=== PATIENT | male | born 1980 | race African-American/Black ===

== ENCOUNTER 2023-04-15 11:36 | Outpatient (AMB) | payer OTHER, SELFPAY ==
--- NOTE | 2023-04-15 11:38 | AM.OFFWIN_ITS ---
Intake Vital Signs 04/15/23 11:48 Height 5 ft 11 in Weight 206 lb BMI 28.7 BP 160/80 H Blood Pressure Location Lt brachial Position Sitting Pulse 89 Pulse Source Pulse Oximeter Temp 97.3 F Temp Source Temporal Artery Scan Pulse Oximetry (%) 98 Oxygen Delivery Method Room Air Intake Visit Reasons: EST/chest pain/coughing up blood(lobby masked) Intake Note: pt is here today chest pain coughing up blood started 3 weeks ago Patient Tobacco Use Status: Never used Tobacco Allergies No Known Allergies Allergy (Verified 04/15/23 11:39) Do you need a note to return to daycare/school/sports/work: No HPI HPI Comments History of Present Illness Details 42 y/o male ptient who presents to walk in clinic with c/o cough and coughing up blood x 3 weeks now. Prior h/o TB infection 2014, was treated and completed Tx for 3 months. Denies fevers, chills, nausea or vomiting. No recent contacts. 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 H/o Nasal bleeds as a child. PFSH Social History Patient Tobacco Use Status: Never used Tobacco Review of Systems Const All systems reviewed & are unremarkable except as noted in HPI and below Physical Exam Vital Signs: Last Vital Signs Temp 97.3 F 04/15/23 11:48 Pulse 89 04/15/23 11:48 BP 160/80 H 04/15/23 11:48 Pulse Ox 98 04/15/23 11:48 Oxygen Delivery Method Room Air 04/15/23 11:48 BMI result Body Mass Index 28.7 Const General: comfortable and no acute distress Nutritional Appearance: overweight HEENT Head: Yes normocephalic and Yes atraumatic Ears: external ears normal and TM's normal bilaterally General nose exam: Abnormal mucous membranes and turbinates present boggy and erythematous Face and sinus: Yes sinuses nontender Mouth: moist mucous membranes Throat: Yes uvula midline Resp Effort & Inspection: normal respiratory effort and able to speak in complete sentences Auscultation: clear to auscultation bilaterally Cardio Rate: regular rate Rhythm: regular rhythm Assessment & Plan Assessment & Plan (1) Cough in adult: Code(s): R05.9 - Cough, unspecified Plan: - Chest Xray to r/o Infection - SARs - OTC cold/cough remedies. Orders: Orders SARS-CoV2/FLU/RSV Today R05.9 - Cough, unspecified XR chest 2V Today R05.9 - Cough, unspecified Coding Level of Care Code Est Pt Level 3 (54402) Diagnoses Cough in adult R05.9 Time Spent (min) 15
[2023-04-15 11:48] VITALS: BP 160/80; PULSE 89; TEMP 36.3; O2SAT 98; BMI 28.7
== END 2023-04-15 14:45 | disposition home or self-care (01) ==
PROVIDERS: PCP Nurse Practitioner Family; Visit Provider Nurse Practitioner Family
DX: R05.9 Cough, unspecified (principal)
CPT/HCPCS: 99213

== ENCOUNTER 2023-04-15 12:19 | Outpatient (REF) | payer OTHER, SELFPAY ==
--- NOTE | ~2023-04-15 | XR_ITS ---
EXAMINATION: XR CHEST CLINICAL INFORMATION: Coughing x3 weeks. On and off. COMPARISON: None available. TECHNIQUE: 2 views of the chest were obtained. FINDINGS: No significant abnormality is noted involving the heart, lungs, mediastinum, bony thorax or soft tissues. XR/XR chest 2V IMPRESSION: Unremarkable chest examination.
[2023-04-15 15:51] LABS: Influenza A PCR NEGATIVE (Negative); Influenza B PCR NEGATIVE (Negative); Resp Syncy Virus RNA Qual PCR NEGATIVE (Negative); SARS COV2 PCR INHOUSE NEGATIVE (Negative)
== END 2023-04-15 12:20 | disposition home or self-care (01) ==
LOC: HO.HMGCX 12:19
PROVIDERS: PCP Nurse Practitioner Family; Visit Provider Nurse Practitioner Family
DX: Z11.52 Encounter for screening for COVID-19 (principal); Z20.822 Contact with and (suspected) exposure to COVID-19; R05.9 Cough, unspecified
CPT/HCPCS: 0241U; 71046

== ENCOUNTER 2023-04-15 12:22 | Outpatient (REF) | payer OTHER, SELFPAY | END 2023-04-15 12:23 | disposition home or self-care (01) | LOC: HO.LAB 12:22 | PROVIDERS: Visit Provider Nurse Practitioner Family | DX: Z13.89 Encounter for screening for other disorder (principal) ==

== ENCOUNTER 2023-08-24 14:25 | Outpatient (AMB) | payer OTHER, SELFPAY ==
[2023-08-24 14:29] VITALS: BP 112/80; PULSE 75; TEMP 37.4; O2SAT 97; BMI 28.2
--- NOTE | 2023-08-24 14:29 | MHC.OFFWIV ---
Intake Vital Signs 08/24/23 14:29 Height 5 ft 11 in Weight 202 lb BMI 28.2 BP 112/80 Blood Pressure Location Rt brachial Position Sitting Pulse 75 Pulse Source Pulse Oximeter Temp 99.3 F Temp Source Oral Pulse Oximetry (%) 97 Oxygen Delivery Method Room Air Intake Visit Reasons: EP itchy leg/red eye Intake Note: pt is here for itchy legs and also red left eye. x 2 wks Patient Tobacco Use Status: Never used Tobacco Allergies lisinopril Allergy (Intermediate, Verified 08/24/23 14:38) Shortness of Breath Do you need a note to return to daycare/school/sports/work: No HPI HPI Comments History of Present Illness Details 42 y/o male patient who presents to walk in clinic with c/o Itching and dry skin lower extremities for few months now. He has used Ketoconazole and Steroid creams with no relief. PFSH Social History Patient Tobacco Use Status: Never used Tobacco Review of Systems Const All systems reviewed & are unremarkable except as noted in HPI and below Physical Exam Vital Signs: Last Vital Signs Temp 99.3 F 08/24/23 14:29 Pulse 75 08/24/23 14:29 BP 112/80 08/24/23 14:29 Pulse Ox 97 08/24/23 14:29 Oxygen Delivery Method Room Air 08/24/23 14:29 BMI result Body Mass Index 28.2 Const General: comfortable and no acute distress Nutritional Appearance: well nourished Orientation/consciousness: patient oriented x3 Skin General skin exam: no rashes or lesions noted, dry skin, Excoriation and lichenification Lesions: no lesions Rashes: no rashes Neuro General: patient oriented x3, gait normal and moves all extremities Psych Speech and movement: Normal speech and movement present Assessment & Plan Assessment & Plan (1) Pruritus: Code(s): L29.9 - Pruritus, unspecified Plan: Patient has no PCP. Moved from [place], no available previous medical records on File. Pt denies any chronic liver, Kidney, heart, DM conditions. H/o HTN on medications. Avoid Hot water, use Luke warm water and moisturize skin immediately after shower. Advised Pt to call [facility] for an Appointment Advised OTC Skin/Eczema creams/lotions Encouraged to obtain a PCP, he will need Blood work to investigate the cause of Itchy skin. Plan Patient has no PCP. Moved from [place], no available previous medical records on File. Pt denies any chronic liver, Kidney, heart, DM conditions. H/o HTN on medications. Avoid Hot water, use Luke warm water and moisturize skin immediately after shower. Advised Pt to call [facility] for an Appointment Advised OTC Skin/Eczema creams/lotions Encouraged to obtain a PCP, he will need Blood work to investigate the cause of Itchy skin. Coding Level of Care Code Est Pt Level 3 (22557) Diagnoses Pruritus L29.9 Time Spent (min) 15
== END 2023-08-24 15:06 | disposition home or self-care (01) ==
PROVIDERS: Visit Provider Nurse Practitioner Family
DX: L29.9 Pruritus, unspecified (principal)
CPT/HCPCS: 99213

== ENCOUNTER 2023-08-29 14:01 | Outpatient (AMB) | payer OTHER, SELFPAY ==
[2023-08-29 14:04] VITALS: BP 140/84; PULSE 76; TEMP 37; O2SAT 97; BMI 28.5
--- NOTE | 2023-08-29 14:04 | MHC.PC.OV ---
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 Allergies lisinopril Allergy (Intermediate, Verified 08/29/23 14:06) Shortness of Breath Tobacco use date assessed: 08/29/23 Dental Screening Dental Screen Date: 08/29/23 Did you have a dental visit in the last 12 months?: Yes Did you have a dental problem in the last 6 months where you did not have access to dental care?: No Was dental information given to patient?: Patient has dentist HPI HPI Comments History of Present Illness Details This is a 42-year-old male with a past medical history of hypertension, hyperlipidemia, vitamin-D and B12 deficiency presenting to establish care. He needs a physical exam. 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 He relocated from the [facility] to [facility] last year. He has 3 children. He has 2 boys ages 2-1/2 and 6 years and an 11-year-old stepdaughter. Patient always has positive PPDs and needs a chest x-ray as proof of tuberculosis negative screening for work. Patient is on supplementation for vitamin B12 and vitamin-D deficiency. Patient is treated with amlodipine 10 mg and losartan 25 mg for hypertension. His blood pressure is mildly elevated today. He admits he is a little nervous to come to the office for a new appointment. At the walk-in last week his blood pressure was 112/80. He monitors his blood pressure at home. Patient was seen at the walk-in for left lower extremity itching. He says this has happened before, and it always occurs during warmer months. He has tried some [id number] creams. No new exposures or medications. ROS: Constitutional: No unexplained weight loss, fever, chills, fatigue or night sweats. Eyes: +Difficulty reading, but has no trouble seeing far (he will schedule an eye exam). No double vision, eye pain, eye redness, eye discharge. ENT: No hearing loss, sneezing, congestion, runny nose or sore throat. Respiratory: No shortness of breath, cough or sputum production. Cardiovascular: No chest pain, chest pressure or chest discomfort. No palpitations or pedal edema. Gastrointestinal: No anorexia, nausea, vomiting or diarrhea. No abdominal pain or blood in stool. Genitourinary: No dysuria, hematuria, urinary frequency. Neurologic: No headache, dizziness, syncope, unilateral weakness, ataxia, numbness or tingling in the extremities. Musculoskeletal: No muscle pain, back pain, joint pain or swelling. Hematologic/Lymphatics: No bleeding or bruising. No painful lymph nodes. Skin: see HPI Endocrine: No cold or heat intolerance. No polyuria or polydipsia. Psychiatric: No depression or anxiety. No SI/HI. Physical exam: Constitutional: Alert, in no distress. Head: Normocephalic. Eyes: Pupils are equal, round and reactive to light. Extraocular muscles intact. Ear, Nose and Throat: Canals clear. TMs normal. Normal nasal mucosa. No nasal discharge. No oral lesions. Neck: Supple, Full range of motion. No lymphadenopathy. No palpable thyroid masses. Respiratory: Clear to auscultation. Cardiovascular: S1 S2 regular. No murmurs. Gastrointestinal: Abdomen soft, non-tender, non-distended. Normal bowel sounds. No palpable masses. Genitourinary: Patient deferred. Neurologic: No focal neurological deficits. Symmetric patellar reflexes. Moves all extremities spontaneously. Sensation intact bilaterally. Skin: hyperpigmentation on left ankle and lower leg and a few papules and minor excoriations Musculoskeletal: No gross deformities. Normal range of motion. Extremities: Warm and well perfused. No clubbing, cyanosis or edema. 3+ peripheral pulses bilaterally. Psychiatric: Normal mood and affect [facility] Medical History (Updated 08/29/23 @ 15:12 by NALINI Colin) B12 deficiency Vitamin D deficiency Hyperlipidemia Essential hypertension Dermatitis High blood pressure Surgical History (Updated 08/29/23 @ 15:05 by NALINI Colin) History of hydrocelectomy Family History (Updated 08/29/23 @ 15:01 by NALINI Colin) Mother Diabetes Maternal Grandmother High blood pressure Family/Other Breast cancer Social History (Updated 08/29/23 @ 14:23 by Ivis Ruiz CMA) Household Members: Family Both parents involved: No Caregiver staying overnight: No Housing: House Are you a primary medication care manager to a significant other at home: No Do you presently have visiting nurse or other home services: No 75 years or older and lives alone: No Alcohol intake: never Patient Tobacco Use Status: Never used Tobacco e-Cigarette/Vaping Use: Never Used service: No Current occupational status: employed 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 1. Little interest or pleasure in doing things: not at all 2. Feeling down, depressed, or hopeless: not at all 3. Trouble falling or staying asleep, or sleeping too much: not at all 4. Feeling tired or having little energy: not at all 5. Poor appetite or overeating: not at all 6. Feeling bad about yourself - or that you are a failure or have let yourself or your family down: not at all 7. Trouble concentrating on things, such as reading the newspaper or watching television: not at all 8. Moving or speaking so slowly that other people could have noticed. Or the opposite - being so fidgety or restless that you have been moving around a lot more than usual: not at all 9. Thoughts that you would be better off or of hurting yourself in some way: not at all Total score: 0 Depression Screening Interpretation: Negative Depression Screening Done: Yes 95085 - PHQ-9 Billing: Yes Source: Developed by Drs. Rudy Zhao, Anita Melendrez, Chidi Sanchez and colleagues, with an educational caro from [employer]. Thrive Questionnaire Date Thrive assessed: 08/29/23 I am a: Patient What is your living situation today?: I have a steady place to live Within the past 12 months, did the food you bought not last and you didn't have the money to get more?: Never true Within the past 12 months, did you worry whether your food would run out before you got money to buy more?: Never true Do you have trouble paying for medicines?: No Do you have trouble getting transportation to medical appointments?: No Do you have trouble paying your heating and electricity bill?: No Do you have trouble taking care of your child, family member or friend?: No Do you have trouble with day-to-day activities such as bathing, preparing meals, shopping, managing finances, etc.?: No Are you currently unemployed and looking for a job?: No Are you interested in more education?: Yes Currently or been in a relationship where the following occur: No concerns reported THRIVE Score: 0 AUDIT C Alcohol Use Questionnaire (AUDIT-C) 1. How often do you have a drink containing alcohol?: Never 3. How often do you have six or more drinks on one occasion?: Never Total Score: 0 MICHELLE-7 AMB Questionnaire MICHELLE-7 Date MICHELLE - 7 assessed: 08/29/23 Feeling nervous, anxious, or on edge: 1 = Several days Not being able to stop or control worryin = Not at all Worrying too much about different things: 0 = Not at all Trouble relaxin = Not at all Being so restless that it is hard to sit still: 0 = Not at all Becoming easily annoyed or irritable: 1 = Several days Feeling afraid as if something awful might happen: 1 = Several days Total MICHELLE-7 score (0-4 normal; 5-9 mild; 10-14 moderate; 15-21 severe): 3 Source: Developed by Drs. Rudy Zhao, Anita Melendrez, Chidi Sanchez and colleagues, with an educational caro from [employer]. MICHELLE-7 Assessment Billing MICHELLE-7 Assessment Tool: MICHELLE-7 Assessment 24111 Physical exam (Primary Care) Vital Signs: Last Vital Signs Temp 98.6 F 08/29/23 14:04 Pulse 76 08/29/23 14:04 BP 140/84 H 08/29/23 14:04 Pulse Ox 97 08/29/23 14:04 Oxygen Delivery Method Room Air 08/29/23 14:04 BMI result Body Mass Index 28.5 Tobacco/Smoking Status: Tobacco use Status Tobacco use date assessed 08/29/23 08/29/23 14:23 Patient Tobacco Use Status Never used Tobacco 08/29/23 14:23 e-Cigarette/Vaping Use Never Used 08/29/23 14:23 PHQ-9: PHQ-9 Score PHQ-9: Total score 0 08/29/23 14:40 Depression Screening Interpretation: Negative Thrive Assessment: Date of Thrive Assessment Date Thrive assessed 08/29/23 08/29/23 14:23 Currently or been in a relationship where the following occur: No concerns reported Assessment and Plan Assessment & Plan (1) Routine physical examination: Code(s): Z00.00 - Encounter for general adult medical examination without abnormal findings Plan: Patient is seen today for a routine physical. As part of this visit we reviewed the following issues, which are considered and essential part of preventative health in this age group: - Testicular cancer screening, which includes self exam teaching - Screening for colon cancer - referred for screening colonoscopy since he is due in October - Discussed Prostate cancer screening - psa ordered - Cholesterol screening - Nutritional and exercise counseling - Counseling of injury prevention including fire prevention, smoke alarms and seat belt usage - Screening for depression - Prevention of and/or testing for infectious diseases - Education about skin cancer - Recommendations about immunizations - Recommendation of an eye exam - Screening for substance abuse (2) Dermatitis: Code(s): L30.9 - Dermatitis, unspecified Plan: Continue use of hypoallergenic products. Trial of Lotrisone twice daily for 10 days. Refer to Dermatology. (3) Hyperlipidemia: Code(s): E78.5 - Hyperlipidemia, unspecified Qualifiers: Hyperlipidemia type: pure hypercholesterolemia Qualified Code(s): E78.00 - Pure hypercholesterolemia, unspecified Plan: Check lipid profile. (4) Essential hypertension: Code(s): I10 - Essential (primary) hypertension Plan: Patient was nervous today which may be increasing blood pressure. Last week blood pressure was normal. He will monitor at home and contact the office if readings are not under 130/80. (5) B12 deficiency: Code(s): E53.8 - Deficiency of other specified B group vitamins Plan: Continue supplementation. Check B12. (6) Vitamin D deficiency: Code(s): E55.9 - Vitamin D deficiency, unspecified Plan: Continue supplementation. Check vitamin-D level. Orders: Orders XR chest 2V Today Z11.1 - Encounter for screening for respiratory tuberculosis Comprehensive Met. Panel Today E53.8 - Deficiency of other specified B group vitamins, E55.9 - Vitamin D deficiency, unspecified, E78.5 - Hyperlipidemia, unspecified, I10 - Essential (primary) hypertension, L30.9 - Dermatitis, unspecified Lipid Panel Today E53.8 - Deficiency of other specified B group vitamins, E55.9 - Vitamin D deficiency, unspecified, E78.5 - Hyperlipidemia, unspecified, I10 - Essential (primary) hypertension, L30.9 - Dermatitis, unspecified TSH reflex Free T4 Today E53.8 - Deficiency of other specified B group vitamins, E55.9 - Vitamin D deficiency, unspecified, E66.9 - Obesity, unspecified, E78.5 - Hyperlipidemia, unspecified, I10 - Essential (primary) hypertension, L30.9 - Dermatitis, unspecified Complete Blood Count no Diff Today E53.8 - Deficiency of other specified B group vitamins, E55.9 - Vitamin D deficiency, unspecified, E78.5 - Hyperlipidemia, unspecified, I10 - Essential (primary) hypertension, L30.9 - Dermatitis, unspecified Prostate Specific Antigen Scr Today E53.8 - Deficiency of other specified B group vitamins, E55.9 - Vitamin D deficiency, unspecified, E78.5 - Hyperlipidemia, unspecified, I10 - Essential (primary) hypertension, L30.9 - Dermatitis, unspecified, Z12.5 - Encounter for screening for malignant neoplasm of prostate Vitamin D 1,25 dihydroxy Today E53.8 - Deficiency of other specified B group vitamins, E55.9 - Vitamin D deficiency, unspecified Vitamin B12 Today E53.8 - Deficiency of other specified B group vitamins, E55.9 - Vitamin D deficiency, unspecified Referrals Open Access Screening Colonoscopy Referral Z12.11 - Encounter for screening for malignant neoplasm of colon, Z12.12 - Encounter for screening for malignant neoplasm of rectum Dermatology Referral L30.9 - Dermatitis, unspecified Medications: New losartan 25 mg PO DAILY 90 tabs 3RF amlodipine 10 mg PO DAILY 90 tabs 3RF clotrimazole-betamethasone 1-0.05 % 1 appl topical BID 10 days 45 grams 0RF Patient Instructions: Follow up in 6 months for HTN Coding Level of Care Code Est Pt Prev Care 40-64y(76173) Diagnoses Routine physical examination Z00.00 Dermatitis L30.9 Pure hypercholesterolemia E78.00 Hyperlipidemia type: pure hypercholesterolemia Essential hypertension I10 B12 deficiency E53.8 Vitamin D deficiency E55.9 Additional Codes MICHELLE-7 Assessment Billing - MICHELLE-7 Assessment Tool: MICHELLE-7 Assessment [id number] ([id number])
== END 2023-08-29 15:00 | disposition home or self-care (01) ==
LOC: HO.HMGFM 14:01
PROVIDERS: PCP Physician Assistant Medical; Visit Provider Physician Assistant Medical
DX: Z00.00 Encounter for general adult medical examination without abnormal findings (principal); L30.9 Dermatitis, unspecified; E78.00 Pure hypercholesterolemia, unspecified; I10 Essential (primary) hypertension; E53.8 Deficiency of other specified B group vitamins; E55.9 Vitamin D deficiency, unspecified
CPT/HCPCS: 99396

== ENCOUNTER 2023-08-31 09:21 | Outpatient (REF) | payer OTHER, SELFPAY ==
--- NOTE | ~2023-08-31 | XR_ITS ---
EXAMINATION: XR CHEST CLINICAL INFORMATION: Screening for respiratory tuberculosis. COMPARISON: 2023 TECHNIQUE: 2 views of the chest were obtained. FINDINGS: Lungs are well-inflated and clear. Trachea is midline in position. No interstitial disease, consolidation or mass. No evidence of pulmonary nodules. No pleural effusion or pneumothorax. Cardiac silhouette and pulmonary vessels are normal in size. The mediastinum and yojana have normal contour. The visualized bones and upper abdomen are unremarkable. XR/XR chest 2V IMPRESSION: Lungs have a normal appearance. No evidence of infectious disease.
[2023-08-31 13:29] LABS: Hematocrit 38.5 % (42.0-52.0); Hemoglobin 13.3 g/dl (14.0-18.0); Mean Corpuscular HGB Conc 34.5 g/dl (31.0-36.0); Mean Corpuscular Volume 86.7 fL (80.0-98.0); Mean Platelet Volume 11.1 fL (9.4-12.4); Platelet Count 211 X10*3/uL (160-400); Red Blood Count 4.44 X10*6/uL (4.60-5.80); Red Cell Distribution Width 13.4 % (11.0-16.0)
[2023-08-31 13:55] LABS: Alanine Aminotransferase 19 U/L (0-40); Albumin Level 4.1 g/dL (3.5-5.0); Alkaline Phosphatase 91 U/L (39-117); Anion Gap 9 (12-20); Aspartate Amino Transferase 22 U/L (5-37); Bilirubin Total 0.5 mg/dL (0.0-1.0); Blood Urea Nitrogen 10 mg/dL (9-16); Calcium 8.8 mg/dL (8.4-10.2); Carbon Dioxide 28 mmol/L (22-29); Chloride 107 mmol/L (96-108); Cholesterol 179 mg/dL (<200); Estimated Glomerular Filt Rate > 60; Glucose Random 97 mg/dL (60-115); HDL Cholesterol 34 mg/dL (>40); LDL Cholesterol Calculated 127 mg/dL (<100); Potassium 3.2 mmol/L (3.3-5.1); Sodium 141 mmol/L (135-145); TSH reflex Free T4 1.14 uIU/mL (0.32-4.0); Triglycerides 92 mg/dL (<150)
[2023-08-31 14:16] LABS: Prostate Specific Antigen Scr 0.53 ng/mL (<0.05-4.0); Vitamin B12 490 pg/mL (200-900)
[2023-09-05 15:38] LABS: VITAMIN D (1,25 OH) D3 86 pg/mL; Vit D (1,25-Dihydroxy) Total 86 pg/mL (18-72); Vitamin D (1,25 OH) D2 <8 pg/mL
== END 2023-08-31 09:22 | disposition home or self-care (01) ==
LOC: HO.HMGCX 09:21
PROVIDERS: PCP Physician Assistant Medical; Visit Provider Physician Assistant Medical
DX: E78.5 Hyperlipidemia, unspecified (principal); I10 Essential (primary) hypertension; L30.9 Dermatitis, unspecified; E55.9 Vitamin D deficiency, unspecified; E53.8 Deficiency of other specified B group vitamins; Z12.5 Encounter for screening for malignant neoplasm of prostate; E66.9 Obesity, unspecified; Z11.1 Encounter for screening for respiratory tuberculosis
CPT/HCPCS: 36415; 71046; 80053; 80061; 82607; 82652; 84153; 84443; 85027

== ENCOUNTER 2023-09-30 10:47 | Outpatient (REF) | payer OTHER, SELFPAY ==
[2023-09-30 13:12] LABS: MANUAL DIFF FLAG NO
[2023-09-30 13:16] LABS: Basophils Percent Auto 0.6 % (0-2); Eosinophils Absolute Auto 0.1 X10*3/uL (0.0-0.4); Eosinophils Percent Auto 1.5 % (0-4); Hemoglobin 13.9 g/dl (14.0-18.0); Imm Gran Abs Auto 0.02 X10*3/uL (0.00-0.03); Imm Gran Pct Auto 0.4 % (0.0-0.4); Lymphocytes Absolute Auto 2.1 X10*3/uL (1.2-4.9); Mean Corpuscular HGB Conc 34.8 g/dl (31.0-36.0); Mean Corpuscular Hemoglobin 29.6 pg (27.0-33.0); Mean Corpuscular Volume 85.3 fL (80.0-98.0); Mean Platelet Volume 10.6 fL (9.4-12.4); Monocytes Absolute Auto 0.4 X10*3/uL (0.1-1.2); Neutrophils Absolute Auto 2.9 x10*3/uL (2.0-8.3); Neutrophils Percent Auto 52.5 % (45-73); Platelet Count 236 X10*3/uL (160-400); Red Blood Count 4.69 X10*6/uL (4.60-5.80); Red Cell Distribution Width 13.4 % (11.0-16.0); White Blood Count 5.5 X10*3/uL (4.8-10.8)
[2023-09-30 13:38] LABS: Iron 58 mcg/dL (45-160); Percent Iron Saturation 24 % (15-50); Potassium 3.1 mmol/L (3.3-5.1); Total Iron Binding Capacity 246 mcg/dL (228-428); Unsaturated Iron Binding 188 ug/dL
[2023-09-30 13:55] LABS: Ferritin 27 ng/mL (20-250)
== END 2023-09-30 10:48 | disposition home or self-care (01) ==
LOC: HO.HMGCLDS 10:47
PROVIDERS: PCP Physician Assistant Medical; Visit Provider Physician Assistant Medical
DX: D64.9 Anemia, unspecified (principal); E87.6 Hypokalemia; D72.819 Decreased white blood cell count, unspecified
CPT/HCPCS: 36415; 82728; 83540; 84132; 85025

== ENCOUNTER 2023-11-09 11:14 | Outpatient (AMB) | payer OTHER, SELFPAY ==
[2023-11-09 11:16] VITALS: BP 150/100; PULSE 78; O2SAT 99; BMI 27.9
--- NOTE | 2023-11-09 11:16 | HO.NEPHOV ---
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 He was 1st diagnosed with hypertension at the age of 18. He has been referred for hypokalemia. He has had persistent hypokalemia and currently on potassium supplementation. On amlodipine as well as a losartan for the control blood pressure. Despite this blood pressure has been suboptimal and systolic blood pressure has been around 150 mm Hg. Recent lab work showed potassium was 3.1 despite potassium supplementation. There was no alkalosis. Renal function stable. He is not on any diuretics Does not take any licorice. He is not on any other ampb-nde-hreutva medications. [facility] Medical History (Updated 10/07/23 @ 10:46 by NALINI Colin) Hypokalemia Anemia Leukopenia B12 deficiency Vitamin D deficiency Hyperlipidemia Essential hypertension Dermatitis High blood pressure Surgical History History of hydrocelectomy Family History Mother Diabetes Maternal Grandmother High blood pressure Family/Other Breast cancer Social History Household Members: Family Both parents involved: No Caregiver staying overnight: No Housing: House Are you a primary residential care facility manager to a significant other at home: No Do you presently have visiting nurse or other home services: No 75 years or older and lives alone: No Alcohol intake: never Patient Tobacco Use Status: Never used Tobacco e-Cigarette/Vaping Use: Never Used service: No Current occupational status: employed 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 Cognitive needs: No Hearing needs: No Vision needs: Yes (Patient states vision is blurry.) Review of Systems Const Denies fever(s) and Denies weight loss Card Denies chest pain Resp Denies cough and Denies hemoptysis GI Denies abdominal pain, Denies diarrhea and Denies nausea Musc Denies back pain Neuro Denies focal weakness Physical Exam Vital Signs: Last Vital Signs Pulse 78 11/09/23 11:16 BP 150/100 H 11/09/23 11:16 Pulse Ox 99 11/09/23 11:16 Oxygen Delivery Method Room Air 11/09/23 11:16 BMI result Body Mass Index 27.9 Const General: comfortable; No acute distress Orientation/consciousness: patient oriented x3 Eyes General: appearance normal, both eyes and all related structures Visual Padilla: normal visual padilla by confrontation Neck Neck: Yes supple and Yes no JVD Resp Effort & Inspection: normal respiratory effort and respiratory effort not decreased Auscultation: rhonchi Cardio Palpation: no palpable S3 and no palpable S4 Heart sounds: no rubs GI Inspection: Yes normal to inspection Palpation (GI): Soft to palpation Percussion: Yes normal to percussion Auscultation: normal bowel sounds General: Yes no CVA tenderness Back/Spine/Pelvis Back: no CVA tenderness Skin General skin exam: no petechiae and no purpura Neuro General: patient oriented x3 and no focal motor deficits Extrem General: No clubbing and No edema Results Reviewed Nephrology Results: Hgb 13.9 g/dl (14.0-18.0) L 09/30/23 WBC 5.5 X10*3/uL (4.8-10.8) 09/30/23 Plt Count 236 X10*3/uL (160-400) 09/30/23 Sodium 141 mmol/L (135-145) 08/31/23 Potassium 3.1 mmol/L (3.3-5.1) L 09/30/23 Chloride 107 mmol/L (96-108) 08/31/23 Carbon Dioxide 28 mmol/L (22-29) 08/31/23 BUN 10 mg/dL (9-16) 08/31/23 Creatinine 0.80 mg/dL (0.5-1.4) 08/31/23 Calcium 8.8 mg/dL (8.4-10.2) 08/31/23 Assessment & Plan Assessment & Plan (1) Hypokalemia: Code(s): E87.6 - Hypokalemia Category: Medical (2) Essential hypertension: Code(s): I10 - Essential (primary) hypertension Category: Medical Plan Young man with a history of klwofjhye-nu-fxopbga hypertension with hypokalemia. Even the onset of hypertension at a young age along with hypokalemia ,hyperaldosteronism should be ruled out, even though the recent lab work did not reveal any significant alkalosis. However the total CO2 was on the upper limit of normal. Recommendations We will evaluate for hyperaldosteronism. Hold losartan for 2 weeks and replace with hydralazine 25 mg b.i.d.. Check plasma renin activity and plasma aldosterone. Further workup will be did mention the outcome of these investigations. I have answered all his questions Orders: Orders Renin 2 Weeks E87.6 - Hypokalemia Basic Metabolic Panel 2 Weeks E87.6 - Hypokalemia Cortisol, Free 2 Weeks E87.6 - Hypokalemia Aldosterone 2 Weeks E87.6 - Hypokalemia Aldost/Renin 2 Weeks E87.6 - Hypokalemia UA and rflx microscopic 2 Weeks E87.6 - Hypokalemia Medications: New hydralazine 25 mg PO BID 60 tabs 0RF On Hold losartan Hold Comment: Doctor's Order 25 mg PO DAILY 90 tabs 3RF Coding Level of Care Code New Pt Level 4 (37072) Diagnoses Hypokalemia E87.6 Essential hypertension I10
== END 2023-11-09 11:39 | disposition home or self-care (01) ==
PROVIDERS: PCP Physician Assistant Medical; Referring Provider Physician Assistant Medical; Visit Provider Internal Medicine Hypertension Specialist
DX: E87.6 Hypokalemia (principal); I10 Essential (primary) hypertension
CPT/HCPCS: 99204

== ENCOUNTER → 2023-11-09 11:14 | Outpatient (BNVA) | payer OTHER, SELFPAY | PROVIDERS: PCP Physician Assistant Medical; Referring Provider Physician Assistant Medical; Visit Provider Internal Medicine Hypertension Specialist | DX: E87.6 Hypokalemia (principal); I10 Essential (primary) hypertension; E53.8 Deficiency of other specified B group vitamins; E55.9 Vitamin D deficiency, unspecified | CPT/HCPCS: 99202 ==

== ENCOUNTER 2023-12-28 11:53 | Outpatient (REF) | payer OTHER, SELFPAY ==
[2023-12-28 14:07] LABS: Anion Gap 10 (12-20); Blood Urea Nitrogen 12 mg/dL (9-16); Calcium 9.2 mg/dL (8.4-10.2); Carbon Dioxide 27 mmol/L (22-29); Chloride 105 mmol/L (96-108); Estimated Glomerular Filt Rate > 60; Glucose Random 89 mg/dL (60-115); Potassium 3.2 mmol/L (3.3-5.1); Sodium 139 mmol/L (135-145)
[2023-12-28 17:28] LABS: Appearance Urine Clear; Color Urine Yellow; Glucose Urine UA Negative (Negative); Leukocyte Esterase Urine Negative (Negative); Nitrite Urine Negative (Negative); PH 7.5 (5.0-9.0); Urine Blood Negative (Negative); Urine Ketones Negative (Negative); Urine Protein Negative (Neg-Trace)
[2024-01-03 11:43] LABS: Renin 0.25 ng/mL/h (0.25-5.82)
[2024-01-04 13:49] LABS: Aldosterone/Renin Ratio 47.4 Ratio (0.9-28.9); Plasma Renin Activity 0.19 ng/mL/h (0.25-5.82)
[2024-01-06 01:53] LABS: Cortisol, Free 0.46 mcg/dL
== END 2023-12-28 11:54 | disposition home or self-care (01) ==
LOC: HO.HMGCLDS 11:53
PROVIDERS: PCP Physician Assistant Medical; Visit Provider Internal Medicine Hypertension Specialist
DX: E87.6 Hypokalemia (principal)
CPT/HCPCS: 36415; 80048; 81003; 82088; 82530; 83735; 84244

== ENCOUNTER 2024-01-04 10:23 | Outpatient (AMB) | payer OTHER, SELFPAY ==
[2024-01-04 10:25] VITALS: BP 128/84; PULSE 98; O2SAT 86; BMI 28.3
--- NOTE | 2024-01-04 10:25 | HO.NEPHOV ---
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 He was 1st diagnosed with hypertension at the age of 18. He has been referred for hypokalemia. He has had persistent hypokalemia and currently on potassium supplementation. On amlodipine as well as a losartan for the control blood pressure. Despite this blood pressure has been suboptimal and systolic blood pressure has been around 150 mm Hg. Recent lab work showed potassium was 3.1 despite potassium supplementation. There was no alkalosis. Renal function stable. He is not on any diuretics Does not take any licorice. He is not on any other bcrs-pvh-rtidhqb medications. 01/04/24 Events noted Persistent hypokalemia PA/PRA pending [place] [facility] [place] Spironolactone 25 mg QD has been added Feels tired [facility] Medical History (Updated 10/07/23 @ 10:46 by NALINI Colin) Hypokalemia Anemia Leukopenia B12 deficiency Vitamin D deficiency Hyperlipidemia Essential hypertension Dermatitis High blood pressure Surgical History History of hydrocelectomy Family History Mother Diabetes Maternal Grandmother High blood pressure Family/Other Breast cancer Social History Household Members: Family Both parents involved: No Caregiver staying overnight: No Housing: House Are you a primary restorative care technician to a significant other at home: No Do you presently have visiting nurse or other home services: No 75 years or older and lives alone: No Alcohol intake: never Patient Tobacco Use Status: Never used Tobacco e-Cigarette/Vaping Use: Never Used service: No Current occupational status: employed 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 Cognitive needs: No Hearing needs: No Vision needs: Yes (Patient states vision is blurry.) Physical Exam Vital Signs: Last Vital Signs Pulse 98 01/04/24 10:25 BP 128/84 01/04/24 10:25 Pulse Ox 86 L 01/04/24 10:25 Oxygen Delivery Method Room Air 01/04/24 10:25 BMI result Body Mass Index 28.3 No orthostatic BP changes Const General: comfortable; No acute distress Orientation/consciousness: patient oriented x3 Eyes General: appearance normal, both eyes and all related structures Visual Padilla: normal visual padilla by confrontation Neck Neck: Yes supple and Yes no JVD Resp Effort & Inspection: normal respiratory effort and respiratory effort not decreased Auscultation: rhonchi Cardio Palpation: no palpable S3 and no palpable S4 Heart sounds: no rubs GI Inspection: Yes normal to inspection Palpation (GI): Soft to palpation Percussion: Yes normal to percussion Auscultation: normal bowel sounds General: Yes no CVA tenderness Back/Spine/Pelvis Back: no CVA tenderness Skin General skin exam: no petechiae and no purpura Neuro General: patient oriented x3 and no focal motor deficits Extrem General: No clubbing and No edema Results Reviewed Nephrology Results: Hgb 13.9 g/dl (14.0-18.0) L 09/30/23 WBC 5.5 X10*3/uL (4.8-10.8) 09/30/23 Plt Count 236 X10*3/uL (160-400) 09/30/23 Sodium 139 mmol/L (135-145) 12/28/23 Potassium 3.2 mmol/L (3.3-5.1) L 12/28/23 Chloride 105 mmol/L (96-108) 12/28/23 Carbon Dioxide 27 mmol/L (22-29) 12/28/23 BUN 12 mg/dL (9-16) 12/28/23 Creatinine 0.74 mg/dL (0.5-1.4) 12/28/23 Calcium 9.2 mg/dL (8.4-10.2) 12/28/23 Urine Protein Negative mg/dL (Neg-Trace) 12/28/23 Assessment & Plan Assessment & Plan (1) Hypokalemia: Code(s): E87.6 - Hypokalemia Category: Medical (2) Essential hypertension: Code(s): I10 - Essential (primary) hypertension Category: Medical Plan Young man with a history of zrketmcgi-ri-zdbciap hypertension with hypokalemia. Even the onset of hypertension at a young age along with hypokalemia ,hyperaldosteronism should be ruled out, even though the recent lab work did not reveal any significant alkalosis. However the total CO2 was on the upper limit of normal. Recommendations Work up for hyperaldosteronism. in progress Keep Spironolactone 12.5 mg BID Await Plasma renin activity and plasma aldosterone. Based on this, will image adrenals Watch PB at home follow up in 1 week and lower BP meds based on home BP readings Orders: Orders Basic Metabolic Panel 2 Days Philip Medina MD E87.6 - Hypokalemia, I10 - Essential (primary) hypertension Medications: Changed From hydralazine 25 mg PO BID 180 tabs 0RF To hydralazine 25 mg PO TID Philip Medina MD Resumed losartan 25 mg PO DAILY 90 tabs 3RF NALINI Colin Coding Level of Care Code Est Pt Level 4 (97837) Diagnoses Hypokalemia E87.6 Essential hypertension I10
== END 2024-01-04 10:50 | disposition home or self-care (01) ==
PROVIDERS: PCP Physician Assistant Medical; Visit Provider Internal Medicine Hypertension Specialist
DX: E87.6 Hypokalemia (principal); I10 Essential (primary) hypertension
CPT/HCPCS: 99214

== ENCOUNTER → 2024-01-04 10:23 | Outpatient (BNVA) | payer OTHER, SELFPAY | PROVIDERS: PCP Physician Assistant Medical; Visit Provider Internal Medicine Hypertension Specialist | DX: I10 Essential (primary) hypertension (principal); E87.6 Hypokalemia | CPT/HCPCS: 99212 ==

== ENCOUNTER 2024-01-05 11:36 | Outpatient (AMB) | payer OTHER, SELFPAY ==
--- NOTE | 2024-01-05 11:44 | A.OFFPC_ITS ---
Vital Signs 01/05/24 11:48 Height 5 ft 11 in Weight 207 lb 8 oz BMI 28.9 BP 132/82 Blood Pressure Location Lt brachial Position Sitting Pulse 87 Pulse Source Pulse Oximeter Pulse Oximetry (%) 98 Oxygen Delivery Method Room Air Intake Visit Reasons: ER Follow up , chest pain Intake Note: Emergency room folow up Allergies lisinopril Allergy (Intermediate, Verified 01/05/24 11:45) Shortness of Breath Tobacco use date assessed: 08/29/23 Dental Screening Dental Screen Date: 08/29/23 HPI HPI Comments History of Present Illness Details This is a 43-year-old male with a past medical history of chronic hypokalemia, longstanding hypertension, hyperlipidemia, B12 deficiency, vitamin- D deficiency, anemia presenting for hospital follow up. He presented with atypical chest pain. Per discharge summary troponin x2 negative. His EKG demonstrated LVH. Echocardiogram showed left ventricular hypertrophy. He was found to have very elevated blood pressure. He had a negative nuclear stress test. His medications were adjusted. He is currently taking losartan 25 mg, amlodipine 10 mg, spironolactone 25 mg and hydralazine 25 mg 3 times a day. He endorses fatigue on this regimen but otherwise is tolerating it. 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 He is undergoing evaluation for possible secondary hypertension. He continues to take his potassium supplement, and his potassium level was 3.2. Patient says it took a few days, but the heaviness in his chest resolved. He denies exertional chest pain or shortness of breath. No swelling in his legs. His blood pressure today is 132/82. He follows a very healthy diet. He ran out of vitamin B12 and vitamin-D a week ago. He was never contacted to schedule a colonoscopy. Denies abdominal pain, blood in his stools, unexplained weight loss. He has 2 bumps on the side of his right 5th toe which are painful. They have been there for months. ROS: Constitutional: No unexplained weight loss, fever, chills or night sweats. Eyes: No vision changes, blurry vision, double vision Respiratory: No shortness of breath, cough or sputum production. Cardiovascular: No chest pain, chest pressure or chest discomfort. No palpitations or pedal edema. Gastrointestinal: No anorexia, nausea, vomiting or diarrhea. No abdominal pain or blood in stool. Denies reflux. Neurologic: No headache, dizziness, syncope, no numbness or tingling in extremities Hematologic/Lymphatics: No bleeding or bruising Skin: No rash Endocrine: No cold or heat intolerance. No polyuria or polydipsia. Physical exam: Constitutional: Alert, in no distress. Eyes: Pupils are equal, round and reactive to light. Extraocular muscles intact. Neck: Supple, Full range of motion. No lymphadenopathy. No palpable thyroid masses. Respiratory: Clear to auscultation. Cardiovascular: S1 S2 regular. No murmurs. Gastrointestinal: Abdomen soft, non-tender, non-distended. Normal bowel sounds. Neurologic: No focal neurological deficits. Skin: No rashes Extremities: Warm and well perfused. No clubbing, cyanosis or edema. There is a tender callus on the lateral aspect of the right 5th toenail and a tender small lump on the same toe on the PIP joint. No discharge, redness or fluctuance. Psychiatric: Normal mood and affect [facility] Medical History (Updated 01/05/24 @ 14:03 by NALINI Colin) Hospital discharge follow-up LVH (left ventricular hypertrophy) Pain of right great toe Hypokalemia Anemia Leukopenia B12 deficiency Vitamin D deficiency Hyperlipidemia Essential hypertension Dermatitis High blood pressure Surgical History History of hydrocelectomy Family History (Updated 01/05/24 @ 11:48 by Glory Suazo CMA) Mother Diabetes Maternal Grandmother High blood pressure Family/Other Breast cancer Social History (Updated 01/05/24 @ 11:48 by Glory Suazo CMA) Household Members: Family Both parents involved: No Caregiver staying overnight: No Housing: House Are you a primary critical care cns to a significant other at home: No Do you presently have visiting nurse or other home services: No 75 years or older and lives alone: No Alcohol intake: former Patient Tobacco Use Status: Never used Tobacco e-Cigarette/Vaping Use: Never Used service: No Current occupational status: employed 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 1. Little interest or pleasure in doing things: more than half the days 2. Feeling down, depressed, or hopeless: several days 5. Poor appetite or overeating: not at all 7. Trouble concentrating on things, such as reading the newspaper or watching television: more than half the days 9. Thoughts that you would be better off or of hurting yourself in some way: not at all Source: Developed by Drs. Rudy Zhao, Anita Melendrez, Chidi Sanchez and colleagues, with an educational caro from [employer]. Thrive Questionnaire Date Thrive assessed: 01/04/24 I am a: Patient What is your living situation today?: I have a steady place to live Within the past 12 months, did the food you bought not last and you didn't have the money to get more?: Never true Within the past 12 months, did you worry whether your food would run out before you got money to buy more?: Never true Do you have trouble paying for medicines?: No Do you have trouble getting transportation to medical appointments?: No Do you have trouble paying your heating and electricity bill?: No Do you have trouble taking care of your child, family member or friend?: No Do you have trouble with day-to-day activities such as bathing, preparing meals, shopping, managing finances, etc.?: No Are you currently unemployed and looking for a job?: No Are you interested in more education?: Yes Please select the resources that you would like help with: Job search/training and Education Currently or been in a relationship where the following occur: I choose not to answer THRIVE Score: 0 AUDIT C Alcohol Use Questionnaire (AUDIT-C) 1. How often do you have a drink containing alcohol?: Monthly or less 2. How many drinks containing alcohol do you have on a typical day when you are drinking?: 1 or 2 3. How often do you have six or more drinks on one occasion?: Never Total Score: 1 MICHELLE-7 AMB Questionnaire MICHELLE-7 Date MICHELLE - 7 assessed: 08/29/23 Feeling nervous, anxious, or on edge: 0 = Not at all Not being able to stop or control worryin = Not at all Worrying too much about different things: 2 = More than half the days Trouble relaxin = More than half the days Being so restless that it is hard to sit still: 2 = More than half the days Becoming easily annoyed or irritable: 1 = Several days Feeling afraid as if something awful might happen: 2 = More than half the days Total MICHELLE-7 score (0-4 normal; 5-9 mild; 10-14 moderate; 15-21 severe): 9 Source: Developed by Drs. Rudy Zhao, Anita Melendrez, Chidi Sanchez and colleagues, with an educational caro from [employer]. Physical exam (Primary Care) Vital Signs: Last Vital Signs Pulse 87 01/05/24 11:48 BP 132/82 01/05/24 11:48 Pulse Ox 98 01/05/24 11:48 Oxygen Delivery Method Room Air 01/05/24 11:48 BMI result Body Mass Index 28.9 Tobacco/Smoking Status: Tobacco use Status Tobacco use date assessed 08/29/23 01/05/24 11:45 Patient Tobacco Use Status Never used Tobacco 01/05/24 11:48 e-Cigarette/Vaping Use Never Used 01/05/24 11:48 Thrive Assessment: Date of Thrive Assessment Date Thrive assessed 01/04/24 01/05/24 11:45 Currently or been in a relationship where the following occur: I choose not to answer Coding Level of Care Code Est Pt Level 5 (46882) Complex EM visit Add On G2211 Diagnoses Hospital discharge follow-up Z09 B12 deficiency E53.8 Anemia D64.9 Essential hypertension I10 LVH (left ventricular hypertrophy) I51.7 Time Spent (min) 45 Comment Reviewing records, seeing the patient, completing documentation Assessment & Plan Assessment & Plan (1) Hospital discharge follow-up: Code(s): Z09 - Encounter for follow-up examination after completed treatment for conditions other than malignant neoplasm Category: Medical (2) B12 deficiency: Code(s): E53.8 - Deficiency of other specified B group vitamins Category: Medical (3) Anemia: Code(s): D64.9 - Anemia, unspecified Category: Medical (4) Essential hypertension: Code(s): I10 - Essential (primary) hypertension Category: Medical (5) LVH (left ventricular hypertrophy): Code(s): I51.7 - Cardiomegaly Category: Medical Plan In summary this is a 43-year-old male with a past medical history of longstanding hypertension and hypokalemia who presented to the ER with chest heaviness. ACS ruled out. Symptoms were presumably due hypertensive emergency. His blood pressure is much better since adjusting his medications. He is following closely with Nephrology. He has another appointment Tuesday next week. He is being evaluated for possible secondary hypertension. He is tolerating the medications aside from fatigue which can be attributed to hydralazine. Patient referred to Cardiology. Patient will check CBC, vitamin-D, iron, B12 and folate today. Referred anew for colonoscopy. I asked the patient to contact me if he does not hear from scheduling in 2 weeks. Refer to podiatry for the lump on his right toe and callus. He will schedule a follow up with me in 8 weeks. Orders: Orders Vitamin B12 and Folate Today E53.8 - Deficiency of other specified B group vi tamins, E55.9 - Vitamin D deficiency, unspecified IRON PROFILE Today E53.8 - Deficiency of other specified B group vitamins, E55.9 - Vitamin D deficiency, unspecified Vitamin D 1,25 dihydroxy Today E53.8 - Deficiency of other specified B group vitamins, E55.9 - Vitamin D deficiency, unspecified Complete Blood Count no Diff Today E53.8 - Deficiency of other specified B group vitamins Referrals Gastroenterology Referral D64.9 - Anemia, unspecified, E53.8 - Deficiency of other specified B group vitamins, E55.9 - Vitamin D deficiency, unspecified, Z12.11 - Encounter for screening for malignant neoplasm of colon Podiatry Referral M79.674 - Pain in right toe(s) Cardiology Referral I10 - Essential (primary) hypertension, I51.7 - Cardiomegaly
[2024-01-05 11:48] VITALS: BP 132/82; PULSE 87; O2SAT 98; BMI 28.9
== END 2024-01-05 12:21 | disposition home or self-care (01) ==
PROVIDERS: PCP Physician Assistant Medical; Visit Provider Physician Assistant Medical
DX: D64.9 Anemia, unspecified (principal); Z09 Encounter for follow-up examination after completed treatment for conditions other than malignant neoplasm; E53.8 Deficiency of other specified B group vitamins; I10 Essential (primary) hypertension; I51.7 Cardiomegaly

== ENCOUNTER → 2024-01-05 11:36 | Outpatient (BNVA) | payer OTHER, SELFPAY | LOC: CF 01-06 09:03 | PROVIDERS: PCP Physician Assistant Medical; Referring Provider Internal Medicine Hypertension Specialist; Visit Provider Physician Assistant Medical | DX: Z09 Encounter for follow-up examination after completed treatment for conditions other than malignant neoplasm (principal); E53.8 Deficiency of other specified B group vitamins; D64.9 Anemia, unspecified; I11.9 Hypertensive heart disease without heart failure; E55.9 Vitamin D deficiency, unspecified; E78.5 Hyperlipidemia, unspecified; M79.674 Pain in right toe(s); Z79.899 Other long term (current) drug therapy | CPT/HCPCS: 99212 ==

== ENCOUNTER 2024-01-06 09:03 | Outpatient (REF) | payer OTHER, SELFPAY ==
[2024-01-06 10:11] LABS: Hematocrit 40.4 % (42.0-52.0); Hemoglobin 13.8 g/dl (14.0-18.0); Mean Corpuscular HGB Conc 34.2 g/dl (31.0-36.0); Mean Corpuscular Hemoglobin 29.6 pg (27.0-33.0); Mean Corpuscular Volume 86.5 fL (80.0-98.0); Platelet Count 210 X10*3/uL (160-400); Red Blood Count 4.67 X10*6/uL (4.60-5.80); White Blood Count 4.6 X10*3/uL (4.8-10.8)
[2024-01-06 10:56] LABS: Anion Gap 6 (12-20); Blood Urea Nitrogen 11 mg/dL (9-16); Calcium 8.9 mg/dL (8.4-10.2); Carbon Dioxide 30 mmol/L (22-29); Chloride 105 mmol/L (96-108); Estimated Glomerular Filt Rate > 60; Glucose Random 100 mg/dL (60-115); Iron 55 mcg/dL (45-160); Percent Iron Saturation 23 % (15-50); Potassium 3.4 mmol/L (3.3-5.1); Sodium 138 mmol/L (135-145); Total Iron Binding Capacity 241 mcg/dL (228-428); Unsaturated Iron Binding 186 ug/dL
[2024-01-06 11:15] LABS: Folate 9.8 ng/mL (> or = 4.0); Vitamin B12 539 pg/mL (200-900)
[2024-01-11 13:08] LABS: VITAMIN D (1,25 OH) D3 91 pg/mL; Vit D (1,25-Dihydroxy) Total 91 pg/mL (18-72); Vitamin D (1,25 OH) D2 <8 pg/mL
== END 2024-01-06 09:04 | disposition home or self-care (01) ==
LOC: HO.HMGCLDS 09:03
PROVIDERS: PCP Physician Assistant Medical; Referring Provider Internal Medicine Hypertension Specialist; Visit Provider Physician Assistant Medical
DX: I10 Essential (primary) hypertension (principal); E87.6 Hypokalemia; E53.8 Deficiency of other specified B group vitamins; E55.9 Vitamin D deficiency, unspecified
CPT/HCPCS: 36415; 80048; 82607; 82652; 82746; 83540; 85027

== ENCOUNTER 2024-01-18 13:16 | Outpatient (AMB) | payer OTHER, SELFPAY ==
--- NOTE | 2024-01-18 13:22 | HO.NEPHOV ---
Vital Signs 01/18/24 13:23 Height 5 ft 11 in Weight 209 lb BMI 29.1 BP 144/88 H Blood Pressure Location Lt brachial Position Sitting Pulse 77 Pulse Source Pulse Oximeter Pulse Oximetry (%) 97 Oxygen Delivery Method Room Air Intake Visit Reasons: 1 wk follow up/ Conf [employer] Tug Mate Required: No Accompanied by: Self / Same As Patient Allergies lisinopril Allergy (Intermediate, Verified 01/18/24 13:25) Shortness of Breath Medication List - Last Reconciled 01/18/24 by Philip Medina MD amlodipine 10 mg PO DAILY hydralazine 25 mg PO TID losartan 25 mg PO DAILY mecobalamin (vitamin B12) 1,000 mcg PO DAILY potassium chloride ER 10 mEq PO DAILY spironolactone 25 mg PO DAILY HPI Comments Details: 42-year-old man with a history of hypertension for 20 years. He was 1st diagnosed with hypertension at the age of 18. He has been referred for hypokalemia. He has had persistent hypokalemia and currently on potassium supplementation. On amlodipine as well as a losartan for the control blood pressure. Despite this blood pressure has been suboptimal and systolic blood pressure has been around 150 mm Hg. Recent lab work showed potassium was 3.1 despite potassium supplementation. There was no alkalosis. Renal function stable. He is not on any diuretics Does not take any licorice. He is not on any other [id number] medications. 01/04/24 Events noted Persistent hypokalemia PA/PRA pending Was admitted to [facility] for chest pain Spironolactone 25 mg QD has been added Feels tired 01/18/24 Feels better Home BP sub optimal [facility] Medical History (Updated 01/18/24 @ 13:39 by Philip Medina MD) Hospital discharge follow-up LVH (left ventricular hypertrophy) Pain of right great toe Hypokalemia Anemia Leukopenia B12 deficiency Vitamin D deficiency Hyperlipidemia Essential hypertension Dermatitis High blood pressure Surgical History History of hydrocelectomy Family History Mother Diabetes Maternal Grandmother High blood pressure Family/Other Breast cancer Social History Household Members: Family Both parents involved: No Caregiver staying overnight: No Housing: House Are you a primary patient care technician to a significant other at home: No Do you presently have visiting nurse or other home services: No 75 years or older and lives alone: No Alcohol intake: former Patient Tobacco Use Status: Never used Tobacco e-Cigarette/Vaping Use: Never Used service: No Current occupational status: employed 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 Cognitive needs: No Hearing needs: No Vision needs: Yes (Patient states vision is blurry.) Physical Exam Vital Signs: Last Vital Signs Pulse 77 01/18/24 13:23 BP 144/88 H 01/18/24 13:23 Pulse Ox 97 01/18/24 13:23 Oxygen Delivery Method Room Air 01/18/24 13:23 BMI result Body Mass Index 29.1 Results Reviewed Nephrology Results: Hgb 13.8 g/dl (14.0-18.0) L 01/06/24 WBC 4.6 X10*3/uL (4.8-10.8) L 01/06/24 Plt Count 210 X10*3/uL (160-400) 01/06/24 Sodium 138 mmol/L (135-145) 01/06/24 Potassium 3.4 mmol/L (3.3-5.1) 01/06/24 Chloride 105 mmol/L (96-108) 01/06/24 Carbon Dioxide 30 mmol/L (22-29) H 01/06/24 BUN 11 mg/dL (9-16) 01/06/24 Creatinine 0.82 mg/dL (0.5-1.4) 01/06/24 Calcium 8.9 mg/dL (8.4-10.2) 01/06/24 Urine Protein Negative mg/dL (Neg-Trace) 12/28/23 Assessment & Plan Assessment & Plan (1) Hypokalemia: Code(s): E87.6 - Hypokalemia Category: Medical (2) Essential hypertension: Code(s): I10 - Essential (primary) hypertension Category: Medical Plan Young man with a history of [id number] hypertension with hypokalemia. Even the onset of hypertension at a young age along with hypokalemia ,hyperaldosteronism should be ruled out, even though the recent lab work did not reveal any significant alkalosis. However the total CO2 was on the upper limit of normal. Recommendations Work up for hyperaldosteronism. PRA 0.19 PA 9 PA/PRA 47 ( high) Increase Spironolactone [address] of adrenals Watch BP at home Orders: Orders CT abdomen pelvis w IV con Today E26.9 - Hyperaldosteronism, unspecified, E87.6 - Hypokalemia, I10 - Essential (primary) hypertension Basic Metabolic Panel 1 Month E87.6 - Hypokalemia, I10 - Essential (primary) hypertension Medications: New spironolactone 25 mg PO BID 60 tabs 2RF Coding Level of Care Code Est Pt Level 4 (69895) Diagnoses Hypokalemia E87.6 Essential hypertension I10
[2024-01-18 13:23] VITALS: BP 144/88; PULSE 77; O2SAT 97; BMI 29.1
== END 2024-01-18 13:42 | disposition home or self-care (01) ==
PROVIDERS: PCP Physician Assistant Medical; Visit Provider Internal Medicine Hypertension Specialist
DX: E87.6 Hypokalemia (principal); I10 Essential (primary) hypertension
CPT/HCPCS: 99214

== ENCOUNTER → 2024-01-18 13:16 | Outpatient (BNVA) | payer OTHER, SELFPAY | PROVIDERS: PCP Physician Assistant Medical; Visit Provider Internal Medicine Hypertension Specialist | DX: E87.6 Hypokalemia (principal); I10 Essential (primary) hypertension | CPT/HCPCS: 99212 ==

== ENCOUNTER 2024-02-02 11:17 | Outpatient (AMB) | payer OTHER, SELFPAY ==
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
[2024-02-02 11:35] VITALS: BP 138/88; PULSE 75; O2SAT 99; BMI 28.5
== END 2024-02-02 12:09 | disposition home or self-care (01) ==
PROVIDERS: PCP Physician Assistant Medical; Visit Provider Physician Assistant Medical
DX: M54.50 Low back pain, unspecified (principal); M54.6 Pain in thoracic spine; F41.9 Anxiety disorder, unspecified

== ENCOUNTER 2024-02-06 13:26 | Outpatient (REF) | payer OTHER, SELFPAY ==
--- NOTE | ~2024-02-06 | XR_ITS ---
EXAMINATION: XR THORACIC SPINE XR LUMBAR SPINE CLINICAL INFORMATION: Low back pain. COMPARISON: None available. TECHNIQUE: 4 views of the thoracic spine. 4 views of the lumbar spine. FINDINGS: THORACIC SPINE: Mild dextroscoliosis of the thoracic spine. Possible borderline enlargement of the cardiac silhouette incompletely imaged on this exam should be evaluated with dedicated views of the chest. Vertical striations in multiple vertebral bodies are suggestive of diffuse demineralization. Appearance of mild superior and inferior endplate concavities in mid to lower thoracic vertebral bodies could be at least, in part, attributed to scoliosis, but correlation with clinical exam recommended to determine further management LUMBAR SPINE: Levoscoliosis of the lumbar spine. Vertical striations in multiple vertebral bodies suggestive of diffuse demineralization. Facet arthritis at the lumbosacral junction. Mild multilevel lumbar spondylosis. XR/XR thoracic spine 2V IMPRESSION: 1. Mild S-shaped thoracolumbar scoliosis. 2. Possible borderline enlargement of the cardiac silhouette is incompletely imaged on this exam and should be evaluated with dedicated views of the chest. 3. Vertical striations in multiple thoracic and lumbar vertebral bodies suggestive of diffuse demineralization. 4. Appearance of mild superior and inferior endplate concavities in mid to lower thoracic vertebral bodies could be at least, in part, attributed to scoliosis, but correlation with clinical exam recommended to determine further management. 5. Facet arthritis at the lumbosacral junction. 6. Mild multilevel lumbar spondylosis. This study was presented today, February 07, 2024, for interpretation. Stat results provided at this time as requested by referring provider. Electronically signed by: Cha Villarreal MD 02/07/2024 09:41 AM [facility]
--- NOTE | ~2024-02-06 | XR_ITS ---
EXAMINATION: XR THORACIC SPINE XR LUMBAR SPINE CLINICAL INFORMATION: Low back pain. COMPARISON: None available. TECHNIQUE: 4 views of the thoracic spine. 4 views of the lumbar spine. FINDINGS: THORACIC SPINE: Mild dextroscoliosis of the thoracic spine. Possible borderline enlargement of the cardiac silhouette incompletely imaged on this exam should be evaluated with dedicated views of the chest. Vertical striations in multiple vertebral bodies are suggestive of diffuse demineralization. Appearance of mild superior and inferior endplate concavities in mid to lower thoracic vertebral bodies could be at least, in part, attributed to scoliosis, but correlation with clinical exam recommended to determine further management LUMBAR SPINE: Levoscoliosis of the lumbar spine. Vertical striations in multiple vertebral bodies suggestive of diffuse demineralization. Facet arthritis at the lumbosacral junction. Mild multilevel lumbar spondylosis. XR/XR lumbar spine 2-3V IMPRESSION: 1. Mild S-shaped thoracolumbar scoliosis. 2. Possible borderline enlargement of the cardiac silhouette is incompletely imaged on this exam and should be evaluated with dedicated views of the chest. 3. Vertical striations in multiple thoracic and lumbar vertebral bodies suggestive of diffuse demineralization. 4. Appearance of mild superior and inferior endplate concavities in mid to lower thoracic vertebral bodies could be at least, in part, attributed to scoliosis, but correlation with clinical exam recommended to determine further management. 5. Facet arthritis at the lumbosacral junction. 6. Mild multilevel lumbar spondylosis. This study was presented today, February 07, 2024, for interpretation. Stat results provided at this time as requested by referring provider. Electronically signed by: Cha Villarreal MD 02/07/2024 09:41 AM [facility]
== END 2024-02-06 13:27 | disposition home or self-care (01) ==
LOC: HO.HMGCX 13:26
PROVIDERS: PCP Physician Assistant Medical; Visit Provider Physician Assistant Medical
DX: M54.50 Low back pain, unspecified (principal); M54.6 Pain in thoracic spine
CPT/HCPCS: 72070; 72100

== ENCOUNTER 2024-03-15 10:53 | Outpatient (REF) | payer OTHER, SELFPAY ==
--- NOTE | ~2024-03-15 | MM_ITS ---
EXAMINATION: DXA BONE DENSITY AXIAL HISTORY: Disorder of bone TECHNIQUE: [email or web address] Dual energy absorptiometry (DEXA) of the lumbar spine, total left hip, and femoral neck was performed. COMPARISON: There are no prior studies for comparison. FINDINGS: The bone mineral density of the lumbar spine is 1.080 with a T-score of -1.2, and a Z-score of -2.3. The bone mineral density of the left total hip is 1.076 with a T-score of -0.2, and a Z-score of -1.1. The bone mineral density of the left femoral neck is 1.121 with a T-score of 0.4, and a Z-score of -0.5. FRACTURE RISK: The FRAX index suggests a risk of major osteoporotic fracture of 0.9%, and of hip fracture 0.0%. MM/XR DEXA axial skeleton IMPRESSION: Based on bone mineral density, and according to World Health Organization (WHO) criteria, the diagnosis is consistent with osteopenia. All bone density values are in grams per centimeter squared (g/cm2). Statistically, 68% of repeat scans fall within 1 SD (+/- 0.010 g/cm2 for AP spine L1-L4) and 1 SD (+/- 0.012 g/cm2 for femur total) FRAX is a trademark of the [employer]'s [facility] [facility] [employer], a World Health Organization (WHO) Collaborating Center. Electronically signed by: Rudy Holliday MD 03/15/2024 12:29 PM [facility]
== END 2024-03-15 10:54 | disposition home or self-care (01) ==
LOC: HO.MAMMO 10:53
PROVIDERS: Visit Provider Physician Assistant Medical
DX: Z13.820 Encounter for screening for osteoporosis (principal); M89.9 Disorder of bone, unspecified
CPT/HCPCS: 77080

== ENCOUNTER → 2024-03-15 11:00 | Outpatient (BNV) | payer OTHER, SELFPAY | PROVIDERS: Visit Provider Radiology Diagnostic Radiology | DX: E28.39 Other primary ovarian failure (principal) | CPT/HCPCS: 77080 ==

== ENCOUNTER 2024-03-19 11:30 | Outpatient (AMB) | payer OTHER, SELFPAY ==
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
[2024-03-19 11:41] VITALS: BP 130/70; PULSE 77; RESP 16; TEMP 36.4; O2SAT 98; BMI 29.3
--- OUTSIDE RECORDS SUMMARY | 2024-03-19 16:21 | XMS_ITS | Encounter Summary ---
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 Name Role Phone Ayaka Valera MD Primary Care Provider [phone] Encounter Details Date Type Department Care Team (Late st Contact Info) Description 12/23/2021 Patient [facility] [address] [place] [id number] Paolo Lopez [address] [place], [place] Social History Tobacco Use Types Packs/Day Years Used Date Smoking Tobacco: Never Smokeless Tobacco: Never Comments:Never Alcohol Use Standard Drinks/Week Comments No 0 (1 standard drink = 0.6 oz pur e alcohol) Social Connections Answer Date Recorded Social Connections and Isolation 0 10/15/2018 Financial Resource Strain Answer Date R ecorded Financial Resource Strain 0 2019 Stress Answer Date Recorded Stress 0 10/15/2018 Physical Activity Answer Date Recorded Physical Activity 0 10/15/2018 Food Insecurity Answer Date Recorded Food 0 04/25/2019 Transportation Needs Answer Date Record ed Transportation 0 04/25/2019 Housing Stability Answer Date Recorded Housing 1 04/25/2019 Safety and Environment Answer Date Anthony rded Safety 0 07/07/2017 Utilities Answer Date Recorded Utilities 0 04/25/2019 Employment Answer Date Recorded Stress 0 04/25/2019 Sex and Gender Information Value Date Recorded Sex Assigned at Male 07/07/2017 4:50 PM PDT Legal Sex Male 6:34 PM PST Gender Identity Male Sexual Orientation Straight documented as of this encounter Functional Status * Is the patient deaf or has significant hearing impairment? Answer Date of Assessment Author No 04/25/2019 11:00 AM PST * Is the patient blind or has a significant vision impairment? Answer Date of Assessment Author No 04/25/2019 11:00 AM PST * Does the patient have difficulty walking or going up and/or down stairs? Answer Date of Assessment Author No 04/25/2019 11:00 AM PST * Does the patient have difficulty bathing and/or dressing? Answer Date of Assessment Author No 04/25/2019 11:00 AM PST * Does the patient have difficulty doing errands? Answer Date of Assessment Author No 04/25/2019 11:00 AM PST documented as of this encounter Mental Status * Does the patient have difficulty making decisions? Answer Entry Date Author No 04/25/2019 11:00 AM PST documented in this encounter Plan of Treatment Not on file documented as of this encounter Goals Goal Patient Goal Type Associated Problems Recent Progress Patient-Stated? Author Help patient manage hypertension Care Plan Patient has a diagnosis of hypertension Herbert Cohen documented as of this encounter Visit Diagnoses Not on filedocumented in this encounter Additional Health Concerns Active Problems Noted Date Diagnosed Date Patient has a diagnosis of hypertension 09/18/19 21 Assessment Noted Time PHQ-9 Depression Total Score: 0 03/29/19 16 11:00 AM PST documented as of this encounter Care Teams [employer] Furn[employer]er Relationship Specialty Start Date End Date Ayaka Valera MD [address] [place] [id number] PCP - General Internal Medicine 02/22/15 documented as of this encounter
--- OUTSIDE RECORDS SUMMARY | 2024-03-19 16:21 | XMS_ITS | Clinical Summary ---
Author Organization [facility] Address [address] [place] [address] Care Team Providers Care Termite Treater Name Role Phone Ayaka Valera MD Primary Care Provider Source Comments PLEASE NOTE, if this patient is a minor, it may be UNLAWFUL to discuss sensitive information that is contained in these records (such as FAMILY PLANNING, MENTAL HEALTH or SUBSTANCE ABUSE) with the minor patient's parent or other person without the patient's specific authorization.[facility] Allergies Active Allergy Reactions Criticality Noted Date Comments Doxycycline Nausea Only Low 04/26/2015 Hydrochlorothiazide 04/17/2019 Erectile dysfunction Lisinopril 02/28/2019 SOB Metoprolol Succinate SOB 05/01/2021 Nifedipine Palpitations Low 11/16/2013 NIFEDIPINE palpitations-- NIFEDIPINE palpitations-- Medications sildenafiL (VIAGRA) 100 mg tabletIndication s:Erectile dysfunction, unspecified erectile dysfunction type Take 1 Tablet by mouth once daily as needed for erectile dysfunction (Take 1 hour prior to sexual activity.) for up to 30 days 30 Tablet 2 Active GAS RELIEF 80 mg chewable tabletIndication s:Flatulence, eructation and gas pain Place 1 Tablet into mouth, chew and swallow every 6 (six) hours as needed for flatulence for up to 30 days 120 Tablet 3 3 Active losartan (COZAAR) 100 mg tabletIndication s:Essential (primary) hypertension Take 1 Tablet by mouth once daily for 90 days 90 Tablet 3 3 Active amLODIPine (NORVASC) 10 mg tabletIndication s:Essential (primary) hypertension Take 1 Tablet by mouth once daily for 90 days 90 Tablet 3 3 Active ketoconazole (NIZORAL) 2 % cream Apply topically once daily 30 g 1 3 Active potassium chloride CR (KLOR-CON) 10 mEq ER tablet Take 1 Tablet by mouth once daily 90 Tablet 1 3 Active cholecalciferol, vitamin D3, 25 mcg (1,000 unit) capsule Take 1 Capsule by mouth once daily 90 Capsule 2 3 Active cyanocobalamin (VITAMIN B-12) 1,000 mcg tablet Take 1 Tablet by mouth once daily 90 Tablet 3 Active Active Problems Problem Noted Date Diagnosed Date Hypokalemia 05/01/2021 Bilateral bunions 01/03/2021 Acute pain of left knee 09/11/2020 History of hydrocelectomy 04/17/2019 Overview (04/17/2019): [place]11[place] [facility] [place]-induced erectile dysfunction 02/28/2019 Hydrocele 07/22/2016 Scrofula 02/05/2014 Positive PPD 02/05/2014 Anemia 10/10/2013 HYPERTENSION 07/03/2013 Resolved Problems Problem Noted Date Diagnosed Date Resolved Date 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 Acute paronychia of toe of right foot 12/19/2018 10/09/2020 Insomnia 11/07/2014 10/09/2020 Stress, psychological NEC 09/16/2014 Tinea corporis, left forearm 08/26/2014 02/22/2015 Fatigue 08/12/2014 02/22/2015 Health maintenance exam 08/12/201409/21 Viral syndrome 11/27/2013 02/22/2015 Acne 11/16/2013 10/09/2020 Screening for pulmonary TB 10/16/2013 0 10/09/2020 Blurred vision 10/10/2013 02/22/2015 Nonintractable headache 10/10/201309/21 Mass, chest wall 07/11/2013 02/22/2015 Immunizations Name Administration Dates Next Due Flu, Adjuvant, 65y+ (Fluad) 01/02/2020 Flu, Multi Dose 0.5 ML 12/29/2020,12/19/2018, Flu, Preservative Free 02/04/2022 Hep B, Adult/Adol (ENERGIX/RECOMBIVAX) 8,05/17/2016 Hep B, Unspecified 08/12/2014 INFLUENZA, SEASONAL, INJECTABLE 11/01/2016,10/20 Moderna COVID-19 Vaccine, re d cap blue label, 12+ Primary Series 09/18/2020,08/21/2020 09/18/2020 Pfizer-BioNTech COVID-19 Vac cine Bivalent, (VARELA PFIZER-BIONTECH COVID-19 VACCINE BIVALENT, (VARELA CAP 02/04/2022 TDAP 08/12/2014 Family History Medical History Relation Name Comments No Known Problems Brother Diabetes Mellitus II Mother No Known Problems Sister Relation Name Status Comments Brother Mother Sister Social History Tobacco Use Types Packs/Day Years Used Date Smoking Tobacco: Never Smokeless Tobacco: Never Tobacco Cessation:Counseling Given: Not Answered Comments:Never Alcohol Use Standard Drinks/Week Comments Not Currently 0 (1 standard drink = 0.6 oz pur e alcohol) Social Connections Answer Date Recorded Connectedness 0 10/29/2023 Financial Resource Strain Answer Date R ecorded Financial Resource Strain 0 2019 Stress Answer Date Recorded Stress 0 10/15/2018 Physical Activity Answer Date Recorded Physical Activity 0 10/15/2018 Food Insecurity Answer Date Recorded Food 0 04/25/2019 Transportation Needs Answer Date Record ed Transportation 0 04/25/2019 Housing Stability Answer Date Recorded Housing 0 05/28/2022 Safety and Environment Answer Date Anthony rded Safety 0 07/07/2017 Utilities Answer Date Recorded Utilities 0 04/25/2019 Employment Answer Date Recorded Stress 0 04/25/2019 Sex and Gender Information Value Date Recorded Sex Assigned at Male 07/07/2017 4:50 PM PDT Legal Sex Male 6:34 PM PST Gender Identity Male Sexual Orientation Straight Last Filed Vital Signs Vital Sign Reading Time Taken Comments Blood Pressure 124/76 05/28/2022 3:29 PM EDT Pulse 72 05/28/2022 3:29 PM EDT Temperature 36.7 ??C (98 ??F) 02/04/2022 10:10 AM EST Respiratory Rate 16 05/23/2019 12:25 PM EDT Oxygen Saturation 96% 05/28/2022 3:29 PM EDT Inhaled Oxygen Concentration - - Weight 96.8 kg (213 lb 6.4 oz) 05/28/2022 3:29 P M EDT Height 175.9 cm (5' 9.25 ) 05/28/2022 3:29 PM ED T Body Mass Index 31.28 05/28/2022 3:29 PM EDT Plan of Treatment Health Maintenance Due Date Last Done Comments Dental FMX/Pano 1978 Tobacco Screening 08/07/2016 08/08/2015, , 05/02/2015, Additional history exists Dental Prophy 09/12/2020 09/11/2019 Dental BW 10/25/2020 10/24/2019 Dental Examination 10/25/2020 10/24/2019 Annual Preventive Care Visit 05/29/202308/2022, 12/29/2020, 09/18/2018, Additional history exists [id number] () 10/23/2023 02/04/2022, 09/18/2020, 08/21/2020 Imm-Influenza (#1) 2023 02/04/2022, 1 02/29/2020, 01/02/2020, Additional history exists CT Colonography 11/20/2023 Colonoscopy 11/20/2023 Colorectal Cancer Screening 11/20/2023 FIT/gFOBT 11/20/2023 Fecal DNA 11/20/2023 Flexible Sigmoidoscopy 11/20/2023 Alcohol and Drug Screen 02/22/2024 05/29/19 23, 07/14/2021, 12/29/2020, Additional history exists Depression Annual Screen 02/22/2024 05/28/2022 Imm-DTaP/Tdap/Td (2 - Td or Tdap) 08/12/2024 015 Diabetes Screening 02/04/2025 02/04/2022, 1 04/07/2021, 05/05/2021, Additional history exists Lipid Screening 02/04/2025 02/04/2022, 04/21, 04/02/2020, Additional history exists Imm-Hepatitis B Completed 07/07/2017, 04/22, 08/12/2014 HIV Screening Completed 05/05/2021, 06/2017, 04/20/2016, Additional history exists Hepatitis C Screening Completed 05/05/2021 , 07/26/2017, 07/25/2014, Additional history exists Goals Goal Patient Goal Type Associated Problems Recent Progress Patient-Stated? Author Help patient manage hypertension Care Plan Patient has a diagnosis of hypertension Herbert Cohen Procedures Procedure Name Priority Date/Time Associated Diagnosis Comments COMPREHENSIVE METABOLIC PANEL Routine 02/04/2022 11:04 AM EST HYPERTENSION LIPID PANEL Routine 02/04/2022 11:04 AM EST HYPERTENSION HIV 1/2 AG & AB W/RFLX (4TH GEN) Routine 05/05/2021 8:46 AM EDT Screening for STD (sexually transmitted disease) HEPATITIS C ANTIBODY WITH RFLX TO HCV RNA PCR W/RFLX TO GENOTYPE Routine 05/05/2021 8:46 AM EDT Screening for STD (sexually transmitted disease) BITEWINGS - FOUR RADIOGRAPHIC IMAGES Routine 10/24/2019 3:00 PM EDT Visit for dental examination PERIODIC ORAL EVALUATION ESTABLISHED PATIENT Routine 10/24/2019 3:00 PM EDT Visit for dental examination PROPHYLAXIS - ADULT Routine 09/11/2019 1 :00 PM EDT Visit for dental examination from Last 3 Months or Most Recently Relevant to Health Maintenance Results * (ABNORMAL) LIPID PANEL (02/04/2022 11:04 AM EST) [facility] CHOLESTEROL, TOTAL 173 <200 mg/dL 02/05/2022 1:28 AM EST [employer] [facility] HDL CHOLESTEROL 31(L) > OR = 40 mg/dL 02/05/2022 1:28 AM EST [employer] [facility] TRIGLYCERIDES 309(H) <150 mg/dL 02/05/2022 1:28 AM EST [facility] LDL-CHOLESTEROL 101(H) mg/dL (calc) 02/05/2022 1:28 AM EST [employer] [facility] CHOL/HDLC RATIO 5.6(H) <5.0 (calc) 02/05/2022 1:28 AM EST [employer] NON-HDL CHOLESTEROL 142(H) <130 mg/dL (calc) 02/05/2022 1:28 AM EST [employer] Blood Blood / Unknown 02/04/2022 1 1:04 AM EST 02/04/2022 10:29 PM EST Narrative [facility] - 02/05/2022 1:59 AM EST . If a non-fasting specimen was collected, consider repeat triglyceride testing on a fasting specimen if clinically indicated. Oma et al. J. of Clin. Lipidol. 2015;9:129-169. . Reference range: <100 . Desirable range <100 mg/dL for primary prevention; ?? <70 mg/dL for patients with CHD or diabetic patients with > or = 2 CHD risk factors. . LDL-C is now calculated using the Meme calculation, which is a validated novel method providing better accuracy than the Friedewald equation in the estimation of LDL-C. Zhen SS et al. DEBORAH. 2013;310(19): 4836-0483 (http://education.CustomerXPs Software/faq/WUO423) For patients with diabetes plus 1 major ASCVD risk factor, treating to a non-HDL-C goal of <100 mg/dL (LDL-C of <70 mg/dL) is considered a therapeutic option. Paola Moreira MD LAB - BLOOD DRAW Final Result [employer] [address] [place] [id number], [employer] [address] [place] [id number] * COMPREHENSIVE METABOLIC PANEL (02/04/2022 11:04 AM EST) GLUCOSE 91 65 - 99 mg/dL 02/05/2022 1:28 AM EST [facility] UREA NITROGEN (BUN) 13 7 - 25 mg/dL 02/05/2022 1:28 AM EST [employer] CREATININE (blood) 0.79 0.60 - 1.29 mg/dL 02/05/2022 1:28 AM EST [facility] EGFR 113 > OR = 60 mL/min/1 .73m2 02/05/2022 1:28 AM EST [employer] BUN/CREATININE RATIO NOT APPLICABLE 6 - 22 (calc) 02/05/2022 1:28 AM [facility] SODIUM 140 135 - 146 mmol/L 02/05/2022 1:28 AM [facility] POTASSIUM 3.7 3.5 - 5.3 mmol/L 02/05/2022 1:28 AM [facility] CHLORIDE 103 98 - 110 mmol/L 02/05/2022 1:28 AM [facility] CARBON DIOXIDE 30 20 - 32 mmol/L 02/05/2022 1:28 AM [facility] CALCIUM 9.4 8.6 - 10.3 mg/dL 02/05/2022 1:28 AM [facility] PROTEIN, TOTAL 7.2 6.1 - 8.1 g/dL 02/05/2022 1:28 AM [facility] ALBUMIN 4.4 3.6 - 5.1 g/dL 02/05/2022 1:28 AM [facility] GLOBULIN 2.8 1.9 - 3.7 g/dL (calc) 02/05/2022 1:28 AM [facility] ALBUMIN/GLOBUL IN RATIO 1.6 1.0 - 2.5 (calc) 02/05/2022 1:28 AM [facility] BILIRUBIN, TOTAL 0.4 0.2 - 1.2 mg/dL 02/05/2022 1:28 AM [facility] ALKALINE PHOSPHATASE 99 36 - 130 U/L 02/05/2022 1:28 AM [facility] AST 24 10 - 40 U/L 02/05/2022 1:28 AM [facility] ALT 22 9 - 46 U/L 02/05/2022 1:28 AM [facility] Blood Blood / Unknown 02/04/2022 1 1:04 AM EST 02/04/2022 10:29 PM EST [employer] [facility] - 02/05/2022 1:59 AM EST . ? Fasting reference interval . The eGFR is based on the CKD-EPI 2020 equation. To calculate the new eGFR from a previous Creatinine or Cystatin C result, go to https://www.kidney.org/professionals/ kdoqi/gfr%5Fcalculator Paola Moreira MD LAB - BLOOD DRAW Final Result Performing Organization Address [facility]/ZIP Co de Phone Number [employer] [facility] [address] [address], [employer] [facility] [address] [place] [address] * HEPATITIS C ANTIBODY WITH RFLX TO HCV RNA PCR W/RFLX TO GENOTYPE (05/05/2021 8:46 AM EDT) HEPATITIS C ANTIBODY NON-REACT MAMIE NON-REACT MAMIE [employer] [facility] SIGNAL TO CUT-OFF 0.01 <1.00 [facility] Comment: HCV antibody was non-reactive. There is no laboratory evidence of HCV infection. In most cases, no further action is required. However, if recent HCV exposure is suspected, a test for HCV RNA (test code 79261) is suggested. COMMENT [facility] Blood Blood / Unknown 05/05/2021 8 :46 AM EDT 05/06/2021 1:57 AM EDT Narrative [facility] - 05/07/2021 5:29 AM EDT For additional information, please refer to http://education.CustomerXPs Software/faq/DCS609 (This link is being provided for informational/ educational purposes only.) Ayaka Valera MD LAB - BLOOD DRAW Edited Resu lt - Final Performing Organization Address [facility]/ZIP Co de Phone Number [employer] [facility] [address] [address], [employer] [facility] [address] [place] [address] [employer] [address] [address] * HIV 1/2 AG & AB W/RFLX (4TH GEN) (05/05/2021 8:46 AM EDT) HIV AG/AB, 4TH GEN NON-REAC TIVE NON-REAC TIVE [employer] [facility] Comment: HIV-1 antigen and HIV-1/HIV-2 antibodies were not detected. There is no laboratory evidence of HIV infection. PLEASE NOTE: This information has been disclosed to you from records whose confidentiality may be protected by state law. ??If your state requires such protection, then the state law prohibits you from making any further disclosure of the information without the specific written consent of the person to whom it pertains, or as otherwise permitted by law. A general authorization for the release of medical or other information is NOT sufficient for this purpose. ?? For additional information please refer to http://education.PAYMILL/faq/GHW752 (This link is being provided for informational/ educational purposes only.) The performance of this assay has not been clinically validated in patients less than 2 years old. Blood Blood / Unknown 05/05/2021 8 :46 AM EDT 05/06/2021 2:07 AM EDT us Ayaka Valera MD LAB - BLOOD DRAW Edited Resu lt - Final [facility] [address] [address], [facility] [address] [place] [address] from Last 3 Months or Most Recently Relevant to Health Maintenance Additional Health Concerns Active Problems Noted Date Diagnosed Date Patient has a diagnosis of hypertension 09/18/19 21 Insurance DELTA DENTAL [facility] Care Teams Termite Treater Relationship Specialty Start Date End Date Ayaka Valera MD [address] [facility] [place] [address] PCP - General Internal Medicine 02/22/15
--- OUTSIDE RECORDS SUMMARY | 2024-03-19 16:21 | XMS_ITS | Clinical Summary ---
Author Organization [address] [facility] Address [address] [place] [address] Phone Care Team Providers Care Assurance Senior Manager Name Role Phone Dee Arce Primary Care Provider [phone] Social History Tobacco Use Types Packs/Day Years Used Date Smoking Tobacco: Never Assessed Sex and Gender Information Value Date Recorded Sex Assigned at Not on file Gender Identity Not on file Sexual Orientation Not on file Plan of Treatment Upcoming Encounters Date Type Department Care Team ([facility] Contact Info) Description 04/10/2024 10:30 AM EST Office Visit Orthopedic Surgery [place] [address] [phone] Bernardo Goins, DPM [address] [address] Health Maintenance Due Date Last Done Comments DTaP,Tdap,and Td Vaccines (1 - Tdap) 1997 Hepatitis B Vaccines (1 of 3 - 19+ 3-dose series) 1997 COVID-19 Vaccine ( - 2023-2 5 season) 2023 Influenza Vaccine (#1) 2023 Cholesterol Screening (Lipid Panel) 01/10/2024 Colorectal Cancer Screening: Colonoscopy 01/10/2024 Depression Screening 01/10/2024 HIV Screening 01/10/2024 Hepatitis C Screening 01/10/2024 Social Influencers of Health Screening 01/10/2024 HIB Vaccines Aged Out No longer eligi ble based on patient's age to complete this topic HPV Vaccines Aged Out No longer eligi ble based on patient's age to complete this topic Hepatitis A Vaccines Aged Out No long er eligible based on patient's age to complete this topic IPV Vaccines Aged Out No longer eligi ble based on patient's age to complete this topic MMR Vaccines Aged Out No longer eligi ble based on patient's age to complete this topic Meningococcal ACWY Vaccine Aged Out N o longer eligible based on patient's age to complete this topic Pneumococcal Vaccine: Pediat rics (0 to 5 Years) and At-Risk Patients (6 to 64 Years) Aged Out No longer eligible b ased on patient's age to complete this topic RSV Immunization Patients Un rose marie 20 months Aged Out No longer eligible b ased on patient's age to complete this topic Varicella Vaccines Aged Out No longer eligible based on patient's age to complete this topic Care Teams Assurance Senior Manager Relationship Specialty Start Date End Date Dee Arce PA [address] [place] [phone] PCP - General Physician Twist Tester 01/10/24
--- OUTSIDE RECORDS SUMMARY | 2024-03-19 16:21 | XMS_ITS | Clinical Summary ---
Author Organization [employer] Address [address] [facility] [address] [place] [address] Care Team Providers Care Sales Audit Clerk Name Role Phone Unavailable Primary Care Provider Unavailabl e Social History Tobacco Use Types Packs/Day Years Used Date Smoking Tobacco: Never Assessed Sex and Gender Information Value Date Recorded Sex Assigned at Male 11/14/2023 4:09 PM EDT Legal Sex Male 4:07 PM EDT Gender Identity Male 11/14/2023 4:09 PM EDT Sexual Orientation Straight 11/14/2023 4: 09 PM EDT Plan of Treatment Health Maintenance Due Date Last Done Comments CT Colonography 1978 Colonoscopy 1978 Colorectal Cancer Screening 1978 Depression Screening 1978 FIT DNA/Cologuard 1978 FIT 1978 FOBT 1978 Lipid Panel 1978 SDOH Screening 1978 Sigmoidoscopy 1978 Alcohol/Substance Use Screening 1990 Tobacco Screening 1990 Family Planning (PISQ) 1993 Hepatitis C Screening 1996 COVID-19 Vaccine ( season) 2023 02/04/2022, 09/18/2020, 08/21/2020 Influenza Vaccine (#1) 2023 , 02/04/2022, 12/29/2020, Additional history exists DTaP/Tdap/Td Vaccines (2 - Td or Tdap) 08/12/2024 08/12/2014 Zoster Vaccines (1 of 2) 2028 RSV Patients and Patients Aged 60 years or older (1 - 1-dose 75+ series) 2053 Hepatitis B Vaccines Completed 07/07/2017, 05/17/2016, 08/12/2014 HIV Screening Completed 05/05/2021 HIB Vaccines Aged Out No longer eligi [...] patient's age to complete this topic Meningococcal Vaccine Aged Out No amna nury eligible based on patient's age to complete this topic Pneumococcal Vaccine: Pediatrics (0 to 5 Years) and At-Risk Patients (6 to 64 Years) Aged Out No longer eligible based on patient's age to complete this topic RSV under 20 months Aged Out No longe r eligible based on patient's age to complete this topic Rotavirus Vaccines Aged Out No longer eligible based on patient's age to complete this topic [place] [address] [place] [address] STANDARD
== END 2024-03-19 12:24 | disposition home or self-care (01) ==
PROVIDERS: PCP Physician Assistant Medical; Visit Provider Physician Assistant Medical
DX: M85.80 Other specified disorders of bone density and structure, unspecified site (principal); M54.50 Low back pain, unspecified; M54.6 Pain in thoracic spine; E87.6 Hypokalemia; I10 Essential (primary) hypertension; E53.8 Deficiency of other specified B group vitamins; D64.9 Anemia, unspecified

== ENCOUNTER 2024-03-21 15:36 | Outpatient (AMB) | payer OTHER, SELFPAY ==
--- NOTE | 2024-03-21 15:37 | A.OFFVIS_ITS ---
Vital Signs 03/21/24 15:41 Height 5 ft 11.34 in Weight 208 lb 5.389 oz BMI 28.8 BP 146/88 H Blood Pressure Location Rt brachial Position Sitting Pulse 81 Pulse Source Pulse Oximeter Intake Visit Reasons: Other specified disorders of bone density and stru Intake Note: New patient internally referred by PCP for Other specified disorders of Bone Density and structure. 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 First diagnosed in recently . Not Received treatment in the past No history of pathologic fracture or ONJ. Has several servings of dietary calcium per day in the form of cheese occasionally , cereal , cottage cheese . Not Takes Calcium supplement . Not Takes IU of Vitamin D daily but took before . Denies ever using PPI, anticoagulant, antiepileptic or glucocorticoid medication. Not Does weight bearing exercise Fracture history: No Height loss: No Denies history of Kidney stones: Denies family history of Osteoporosis or hip fracture. UTD on dental cleanings and sees dentist every 6 months. No planned upcoming dental work or extractions. Has loss of libido for yrs . Was prescribed ED agents . Has 2 children- no pro blem with fertility DXA dated 03/15/24:EXAMINATION: DXA BONE DENSITY AXIAL HISTORY: Disorder of bone TECHNIQUE: Symvato Dual energy absorptiometry (DEXA) of the lumbar spine, total left hip, and femoral neck was performed. COMPARISON: There are no prior studies for comparison. FINDINGS: The bone mineral density of the lumbar spine is 1.080 with a T-score of -1.2, and a Z-score of -2.3. The bone mineral density of the left total hip is 1.076 with a T-score of -0.2, and a Z-score of -1.1. The bone mineral density of the left femoral neck is 1.121 with a T-score of 0.4, and a Z-score of -0.5. FRACTURE RISK: The FRAX index suggests a risk of major osteoporotic fracture of 0.9%, and of hip fracture 0.0%. MM/XR DEXA axial skeleton IMPRESSION: Based on bone mineral density, and according to World Health Organization (WHO) criteria, the diagnosis is consistent with osteopenia. Labs: [facility] Medical History (Updated 03/16/24 @ 09:42 by NALINI Colin) Osteopenia Bone disorder Anxiety Thoracolumbar back pain Hospital discharge follow-up LVH (left ventricular hypertrophy) Pain of right great toe Hypokalemia Anemia Leukopenia B12 deficiency Vitamin D deficiency Hyperlipidemia Essential hypertension Dermatitis High blood pressure Surgical History History of hydrocelectomy Family History Mother Diabetes Maternal Grandmother High blood pressure Family/Other Breast cancer Social History Household Members: Family Both parents involved: No Caregiver staying overnight: No Housing: House Are you a primary healthcare risk control consultant to a significant other at home: No Do you presently have visiting nurse or other home services: No 75 years or older and lives alone: No Alcohol intake: former Patient Tobacco Use Status: Never used Tobacco e-Cigarette/Vaping Use: Never Used service: No Current occupational status: employed 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 Absence of blue sclera. Absence of kyphosis. Thyroid gland is of nl size and weighs 15 gms. There are no thyroid nodules palpated. Lungs CTA. Heart S1 S2 Reg R/R Abdominal exam benign. Muscle strength 5/5 . Examination of spine reveals absence of tenderness on palpation Assessment & Plan Assessment & Plan (1) Osteopenia: Code(s): M85.80 - Other specified disorders of bone density and structure, unspecified site Category: Medical Plan: This is a 43-year-old male with a history of low bone mass. Partial secondary workup was performed. Plan is to complete the secondary workup as per primary provider by checking testosterone a.m. fasting, 24 hour urine for calcium and creatinine, 25 hydroxy vitamin-D level. Will ensure 1200 mg of calcium and vitamin D3 2000 IU per day. Based on FRAX criteria, patient does not meet criteria for pharmacologic treatment. If secondary workup was negative, patient returned to the care of his primary care provider. If secondary workup reveals endocrine cause behind low bone mass, patient returned back to endocrinology for follow-up. He should returned to follow up with Nephrology regarding his hypertension and possible diagnosis of primary hyperaldosteronism Coding Level of Care Code New Pt Level 4 (15554) Diagnoses Osteopenia M85.80
[2024-03-21 15:41] VITALS: BP 146/88; PULSE 81; BMI 28.8
--- OUTSIDE RECORDS SUMMARY | 2024-03-21 17:27 | XMS_ITS | Clinical Summary ---
Author Organization [facility] Address [address] [place] [address] Care Team Providers Care Technologies Division Chair Name Role Phone Ayaka Valera MD Primary Care Provider [phone] Source Comments PLEASE NOTE, if this patient [...] (04/17/2019): S/p rt hydrocelectomy on 04/11/2019 at [facility] Drug-induced erectile dysfunction 02/28/2019 Hydrocele 07/22/2016 Scrofula [...] Visit 05/29/202308/2022, 12/29/2020, 09/18/2018, Additional history exists Hit-MBPZT-95 () 10/23/2023 02/04/2022, 09/18/2020, 08/21/2020 Imm-Influenza (#1) [...] (ABNORMAL) LIPID PANEL (02/04/2022 11:04 AM EST) [facility] CHOLESTEROL, TOTAL 173 <200 mg/dL 02/05/2022 1:28 AM EST [facility] HDL CHOLESTEROL 31(L) > OR = 40 mg/dL 02/05/2022 1:28 AM EST [facility] TRIGLYCERIDES 309(H) <150 mg/dL 02/05/2022 1:28 AM EST [facility] LDL-CHOLESTEROL 101(H) mg/dL (calc) 02/05/2022 1:28 AM EST [facility] CHOL/HDLC RATIO 5.6(H) <5.0 (calc) 02/05/2022 1:28 AM EST [facility] NON-HDL CHOLESTEROL 142(H) <130 mg/dL (calc) 02/05/2022 1:28 AM EST [facility] Blood Blood / Unknown 02/04/2022 1 1:04 AM EST 02/04/2022 10:29 PM EST Narrative [facility] - 02/05/2022 1:59 AM EST . [...] LDL-C. Zhen SS et al. DEBORAH. 2013;310(19): 5838-1857 (http://education.Cella Energy/faq/NYT704) For patients with diabetes plus 1 major ASCVD risk factor, treating to a non-HDL-C goal of <100 mg/dL (LDL-C of <70 mg/dL) is considered a therapeutic option. Paola Moreira MD LAB - BLOOD DRAW Final Result [facility] [address] [place] [address], [facility] [address] [place] [phone] * COMPREHENSIVE METABOLIC PANEL (02/04/2022 11:04 AM EST) GLUCOSE 91 65 - 99 mg/dL 02/05/2022 1:28 AM EST [employer] [facility] UREA NITROGEN (BUN) 13 7 - 25 mg/dL 02/05/2022 1:28 AM EST [facility] CREATININE (blood) 0.79 0.60 - 1.29 mg/dL 02/05/2022 1:28 AM EST [employer] [facility] EGFR 113 > OR = 60 mL/min/1 .73m2 02/05/2022 1:28 AM EST [facility] BUN/CREATININE RATIO NOT APPLICABLE 6 - 22 (calc) 02/05/2022 1:28 AM [facility] SODIUM 140 135 - 146 mmol/L 02/05/2022 1:28 AM [facility] POTASSIUM 3.7 3.5 - 5.3 mmol/L 02/05/2022 1:28 AM [facility] CHLORIDE 103 98 - 110 mmol/L 02/05/2022 1:28 AM [facility] CARBON DIOXIDE 30 20 - 32 mmol/L 02/05/2022 1:28 AM [facility] CALCIUM 9.4 8.6 - 10.3 mg/dL 02/05/2022 1:28 AM [facility] PROTEIN, TOTAL 7.2 6.1 - 8.1 g/dL 02/05/2022 1:28 AM [facility] ALBUMIN 4.4 3.6 - 5.1 g/dL 02/05/2022 1:28 AM [facility] GLOBULIN 2.8 1.9 - 3.7 g/dL (calc) 02/05/2022 1:28 AM [facility] ALBUMIN/GLOBUL IN RATIO 1.6 1.0 - 2.5 (calc) 02/05/2022 1:28 AM [facility] BILIRUBIN, TOTAL 0.4 0.2 - 1.2 mg/dL 02/05/2022 1:28 AM [facility] ALKALINE PHOSPHATASE 99 36 - 130 U/L 02/05/2022 1:28 AM [facility] AST 24 10 - 40 U/L 02/05/2022 1:28 AM [facility] ALT 22 9 - 46 U/L 02/05/2022 1:28 AM [facility] Blood Blood / Unknown 02/04/2022 1 1:04 AM EST 02/04/2022 10:[address] [facility] - 02/05/2022 1:59 AM EST . ? Fasting reference interval . The eGFR is based on the CKD-EPI 2020 equation. To calculate the new eGFR from a previous Creatinine or Cystatin C result, go to https://www.kidney.org/professionals/ kdoqi/gfr%5Fcalculator Paola Moreira MD LAB - BLOOD DRAW Final Result Performing Organization Address [facility]/ZIP Co de Phone Number [facility]way [facility] [address] [address], [facility] 200 [place] [address] * HEPATITIS C ANTIBODY WITH RFLX TO HCV RNA PCR W/RFLX TO GENOTYPE (05/05/2021 8:46 AM EDT) HEPATITIS C ANTIBODY NON-REACT MAMIE NON-REACT MAMIE [facility] SIGNAL TO CUT-OFF 0.01 <1.00 [employer] [facility] Comment: HCV antibody was non-reactive. There is no laboratory evidence of HCV infection. In most cases, no further action is required. However, if recent HCV exposure is suspected, a test for HCV RNA (test code 04471) is suggested. COMMENT [employer] [facility] Blood Blood / Unknown 05/05/2021 8 :46 AM EDT 05/06/2021 1:57 AM EDT Narrative [facility] - 05/07/2021 5:29 AM EDT For additional information, please refer to http://education.Cella Energy/faq/CEE095 (This link is being provided for informational/ educational purposes only.) Ayaka Valera MD LAB - BLOOD DRAW Edited Resu lt - Final Performing Organization Address [facility]/ZIP Co de Phone Number [facility]way [facility] [address] [address], [facility] [address] [place] [address] [facility] [address] [address] * HIV 1/2 AG & AB W/RFLX (4TH GEN) (05/05/2021 8:46 AM EDT) HIV AG/AB, 4TH GEN NON-REAC TIVE NON-REAC TIVE [facility] Comment: HIV-1 antigen and HIV-1/HIV-2 antibodies [...] ?? For additional information please refer to http://education.Grupo A/faq/JOZ700 (This link is being provided for informational/ educational purposes only.) The performance of this assay has not been clinically validated in patients less than 2 years old. Blood Blood / Unknown 05/05/2021 8 :46 AM EDT 05/06/2021 2:07 AM EDT us Ayaka Valera MD LAB - BLOOD DRAW Edited Resu lt - Final [facility] [address] [address], [facility] [address] [place] [address] from Last 3 Months or Most Recently Relevant to Health Maintenance Additional Health Concerns Active Problems Noted Date Diagnosed Date Patient has a diagnosis of hypertension 09/18/19 21 Insurance DELTA DENTAL [facility] DENTAL [facility] SAFETY NET Care Teams Technologies Division Chair Relationship Specialty Start Date End Date Ayaka Valera MD [address] [facility] [address] [address] PCP - General Internal Medicine 02/22/15
--- OUTSIDE RECORDS SUMMARY | 2024-03-21 17:27 | XMS_ITS | Encounter Summary ---
Author Organization [facility] Address [address] [place] [address] Care Team Providers Care Fabrication Welder Name Role Phone Ayaka Valera MD Primary Care Provider [phone] Encounter Details Date Type Department Care Team (Late st Contact Info) Description 12/23/2021 Patient Outreach [facility] Primary Care [address] [place] [address] Paolo Lopez [address] [place], [place] Social History Tobacco Use Types Packs/Day [...] documented as of this encounter Care Teams Fabrication Welder Relationship Specialty Start Date End Date Ayaka Valera MD [address] [place] [address] PCP - General Internal Medicine 02/22/15 documented as of this encounter
--- OUTSIDE RECORDS SUMMARY | 2024-03-21 17:27 | XMS_ITS | Clinical Summary ---
Author Organization 175 [facility] Address 175 [place] [address] Phone Care Team Providers Care Circuit Designer Name Role Phone Dee Arce Primary Care Provider [phone] Social History Tobacco Use Types Packs/Day Years Used Date Smoking Tobacco: Never Assessed Sex and Gender Information Value Date Recorded Sex Assigned at Not on file Gender Identity Not on file Sexual Orientation Not on file Plan of Treatment Upcoming Encounters Date Type Department Care Team ([facility] Contact Info) Description 04/10/2024 10:30 AM EST Office Visit Orthopedic Surgery [place] [phone] [phone] Bernardo Goins, DPM [address] [address] Health Maintenance Due Date Last Done Comments [...] age to complete this topic Care Teams Circuit Designer Relationship Specialty Start Date End Date Dee Arce PA [address] [place] [address] PCP - General Physician Student Services Vice President 01/10/24
--- OUTSIDE RECORDS SUMMARY | 2024-03-21 17:27 | XMS_ITS | Clinical Summary ---
Author Organization [employer] Address [address] [facility] 7t [place] [address] Care Team Providers Care Wind Project Manager Name Role Phone Unavailable Primary Care Provider [...] 5 Years) and At-Risk Patients (6 to 49) Years) Aged Out No longer eligible based on patient's age to complete this topic RSV under 20 months Aged Out No longe r eligible based on patient's age to complete this topic Rotavirus Vaccines Aged Out No longer eligible based on patient's age to complete this topic Insurance [facility] STANDARD
== END 2024-03-21 16:18 | disposition home or self-care (01) ==
PROVIDERS: Visit Provider Internal Medicine Endocrinology, Diabetes & Metabolism
DX: M85.80 Other specified disorders of bone density and structure, unspecified site (principal)
CPT/HCPCS: 99204

== ENCOUNTER → 2024-03-21 15:36 | Outpatient (BNVA) | payer OTHER, SELFPAY | PROVIDERS: Visit Provider Internal Medicine Endocrinology, Diabetes & Metabolism | DX: M85.80 Other specified disorders of bone density and structure, unspecified site (principal) | CPT/HCPCS: 99202 ==

== ENCOUNTER 2024-03-23 07:46 | Outpatient (REF) | payer OTHER, SELFPAY ==
--- OUTSIDE RECORDS SUMMARY | 2024-03-23 07:48 | XMS_ITS | Clinical Summary ---
Author Organization [employer] Address [address] [facility] 7t [place] [address] Care Team Providers Care Tire Mold Tester Name Role Phone Unavailable Primary Care Provider [...] patient's age to complete this topic Insurance [facility] STANDARD
--- OUTSIDE RECORDS SUMMARY | 2024-03-23 07:48 | XMS_ITS | Clinical Summary ---
Author Organization 175 [facility] Address [address] [place] [address] Phone Care Team Providers Care Director Of Engineering Name Role Phone Dee Arce Primary Care Provider [phone] Social History Tobacco Use Types Packs/Day Years Used Date Smoking Tobacco: Never Assessed Sex and Gender Information Value Date Recorded Sex Assigned at Not on file Gender Identity Not on file Sexual Orientation Not on file Plan of Treatment Upcoming Encounters Date Type Department Care Team ([facility] Contact Info) Description 04/10/2024 10:30 AM EST Office Visit Orthopedic Surgery [place] [phone] [phone] Bernardo Goins, DPM [address] [address] Health Maintenance Due Date Last Done Comments [...] age to complete this topic Care Teams Director Of Engineering Relationship Specialty Start Date End Date Dee Arce PA [address] [place] [id number] PCP - General Physician Transplant Worker 01/10/24
--- OUTSIDE RECORDS SUMMARY | 2024-03-23 07:48 | XMS_ITS | Clinical Summary ---
Author Organization [facility] Address [address] [place] [address] Care Team Providers Care Registered Dental Assistant Name Role Phone Ayaka Valera MD Primary [...] (04/17/2019): S/p rt hydrocelectomy on 04/11/2019 at [facility] Drug-induced erectile dysfunction 02/28/2019 Hydrocele 07/22/2016 Scrofula [...] Visit 05/29/202308/2022, 12/29/2020, 09/18/2018, Additional history exists Diy-YKACC-24 () 10/23/2023 02/04/2022, 09/18/2020, 08/21/2020 Imm-Influenza (#1) [...] (ABNORMAL) LIPID PANEL (02/04/2022 11:04 AM EST) [facility] CHOLESTEROL, TOTAL 173 <200 mg/dL 02/05/2022 1:28 AM EST [facility] HDL CHOLESTEROL 31(L) > OR = 40 mg/dL 02/05/2022 1:28 AM EST [facility] TRIGLYCERIDES 309(H) <150 mg/dL 02/05/2022 1:28 AM EST [employer] [facility] LDL-CHOLESTEROL 101(H) mg/dL (calc) 02/05/2022 1:28 AM EST [facility] CHOL/HDLC RATIO 5.6(H) <5.0 (calc) 02/05/2022 1:28 AM EST [facility] NON-HDL CHOLESTEROL 142(H) <130 mg/dL (calc) 02/05/2022 1:28 AM EST [facility] Blood Blood / Unknown 02/04/2022 1 1:04 AM EST 02/04/2022 10:29 PM EST Narrative [facility] - 02/05/2022 1:59 AM EST . [...] LDL-C. Zhen SS et al. DEBORAH. 2013;310(19): 8806-0918 (http://education.Phone2Action/faq/SHQ982) For patients with diabetes plus 1 major ASCVD risk factor, treating to a non-HDL-C goal of <100 mg/dL (LDL-C of <70 mg/dL) is considered a therapeutic option. Paola Moreira MD LAB - BLOOD DRAW Final Result [employer] [address] [place] [address], [facility] [address] [place] [phone] * COMPREHENSIVE METABOLIC PANEL (02/04/2022 11:04 AM EST) GLUCOSE 91 65 - 99 mg/dL 02/05/2022 1:28 AM EST [email or web address] UREA NITROGEN (BUN) 13 7 - 25 mg/dL 02/05/2022 1:28 AM EST [facility] CREATININE (blood) 0.79 0.60 - 1.29 mg/dL 02/05/2022 1:28 AM EST [email or web address] [facility] EGFR 113 > OR = 60 mL/min/1 .73m2 02/05/2022 1:28 AM EST [facility] BUN/CREATININE RATIO NOT APPLICABLE 6 - 22 (calc) 02/05/2022 1:28 AM [facility] SODIUM 140 135 - 146 mmol/L 02/05/2022 1:28 AM [facility] POTASSIUM 3.7 3.5 - 5.3 mmol/L 02/05/2022 1:28 AM [facility] CHLORIDE 103 98 - 110 mmol/L 02/05/2022 1:28 AM [facility] CARBON DIOXIDE 30 20 - 32 mmol/L 02/05/2022 1:28 AM [facility] CALCIUM 9.4 8.6 - 10.3 mg/dL 02/05/2022 1:28 AM [facility] PROTEIN, TOTAL 7.2 6.1 - 8.1 g/dL 02/05/2022 1:28 AM [facility] ALBUMIN 4.4 3.6 - 5.1 g/dL 02/05/2022 1:28 AM [facility] GLOBULIN 2.8 1.9 - 3.7 g/dL (calc) 02/05/2022 1:28 AM [facility] ALBUMIN/GLOBUL IN RATIO 1.6 1.0 - 2.5 (calc) 02/05/2022 1:28 AM [facility] BILIRUBIN, TOTAL 0.4 0.2 - 1.2 mg/dL 02/05/2022 1:28 AM [facility] ALKALINE PHOSPHATASE 99 36 - 130 U/L 02/05/2022 1:28 AM [facility] AST 24 10 - 40 U/L 02/05/2022 1:28 AM [facility] ALT 22 9 - 46 U/L 02/05/2022 1:28 AM [facility] Blood Blood / Unknown 02/04/2022 1 1:04 AM EST 02/04/2022 10:29 PM EST [facility] - 02/05/2022 1:59 AM EST . ? Fasting reference interval . The eGFR is based on the CKD-EPI 2020 equation. To calculate the new eGFR from a previous Creatinine or Cystatin C result, go to https://www.kidney.org/professionals/ kdoqi/gfr%5Fcalculator Paola Moreira MD LAB - BLOOD DRAW Final Result Performing Organization Address [facility]/ZIP Co de Phone Number [facility] [address] [address], [facility] 200 [place] [address] * HEPATITIS C ANTIBODY WITH RFLX TO HCV RNA PCR W/RFLX TO GENOTYPE (05/05/2021 8:46 AM EDT) HEPATITIS C ANTIBODY NON-REACT MAMIE NON-REACT MAMIE [facility] SIGNAL TO CUT-OFF 0.01 <1.00 [employer] [facility] Comment: HCV antibody was non-reactive. There is no laboratory evidence of HCV infection. In most cases, no further action is required. However, if recent HCV exposure is suspected, a test for HCV RNA (test code 32533) is suggested. COMMENT [facility] Blood Blood / Unknown 05/05/2021 8 :46 AM EDT 05/06/2021 1:57 AM EDT Narrative [facility] - 05/07/2021 5:29 AM EDT For additional information, please refer to http://education.Phone2Action/faq/KVL986 (This link is being provided for informational/ educational purposes only.) Ayaka Valera MD LAB - BLOOD DRAW Edited Resu lt - Final Performing Organization Address [facility]/ZIP Co de Phone Number [facility] [address] [address], [facility] 200 [place] [address] [facility] [address] [address] * HIV 1/2 AG & AB W/RFLX (4TH GEN) (05/05/2021 8:46 AM EDT) HIV AG/AB, 4TH GEN NON-REAC TIVE NON-REAC TIVE [facility] Comment: HIV-1 antigen and HIV-1/HIV-2 antibodies [...] ?? For additional information please refer to http://education.[employer]/faq/DPA172 (This link is being provided for informational/ educational purposes only.) The performance of this assay has not been clinically validated in patients less than 2 years old. Blood Blood / Unknown 05/05/2021 8 :46 AM EDT 05/06/2021 2:07 AM EDT us Ayaka Valera MD LAB - BLOOD DRAW Edited Resu lt - Final [facility] [address] [address], [facility] [address] [place] [address] from Last 3 Months or Most Recently Relevant to Health Maintenance Additional Health Concerns Active Problems Noted Date Diagnosed Date Patient has a diagnosis of hypertension 09/18/19 21 Insurance DELTA DENTAL [facility] DENTAL [facility] SAFETY NET Care Teams Registered Dental Assistant Relationship Specialty Start Date End Date Ayaka Valera MD [address] [facility] [place] [address] PCP - General Internal Medicine 02/22/15
--- OUTSIDE RECORDS SUMMARY | 2024-03-23 07:48 | XMS_ITS | Encounter Summary ---
Author Organization [facility] Address [address] [place] [address] Care Team Providers Care Is Manager Name Role Phone Ayaka Valera MD Primary Care Provider [phone] Encounter Details Date Type Department Care Team (Late st Contact Info) Description 12/23/2021 Patient Outreach [facility] Primary Care [address] [place] [address] Paolo Lopez [address] [place], [place] Social History Tobacco Use Types Packs/Day [...] documented as of this encounter Care Teams Is Manager Relationship Specialty Start Date End Date Ayaka Valera MD [address] [place] [address] PCP - General Internal Medicine 02/22/15 documented as of this encounter
[2024-03-23 11:17] LABS: Anion Gap 10 (12-20); Blood Urea Nitrogen 12 mg/dL (9-16); Calcium 9.4 mg/dL (8.4-10.2); Carbon Dioxide 28 mmol/L (22-29); Chloride 106 mmol/L (96-108); Estimated Glomerular Filt Rate > 60; Glucose Random 89 mg/dL (60-115); Potassium 3.5 mmol/L (3.3-5.1); Sodium 140 mmol/L (135-145)
[2024-03-28 15:44] LABS: Vitamin D 25-OH, D2 <4 ng/mL; Vitamin D 25-OH, D3 19 ng/mL; Vitamin D 25-OH, Total 19 ng/mL (30-100)
== END 2024-03-23 07:47 | disposition home or self-care (01) ==
LOC: HO.HMGCLDS 07:46
PROVIDERS: PCP Physician Assistant Medical; Referring Provider Internal Medicine Hypertension Specialist; Visit Provider Physician Assistant Medical
DX: E87.6 Hypokalemia (principal); M85.80 Other specified disorders of bone density and structure, unspecified site; I10 Essential (primary) hypertension
CPT/HCPCS: 36415; 80048; 82306; 84402; 84403

== ENCOUNTER 2024-03-26 09:02 | Outpatient (REF) | payer OTHER, SELFPAY ==
--- OUTSIDE RECORDS SUMMARY | 2024-03-26 12:03 | XMS_ITS | Clinical Summary ---
Author Organization [employer] Address [address] [facility] 7t [place] [address] Care Team Providers Care Processor Helper Name Role Phone Unavailable Primary Care Provider [...] patient's age to complete this topic Insurance [facility] STANDARD
--- OUTSIDE RECORDS SUMMARY | 2024-03-26 12:03 | XMS_ITS | Clinical Summary ---
Author Organization 175 [facility] Address 175 [place] [address] Phone Care Team Providers Care Manager Division Name Role Phone Dee Arce Primary Care Provider [phone] Social History Tobacco Use Types Packs/Day Years Used Date Smoking Tobacco: Never Assessed Sex and Gender Information Value Date Recorded Sex Assigned at Not on file Gender Identity Not on file Sexual Orientation Not on file Plan of Treatment Upcoming Encounters Date Type Department Care Team ([facility] Contact Info) Description 04/10/2024 10:30 AM EST Office Visit Orthopedic Surgery [place] [address] [address] [phone] Bernardo Goins, DPM [address] [address] Health Maintenance Due Date Last Done Comments [...] age to complete this topic Care Teams Manager Division Relationship Specialty Start Date End Date Dee Arce PA [address] [place] [phone] PCP - General Physician Haz Tech 01/10/24
--- OUTSIDE RECORDS SUMMARY | 2024-03-26 12:03 | XMS_ITS | Encounter Summary ---
Author Organization [facility] Address [address] [place] [address] Care Team Providers Care Thermoplastic Technician Name Role Phone Ayaka Valera MD Primary Care Provider [phone] Encounter Details Date Type Department Care Team (Late st Contact Info) Description 12/23/2021 Patient Outreach [facility] Primary Care [address] [place] [address] Paolo Lopez [address] [place], [place] Social History Tobacco Use Types Packs/Day [...] documented as of this encounter Care Teams Thermoplastic Technician Relationship Specialty Start Date End Date Ayaka Valera MD [address] [place] [address] PCP - General Internal Medicine 02/22/15 documented as of this encounter
--- OUTSIDE RECORDS SUMMARY | 2024-03-26 12:04 | XMS_ITS | Clinical Summary ---
Author Organization [facility] Address [address] [place] [address] Care Team Providers Care Professor Of Legal Studies Name Role Phone Ayaka Valera MD Primary [...] (04/17/2019): S/p rt [place] 04[place]11/2019 [place] [facility] [place] Drug-induced erectile dysfunction 02/28/2019 Hydrocele 07/22/2016 Scrofula [...] Visit 05/29/202308/2022, 12/29/2020, 09/18/2018, Additional history exists Mgw-CILLG-36 () 10/23/2023 02/04/2022, 09/18/2020, 08/21/2020 Imm-Influenza (#1) [...] (ABNORMAL) LIPID PANEL (02/04/2022 11:04 AM EST) [facility] CHOLESTEROL, TOTAL 173 <200 mg/dL 02/05/2022 1:28 AM EST [facility] HDL CHOLESTEROL 31(L) > OR = 40 mg/dL 02/05/2022 1:28 AM EST [facility] TRIGLYCERIDES 309(H) <150 mg/dL 02/05/2022 1:28 AM EST [employer] [facility] LDL-CHOLESTEROL 101(H) mg/dL (calc) 02/05/2022 1:28 AM EST [facility] CHOL/HDLC RATIO 5.6(H) <5.0 (calc) 02/05/2022 1:28 AM EST [facility] NON-HDL CHOLESTEROL 142(H) <130 mg/dL (calc) 02/05/2022 1:28 AM EST [facility] Blood Blood / Unknown 02/04/2022 1 1:04 AM EST 02/04/2022 10:29 PM EST Narrative [facility] - 02/05/2022 1:59 AM EST . [...] LDL-C. Zhen SS et al. DEBORAH. 2013;310(19): 4039-0008 (http://education.Adenios/faq/WXD856) For patients with diabetes plus 1 major ASCVD risk factor, treating to a non-HDL-C goal of <100 mg/dL (LDL-C of <70 mg/dL) is considered a therapeutic option. Paola Moreira MD LAB - BLOOD DRAW Final Result [email or web address] [address] [place] [address], [facility] [address] [place] [phone] * COMPREHENSIVE METABOLIC PANEL (02/04/2022 11:04 AM EST) GLUCOSE 91 65 - 99 mg/dL 02/05/2022 1:28 AM EST [facility] UREA NITROGEN (BUN) 13 7 - 25 mg/dL 02/05/2022 1:28 AM EST [facility] CREATININE (blood) 0.79 0.60 - 1.29 mg/dL 02/05/2022 1:28 AM EST [employer] [facility] EGFR 113 > OR = 60 mL/min/1 .73m2 02/05/2022 1:28 AM EST [facility] BUN/CREATININE RATIO NOT APPLICABLE 6 - 22 (calc) 02/05/2022 1:28 AM [facility] SODIUM 140 135 - 146 mmol/L 02/05/2022 1:28 AM [employer] POTASSIUM 3.7 3.5 - 5.3 mmol/L 02/05/2022 1:28 AM [facility] CHLORIDE 103 98 - 110 mmol/L 02/05/2022 1:28 AM [facility] CARBON DIOXIDE 30 20 - 32 mmol/L 02/05/2022 1:28 AM [facility] CALCIUM 9.4 8.6 - 10.3 mg/dL 02/05/2022 1:28 AM [facility] PROTEIN, TOTAL 7.2 6.1 - 8.1 g/dL 02/05/2022 1:28 AM [facility] ALBUMIN 4.4 3.6 - 5.1 g/dL 02/05/2022 1:28 AM [facility] GLOBULIN 2.8 1.9 - 3.7 g/dL (calc) 02/05/2022 1:28 AM [facility] ALBUMIN/GLOBUL IN RATIO 1.6 1.0 - 2.5 (calc) 02/05/2022 1:28 AM [facility] BILIRUBIN, TOTAL 0.4 0.2 - 1.2 mg/dL 02/05/2022 1:28 AM [facility] ALKALINE PHOSPHATASE 99 36 - 130 U/L 02/05/2022 1:28 AM [facility] AST 24 10 - 40 U/L 02/05/2022 1:28 AM [facility] ALT 22 9 - 46 U/L 02/05/2022 1:28 AM [facility] Blood Blood / Unknown 02/04/2022 1 1:04 AM EST 02/04/2022 10:29 PM EST [employer] [facility] - 02/05/2022 1:59 AM EST . ? Fasting reference interval . The eGFR is based on the CKD-EPI 2020 equation. To calculate the new eGFR from a previous Creatinine or Cystatin C result, go to https://www.kidney.org/professionals/ kdoqi/gfr%5Fcalculator Paola Moreira MD LAB - BLOOD DRAW Final Result Performing Organization Address [facility]/ZIP Co de Phone Number [facility] [address] [address], [facility] [address] [place] [address] * HEPATITIS C ANTIBODY WITH RFLX TO HCV RNA PCR W/RFLX TO GENOTYPE (05/05/2021 8:46 AM EDT) HEPATITIS C ANTIBODY NON-REACT MAMIE NON-REACT MAMIE [facility] SIGNAL TO CUT-OFF 0.01 <1.00 [facility] Comment: HCV antibody was non-reactive. There is no laboratory evidence of HCV infection. In most cases, no further action is required. However, if recent HCV exposure is suspected, a test for HCV RNA (test code 61554) is suggested. COMMENT [employer] [facility] Blood Blood / Unknown 05/05/2021 8 :46 AM EDT 05/06/2021 1:57 AM EDT Narrative [facility] - 05/07/2021 5:29 AM EDT For additional information, please refer to http://education.Adenios/faq/TAB769 (This link is being provided for informational/ educational purposes only.) Ayaka Valera MD LAB - BLOOD DRAW Edited Resu lt - Final Performing Organization Address [facility]/ZIP Co de Phone Number [facility] [address] [address], [facility] [address] [place] [address] [facility] [address] [address] * HIV 1/2 AG & AB W/RFLX (4TH GEN) (05/05/2021 8:46 AM EDT) HIV AG/AB, 4TH GEN NON-REAC TIVE NON-REAC TIVE [facility] Comment: HIV-1 antigen and HIV-1/HIV-2 antibodies were [...] ?? For additional information please refer to http://education.CollabFinder/faq/DCB895 (This link is being provided for informational/ educational purposes only.) The performance of this assay has not been clinically validated in patients less than 2 years old. Blood Blood / Unknown 05/05/2021 8 :46 AM EDT 05/06/2021 2:07 AM EDT us Ayaka Valera MD LAB - BLOOD DRAW Edited Resu lt - Final [facility] [address] [address], [facility] [address] [place] [address] from Last 3 Months or Most Recently Relevant to Health Maintenance Additional Health Concerns Active Problems Noted Date Diagnosed Date Patient has a diagnosis of hypertension 09/18/19 21 Insurance DELTA DENTAL [facility] DENTAL [facility] SAFETY NET Care Teams Professor Of Legal Studies Relationship Specialty Start Date End Date Ayaka Valera MD [address] [facility] [place] [address] PCP - General Internal Medicine 02/22/15
[2024-03-28 20:24] LABS: Calcium, 24 Hr Urine 339 mg/24 h; Calcium/Creatinine Ratio 151 mg/g creat (30-210); Creatinine 24Hr Urine 2.24 g/24 h (0.50-2.15)
== END 2024-03-26 09:03 | disposition home or self-care (01) ==
LOC: HO.HMGCLNP 09:02
PROVIDERS: Visit Provider Physician Assistant Medical
DX: M85.80 Other specified disorders of bone density and structure, unspecified site (principal)
CPT/HCPCS: 82340

== ENCOUNTER 2024-04-11 09:03 | Outpatient (AMB) | payer OTHER, SELFPAY ==
[2024-04-11 09:05] VITALS: BP 134/82; PULSE 84; O2SAT 98; BMI 29.4
--- NOTE | 2024-04-11 09:05 | HO.NEPHOV ---
Vital Signs 04/11/24 09:05 Height 5 ft 11 in Weight 211 lb BMI 29.4 BP 134/82 Blood Pressure Location Lt brachial Position Sitting Pulse 84 Pulse Source Pulse Oximeter Pulse Oximetry (%) 98 Oxygen Delivery Method Room Air Intake Visit Reasons: Essential hypertension-Conf Technical Buyer Required: No Accompanied by: Self / Same As Patient Allergies lisinopril Allergy (Intermediate, Verified 04/11/24 09:07) Shortness of Breath Medication List - Last Reconciled 04/11/24 by Philip Medina MD amlodipine 10 mg PO DAILY cholecalciferol (vitamin D3) 50 mcg PO DAILY cyanocobalamin (vitamin B-12) 1,000 mcg PO DAILY cyclobenzaprine 10 mg PO TID PRN hydralazine 25 mg PO TID losartan 25 mg PO DAILY potassium chloride ER 10 mEq PO DAILY spironolactone 25 mg PO BID HPI Comments Details: 42-year-old man with a history of hypertension for 20 years. He was 1st diagnosed with hypertension at the age of 18. He has been referred for hypokalemia. He has had persistent hypokalemia and currently on potassium supplementation. On amlodipine as well as a losartan for the control blood pressure. Despite this blood pressure has been suboptimal and systolic blood pressure has been around 150 mm Hg. Recent lab work showed potassium was 3.1 despite potassium supplementation. There was no alkalosis. Renal function stable. He is not on any diuretics Does not take any licorice. He is not on any other yvbx-avx-oennkac medications. 01/04/24 Events noted Persistent hypokalemia PA/PRA pending Was [place] to [facility] [place] for chest pain Spironolactone 25 mg QD has been added Feels tired 01/18/24 Feels better Home BP sub optimal 04/11/24 c/o Sob on exertion Has cardiology appointment He missed the Ct scan appointment [facility] Medical History (Updated 03/16/24 @ 09:42 by NALINI Colin) Osteopenia Bone disorder Anxiety Thoracolumbar back pain Hospital discharge follow-up LVH (left ventricular hypertrophy) Pain of right great toe Hypokalemia Anemia Leukopenia B12 deficiency Vitamin D deficiency Hyperlipidemia Essential hypertension Dermatitis High blood pressure Surgical History History of hydrocelectomy Family History Mother Diabetes Maternal Grandmother High blood pressure Family/Other Breast cancer Social History Household Members: Family Both parents involved: No Caregiver staying overnight: No Housing: House Are you a primary hiv/aids care nurse to a significant other at home: No Do you presently have visiting nurse or other home services: No 75 years or older and lives alone: No Alcohol intake: former Patient Tobacco Use Status: Never used Tobacco e-Cigarette/Vaping Use: Never Used service: No Current occupational status: employed 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 Cognitive needs: No Hearing needs: No Vision needs: Yes (Patient states vision is blurry.) Physical Exam Vital Signs: Last Vital Signs Pulse 84 04/11/24 09:05 BP 134/82 04/11/24 09:05 Pulse Ox 98 04/11/24 09:05 Oxygen Delivery Method Room Air 04/11/24 09:05 BMI result Body Mass Index 29.4 No orthostatic BP changes Const General: comfortable; No acute distress Orientation/consciousness: patient oriented x3 Eyes General: appearance normal, both eyes and all related structures Visual Padilla: normal visual padilla by confrontation Neck Neck: Yes supple and Yes no JVD Resp Effort & Inspection: normal respiratory effort and respiratory effort not decreased Auscultation: rhonchi Cardio Palpation: no palpable S3 and no palpable S4 Heart sounds: no rubs GI Inspection: Yes normal to inspection Palpation (GI): Soft to palpation Percussion: Yes normal to percussion Auscultation: normal bowel sounds General: Yes no CVA tenderness Back/Spine/Pelvis Back: no CVA tenderness Skin General skin exam: no petechiae and no purpura Neuro General: patient oriented x3 and no focal motor deficits Extrem General: No clubbing and No edema Results Reviewed Nephrology Results: Sodium 140 mmol/L (135-145) 03/23/24 Potassium 3.5 mmol/L (3.3-5.1) 03/23/24 Chloride 106 mmol/L (96-108) 03/23/24 Carbon Dioxide 28 mmol/L (22-29) 03/23/24 BUN 12 mg/dL (9-16) 03/23/24 Creatinine 0.77 mg/dL (0.5-1.4) 03/23/24 Calcium 9.4 mg/dL (8.4-10.2) 03/23/24 Assessment & Plan Assessment & Plan (1) Hypokalemia: Code(s): E87.6 - Hypokalemia Category: Medical (2) Essential hypertension: Code(s): I10 - Essential (primary) hypertension Category: Medical Plan Young man with a history of tbbzxvvdc-ji-zuacsba hypertension with hypokalemia. Even the onset of hypertension at a young age along with hypokalemia ,hyperaldosteronism should be ruled out, even though the recent lab work did not reveal any significant alkalosis. However the total CO2 was on the upper limit of normal. Recommendations Work up for hyperaldosteronism. PRA 0.19 PA 9 PA/PRA 47 ( high) Keep Spironolactone [address] of adrenals - Will reschedule since he missed the appointment continue to watch BP at home Coding Level of Care Code Est Pt Level 4 (16077) Diagnoses Hypokalemia E87.6 Essential hypertension I10
--- OUTSIDE RECORDS SUMMARY | 2024-04-11 09:13 | XMS_ITS | Clinical Summary ---
Author Organization 175 [facility] Address [address] [place] [address] Phone Care Team Providers Care Regulatory Lead Name Role Phone Dee Arce Primary Care Provider [phone] Allergies Active Allergy Reactions Criticality Noted Date Comments Doxycycline Nausea Only Low 04/26/2015 Lisinopril 02/28/2019 SOB Nifedipine Palpitations Low 11/16/2013 NIFEDIPINE palpitations-- NIFEDIPINE palpitations-- NIFEDIPINE palpitations-- Medications amLODIPine (NORVASC) 10 mg tablet Take 1 tablet (10 mg total) by mouth 1 (one) time each day. 11/24/2023 Active losartan (COZAAR) 25 mg tablet Take 1 tablet (25 mg total) by mouth 1 (one) time each day. 11/24/2023 Active hydrALAZINE (APRESOLINE) 25 mg tablet Take 1 tablet (25 mg total) by mouth. 12/30/2023 Active cyclobenzaprine (FLEXERIL) 10 mg tablet take 1 tablet orally 3 times a day as needed for muscle spasm 02/02/2024 Active cyanocobalamin, vitamin B-12, 1,000 mcg capsule Take 1 capsule by mouth 1 (one) time each day. 02/06/2024 Active spironolactone (ALDACTONE) 25 mg tablet Take 1 tablet (25 mg total) by mouth 2 (two) times a day. 02/02/2024 Active cholecalciferol (VITAMIN D-3) 50 mcg (2,000 unit) tablet Take 1 tablet (2,000 Units total) by mouth 1 (one) time each day. Active Encounters Date Type Department Care Team Description 04/10/2024 10:30 AM EST Office Visit Orthopedic Surgery [facility] [address] [facility] [address] [place] [phone] Bernardo Goins DPM Acquired hammer toe of right foot (Primary Dx); Acquired hallux valgus of left foot; Acquired hallux valgus of right foot from Last 3 Months Social History Tobacco Use Types Packs/Day Years Used Date Smoking Tobacco: Never Assessed Sex and Gender Information Value Date Recorded Sex Assigned at Not on file Legal Sex Male 11:11 AM EST Gender Identity Not on file Sexual Orientation Not on file Last Filed Vital Signs Vital Sign Reading Time Taken Comments Blood Pressure - - Pulse - - Temperature - - Respiratory Rate - - Oxygen Saturation - - Inhaled Oxygen Concentration - - Weight 93 kg (205 lb) 04/10/2024 10:52 AM EST Height 180.3 cm (5' 11 ) 04/10/2024 10:52 AM EST Body Mass Index 28.59 04/10/2024 10:52 AM EST Plan of Treatment Upcoming Encounters Date Type Department Care Team ([facility] st Contact Info) Description 05/17/2024 10:15 AM EDT Office Visit Orthopedic Surgery - [place] [address] [phone] Bernardo Goins DPM [address] [address] Health Maintenance Due Date Last Done Comments COVID-19 Vaccine ( season) 2023 02/04/2022, 03/05/2021, 09/18/2020, Additional history exists Colorectal Cancer Screening: Colonoscopy 01/10/2024 Depression Screening 01/10/2024 HIV Screening 01/10/2024 Social Influencers of Health Screening 01/10/2024 Hypertension/CHF/CAD Annual BMP Blood Test 04/10/2024 06/08/2022, 02/04/2022 DTaP,Tdap,and Td Vaccines (2 - Td or Tdap) 08/12/2024 08/12/2014 Cholesterol Screening (Lipid Panel) 02/04/2027 02/04/2022, 02/04/2022, 05/05/2021, Additional history exists Hepatitis B Vaccines Completed 07/07/2017, 05/17/2016, 08/12/2014 Hepatitis C Screening Completed 05/05/2021 Influenza Vaccine Completed 02/03/2024, , 02/04/2022, Additional history exists HIB Vaccines Aged Out No longer eligi [...] patient's age to complete this topic Meningococcal B Vacine Aged Out No lo nger eligible based on patient's age to complete this topic Pneumococcal Vaccine: Pediatrics (0 to 5 Years) and At-Risk Patients (6 to 64 Years) Aged Out No longer eligible based on patient's age to complete this topic RSV Immunization Patients Under 20 months Aged Out No longer eligible based on patient's age to complete this topic Varicella Vaccines Aged Out No longer eligible based on patient's age to complete this topic Insurance PLAN Care Teams Regulatory Lead Relationship Specialty Start Date End Date Dee Arce PA [address] [place] [phone] PCP - General Physician Wellness Instructor 01/10/24
--- OUTSIDE RECORDS SUMMARY | 2024-04-11 09:13 | XMS_ITS | Clinical Summary ---
Author Organization [employer] Address [address] [facility] [address] [place] [address] Care Team Providers Care Decorator Inspector Name Role Phone Unavailable Primary Care Provider [...] patient's age to complete this topic Insurance [facility] STANDARD
--- OUTSIDE RECORDS SUMMARY | 2024-04-11 09:13 | XMS_ITS | Clinical Summary ---
Author Organization [facility] Address [address] [place] [address] Care Team Providers Care Library Supervisor Name Role Phone Ayaka Valera MD Primary [...] (04/17/2019): S/p rt hydrocelectomy on 04/11/2019 at [facility] Drug-induced erectile dysfunction 02/28/2019 Hydrocele 07/22/2016 Scrofula [...] Visit 05/29/202308/2022, 12/29/2020, 09/18/2018, Additional history exists Cpt-VQLEZ-57 () 10/23/2023 02/04/2022, 09/18/2020, 08/21/2020 Imm-Influenza (#1) [...] (ABNORMAL) LIPID PANEL (02/04/2022 11:04 AM EST) [facility] CHOLESTEROL, TOTAL 173 <200 mg/dL 02/05/2022 1:28 AM EST [facility] HDL CHOLESTEROL 31(L) > OR = 40 mg/dL 02/05/2022 1:28 AM EST [facility] TRIGLYCERIDES 309(H) <150 mg/dL 02/05/2022 1:28 AM EST [employer] [facility] LDL-CHOLESTEROL 101(H) mg/dL (calc) 02/05/2022 1:28 AM EST [facility] CHOL/HDLC RATIO 5.6(H) <5.0 (calc) 02/05/2022 1:28 AM EST [employer] NON-HDL CHOLESTEROL 142(H) <130 mg/dL (calc) 02/05/2022 1:28 AM EST [employer] Blood Blood / Unknown 02/04/2022 1 1:04 AM EST 02/04/2022 10:29 PM EST Narrative [facility] - 02/05/2022 1:59 AM EST . [...] LDL-C. Zhen SS et al. DEBORAH. 2013;310(19): 7953-8875 (http://education.Pepex Biomedical/faq/GSA976) For patients with diabetes plus 1 major ASCVD risk factor, treating to a non-HDL-C goal of <100 mg/dL (LDL-C of <70 mg/dL) is considered a therapeutic option. Paola Moreira MD LAB - BLOOD DRAW Final Result [facility] [address] [place] [address], [employer] [address] [place] [phone] * COMPREHENSIVE METABOLIC PANEL (02/04/2022 11:04 AM EST) GLUCOSE 91 65 - 99 mg/dL 02/05/2022 1:28 AM EST [employer] [facility] UREA NITROGEN (BUN) 13 7 - 25 mg/dL 02/05/2022 1:28 AM EST [employer] [facility] CREATININE (blood) 0.79 0.60 - 1.29 mg/dL 02/05/2022 1:28 AM EST [employer] [facility] EGFR 113 > OR = 60 mL/min/1 .73m2 02/05/2022 1:28 AM EST [employer] BUN/CREATININE RATIO NOT APPLICABLE 6 - 22 (calc) 02/05/2022 1:28 AM [facility] SODIUM 140 135 - 146 mmol/L 02/05/2022 1:28 AM [facility] POTASSIUM 3.7 3.5 - 5.3 mmol/L 02/05/2022 1:28 AM [facility] CHLORIDE 103 98 - 110 mmol/L 02/05/2022 1:28 AM [facility] CARBON DIOXIDE 30 20 - 32 mmol/L 02/05/2022 1:28 AM [facility] CALCIUM 9.4 8.6 - 10.3 mg/dL 02/05/2022 1:28 AM [facility] PROTEIN, TOTAL 7.2 6.1 - 8.1 g/dL 02/05/2022 1:28 AM [facility] ALBUMIN 4.4 3.6 - 5.1 g/dL 02/05/2022 1:28 AM [facility] GLOBULIN 2.8 1.9 - 3.7 g/dL (calc) 02/05/2022 1:28 AM [facility] ALBUMIN/GLOBUL IN RATIO 1.6 1.0 - 2.5 (calc) 02/05/2022 1:28 AM [facility] BILIRUBIN, TOTAL 0.4 0.2 - 1.2 mg/dL 02/05/2022 1:28 AM [facility] ALKALINE PHOSPHATASE 99 36 - 130 U/L 02/05/2022 1:28 AM [facility] AST 24 10 - 40 U/L 02/05/2022 1:28 AM [facility] ALT 22 9 - 46 U/L 02/05/2022 1:28 AM [facility] Blood Blood / Unknown 02/04/2022 1 1:04 AM EST 02/04/2022 10:29 PM EST [employer] [facility] - 02/05/2022 1:59 AM EST . ? Fasting reference interval . The eGFR is based on the CKD-EPI 2020 equation. To calculate the new eGFR from a previous Creatinine or Cystatin C result, go to https://www.kidney.org/professionals/ kdoqi/gfr%5Fcalculator Paola Moreira MD LAB - BLOOD DRAW Final Result Performing Organization Address [facility]/ZIP Co de Phone Number [employer] [facility] [address] [address], [employer] [address] [place] [address] * HEPATITIS C ANTIBODY WITH RFLX TO HCV RNA PCR W/RFLX TO GENOTYPE (05/05/2021 8:46 AM EDT) HEPATITIS C ANTIBODY NON-REACT MAMIE NON-REACT MAMIE [employer] SIGNAL TO CUT-OFF 0.01 <1.00 [employer] [facility] Comment: HCV antibody was non-reactive. There is no laboratory evidence of HCV infection. In most cases, no further action is required. However, if recent HCV exposure is suspected, a test for HCV RNA (test code 00044) is suggested. COMMENT [facility] Blood Blood / Unknown 05/05/2021 8 :46 AM EDT 05/06/2021 1:57 AM EDT Narrative [facility] - 05/07/2021 5:29 AM EDT For additional information, please refer to http://education.Pepex Biomedical/faq/DJR498 (This link is being provided for informational/ educational purposes only.) Ayaka Valera MD LAB - BLOOD DRAW Edited Resu lt - Final Performing Organization Address [facility]/ZIP Co de Phone Number [facility] [address] [address], [employer] [address] [place] [address] [employer] [address] [address] * HIV 1/2 AG & AB W/RFLX (4TH GEN) (05/05/2021 8:46 AM EDT) HIV AG/AB, 4TH GEN NON-REAC TIVE NON-REAC TIVE [employer] Comment: HIV-1 antigen and HIV-1/HIV-2 [...] ?? For additional information please refer to http://education.[employer]/faq/MAZ737 (This link is being provided for informational/ educational purposes only.) The performance of this assay has not been clinically validated in patients less than 2 years old. Blood Blood / Unknown 05/05/2021 8 :46 AM EDT 05/06/2021 2:07 AM EDT us Ayaka Valera MD LAB - BLOOD DRAW Edited Resu lt - Final [facility] [address] [address], [facility] [address] [place] [address] from Last 3 Months or Most Recently Relevant to Health Maintenance Additional Health Concerns Active Problems Noted Date Diagnosed Date Patient has a diagnosis of hypertension 09/18/19 21 Insurance DELTA DENTAL [facility] DENTAL [facility] SAFETY NET Care Teams Library Supervisor Relationship Specialty Start Date End Date Ayaka Valera MD [address] [facility] [place] [address] PCP - General Internal Medicine 02/22/15
--- OUTSIDE RECORDS SUMMARY | 2024-04-11 09:13 | XMS_ITS | Encounter Summary ---
Author Organization [facility] Address [address] [place] [address] Care Team Providers Care Wet Machine Operator Name Role Phone Ayaka Valera MD Primary Care Provider [phone] Encounter Details Date Type Department Care Team (Late st Contact Info) Description 12/23/2021 Patient Outreach [facility] [address] [place] [phone] Paolo Lopez [address] [place], [place] Social History Tobacco Use Types Packs/Day [...] documented as of this encounter Care Teams Wet Machine Operator Relationship Specialty Start Date End Date Ayaka Valera MD [address] [place] [address] PCP - General Internal Medicine 02/22/15 documented as of this encounter
--- OUTSIDE RECORDS SUMMARY | 2024-04-11 09:13 | XMS_ITS | Encounter Summary ---
Author Organization [facility] Address [id number] [place] [phone] Care Team Providers Care Office Worker Name Role Phone Dee Arce Primary Care Provider [phone] Reason for Visit * Reason Comments Pain Consult Bunions Right foot bunion * Orthopedic (Routine) - Authorized Specialty Diagnoses / Procedures Referred By Contact Referred To Contact Podiatry / Orthopaedic Surgery Diagnoses Pain in right toe(s) Procedures AMB Referral to Podiatry. Dee Arce PA [address] [place] [id number] Phone: tel: fax: Bernardo Goins DPM [address] [address] Phone: tel: fax: Referral ID Status Reason Start Date Expiration Date Visits Requested Visits Authorized [id number] Authorized Consult and Treat 01/10/2024 01/09/2025 1 1 Encounter Details Date Type Department Care Team ([facility] st Contact Info) Description 04/10/2024 10:30 AM EST Office Visit Orthopedic Surgery - [place] [address] [address] Bernardo Goins DPM [address] [address] Acquired hammer toe of right foot (Primary Dx); Acquired hallux valgus of left foot; Acquired hallux valgus of right foot Social History Tobacco Use Types Packs/Day Years Used Date Smoking Tobacco: Never Assessed Sex and Gender Information Value Date Recorded Sex Assigned at Not on file Legal Sex Male 11:11 AM EST Gender Identity Not on file Sexual Orientation Not on file documented as of this encounter Last Filed Vital Signs Vital Sign Reading Time Taken Comments Blood Pressure - - Pulse - - Temperature - - Respiratory Rate - - Oxygen Saturation - - Inhaled Oxygen Concentration - - Weight 93 kg (205 lb) 04/10/2024 10:52 AM EST Height 180.3 cm (5' 11 ) 04/10/2024 10:52 AM EST Body Mass Index 28.59 04/10/2024 10:52 AM EST documented in this encounter Progress Notes * Bernardo Goins DPM - 04/10/2024 10:30 AM EST Images from the original note were not included. * Bernardo Goins DPM - 04/10/2024 10:30 AM EST Last PCP visit:Referring MD: Dee Arce PA IDENTIFIER: Trae is a 43 y.o. year old male who presents for consultation. CC: Foot pain HPI: Presents today complaining of pain in his right foot he reports that he has a toe that turns in hisright fifth toe is very painful achy is been going for several months he states is very painful he only wear certain shoes and brings wide shoes today states pain is a 10 out of 10 denies trauma to that area worse with activity improves without activity also reports that he has bunions of both feetthat sometimes bother him rates his pain to be a 4 5 out of 10 on a visual analog scale ROS: GENERAL: Pt denies nausea, fever, vomiting, chills, or shortness of breath. Pt in NAD. CARDIOLOGY: pt denies chest pain, palpitations LUNGS: pt denies shortness of breath MUSCULOSKELETAL: See HPI, otherwise no joint pain or swelling, back pain, or muscle pain. SKIN: see HPI, otherwise no lesions, rash or itching NEURO: No persistent headache, weakness or numbness The remainder of the review of systems is noncontributory PAST MEDICAL HISTORY: There is no problem list on file for this patient. Left ventricular hypertrophy hypokalemia anemia leukopenia B12 deficiency vitamin D deficiency dermatitis is high blood pressure SOCIAL HISTORY: Social History Tobacco Use Smoking status: Not on file Smokeless tobacco: Not on file Substance Use Topics Alcohol use: Not on file ACTIVE MEDICATIONS: Outpatient Medications Marked as Taking for the 04/10/24 encounter (Office Visit) with Bernardo Landeros DPM Medication Sig Dispense Refill amLODIPine (NORVASC) 10 mg tablet Take 1 tablet (10 mg total) by mouth 1 (one) time each day. cyanocobalamin, vitamin B-12, 1,000 mcg capsule Take 1 capsule by mouth 1 (one) time each day. cyclobenzaprine (FLEXERIL) 10 mg tablet take 1 tablet orally 3 times a day as needed for muscle spasm hydrALAZINE (APRESOLINE) 25 mg tablet Take 1 tablet (25 mg total) by mouth. losartan (COZAAR) 25 mg tablet Take 1 tablet (25 mg total) by mouth 1 (one) time each day. spironolactone (ALDACTONE) 25 mg tablet Take 1 tablet (25 mg total) by mouth 2 (two) times a day. ALLERGIES: Allergies Allergen Reactions Lisinopril SOB Doxycycline Nausea Only Nifedipine Palpitations NIFEDIPINE palpitations-- NIFEDIPINE palpitations-- NIFEDIPINE palpitations-- PHYSICAL EXAM: Visit Vitals Ht 1.803 m (71 ) Wt 93 kg (205 lb) BMI 28.59 kg/m?? BSA 2.13 m?? PODIATRIC EXAMINATION: GENERAL: Patient appears well nourished, with NAD. VASCULAR: Dorsalis pedis pulses are 2/4 bilaterally and Posterior tibial pulses are 2/4 bilaterally. Capillary filling time within normal limits the digits. No pallor on elevation or rubor on dependency. No varicosities. Denies rest pain or claudication pain. NEUROLOGICAL: Sharp/dull sensation intact, protective sensation intact 10/10 with 5.07 semmes richard bilaterally, vibratory sensation with tuning fork intact to the tibial tuberosity. ORTHOPEDIC: Good muscle strength 5/5 of all flexors and extensors. Dorsi flexion of ankle ,10 degrees, plantar flexion WNL. No muscle atrophy. DERMATOLOGICAL:.Hyperkeratotic tissue abutting the lateral nail plate and nail fold right fifth toeBIOMECHANICS: Ankle ROM WNL, STJ ROM wnl, MTJ ROM wnl, 1st MPJ ROM track bound bunion deformity moderate bilateral hammertoe contracture 2 through 5 with adductovarus deformity fifth digit right fifth digit left with right fifth painful intractable callus overlying the lateral nail plate and nail fold. IMAGING: IMPRESSION: 1. Acquired hammer toe of right foot 2. Acquired hallux valgus of left foot 3. Acquired hallux valgus of right foot PLAN: Pt was seen and examined, history reviewed. Silicone toe sleeves padding strapping recommended printout given for past be tried prior to pursuing surgery surgery was discussed in detail with patient per his request X-rays ordered During today???s visit we discussed at great length the etiology, prognosis, and treatment options for the patient???s condition. Risks and benefits of operative and non operative treatment options were discussed. Treatment options for right fifth digit arthroplasty hammertoe correction correction were discussed, non-operative treatment would involve tapping, strapping, adjustments in shoe gear, orthotics insoles, rest, bracing and edema control. There is potential for the deformities to stabilize without surgery yet there may still be a need for delayed surgery and distructive procedures. There is potential for non-union with surgery and non-operative care would avoid incision problems and anesthesia risks. Surgery has added risks including but not limited to infection, incision pain, neuritis or numbness reoccurance of deformity, scar tissue contracture, worsening of deformity and loss of limb or life. right fifth digit arthroplasty hammertoe correction healing was discussed in relation to operative treatment. Recovery and post operative immobilization was discussed based on the various treatment options. Weight bearing status: NWB x 2 weeks followed by progressive WB x 10 weeks in a below the knee boot. Work&Activity restrictions: Impact of undergoing surgery to work and daily activity was discussed today Pain management: Postoperative pain regiment were discussed in great detail with the patient. The patient was also encouraged to aggressively elevate and ice postoperatively to help with swelling andpain control. The patient was in agreement with this plan. The patient will be prescribed IbuprofenTylenol Oxycodone for postoperative pain management. VTE Risk assessment: Risk of DVT/ PE were discussed in relation to immobilization, inactivity, injury, surgery, medication and personal risk factors. Signs and symptoms of a blood clot were discussedincluding action plan if the patient experiences these signs or symptoms. Methods of prevention and risk reduction were explained. Mechanical prophylaxis including ROM and mobilization is encouraged as much as possible. The patient???s risk for deep vein thrombosis was also assessed today. In regards to major risk factors they: Do not have personal history of DVT Do not have known active cancer Do not have known clotting disorder Do not have family history of DVT Pending foot surgery and current level of immobilization are risk factors. Measure taken to decrease their risk of deep vein thrombosis will consist of detailed education, as well as lower extremity range of motion. Chemical prophylaxis is not recommended based on patients history, procedure and postoperative plan. Planned procedure(s): right fifth digit arthroplasty hammertoe correction surgery WB status: NWB x 2 weeks followed by progressive WB x 10 weeks in a below the knee boot. Pain medication: Ibuprofen Tylenol Oxycodone X-rays ordered both feet 3 views to be taken at next appointment Bernardo Goins DPM documented in this encounter Plan of Treatment Upcoming Encounters Date Type Department Care Team (Late st Contact Info) Description 05/17/2024 10:15 AM EDT Office Visit Orthopedic Surgery - [place] [address] [address] Bernardo Goins DPM [address] [address] documented as of this encounter Visit Diagnoses Diagnosis Acquired hammer toe of right foot- Primary Acquired hallux valgus of left foot Acquired hallux valgus of right foot documented in this encounter Historical Medications * This list may reflect changes made after this encounter. cholecalciferol (VITAMIN D-3) 50 mcg (2,000 unit) tablet Take 1 tablet (2,000 Units total) by mouth 1 (one) time each day. spironolactone (ALDACTONE) 25 mg tablet Take 1 tablet (25 mg total) by mouth 2 (two) times a day. 02/02/2024 cyanocobalamin, vitamin B-12, 1,000 mcg capsule Take 1 capsule by mouth 1 (one) time each day. 02/06/2024 cyclobenzaprine (FLEXERIL) 10 mg tablet take 1 tablet orally 3 times a day as needed for muscle spasm 02/02/2024 hydrALAZINE (APRESOLINE) 25 mg tablet Take 1 tablet (25 mg total) by mouth. 12/30/2023 losartan (COZAAR) 25 mg tablet Take 1 tablet (25 mg total) by mouth 1 (one) time each day. 11/24/2023 amLODIPine (NORVASC) 10 mg tablet Take 1 tablet (10 mg total) by mouth 1 (one) time each day. 11/24/2023 added in this encounter Care Teams Office Worker Relationship Specialty Start Date End Date Dee Arce PA [address] [place] [id number] PCP - General Physician Direct Care Staffer 01/10/24 documented as of this encounter
== END 2024-04-11 09:18 | disposition home or self-care (01) ==
PROVIDERS: PCP Physician Assistant Medical; Visit Provider Internal Medicine Hypertension Specialist
DX: E87.6 Hypokalemia (principal); I10 Essential (primary) hypertension
CPT/HCPCS: 99214

== ENCOUNTER → 2024-04-11 09:03 | Outpatient (BNVA) | payer OTHER, SELFPAY | PROVIDERS: PCP Physician Assistant Medical; Visit Provider Internal Medicine Hypertension Specialist | DX: I10 Essential (primary) hypertension (principal); E87.6 Hypokalemia | CPT/HCPCS: 99212 ==

== ENCOUNTER 2024-04-21 08:35 | Outpatient (REF) | payer OTHER, SELFPAY ==
[2024-04-29 13:38] LABS: Testosterone, Free 85.5 pg/mL (35.0-155.0); Testosterone, Total 396 ng/dL (250-1100)
== END 2024-04-21 08:36 | disposition home or self-care (01) ==
LOC: HO.HMGCLDS 08:35
PROVIDERS: PCP Physician Assistant Medical; Visit Provider Internal Medicine Endocrinology, Diabetes & Metabolism
DX: M85.80 Other specified disorders of bone density and structure, unspecified site (principal)
CPT/HCPCS: 36415; 84402; 84403

== ENCOUNTER 2024-05-02 13:46 | Outpatient (AMB) | payer OTHER, SELFPAY ==
[2024-05-02 14:10] VITALS: BP 158/80; PULSE 68; BMI 29.5
--- NOTE | 2024-05-02 14:10 | MHC.OFFVIS ---
Vital Signs 05/02/24 14:10 Height 5 ft 11 in Weight 211 lb 10.3 oz BMI 29.5 BP 158/80 H Blood Pressure Location Lt brachial Position Sitting Pulse 68 Pulse Source Monitor Intake Visit Reasons: CLAIM PROFESSIONAL/Cardiomegaly/HTN/Yazmin Allergies lisinopril Allergy (Intermediate, Verified 04/11/24 09:07) Shortness of Breath Medication List - Last Reconciled 05/02/24 by Ethan Emmanuel MD amlodipine 10 mg PO DAILY cholecalciferol (vitamin D3) 50 mcg PO DAILY cyanocobalamin (vitamin B-12) 1,000 mcg PO DAILY cyclobenzaprine 10 mg PO TID PRN hydralazine 25 mg PO TID losartan 25 mg PO DAILY potassium chloride ER 10 mEq PO DAILY spironolactone 25 mg PO BID HPI Comments Details: Khushboo is here for cardiac evaluation. [place] and has lived here for the last few years. It seems that he has history of longstanding hypertension but not well controlled. He is currently seeing Nephrology for that. Few months back, admitted to [facility] with chest pains. Nothing clearly exertional and can happen any time. Even at rest. He also gets short of breath with activity. It appears that he underwent an echocardiogram and stress test and then eventually discharged home. More or less, he feels just about the same as before. Today's blood pressure is also on the higher side. Previously, no documented coronary disease or myocardial infarction or cardiomyopathy. [facility] Medical History (Updated 05/02/24 @ 15:01 by Ethan Emmanuel MD) Osteopenia Bone disorder Anxiety Thoracolumbar back pain Hospital discharge follow-up LVH (left ventricular hypertrophy) Pain of right great toe Hypokalemia Anemia Leukopenia B12 deficiency Vitamin D deficiency Hyperlipidemia Essential hypertension Dermatitis High blood pressure Surgical History History of hydrocelectomy Family History Mother Diabetes Maternal Grandmother High blood pressure Family/Other Breast cancer Social History Household Members: Family Both parents involved: No Caregiver staying overnight: No Housing: House Are you a primary child care coordinator to a significant other at home: No Do you presently have visiting nurse or other home services: No 75 years or older and lives alone: No Alcohol intake: former Patient Tobacco Use Status: Never used Tobacco e-Cigarette/Vaping Use: Never Used service: No Current occupational status: employed Current occupation: [employer] Cognitive needs: No Hearing needs: No Vision needs: Yes (Patient states vision is blurry.) Review of Systems Const Denies weakness ENT Denies dizziness Card Denies chest pain, Reports chest pain with activity, Denies syncope, Denies rapid heart rate, Denies pedal edema, Denies edema, Denies leg edema, Denies lightheadedness, Reports palpitations, Denies dyspnea, Reports dyspnea on exertion and Denies orthopnea Resp Denies cough, Denies dyspnea and Reports dyspnea on exertion GI Denies hematochezia and Denies change in stool character Musc Denies abnormal gait, Denies muscle cramps, Denies muscle weakness, Denies numbness, Denies radiating pain into limb and Denies tingling Neuro Denies abnormal gait, Denies dizziness, Denies syncope, Denies numbness, Denies tingling and Denies weakness Endo Reports palpitations Physical Exam Vital Signs: Last Vital Signs Pulse 68 05/02/24 14:10 BP 158/80 H 05/02/24 14:10 BMI result Body Mass Index 29.5 Const General: comfortable and no acute distress Orientation/consciousness: patient oriented x3 HEENT Other: Unremarkable Head: Yes normal to inspection Neck Neck: Yes normal visual inspection Chest Chest palpation & inspection: normal inspection of the chest Resp Auscultation: clear to auscultation bilaterally Cardio Palpation: normal PMI Heart sounds: S1 normal heart sound present, S2 normal heart sound present, no gallops, no murmurs and no rubs GI Palpation (GI): Soft to palpation Back/Spine/Pelvis Other: unremarkable Skin General skin exam: no rashes or lesions noted Neuro General: patient oriented x3 Extrem General: Yes normal to inspection Psych Mental Status: mental status grossly normal Office Procedures EKG Details: EKG with underlying sinus rhythm at 68/Min; inferior as well as anterolateral T inversions. [id number], Complete Assessment & Plan Assessment & Plan (1) Essential hypertension: Code(s): I10 - Essential (primary) hypertension Category: Medical (2) LVH (left ventricular hypertrophy): Code(s): I51.7 - Cardiomegaly Category: Medical (3) Precordial chest pain: Code(s): R07.2 - Precordial pain Category: Medical Plan Cardiac findings reviewed. EKG with T inversions in inferior as well as anterolateral leads. In the echocardiogram from [facility], LVEF 65-70%; moderate left ventricular hypertrophy; complete obliteration of apical segments and systole and mid cavitary gradient without obstruction. Peak global longitudinal strain-14%. Mild diastolic dysfunction. Biatrial dilatation. Trivial pericardial effusion. Myocardial perfusion imaging study normal without any reversible or fixed perfusion defects after exercise stress test. Exercise capacity 5.6 METS. Seem to have hypertensive blood pressure response. Overall, longstanding hypertension, nonexertional chest pains, exertional shortness of breath, abnormal EKG and echocardiogram. He needs evaluation for infiltrative cardiomyopathy. We will plan cardiac MRI for further evaluation. Otherwise, with regard to hypertension, already being addressed through Nephrology and hence no further changes made today. But we will follow along and make additional recommendations as necessary. Orders: Orders MR cardiac morph fnct w con Today I42.9 - Cardiomyopathy, unspecified Basic Metabolic Panel Today R07.2 - Precordial pain Coding Level of Care Code New Pt Level 4 (77051) Complex EM visit Add On G2211 Diagnoses Essential hypertension I10 LVH (left ventricular hypertrophy) I51.7 Precordial chest pain R07.2 CPT Codes EKG - CPT: 35642-[id number], Complete ([id number])
--- OUTSIDE RECORDS SUMMARY | 2024-05-02 16:16 | XMS_ITS | Clinical Summary ---
Author Organization 175 [facility] Address 175 [place] [address] Phone Care Team Providers Care Childcare Teacher Name Role Phone Dee Arce Primary Care Provider [phone] Allergies Active Allergy Reactions Criticality Noted Date [...] 10:30 AM EST Office Visit Orthopedic Surgery [facility] 250 175 [facility] [address] [place] [phone] Bernardo Goins DPM Acquired hammer toe [...] Upcoming Encounters Date Type Department Care Team ([facility] st Contact Info) Description 05/17/2024 10:15 AM EDT Office Visit Orthopedic Surgery - [place] [address] [phone] Bernardo Goins DPM [address] [address] Health Maintenance Due Date Last Done Comments [...] age to complete [place] [id number] Care Teams Childcare Teacher Relationship Specialty Start Date End Date Dee Arce PA [address] [place] [phone] PCP - General Physician Inverter And Clipper 01/10/24
--- OUTSIDE RECORDS SUMMARY | 2024-05-02 16:16 | XMS_ITS | Encounter Summary ---
Author Organization [facility] Address [address] [place] [address] Care Team Providers Care Crate Tier Name Role Phone Ayaka Valera MD Primary Care Provider [phone] Encounter Details Date Type Department Care Team (Late st Contact Info) Description 12/23/2021 Patient Outreach [facility] [address] [place] [phone] Paolo Lopez [address] [place], [place] Social History Tobacco Use Types Packs/Day [...] documented as of this encounter Care Teams Crate Tier Relationship Specialty Start Date End Date Ayaka Valera MD [address] [place] [address] PCP - General Internal Medicine 02/22/15 documented as of this encounter
--- OUTSIDE RECORDS SUMMARY | 2024-05-02 16:16 | XMS_ITS | Clinical Summary ---
Author Organization [facility] Address [address] [place] [address] Care Team Providers Care Oil Recovery Unit Operator Name Role Phone Ayaka Valera MD [...] (04/17/2019): [place]11[place] [facility] [place]-induced erectile dysfunction 02/28/2019 Hydrocele 07/22/2016 Scrofula [...] Visit 05/29/202308/2022, 12/29/2020, 09/18/2018, Additional history exists [id number] () 10/23/2023 02/04/2022, 09/18/2020, 08/21/2020 Imm-Influenza (#1) [...] (ABNORMAL) LIPID PANEL (02/04/2022 11:04 AM EST) [facility] CHOLESTEROL, TOTAL 173 <200 mg/dL 02/05/2022 1:28 AM EST [facility] HDL CHOLESTEROL 31(L) > OR = 40 mg/dL 02/05/2022 1:28 AM EST [facility] TRIGLYCERIDES 309(H) <150 mg/dL 02/05/2022 1:28 AM EST [facility] LDL-CHOLESTEROL 101(H) mg/dL (calc) 02/05/2022 1:28 AM EST [facility] CHOL/HDLC RATIO 5.6(H) <5.0 (calc) 02/05/2022 1:28 AM EST [facility] NON-HDL CHOLESTEROL 142(H) <130 mg/dL (calc) 02/05/2022 1:28 AM EST [facility] Blood Blood / Unknown 02/04/2022 1 1:04 AM EST 02/04/2022 10:29 PM EST Narrative [facility] - 02/05/2022 1:59 AM EST . If [...] LDL-C. Zhen SS et al. DEBORAH. 2013;310(19): 8416-6771 (http://education.Elevate Digital/faq/AXY948) For patients with diabetes plus 1 major ASCVD risk factor, treating to a non-HDL-C goal of <100 mg/dL (LDL-C of <70 mg/dL) is considered a therapeutic option. Paola Moreira MD LAB - BLOOD DRAW Final Result [facility] [address] [place] [address], [facility] [address] [place] [phone] * COMPREHENSIVE METABOLIC PANEL (02/04/2022 11:04 AM EST) GLUCOSE 91 65 - 99 mg/dL 02/05/2022 1:28 AM EST [facility] UREA NITROGEN (BUN) 13 7 - 25 mg/dL 02/05/2022 1:28 AM EST [facility] CREATININE (blood) 0.79 0.60 - 1.29 mg/dL 02/05/2022 1:28 AM EST [facility] EGFR 113 > OR = 60 mL/min/1 .73m2 02/05/2022 1:28 AM EST [facility] BUN/CREATININE RATIO NOT APPLICABLE 6 - 22 (calc) 02/05/2022 1:28 AM [email or web address] [facility] SODIUM 140 135 - 146 mmol/L 02/05/2022 1:28 AM [email or web address] [facility] POTASSIUM 3.7 3.5 - 5.3 mmol/L 02/05/2022 1:28 AM [email or web address] [facility] CHLORIDE 103 98 - 110 mmol/L 02/05/2022 1:28 AM [email or web address] [facility] CARBON DIOXIDE 30 20 - 32 mmol/L 02/05/2022 1:28 AM [email or web address] [facility] CALCIUM 9.4 8.6 - 10.3 mg/dL 02/05/2022 1:28 AM [email or web address] [facility] PROTEIN, TOTAL 7.2 6.1 - 8.1 g/dL 02/05/2022 1:28 AM [email or web address] [facility] ALBUMIN 4.4 3.6 - 5.1 g/dL 02/05/2022 1:28 AM [email or web address] [facility] GLOBULIN 2.8 1.9 - 3.7 g/dL (calc) 02/05/2022 1:28 AM [email or web address] [facility] ALBUMIN/GLOBUL IN RATIO 1.6 1.0 - 2.5 (calc) 02/05/2022 1:28 AM [email or web address] [facility] BILIRUBIN, TOTAL 0.4 0.2 - 1.2 mg/dL 02/05/2022 1:28 AM [email or web address] [facility] ALKALINE PHOSPHATASE 99 36 - 130 U/L 02/05/2022 1:28 AM [email or web address] [facility] AST 24 10 - 40 U/L 02/05/2022 1:28 AM [email or web address] [facility] ALT 22 9 - 46 U/L 02/05/2022 1:28 AM [email or web address] [facility] Blood Blood / Unknown 02/04/2022 1 1:04 AM EST 02/04/2022 10:29 PM EST [facility] - 02/05/2022 1:59 AM EST . ? Fasting reference interval . The eGFR is based on the CKD-EPI 2020 equation. To calculate the new eGFR from a previous Creatinine or Cystatin C result, go to https://www.kidney.org/professionals/ kdoqi/gfr%5Fcalculator Paola Moreira MD LAB - BLOOD DRAW Final Result Performing Organization Address [facility]/ZIP Co de Phone Number [facility] [address] [address], [facility] [address] [place] [address] * HEPATITIS C ANTIBODY WITH RFLX TO HCV RNA PCR W/RFLX TO GENOTYPE (05/05/2021 8:46 AM EDT) HEPATITIS C ANTIBODY NON-REACT MAMIE NON-REACT MAMIE [facility] SIGNAL TO CUT-OFF 0.01 <1.00 [employer] [facility] Comment: HCV antibody was non-reactive. There is no laboratory evidence of HCV infection. In most cases, no further action is required. However, if recent HCV exposure is suspected, a test for HCV RNA (test code 84907) is suggested. COMMENT [employer] [facility] Blood Blood / Unknown 05/05/2021 8 :46 AM EDT 05/06/2021 1:57 AM EDT Narrative [facility] - 05/07/2021 5:29 AM EDT For additional information, please refer to http://education.Elevate Digital/faq/TLY835 (This link is being provided for informational/ educational purposes only.) Ayaka Valera MD LAB - BLOOD DRAW Edited Resu lt - Final Performing Organization Address [facility]/ZIP Co de Phone Number [facility] [address] [address], [facility] [address] [place] [address] [facility] [address] [address] * HIV 1/2 AG & AB W/RFLX (4TH GEN) (05/05/2021 8:46 AM EDT) HIV AG/AB, 4TH GEN NON-REAC TIVE NON-REAC TIVE [facility] Comment: HIV-1 antigen and HIV-1/HIV-2 antibodies [...] ?? For additional information please refer to http://education.Tumbie/faq/DKW193 (This link is being provided for informational/ educational purposes only.) The performance of this assay has not been clinically validated in patients less than 2 years old. Blood Blood / Unknown 05/05/2021 8 :46 AM EDT 05/06/2021 2:07 AM EDT us Ayaka Valera MD LAB - BLOOD DRAW Edited Resu lt - Final [facility] [address] [address], [facility] [address] [place] [address] from Last 3 Months or Most Recently Relevant to Health Maintenance Additional Health Concerns Active Problems Noted Date Diagnosed Date Patient has a diagnosis of hypertension 09/18/19 21 Insurance DELTA DENTAL [facility] DENTAL [facility] [employer] Care Teams Oil Recovery Unit Operator Relationship Specialty Start Date End Date Ayaka Valera MD [address] [facility] [place] [facility] [place] [address] PCP - General Internal Medicine 02/22/15
--- OUTSIDE RECORDS SUMMARY | 2024-05-02 16:16 | XMS_ITS | Clinical Summary ---
Author Organization [employer] Address [address] [place] [address] Care Team Providers Care Corporate Security Officer Name Role Phone Unavailable Primary Care Provider [...] patient's age to complete this topic Insurance [facility] STANDARD
--- OUTSIDE RECORDS SUMMARY | 2024-05-02 16:16 | XMS_ITS | Continuity of Care Document ---
Author Organization [facility] ter Address [address] [place] [address]- Care Team Providers Care Physician Office Assistant Name Role Phone Dee Crawford [id number]): [facility] - 04/28/[address] [address]- Discharge Disposition: A-D/C Home Attending Physician: Daphne Rocha MD Admitting Physician: Daphne Rocha MD Referring Physician: Not on Staff, Referring MD Encounter Type: Disch ES Allergies, Adverse Reactions, Alerts Substance Criticality Severity Reaction Reaction Severity Status lisinopril Active Medications amLODIPine 10 mg oral tablet 1 tablet = 10 mg, By Mouth, Daily Start Date: 12/29/23 Status: Ordered Repeat number: 1 cephalexin monohydrate 500 mg oral tablet 1 tablet = 500 mg, By Mouth, 4 times a day, for 7 days, # 28 tablet, 0 Refills, Acute 05/05/24 10:01:00 AM EDT, 04/28/24 10:01:00 AM EST, Tablet, [facility]/pharmacy #[id number], Partial fill upon patient request ifthe prescription is for a schedule II opioid drug., 180, cm, 04/28/24 7:29:00 EST, Height, 98.2, kg, 12/29/23 10:09:00 EST, Dry Weight Start Date: 04/28/24 Stop Date: 05/05/24 Status: Ordered Quantity: 28.0 Unit: tablet Repeat number: 1 cholecalciferol 2000 intl units oral capsule 1 capsule = 50 mcg, By Mouth, Daily, Maintenance, 12/29/23 8:58:00 AM EST, Capsule, Partial fill upon patient request if the prescription is for a schedule II opioid drug. Start Date: 12/29/23 Status: Ordered Repeat number: 1 hydrALAZINE 25 mg oral tablet 25 mg, 1, tablet, By Mouth, 3 times a day, # 90 tablet, Refills 0, Tot. Refills 0, Maintenance, 12/30/23 3:44:00 PM EST, Route to Pharmacy Electronically, [facility] 3, Partial fill upon patient request if the prescription is for a schedule II opioid drug., 180, cm, 12/30/23 2:23:00 EST,Height, 98.2, kg, 12/29/23 10:09:00 EST, Dry Weight Start Date: 12/30/23 Status: Ordered Quantity: 90.0 Unit: tablet Repeat number: 1 losartan 50 mg oral tablet 50 mg, By Mouth, Daily, # 30 tablet, Refills 0, Tot. Refills 0, Maintenance, 12/30/23 3:44:00 PM EST, Route to Pharmacy Electronically, [facility] 3, Partial fill upon patient request if the prescription is for a schedule II opioid drug., 180, cm, 12/30/23 2:23:00 EST, Height, 98.2, kg, 12/29/23 10:09:00 EST, Dry Weight Start Date: 12/30/23 Status: Ordered Quantity: 30.0 Unit: tablet Repeat number: 1 Potassium Chloride (Ytl-Zfma-Umk 10) 10 mEq oral tablet, extended release 1 tablet = 10 mEq, By Mouth, Daily Start Date: 12/29/23 Status: Ordered Repeat number: 1 spironolactone 25 mg oral tablet 25 mg, By Mouth, Daily, # 30 tablet, Refills 0, Tot. Refills 0, Maintenance, 12/30/23 3:45:00 PM EST, Route to Pharmacy Electronically, [facility] 3, Partial fill upon patient request if the prescription is for a schedule II opioid drug., 180, cm, 12/30/23 2:23:00 EST, Height, 98.2, kg, 12/29/23 10:09:00 EST, Dry Weight Start Date: 12/30/23 Status: Ordered Quantity: 30.0 Unit: tablet Repeat number: 1 Vitamin B12 50 mcg oral tablet 1 tablet = 50 mcg, By Mouth, Daily, Maintenance, 12/29/23 8:58:00 AM EST, Partial fill upon patient request if the prescription is for a schedule II opioid drug. Start Date: 12/29/23 Status: Ordered Repeat number: 1 Results Orders for Microbiology Reports Name Date Group A Strep Screen and Culture 04/28/24 Microbiology Reports TEST:Group A Strep Screen and Culture STATUS:Auth (Verified) BODY SITE: SOURCE:THROAT COLLECTED DATE/TIME:04/28/24 8:01 AM Group A Strep Screen and Culture SPECIMEN DESCRIPTION : THROAT SWAB SPECIAL REQUESTS : NONE DIRECT EXAM : RAPID GROUP A ANTIGEN RESULT IS NEGATIVE, CULTURE SENT TO REFERENCE LAB CULTURE : RAPID GROUP A ANTIGEN RESULT IS NEGATIVE, CULTURE SENT TO REFERENCE LAB REPORT STATUS : FINAL 04/28/2024 Vital Signs Most recent to oldest [Reference Range]: 1 2 Height 180 cm (04/28/24 7:29 AM) Weight 95.5 kg (04/28/24 7:29 AM) Oxygen Saturation [94-100 %] 100 % (04/28/24: AM) 100 % (04/28/24 7:28 AM) Pulse Rate [55-90 bpm] 77 bpm (04/28/24 7:29 AM) 82 bpm (04/28/24 7:28 AM) Body Mass Index [18.5-24.99 kg/m2] 29.48 kg/m2 *H* (04/28/24 7:29 AM) Blood Pressure [90-138/55-84 mm Hg] 141/ 97mm Hg *H* (04/28/24 7:29 AM) Respiratory Rate [16-30 br/min] 18 br/mi n (04/28/24 7:29 AM) Temperature [96.8-100.4 DegF] 98.2 DegF (04/28/24 7:29 AM) Mode of Delivery (Oxygen) Room air (04/28/24 7:29 AM) Room air (04/28/24 7:28 AM) Blood pressure sites Arm, left (04/28/24 7:29 AM) Temperature Route Oral (04/28/24 7:29 AM) Social History Social History Type Response Smoking Status Never (less than 100 in lifetime) entered on: 12/28/23 Sex Sex Representation Male (finding) Patient Care team information Care Team Personnel Name: Dee Crawford Position: Reference Physician Member Role: PCP Address: [address] [place] [address] [place] [address]- Telecom: Insurance Providers Guarantor name: DYLON Health Plan Information #: 1 Payer: [employer] Member Number: [id number] Policy Number: DYLON Group Number: [id number] Health Plan Information #: 2 Payer: [employer] Member Number: [id number] Policy Number: DYLON Group Number: [id number]
--- OUTSIDE RECORDS SUMMARY | 2024-05-02 16:16 | XMS_ITS | Encounter Summary ---
Author Organization [employer] Address [address] [place] [address] Care Team Providers Care Elevator Constructor Supervisor Name Role Phone Dee Arce Primary Care Provider [phone] Reason for Visit * Reason Comments Pain Consult Bunions Right foot bunion * Orthopedic (Routine) - Closed Specialty Diagnoses / Procedures Referred By Contact Referred To Contact Podiatry / Orthopaedic Surgery Diagnoses Pain in right toe(s) Procedures AMB Referral to Podiatry. Dee Arce PA [address] [place] [address] Phone: tel: fax: Bernardo Goins DPM [address] [address] Phone: tel: fax: Referral ID Status Reason Start Date Expiration Date V isits Requested Visits Authorized [id number] Closed Consult and Treat 01/10/2024 01/09/2025 1 1 Encounter Details Date Type Department Care Team (Late st Contact Info) Description 04/10/2024 10:30 AM EST Office Visit Orthopedic Surgery - [place] [address] [address] Bernardo Goins DPM [address] [address] Acquired hammer toe of right foot (Primary [...] AM EDT Office Visit Orthopedic Surgery [place] [address] [address] Bernardo Goins DPM [address] [address] documented as of this encounter Visit Diagnoses [...] 11/24/2023 added in this encounter Care Teams Elevator Constructor Supervisor Relationship Specialty Start Date End Date Dee Arce PA [address] [place] [address] PCP - General Physician Copy Center Specialist 01/10/24 documented as of this encounter
== END 2024-05-02 14:42 | disposition home or self-care (01) ==
LOC: HO.HCS 13:47
PROVIDERS: PCP Physician Assistant Medical; Visit Provider Internal Medicine
DX: I10 Essential (primary) hypertension (principal); I51.7 Cardiomegaly; R07.2 Precordial pain
CPT/HCPCS: 93010; 99204; G2211

== ENCOUNTER → 2024-05-02 13:46 | Outpatient (BNVA) | payer OTHER, SELFPAY | PROVIDERS: PCP Physician Assistant Medical; Visit Provider Internal Medicine | DX: I51.7 Cardiomegaly (principal); I10 Essential (primary) hypertension; R07.2 Precordial pain; R94.31 Abnormal electrocardiogram [ECG] [EKG] | CPT/HCPCS: 93005; 99202 ==

== ENCOUNTER 2024-05-30 09:14 | Outpatient (REF) | payer OTHER, SELFPAY ==
--- NOTE | ~2024-05-30 | CT_ITS ---
EXAMINATION: CT ABDOMEN PELVIS WITHOUT THEN WITH IV CONTRAST HISTORY: E26.9 - Hyperaldosteronism, unspecified COMPARISON: None. TECHNIQUE: CT scan of the abdomen and pelvis was performed before and after the intravenous administration of 85 mL Omnipaque 350. Postcontrast images were obtained through the adrenal glands in the portal venous and delayed phases to calculate adrenal washout. Coronal and sagittal reformatted images were generated and reviewed. Oral contrast material was not administered per department protocol. This CT exam was performed with one or more of the following dose reduction techniques: automated exposure control, adjustment of the mA and/or kV according to patient size, use of iterative reconstruction technique. DLP: 743 mGy-cm ABDOMEN: LOWER CHEST: The visualized lung bases are clear. There is no pleural effusion. CARDIOVASCULATURE: The heart is normal in size. There is no pericardial effusion. LIVER: The liver is normal in size and contour. No liver mass is identified. The hepatic and portal veins are patent. GALLBLADDER / BILE DUCTS: The gallbladder is unremarkable. There is no intra or extrahepatic biliary ductal dilatation. SPLEEN: The spleen is normal in size. No focal splenic lesion is identified. PANCREAS: The pancreas is unremarkable in appearance. ADRENAL GLANDS: Within normal limits. No adrenal mass is identified. KIDNEYS/RETROPERITONEUM: No renal calculi are identified. There is no hydronephrosis. No renal masses are identified. LYMPH NODES: No abdominal or pelvic lymphadenopathy. VASCULATURE: The abdominal aorta is normal in caliber. MESENTERY/PERITONEUM: No free fluid. No masses. There is no free intraperitoneal gas. STOMACH: The stomach is collapsed, limiting evaluation. SMALL BOWEL: The small bowel is normal in caliber. COLON: The colon is unremarkable. APPENDIX: Normal. URINARY BLADDER/PELVIC ORGANS: The urinary bladder is nondistended, limiting evaluation. The prostate is normal in size. BONES / SOFT TISSUES: No suspicious bony or soft tissue abnormalities. CT/CT abdomen pelvis wo/w IV con IMPRESSION: Unremarkable unenhanced and contrast-enhanced CT of the abdomen and pelvis. No evidence of an adrenal mass. Electronically signed by: Rudy Holliday MD 05/30/2024 11:10 AM EDT
--- OUTSIDE RECORDS SUMMARY | 2024-05-30 09:52 | XMS_ITS | Clinical Summary ---
Author Organization 175 [facility] Address [address] [place] [address] Phone Care Team Providers Care Coal Trimmer Machine Operator Name Role Phone Dee Arce Primary Care Provider [phone] Allergies Active Allergy Reactions Criticality Noted Date [...] 10:30 AM EST Office Visit Orthopedic Surgery [facility] [address] [facility] [address] [place] [phone] Goins, Christopher M, DPM Acquired hammer toe of right foot [...] 04/10/2024 10:52 AM EST Plan of Treatment Health Maintenance Due Date [...] age to complete this topic Meningococcal B Vaccine Aged Out No l onger eligible based on patient's age to complete [...] patient's age to complete this topic [place] [address] [place] [address] PLAN Care Teams Coal Trimmer Machine Operator Relationship Specialty Start Date End Date Dee Arce PA [address] [place] [address] PCP - General Physician Architectural Wood Model Maker 01/10/24
--- OUTSIDE RECORDS SUMMARY | 2024-05-30 09:52 | XMS_ITS | Clinical Summary ---
Author Organization [employer] Address [address] [place] [address] Care Team Providers Care Counter Top Assembler Name Role Phone Unavailable Primary Care Provider [...] patient's age to complete this topic Insurance [facility] STANDARD
--- OUTSIDE RECORDS SUMMARY | 2024-05-30 09:52 | XMS_ITS | Clinical Summary ---
Author Organization [facility] Address [address] [place] [address] Care Team Providers Care Full Stack Engineer Name Role Phone Ayaka Valera MD Primary [...] (04/17/2019): S/p rt hydrocelectomy on 04/11/2019 at [place] Drug-induced erectile dysfunction 02/28/2019 Hydrocele 07/22/2016 Scrofula [...] 10/10/201309/21 Mass, chest wall 07/11/2013 02/22/2015 Immunizations Immunization Administration Dates Next Due Flu, Adjuvant, 65y+ [...] Health Maintenance Due Date Last Done Comments Anxiety Screening 1978 Dental FMX/Pano 1978 Tobacco Screening 08/07/2016 08/08/2015, , 05/02/2015, Additional history exists Dental Prophy 09/12/2020 09/11/2019 Dental BW 10/25/2020 10/24/2019 Dental Examination 10/25/2020 10/24/2019 Annual Preventive Care Visit 05/29/202308/2022, 12/29/2020, 09/18/2018, Additional history exists [id number] () 10/23/2023 02/04/2022, 09/18/2020, 08/21/2020 Imm-Influenza (#1) 2023 02/04/2022, 1 02/29/2020, 01/02/2020, Additional history exists CT Colonography 11/20/2023 Colonoscopy 11/20/2023 Colorectal Cancer Screening 11/20/2023 FIT/gFOBT 11/20/2023 Fecal DNA 11/20/2023 Flexible Sigmoidoscopy 11/20/2023 Alcohol and Drug Screen 02/22/2024 05/29/19 23, 07/14/2021, 12/29/2020, Additional history exists Depression Annual Screen 02/22/2024 05/28/2022 Imm-DTaP/Tdap/Td (2 - Td or Tdap) 08/12/2024 015 Lipid Screening 02/04/2025 02/04/2022, 04/21, 04/02/2020, Additional history exists Diabetes Screening 06/08/2025 06/08/2022, 1 04/07/2021, 02/04/2022, Additional history exists Imm-Hepatitis B Completed 07/07/2017, 04/22, 08/12/2014 HIV Screening Completed 05/05/2021, 0606/2017, 04/20/2016, Additional history exists Hepatitis C Screening [...] (ABNORMAL) LIPID PANEL (02/04/2022 11:04 AM EST) Pathologist [facility] CHOLESTEROL, TOTAL 173 <200 mg/dL 02/05/2022 1:28 AM EST [facility] HDL CHOLESTEROL 31(L) > OR = 40 mg/dL 02/05/2022 1:28 AM EST [facility] TRIGLYCERIDES 309(H) <150 mg/dL 02/05/2022 1:28 AM EST [facility] LDL-CHOLESTEROL 101(H) mg/dL (calc) 02/05/2022 1:28 AM EST [facility] CHOL/HDLC RATIO 5.6(H) <5.0 (calc) 02/05/2022 1:28 AM EST [email or web address] NON-HDL CHOLESTEROL 142(H) <130 mg/dL (calc) 02/05/2022 1:28 AM EST [email or web address] Blood Blood / Unknown 02/04/2022 1 1:04 AM EST 02/04/2022 10:29 PM EST Narrative [facility] - 02/05/2022 1:59 AM EST . If [...] of LDL-C. Zhen SS et al. DEBORAH. 2013;310(66): 3181-6508 (http://education.Juntines/faq/HUY800) For patients with diabetes plus 1 major ASCVD risk factor, treating to a non-HDL-C goal of <100 mg/dL (LDL-C of <70 mg/dL) is considered a therapeutic option. Paola Moreira MD LAB - BLOOD DRAW Final Result [employer] [address] [place] [address], [email or web address] [address] [place] [phone] * COMPREHENSIVE METABOLIC PANEL (02/04/2022 11:04 AM EST) GLUCOSE 91 65 - 99 mg/dL 02/05/2022 1:28 AM EST [email or web address] UREA NITROGEN (BUN) 13 7 - 25 mg/dL 02/05/2022 1:28 AM EST [employer] CREATININE (blood) 0.79 0.60 - 1.29 mg/dL 02/05/2022 1:28 AM EST [employer] EGFR 113 > OR = 60 mL/min/1 .73m2 02/05/2022 1:28 AM [facility] BUN/CREATININE RATIO NOT APPLICABLE 6 - 22 (calc) 02/05/2022 1:28 AM [facility] SODIUM 140 135 - 146 mmol/L 02/05/2022 1:28 AM [facility] POTASSIUM 3.7 3.5 - 5.3 mmol/L 02/05/2022 1:28 AM [facility] CHLORIDE 103 98 - 110 mmol/L 02/05/2022 1:28 AM [facility] CARBON DIOXIDE 30 20 - 32 mmol/L 02/05/2022 1:28 AM [facility] CALCIUM 9.4 8.6 - 10.3 mg/dL 02/05/2022 1:28 AM [facility] PROTEIN, TOTAL 7.2 6.1 - 8.1 g/dL 02/05/2022 1:28 AM [facility] ALBUMIN 4.4 3.6 - 5.1 g/dL 02/05/2022 1:28 AM [facility] GLOBULIN 2.8 1.9 - 3.7 g/dL (calc) 02/05/2022 1:28 AM [facility] ALBUMIN/GLOBUL IN RATIO 1.6 1.0 - 2.5 (calc) 02/05/2022 1:28 AM [facility] BILIRUBIN, TOTAL 0.4 0.2 - 1.2 mg/dL 02/05/2022 1:28 AM [facility] ALKALINE PHOSPHATASE 99 36 - 130 U/L 02/05/2022 1:28 AM [facility] AST 24 10 - 40 U/L 02/05/2022 1:28 AM [facility] ALT 22 9 - 46 U/L 02/05/2022 1:28 AM [facility] Blood Blood / Unknown 02/04/2022 1 1:04 AM EST 02/04/2022 10:29 PM EST [employer] [facility] - 02/05/2022 1:59 AM EST . ? Fasting reference interval . The eGFR is based on the CKD-EPI 2020 equation. To calculate the new eGFR from a previous Creatinine or Cystatin C result, go to https://www.kidney.org/professionals/ kdoqi/gfr%5Fcalculator Paola Moreira MD LAB - BLOOD DRAW Final Result Performing Organization Address [facility]/ZIP Co de Phone Number [facility] [address] [address], [facility] [address] [address] * HEPATITIS C ANTIBODY WITH RFLX TO HCV RNA PCR W/RFLX TO GENOTYPE (05/05/2021 8:46 AM EDT) HEPATITIS C ANTIBODY NON-REACT MAMIE NON-REACT MAMIE [facility] SIGNAL TO CUT-OFF 0.01 <1.00 [facility] Comment: HCV antibody was non-reactive. There is no laboratory evidence of HCV infection. In most cases, no further action is required. However, if recent HCV exposure is suspected, a test for HCV RNA (test code 78070) is suggested. COMMENT [employer] [facility] Blood Blood / Unknown 05/05/2021 8 :46 AM EDT 05/06/2021 1:57 AM EDT Narrative [employer] - 05/07/2021 5:29 AM EDT For additional information, please refer to http://education.Juntines/faq/QOL844 (This link is being provided for informational/ educational purposes only.) Ayaka Valera MD LAB - BLOOD DRAW Edited Resu lt - Final Performing Organization Address [facility]/ZIP Co de Phone Number [facility] [address] [address], [employer] [address] [address] [employer] [address] [address] * HIV 1/2 AG & AB W/RFLX (4TH GEN) (05/05/2021 8:46 AM EDT) HIV AG/AB, 4TH GEN NON-REAC TIVE NON-REAC TIVE [employer] Comment: HIV-1 antigen and HIV-1/HIV-2 antibodies were [...] ?? For additional information please refer to http://education.Ripple Commerce/faq/ZCW242 (This link is being provided for informational/ educational purposes only.) The performance of this assay has not been clinically validated in patients less than 2 years old. Blood Blood / Unknown 05/05/2021 8 :46 AM EDT 05/06/2021 2:07 AM EDT us Ayaka Valera MD LAB - BLOOD DRAW Edited Resu - Final [facility] [address] [address], [facility] [address] [address] from Last 3 Months or Most Recently Relevant to Health Maintenance Additional Health Concerns Active Problems Noted Date Diagnosed Date Patient has a diagnosis of hypertension 09/18/19 21 Insurance DELTA DENTAL [facility] DENTAL [facility] SAFETY NET Care Teams Full Stack Engineer Relationship Specialty Start Date End Date Ayaka Valera MD [address] [place] [address] PCP - General Internal Medicine 02/22/15
--- OUTSIDE RECORDS SUMMARY | 2024-05-30 09:52 | XMS_ITS | Encounter Summary ---
Author Organization [facility] Address [address] [place] [address] Care Team Providers Care Hydroelectric Mechanic Name Role Phone Ayaka Valera MD Primary Care Provider [phone] Encounter Details Date Type Department Care Team (Late st Contact Info) Description 12/23/2021 Patient Outreach [facility] [address] [place] [address] Paolo Lopez [address] [place], [place] Social History Tobacco Use Types Packs/Day [...] documented as of this encounter Care Teams Hydroelectric Mechanic Relationship Specialty Start Date End Date Ayaka Valera MD [address] [place] [address] PCP - General Internal Medicine 02/22/15 documented as of this encounter
[2024-05-30] MEDS: iohexoL 350 MG/ML 100 ML INFUS..BTL IV (10:37)
== END 2024-05-30 09:15 | disposition home or self-care (01) ==
LOC: HO.CT 09:14
PROVIDERS: PCP Physician Assistant Medical; Visit Provider Nurse Practitioner Family
DX: E26.9 Hyperaldosteronism, unspecified (principal); E87.6 Hypokalemia; I10 Essential (primary) hypertension
CPT/HCPCS: 74178; Q9967

== ENCOUNTER → 2024-05-30 09:16 | Outpatient (BNV) | payer OTHER, SELFPAY | PROVIDERS: PCP Physician Assistant Medical; Visit Provider Radiology Diagnostic Radiology | DX: E26.9 Hyperaldosteronism, unspecified (principal) | CPT/HCPCS: 74178 ==

== ENCOUNTER 2024-05-31 13:42 | Outpatient (AMB) | payer OTHER, MEDICAID, SELFPAY ==
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
[2024-05-31 13:48] VITALS: BP 131/80; PULSE 83; RESP 16; TEMP 36.8; O2SAT 98; BMI 29.3
--- OUTSIDE RECORDS SUMMARY | 2024-05-31 16:34 | XMS_ITS | Clinical Summary ---
Author Organization [employer] Address [address] [facility] [address] [place] [address] Care Team Providers Care Tool Inspector Name Role Phone Unavailable Primary Care [...] patient's age to complete this topic Insurance [facility] STANDARD
--- OUTSIDE RECORDS SUMMARY | 2024-05-31 16:34 | XMS_ITS | Clinical Summary ---
Author Organization [address] [facility] Address [address] [place] [address] Phone Care Team Providers Care Safety Trainer Name Role Phone Dee Arce Primary Care Provider [phone] Allergies Active Allergy Reactions Criticality Noted Date [...] 10:30 AM EST Office Visit Orthopedic Surgery [facility] [address] [facility] [address] [place] [id number] Goins, Christopher M, DPM Acquired hammer [...] patient's age to complete this topic [place] [address] [address] [place] [address] Care Teams Safety Trainer Relationship Specialty Start Date End Date Dee Arce PA [address] [place] [address] PCP - General Physician Molding Machine Setter 01/10/24
--- OUTSIDE RECORDS SUMMARY | 2024-05-31 16:34 | XMS_ITS | Encounter Summary ---
Author Organization [facility] Address [address] [place] [address] Care Team Providers Care Enterprise Resource Planning Consultant Name Role Phone Ayaka Valera MD Primary Care Provider [phone] Encounter Details Date Type Department Care Team (Late st Contact Info) Description 12/23/2021 Patient Outreach [facility] Primary Care [address] [place] [address] Paolo Lopez [address] [place], [place] Social History Tobacco Use Types Packs/Day [...] documented as of this encounter Care Teams Enterprise Resource Planning Consultant Relationship Specialty Start Date End Date Ayaka Valera MD [address] [place] [address] PCP - General Internal Medicine 02/22/15 documented as of this encounter
--- OUTSIDE RECORDS SUMMARY | 2024-05-31 16:34 | XMS_ITS | Clinical Summary ---
Author Organization [facility] Address [address] [place] [address] Care Team Providers Care Blade Grader Operator Name Role Phone Ayaka Valera MD Primary Care Provider [phone] Source Comments PLEASE NOTE, if this patient [...] S/p rt hydrocelectomy on 04/11/2019 at [facility] Drug-induced erectile dysfunction 02/28/2019 Hydrocele [...] Visit 05/29/202308/2022, 12/29/2020, 09/18/2018, Additional history exists Upi-AWYIQ-13 () 10/23/2023 02/04/2022, 09/18/2020, 08/21/2020 Imm-Influenza (#1) [...] PANEL (02/04/2022 11:04 AM EST) Pathologist [facility] CHOLESTEROL, TOTAL 173 <200 mg/dL 02/05/2022 1:28 AM EST [employer] HDL CHOLESTEROL 31(L) > OR = 40 mg/dL 02/05/2022 1:28 AM EST [employer] [facility] TRIGLYCERIDES 309(H) <150 mg/dL 02/05/2022 1:28 AM EST [employer] [facility] LDL-CHOLESTEROL 101(H) mg/dL (calc) 02/05/2022 1:28 AM EST [employer] [facility] CHOL/HDLC RATIO 5.6(H) <5.0 (calc) 02/05/2022 1:28 AM EST [facility] NON-HDL CHOLESTEROL 142(H) <130 mg/dL (calc) 02/05/2022 1:28 AM EST [facility] Blood Blood / Unknown 02/04/2022 1 1:04 AM EST 02/04/2022 10:29 PM EST Narrative [facility] - 02/05/2022 1:59 AM EST . If [...] of LDL-C. Zhen SS et al. DEBORAH. 2013;310(98): 0081-3048 (http://education.Viacor/faq/AJZ791) For patients with diabetes plus 1 major ASCVD risk factor, treating to a non-HDL-C goal of <100 mg/dL (LDL-C of <70 mg/dL) is considered a therapeutic option. Paola Moreira MD LAB - BLOOD DRAW Final Result [facility] [address] [place] [id number], [facility] [address] [place] [id number] * COMPREHENSIVE METABOLIC PANEL (02/04/2022 11:04 AM EST) GLUCOSE 91 65 - 99 mg/dL 02/05/2022 1:28 AM EST [facility] UREA NITROGEN (BUN) 13 7 - 25 mg/dL 02/05/2022 1:28 AM EST [facility] CREATININE (blood) 0.79 0.60 - 1.29 mg/dL 02/05/2022 1:28 AM EST [facility] EGFR 113 > OR = 60 mL/min/1 .73m2 02/05/2022 1:28 AM [facility] [facility] BUN/CREATININE RATIO NOT APPLICABLE 6 - 22 (calc) 02/05/2022 1:28 AM [facility] [facility] SODIUM 140 135 - 146 mmol/L 02/05/2022 1:28 AM [employer] [facility] POTASSIUM 3.7 3.5 - 5.3 mmol/L 02/05/2022 1:28 AM [employer] [facility] CHLORIDE 103 98 - 110 mmol/L 02/05/2022 1:28 AM [employer] [facility] CARBON DIOXIDE 30 20 - 32 mmol/L 02/05/2022 1:28 AM [employer] [facility] CALCIUM 9.4 8.6 - 10.3 mg/dL 02/05/2022 1:28 AM [employer] [facility] PROTEIN, TOTAL 7.2 6.1 - 8.1 g/dL 02/05/2022 1:28 AM [employer] [facility] ALBUMIN 4.4 3.6 - 5.1 g/dL 02/05/2022 1:28 AM [facility] [facility] GLOBULIN 2.8 1.9 - 3.7 g/dL (calc) 02/05/2022 1:28 AM [facility] [facility] ALBUMIN/GLOBUL IN RATIO 1.6 1.0 - 2.5 (calc) 02/05/2022 1:28 AM [employer] [facility] BILIRUBIN, TOTAL 0.4 0.2 - 1.2 mg/dL 02/05/2022 1:28 AM [facility] ALKALINE PHOSPHATASE 99 36 - 130 U/L 02/05/2022 1:28 AM [employer] [facility] AST 24 10 - 40 U/L 02/05/2022 1:28 AM [employer] [facility] ALT 22 9 - 46 U/L 02/05/2022 1:28 AM [employer] [facility] Blood Blood / Unknown 02/04/2022 1 1:04 AM EST 02/04/2022 10:29 PM EST [employer] - 02/05/2022 1:59 AM EST . ? Fasting reference interval . The eGFR is based on the CKD-EPI 2020 equation. To calculate the new eGFR from a previous Creatinine or Cystatin C result, go to https://www.kidney.org/professionals/ kdoqi/gfr%5Fcalculator Paola Moreira MD LAB - BLOOD DRAW Final Result Performing Organization Address [facility]/ZIP Co de Phone Number [facility] [address] [address], [employer] [address] [address] * HEPATITIS C ANTIBODY WITH RFLX TO HCV RNA PCR W/RFLX TO GENOTYPE (05/05/2021 8:46 AM EDT) HEPATITIS C ANTIBODY NON-REACT MAMIE NON-REACT MAMIE [employer] SIGNAL TO CUT-OFF 0.01 <1.00 [employer] [facility] Comment: HCV antibody was non-reactive. There is no laboratory evidence of HCV infection. In most cases, no further action is required. However, if recent HCV exposure is suspected, a test for HCV RNA (test code 39645) is suggested. COMMENT ADP [facility] Blood Blood / Unknown 05/05/2021 8 :46 AM EDT 05/06/2021 1:57 AM EDT Narrative [facility] - 05/07/2021 5:29 AM EDT For additional information, please refer to http://education.Viacor/faq/UZJ283 (This link is being provided for informational/ educational purposes only.) Ayaka Valera MD LAB - BLOOD DRAW Edited Resu lt - Final Performing Organization Address [facility]/ZIP Co de Phone Number [email or web address] [facility] [address] [address], [employer] [address] [phone] [employer] [address] [address] * HIV 1/2 AG & AB W/RFLX (4TH GEN) (05/05/2021 8:46 AM EDT) HIV AG/AB, 4TH GEN NON-REAC TIVE NON-REAC TIVE [employer] [facility] Comment: HIV-1 antigen and HIV-1/HIV-2 antibodies were [...] ?? For additional information please refer to http://education.Diet TV/faq/CCD172 (This link is being provided for informational/ educational purposes only.) The performance of this assay has not been clinically validated in patients less than 2 years old. Blood Blood / Unknown 05/05/2021 8 :46 AM EDT 05/06/2021 2:07 AM EDT us Ayaka Valera MD LAB - BLOOD DRAW Edited Resu - Final [facility] [address] [address], [facility] [address] [phone] from Last 3 Months or Most Recently Relevant to Health Maintenance Additional Health Concerns Active Problems Noted Date Diagnosed Date Patient has a diagnosis of hypertension 09/18/19 21 Insurance [facility] [employer] Care Teams Blade Grader Operator Relationship Specialty Start Date End Date Ayaka Valera MD [address] [place] [place] [address] PCP - General Internal Medicine 02/22/15
== END 2024-05-31 14:12 | disposition home or self-care (01) ==
LOC: HO.HMCFM 13:43
PROVIDERS: PCP Physician Assistant Medical; Visit Provider Physician Assistant Medical
DX: M54.50 Low back pain, unspecified (principal); M54.6 Pain in thoracic spine

== ENCOUNTER 2024-06-04 16:00 | Outpatient (REF) | payer OTHER, SELFPAY ==
[2024-06-05 12:19] LABS: Influenza A PCR NEGATIVE (Negative); Influenza B PCR NEGATIVE (Negative); Resp Syncy Virus RNA Qual PCR NEGATIVE (Negative); SARS COV2 PCR INHOUSE NEGATIVE (Negative)
== END 2024-06-04 16:01 | disposition home or self-care (01) ==
LOC: HO.LAB 16:00
PROVIDERS: PCP Physician Assistant Medical; Visit Provider Physician Assistant Medical
DX: Z00.00 Encounter for general adult medical examination without abnormal findings (principal); R39.11 Hesitancy of micturition; M85.80 Other specified disorders of bone density and structure, unspecified site; E26.9 Hyperaldosteronism, unspecified; I51.7 Cardiomegaly; E87.6 Hypokalemia; E78.00 Pure hypercholesterolemia, unspecified; E55.9 Vitamin D deficiency, unspecified; J02.9 Acute pharyngitis, unspecified; I10 Essential (primary) hypertension
CPT/HCPCS: 0241U; 81002; 87880; 96127; 99212; 99396

== ENCOUNTER 2024-06-04 16:00 | Outpatient (AMB) | payer OTHER, SELFPAY ==
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
[2024-06-04 16:09] VITALS: BP 130/88; PULSE 94; TEMP 37.6; O2SAT 98; BMI 28.9
--- OUTSIDE RECORDS SUMMARY | 2024-06-04 18:16 | XMS_ITS | Clinical Summary ---
Author Organization [address] [facility] Address [address] [place] [address] Phone Care Team Providers Care Tunnel Mucker Name Role Phone Dee Arce Primary Care Provider [phone] Allergies Active Allergy Reactions Criticality Noted Date [...] 10:30 AM EST Office Visit Orthopedic Surgery [facility] [address] [facility] [address] [place] [phone] Goins, Christopher M, DPM Acquired hammer [...] patient's age to complete this topic [place] [address] [place] [address] PLAN Care Teams Tunnel Mucker Relationship Specialty Start Date End Date Dee Arce PA [address] [place] [address] PCP - General Physician Construction Services Technician 01/10/24
--- OUTSIDE RECORDS SUMMARY | 2024-06-04 18:16 | XMS_ITS | Clinical Summary ---
Author Organization [facility] Address [address] [place] [address] Care Team Providers Care Ceramics Technician Name Role Phone Ayaka Valera MD [...] (04/17/2019): S/p rt hydrocelectomy on 04/11/2019 at [facility] Drug-induced erectile dysfunction 02/28/2019 Hydrocele 07/22/2016 Scrofula [...] Visit 05/29/202308/2022, 12/29/2020, 09/18/2018, Additional history exists [id number] () 10/23/2023 02/04/2022, 09/18/2020, 08/21/2020 Imm-Influenza (#1) [...] LIPID PANEL (02/04/2022 11:04 AM EST) Pathologist [facility] CHOLESTEROL, TOTAL 173 <200 mg/dL 02/05/2022 1:28 AM EST [email or web address] HDL CHOLESTEROL 31(L) > OR = 40 mg/dL 02/05/2022 1:28 AM EST [employer] TRIGLYCERIDES 309(H) <150 mg/dL 02/05/2022 1:28 AM EST [facility] LDL-CHOLESTEROL 101(H) mg/dL (calc) 02/05/2022 1:28 AM EST [facility] CHOL/HDLC RATIO 5.6(H) <5.0 (calc) 02/05/2022 1:28 AM EST [facility] NON-HDL CHOLESTEROL 142(H) <130 mg/dL (calc) 02/05/2022 1:28 AM EST [facility] Blood Blood / Unknown 02/04/2022 1 1:04 AM EST 02/04/2022 10:29 PM EST Narrative [facility] - 02/05/2022 1:59 AM EST . If [...] of LDL-C. Zhen SS et al. DEBORAH. 2013;310(81): 9672-6096 (http://education.Webbynode/faq/ACY159) For patients with diabetes plus 1 major ASCVD risk factor, treating to a non-HDL-C goal of <100 mg/dL (LDL-C of <70 mg/dL) is considered a therapeutic option. Poala Moreira MD LAB - BLOOD DRAW Final Result [id number] [address] [place] [id number], [facility] [address] [place] [id number] * COMPREHENSIVE METABOLIC PANEL (02/04/2022 11:04 AM EST) GLUCOSE 91 65 - 99 mg/dL 02/05/2022 1:28 AM EST [facility] UREA NITROGEN (BUN) 13 7 - 25 mg/dL 02/05/2022 1:28 AM EST [facility] CREATININE (blood) 0.79 0.60 - 1.29 mg/dL 02/05/2022 1:28 AM EST [facility] EGFR 113 > OR = 60 mL/min/1 .73m2 02/05/2022 1:28 AM [facility] BUN/CREATININE RATIO NOT APPLICABLE 6 - 22 (calc) 02/05/2022 1:28 AM [facility] SODIUM 140 135 - 146 mmol/L 02/05/2022 1:28 AM [facility] POTASSIUM 3.7 3.5 - 5.3 mmol/L 02/05/2022 1:28 AM [facility] CHLORIDE 103 98 - 110 mmol/L 02/05/2022 1:28 AM [facility] CARBON DIOXIDE 30 20 - 32 mmol/L 02/05/2022 1:28 AM [facility] CALCIUM 9.4 8.6 - 10.3 mg/dL 02/05/2022 1:28 AM [facility] PROTEIN, TOTAL 7.2 6.1 - 8.1 g/dL 02/05/2022 1:28 AM [facility] ALBUMIN 4.4 3.6 - 5.1 g/dL 02/05/2022 1:28 AM [facility] GLOBULIN 2.8 1.9 - 3.7 g/dL (calc) 02/05/2022 1:28 AM [facility] ALBUMIN/GLOBUL IN RATIO 1.6 1.0 - 2.5 (calc) 02/05/2022 1:28 AM [facility] BILIRUBIN, TOTAL 0.4 0.2 - 1.2 mg/dL 02/05/2022 1:28 AM [facility] ALKALINE PHOSPHATASE 99 36 - 130 U/L 02/05/2022 1:28 AM [facility] AST 24 10 - 40 U/L 02/05/2022 1:28 AM [facility] ALT 22 9 - 46 U/L 02/05/2022 1:28 AM [facility] Blood Blood / Unknown 02/04/2022 1 1:04 AM EST 02/04/2022 10:29 PM EST [facility] - 02/05/2022 1:59 AM EST . ? Fasting reference interval . The eGFR is based on the CKD-EPI 2020 equation. To calculate the new eGFR from a previous Creatinine or Cystatin C result, go to https://www.kidney.org/professionals/ kdoqi/gfr%5Fcalculator Paola Moreira MD LAB - BLOOD DRAW Final Result Performing Organization Address [facility]/ZIP Co de Phone Number [facility] [address] [address], [email or web address] [address] [address] * HEPATITIS C ANTIBODY WITH RFLX TO HCV RNA PCR W/RFLX TO GENOTYPE (05/05/2021 8:46 AM EDT) HEPATITIS C ANTIBODY NON-REACT MAMIE NON-REACT MAMIE [email or web address] SIGNAL TO CUT-OFF 0.01 <1.00 [place] [employer] [facility] Comment: HCV antibody was non-reactive. There is no laboratory evidence of HCV infection. In most cases, no further action is required. However, if recent HCV exposure is suspected, a test for HCV RNA (test code 83643) is suggested. COMMENT [employer] Blood Blood / Unknown 05/05/2021 8 :46 AM EDT 05/06/2021 1:57 AM EDT Narrative [id number] - 05/07/2021 5:29 AM EDT For additional information, please refer to http://education.Webbynode/faq/YGS205 (This link is being provided for informational/ educational purposes only.) Ayaka Valera MD LAB - BLOOD DRAW Edited Resu lt - Final Performing Organization Address [facility]/ZIP Co de Phone Number [email or web address] [address] [address], [email or web address] [address] [phone] [email or web address] [address] [address] * HIV 1/2 AG & AB W/RFLX (4TH GEN) (05/05/2021 8:46 AM EDT) HIV AG/AB, 4TH GEN NON-REAC TIVE NON-REAC TIVE [email or web address] Comment: HIV-1 [...] ?? For additional information please refer to http://education.Assmbly/faq/MBP781 (This link is being provided for informational/ educational purposes only.) The performance of this assay has not been clinically validated in patients less than 2 years old. Blood Blood / Unknown 05/05/2021 8 :46 AM EDT 05/06/2021 2:07 AM EDT us Ayaka Valera MD LAB - BLOOD DRAW Edited Resu - Final [facility] [facility] [address] [address], [facility] [address] [address] from Last 3 Months or Most Recently Relevant to Health Maintenance Additional Health Concerns Active Problems Noted Date Diagnosed Date Patient has a diagnosis of hypertension 09/18/19 21 Insurance [facility] [employer] Care Teams Ceramics Technician Relationship Specialty Start Date End Date Ayaka Valera MD [address] [place] [phone] PCP - General Internal Medicine 02/22/15
--- OUTSIDE RECORDS SUMMARY | 2024-06-04 18:16 | XMS_ITS | Encounter Summary ---
Author Organization [facility] Address [address] [place] [address] Care Team Providers Care Assistant Mechanic Name Role Phone Ayaka Valera MD Primary Care Provider [phone] Encounter Details Date Type Department Care Team (Late st Contact Info) Description 12/23/2021 Patient Outreach [facility] Primary Care [address] [place] [address] Paolo Lopez [address] [place], [place] Social History Tobacco Use Types Packs/Day [...] documented as of this encounter Care Teams Assistant Mechanic Relationship Specialty Start Date End Date Ayaka Valera MD [address] [place] [address] PCP - General Internal Medicine 02/22/15 documented as of this encounter
--- OUTSIDE RECORDS SUMMARY | 2024-06-04 18:16 | XMS_ITS | Clinical Summary ---
Author Organization [employer] Address [address] [facility] 7t [place] [address] Care Team Providers Care Looseleaf Binder Coverer Name Role Phone Unavailable Primary Care Provider [...] patient's age to complete this topic Insurance [facility] STANDARD
== END 2024-06-04 17:16 | disposition home or self-care (01) ==
LOC: HO.HMCFM 16:01
PROVIDERS: PCP Physician Assistant Medical; Visit Provider Physician Assistant Medical
DX: J02.9 Acute pharyngitis, unspecified (principal)

== ENCOUNTER 2024-06-14 10:32 | Outpatient (AMB) | payer OTHER, SELFPAY ==
--- NOTE | 2024-06-14 10:38 | MHC.OFFVIS ---
Vital Signs 06/14/24 10:41 Height 5 ft 11 in Weight 205 lb 0.478 oz BMI 28.6 BP 150/91 H Blood Pressure Location Lt brachial Position Sitting Pulse 69 Intake Visit Reasons: Anemia/ Colonoscopy Screening Intake Note: Khushboo presents in the office as a new patient for anemia and colo screening. CC: No concerns at this time. 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 He is referred by Dee Arce. PMX Left ventricular hypertrophy Hyper aldosteronism High cholesterol Hypertension Osteopenia Urinary hesitancy Thoracic back pain Anxiety * SURGICAL HISTORY Hydrocelectomy * ALLERGIES Lisinopril - cough * [employer] LABS: Laboratory Tests 01/06/24 03/23/24 09:07 07:52 WBC 4.6 L RBC 4.67 Hgb 13.8 L Hct 40.4 L MCV 86.5 MCH 29.6 Plt Count 210 Estimated GFR > 60 TODAY'S VISIT This is his first colonoscopy. With regards to his anemia, he has a lot of nosebleeds with copious bleeding that is worsening of late. He is fairly naive to anesthesia and sedation. He denies any cardiac or respiratory problems. No ID problems. There is no known FHX of crc or polyps. [facility] Medical History Hypokalemia Pain of right great toe Hospital discharge follow-up Bone disorder Routine physical examination Sore throat Urinary hesitancy Osteopenia Anxiety Thoracolumbar back pain LVH (left ventricular hypertrophy) Anemia Leukopenia B12 deficiency Vitamin D deficiency Hyperlipidemia Essential hypertension Dermatitis High blood pressure Surgical History History of hydrocelectomy Family History Mother Diabetes Maternal Grandmother High blood pressure Family/Other Breast cancer Social History Household Members: Family Both parents involved: No Caregiver staying overnight: No Housing: House Are you a primary senior care specialist to a significant other at home: No Do you presently have visiting nurse or other home services: No 75 years or older and lives alone: No Alcohol intake: former Patient Tobacco Use Status: Never used Tobacco e-Cigarette/Vaping Use: Never Used Second Hand Smoke Exposure: No service: No Current occupational status: employed Current occupation: [employer]UDENT [employer] Cognitive needs: No Hearing needs: No Vision needs: Yes (Patient states vision is blurry.) Review of Systems Const Denies fatigue, Denies fever(s), Denies night sweats, Denies poor appetite and Denies weight loss ENT Reports Normal hearing present, Denies dental pain, Denies dysphagia, Denies hearing loss, Reports epistaxis, Denies mouth pain, Denies odynophagia, Denies throat swelling, Denies tongue swelling and Reports other (Dentition adequate) Card Reports no additional complaints Resp Reports no additional complaints GI Details: Denies abdominal pain, Denies melena, Denies bloating, Denies hematochezia, Denies constipation, Denies GI cramping, Denies dysphagia, Denies excessive flatus, Denies early satiety, Denies heartburn, Denies diarrhea, Denies nausea, Denies odynophagia, Denies vomiting and Denies hematemesis Skin/Breast Denies pruritus, Denies lesions, Denies rash and Denies jaundice Neuro Reports Normal hearing present and Denies Abnormal speech present Endo Denies fatigue Aller/Immun Denies throat swelling and Denies tongue swelling Physical Exam Vital Signs: BMI result Body Mass Index 28.6 Const General: cooperative, no acute distress, well developed and well groomed Nutritional Appearance: average body habitus and well nourished Orientation/consciousness: oriented to person, oriented to place and oriented to time Limitations: No language barrier HEENT Head: Yes normocephalic and Yes atraumatic Eyes General: appearance normal, both eyes and all related structures Pupils: Equal, round and reactive pupils present Neck Neck: Yes normal visual inspection and Yes no lymphadenopathy Thyroid: Thyroid normal Resp Effort & Inspection: normal respiratory effort and able to speak in complete sentences Auscultation: clear to auscultation bilaterally Cardio Rate: regular rate Rhythm: regular rhythm Heart sounds: Normal, physiologic split S2 sound present Peripheral pulses: radial pulses present and posterior tibial pulses present GI Inspection: No distended and No Abdominal panniculus present Palpation (GI): Soft to palpation, nontender, no guarding, not rigid and No hepatosplenomegaly present Percussion: Yes normal to percussion Auscultation: normal bowel sounds Rectal Exam - Male: Yes deferred Skin General skin exam: no rashes or lesions noted, turgor normal, skin not dry, no jaundice, No spider nevi and no striae Rashes: no rashes Nails: normal Neuro General: oriented to person, oriented to place and oriented to time Cranial nerves: Yes Equal, round and reactive pupils present and Yes Normal hearing present Speech: No Abnormal speech present Extrem General: Yes normal to inspection, No clubbing, No cyanosis and No edema Psych Appearance: grossly normal and well kempt Mental Status: mental status grossly normal Speech and movement: Normal speech and movement present Affect: normal affect Attitude: cooperative Thought process: Normal thought process present and not confabulating Thought content: Normal thought content present Insight: Fair insight present (Psych) Judgement: Fair judgement present (Psych) Assessment & Plan Assessment & Plan (1) Anemia: Code(s): D64.9 - Anemia, unspecified Category: Medical (2) Pre-op examination: Code(s): Z01.818 - Encounter for other preprocedural examination Category: Medical Plan This is his first colonoscopy. With regards to his anemia, he has a lot of nosebleeds with copious bleeding that is worsening of late. He is fairly naive to anesthesia and sedation. He denies any cardiac or respiratory problems. No ID problems. There is no known FHX of crc or polyps. Orders: Orders Comprehensive Met. Panel Today D64.9 - Anemia, unspecified, Z01.818 - Encounter for other preprocedural examination EGD - GI Use Only Today D64.9 - Anemia, unspecified, Z01.818 - Encounter for other preprocedural examination Complete Blood Count Auto Diff Today D64.9 - Anemia, unspecified, Z01.818 - Encounter for other preprocedural examination Ferritin Today D64.9 - Anemia, unspecified Medications: New sodium,potassium,mag sulfates 17.5-3.13-1.6 gram (Suprep Bowel Prep Kit) 480 mL orally; FOR COLONOSCOPY PREP 354 mL 0RF Coding Level of Care Code New Pt Level 3 (02771) Diagnoses Anemia D64.9 Pre-op examination Z01.818
[2024-06-14 10:41] VITALS: BP 150/91; PULSE 69; BMI 28.6
--- OUTSIDE RECORDS SUMMARY | 2024-06-14 12:13 | XMS_ITS | Clinical Summary ---
Author Organization [address] [facility] Address [address] [place] [address] Phone Care Team Providers Care Aerodynamics Engineer Name Role Phone Dee Arce Primary Care Provider [phone] Allergies Active Allergy Reactions Criticality Noted Date [...] 10:30 AM EST Office Visit Orthopedic Surgery [facility] [address] [facility] [address] [place] [phone] Goins, Christopher M, DPM Acquired hammer [...] patient's age to complete this topic [place] [address] [place] [address] PLAN Care Teams Aerodynamics Engineer Relationship Specialty Start Date End Date Dee Arce PA [address] [place] [address] PCP - General Physician School Fundraising Director 01/10/24
--- OUTSIDE RECORDS SUMMARY | 2024-06-14 12:13 | XMS_ITS | Clinical Summary ---
Author Organization [facility] Address [address] [place] [address] Care Team Providers Care Rotor Coil Taper Name Role Phone Ayaka Valera MD Primary Care Provider [phone] Source Comments PLEASE NOTE, if this patient [...] Visit 05/29/202308/2022, 12/29/2020, 09/18/2018, Additional history exists [id number] () 10/23/2023 02/04/2022, 09/18/2020, 08/21/2020 Imm-Influenza (#1) [...] LIPID PANEL (02/04/2022 11:04 AM EST) Pathologist [facility] CHOLESTEROL, TOTAL 173 <200 mg/dL 02/05/2022 1:28 AM EST [employer] [facility] HDL CHOLESTEROL 31(L) > OR = 40 mg/dL 02/05/2022 1:28 AM EST [employer] [facility] TRIGLYCERIDES 309(H) <150 mg/dL 02/05/2022 1:28 AM EST [employer] [facility] LDL-CHOLESTEROL 101(H) mg/dL (calc) 02/05/2022 1:28 AM EST [employer] [facility] CHOL/HDLC RATIO 5.6(H) <5.0 (calc) 02/05/2022 1:28 AM EST [facility] NON-HDL CHOLESTEROL 142(H) <130 mg/dL (calc) 02/05/2022 1:28 AM EST [facility] Blood Blood / Unknown 02/04/2022 1 1:04 AM EST 02/04/2022 10:29 PM EST Narrative [email or web address] [facility] - 02/05/2022 1:59 AM EST [...] of LDL-C. Zhen SS et al. DEBORAH. 2013;310(48): 4032-6656 (http://education.kajeet/faq/CXH038) For patients with diabetes plus 1 major ASCVD risk factor, treating to a non-HDL-C goal of <100 mg/dL (LDL-C of <70 mg/dL) is considered a therapeutic option. Paola Moreira MD LAB - BLOOD DRAW Final Result [facility] [address] [place] [id number], [facility] [address] [place] [id number] * COMPREHENSIVE METABOLIC PANEL (02/04/2022 11:04 AM EST) GLUCOSE 91 65 - 99 mg/dL 02/05/2022 1:28 AM EST [facility] UREA NITROGEN (BUN) 13 7 - 25 mg/dL 02/05/2022 1:28 AM EST [facility] CREATININE (blood) 0.79 0.60 - 1.29 mg/dL 02/05/2022 1:28 AM EST [facility] EGFR 113 > OR = 60 mL/min/1 .73m2 02/05/2022 1:28 AM [employer] [facility] BUN/CREATININE RATIO NOT APPLICABLE 6 - 22 (calc) 02/05/2022 1:28 AM [employer] [facility] SODIUM 140 135 - 146 mmol/L 02/05/2022 1:28 AM [employer] [facility] POTASSIUM 3.7 3.5 - 5.3 mmol/L 02/05/2022 1:28 AM [employer] [facility] CHLORIDE 103 98 - 110 mmol/L 02/05/2022 1:28 AM [employer] [facility] CARBON DIOXIDE 30 20 - 32 mmol/L 02/05/2022 1:28 AM [employer] [facility] CALCIUM 9.4 8.6 - 10.3 mg/dL 02/05/2022 1:28 AM [employer] [facility] PROTEIN, TOTAL 7.2 6.1 - 8.1 g/dL 02/05/2022 1:28 AM [employer] [facility] ALBUMIN 4.4 3.6 - 5.1 g/dL 02/05/2022 1:28 AM [employer] [facility] GLOBULIN 2.8 1.9 - 3.7 g/dL (calc) 02/05/2022 1:28 AM [employer] [facility] ALBUMIN/GLOBUL IN RATIO 1.6 1.0 - 2.5 (calc) 02/05/2022 1:28 AM [employer] [facility] BILIRUBIN, TOTAL 0.4 0.2 - 1.2 mg/dL 02/05/2022 1:28 AM [employer] [facility] ALKALINE PHOSPHATASE 99 36 - 130 U/L 02/05/2022 1:28 AM [employer] [facility] AST 24 10 - 40 U/L 02/05/2022 1:28 AM [employer] [facility] ALT 22 9 - 46 U/L 02/05/2022 1:28 AM [employer] [facility] Blood Blood / Unknown 02/04/2022 1 1:04 AM EST 02/04/2022 10:29 PM EST [facility] - 02/05/2022 1:59 AM EST . ? Fasting reference interval . The eGFR is based on the CKD-EPI 2020 equation. To calculate the new eGFR from a previous Creatinine or Cystatin C result, go to https://www.kidney.org/professionals/ kdoqi/gfr%5Fcalculator Paola Moreira MD LAB - BLOOD DRAW Final Result Performing Organization Address [facility]/ZIP Co de Phone Number [email or web address] [facility] [address] [address], [employer] [address] [address] * HEPATITIS C ANTIBODY WITH RFLX TO HCV RNA PCR W/RFLX TO GENOTYPE (05/05/2021 8:46 AM EDT) HEPATITIS C ANTIBODY NON-REACT MAMIE NON-REACT MAMIE [employer] [facility] SIGNAL TO CUT-OFF 0.01 <1.00 [employer] [facility] Comment: HCV antibody was non-reactive. There is no laboratory evidence of HCV infection. In most cases, no further action is required. However, if recent HCV exposure is suspected, a test for HCV RNA (test code 70653) is suggested. COMMENT [facility] Blood Blood / Unknown 05/05/2021 8 :46 AM EDT 05/06/2021 1:57 AM EDT Narrative [facility] - 05/07/2021 5:29 AM EDT For additional information, please refer to http://education.kajeet/faq/OAW401 (This link is being provided for informational/ educational purposes only.) Ayaka Valera MD LAB - BLOOD DRAW Edited Resu lt - Final Performing Organization Address [facility]/ZIP Co de Phone Number [employer] [facility] [address] [address], [employer] [address] [address] [employer] [address] [address] * HIV 1/2 AG & AB W/RFLX (4TH GEN) (05/05/2021 8:46 AM EDT) HIV AG/AB, 4TH GEN NON-REAC TIVE NON-REAC TIVE [employer] [facility] Comment: HIV-1 antigen and HIV-1/HIV-2 [...] ?? For additional information please refer to http://education.[employer]/faq/GTY617 (This link is being provided for informational/ educational purposes only.) The performance of this assay has not been clinically validated in patients less than 2 years old. Blood Blood / Unknown 05/05/2021 8 :46 AM EDT 05/06/2021 2:07 AM EDT us Ayaka Valera MD LAB - BLOOD DRAW Edited Resu - Final [facility] [address] [address], [facility] [address] [address] from Last 3 Months or Most Recently Relevant to Health Maintenance Additional Health Concerns Active Problems Noted Date Diagnosed Date Patient has a diagnosis of hypertension 09/18/19 21 Insurance [facility] [employer] Care Teams Rotor Coil Taper Relationship Specialty Start Date End Date Ayaka Valera MD [address] [facility] [address] PCP - General Internal Medicine 02/22/15
--- OUTSIDE RECORDS SUMMARY | 2024-06-14 12:13 | XMS_ITS | Encounter Summary ---
Author Organization [facility] Address [address] [place] [address] Care Team Providers Care Ruby Engineer Name Role Phone Ayaka Valera MD Primary Care Provider [phone] Encounter Details Date Type Department Care Team (Late st Contact Info) Description 12/23/2021 Patient Outreach [facility] Primary Care [address] [place] [address] Paolo Lopez [address] [place], [place] Social History Tobacco Use Types Packs/Day [...] documented as of this encounter Care Teams Ruby Engineer Relationship Specialty Start Date End Date Ayaka Valera MD [address] [place] [address] PCP - General Internal Medicine 02/22/15 documented as of this encounter
--- OUTSIDE RECORDS SUMMARY | 2024-06-14 12:13 | XMS_ITS | Clinical Summary ---
Author Organization [employer] Address [address] [facility] 7t [place] [address] Care Team Providers Care Supervisor Wet Pour Name Role Phone Unavailable Primary Care Provider [...] patient's age to complete this topic Insurance [facility] STANDARD
== END 2024-06-14 11:05 | disposition home or self-care (01) ==
LOC: HO.HGI 10:32
PROVIDERS: PCP Physician Assistant Medical; Visit Provider Nurse Practitioner
DX: D64.9 Anemia, unspecified (principal); Z01.818 Encounter for other preprocedural examination; Z12.11 Encounter for screening for malignant neoplasm of colon
CPT/HCPCS: 99202

== ENCOUNTER 2024-06-14 10:32 | Outpatient (REF) | payer OTHER, SELFPAY ==
[2024-06-14 11:19] LABS: MANUAL DIFF FLAG NO
[2024-06-14 11:58] LABS: Basophils Percent Auto 0.7 % (0-2); Eosinophils Absolute Auto 0.1 X10*3/uL (0.0-0.4); Eosinophils Percent Auto 1.8 % (0-4); Hematocrit 37.9 % (42.0-52.0); Hemoglobin 13.3 g/dl (14.0-18.0); Imm Gran Abs Auto 0.01 X10*3/uL (0.00-0.03); Imm Gran Pct Auto 0.2 % (0.0-0.4); Lymphocytes Percent Auto 43.7 % (20-40); Mean Corpuscular HGB Conc 35.1 g/dl (31.0-36.0); Mean Corpuscular Hemoglobin 29.8 pg (27.0-33.0); Mean Corpuscular Volume 84.8 fL (80.0-98.0); Mean Platelet Volume 10.3 fL (9.4-12.4); Monocytes Absolute Auto 0.4 X10*3/uL (0.1-1.2); Monocytes Percent Auto 7.7 % (2-11); Neutrophils Absolute Auto 2.1 x10*3/uL (2.0-8.3); Neutrophils Percent Auto 45.9 % (45-73); Platelet Count 246 X10*3/uL (160-400); Red Blood Count 4.47 X10*6/uL (4.60-5.80); Red Cell Distribution Width 12.7 % (11.0-16.0); White Blood Count 4.6 X10*3/uL (4.8-10.8)
[2024-06-14 12:32] LABS: Alanine Aminotransferase 24 U/L (0-40); Albumin Level 4.3 g/dL (3.5-5.0); Alkaline Phosphatase 89 U/L (39-117); Anion Gap 7 (12-20); Aspartate Amino Transferase 29 U/L (5-37); Bilirubin Total 0.4 mg/dL (0.0-1.0); Blood Urea Nitrogen 10 mg/dL (9-16); Calcium 9.3 mg/dL (8.4-10.2); Carbon Dioxide 30 mmol/L (22-29); Chloride 105 mmol/L (96-108); Estimated Glomerular Filt Rate > 60; Glucose Random 93 mg/dL (60-115); Potassium 3.4 mmol/L (3.3-5.1); Sodium 139 mmol/L (135-145); Total Protein 7.2 g/dL (6.5-8.0)
[2024-06-14 12:51] LABS: Ferritin 42 ng/mL (20-250)
--- OUTSIDE RECORDS SUMMARY | 2024-06-14 13:17 | XMS_ITS | Encounter Summary ---
Author Organization [facility] Address [address] [place] [address] Care Team Providers Care Tosser Name Role Phone Ayaka Valera MD Primary Care Provider [phone] Encounter Details Date Type Department Care Team (Late st Contact Info) Description 12/23/2021 Patient Outreach [facility] Primary Care [address] [place] [address] Paolo Lopez [address] [place], [place] Social History Tobacco Use Types Packs/Day [...] documented as of this encounter Care Teams Tosser Relationship Specialty Start Date End Date Ayaka Valera MD [address] [place] [address] PCP - General Internal Medicine 02/22/15 documented as of this encounter
--- OUTSIDE RECORDS SUMMARY | 2024-06-14 13:17 | XMS_ITS | Clinical Summary ---
Author Organization [facility] Address [address] [place] [address] Phone Care Team Providers Care Informatics Spec Name Role Phone Dee Arce Primary Care Provider [phone] Allergies Active Allergy Reactions Criticality Noted Date [...] 10:30 AM EST Office Visit Orthopedic Surgery [facility] [address] [facility] [address] [place] [phone] Goins, Christopher M, DPM Acquired hammer [...] patient's age to complete this topic Insurance [place] [address] [place] [address] PLAN Care Teams Informatics Spec Relationship Specialty Start Date End Date Dee Arce PA [address] [place] [address] PCP - General Physician Art Therapy Certified Supervisor 01/10/24
--- OUTSIDE RECORDS SUMMARY | 2024-06-14 13:17 | XMS_ITS | Clinical Summary ---
Author Organization [employer] Address [address] [facility] 7t [place] [address] Care Team Providers Care Layboy Tender Name Role Phone Unavailable Primary Care Provider [...] patient's age to complete this topic Insurance [facility] STANDARD
--- OUTSIDE RECORDS SUMMARY | 2024-06-14 13:18 | XMS_ITS | Clinical Summary ---
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 02/28/2019 Hydrocele [...] Visit 05/29/202308/2022, 12/29/2020, 09/18/2018, Additional history exists [id number] () 10/23/2023 02/04/2022, 09/18/2020, 08/21/2020 Imm-Influenza (#1) [...] LIPID PANEL (02/04/2022 11:04 AM EST) Pathologist [facility] CHOLESTEROL, TOTAL 173 <200 mg/dL 02/05/2022 1:28 AM EST [facility] HDL CHOLESTEROL 31(L) > OR = 40 mg/dL 02/05/2022 1:28 AM EST [facility] TRIGLYCERIDES 309(H) <150 mg/dL 02/05/2022 1:28 AM EST [facility] LDL-CHOLESTEROL 101(H) mg/dL (calc) 02/05/2022 1:28 AM EST [facility] CHOL/HDLC RATIO 5.6(H) <5.0 (calc) 02/05/2022 1:28 AM EST [facility] NON-HDL CHOLESTEROL 142(H) <130 mg/dL (calc) 02/05/2022 1:28 AM EST [facility] Blood Blood / Unknown 02/04/2022 1 1:04 AM EST 02/04/2022 10:29 PM EST Narrative [facility] - 02/05/2022 1:59 AM EST . [...] of LDL-C. Zhen SS et al. DEBORAH. 2013;310(84): 1911-0639 (http://education.PinMyPet/faq/LXE791) For patients with diabetes plus 1 major ASCVD risk factor, treating to a non-HDL-C goal of <100 mg/dL (LDL-C of <70 mg/dL) is considered a therapeutic option. Paola Moreira MD LAB - BLOOD DRAW Final Result [facility] [address] [place] [address], [facility] [address] [place] [phone] * COMPREHENSIVE METABOLIC PANEL (02/04/2022 11:04 AM EST) GLUCOSE 91 65 - 99 mg/dL 02/05/2022 1:28 AM EST [facility] UREA NITROGEN (BUN) 13 7 - 25 mg/dL 02/05/2022 1:28 AM EST [facility] CREATININE (blood) 0.79 0.60 - 1.29 mg/dL 02/05/2022 1:28 AM EST [facility] EGFR 113 > OR = 60 mL/min/1 .73m2 02/05/2022 1:28 AM [employer] [facility] BUN/CREATININE RATIO NOT APPLICABLE 6 - 22 (calc) 02/05/2022 1:28 AM [employer] [facility] SODIUM 140 135 - 146 mmol/L 02/05/2022 1:28 AM [employer] [facility] POTASSIUM 3.7 3.5 - 5.3 mmol/L 02/05/2022 1:28 AM [employer] [facility] CHLORIDE 103 98 - 110 mmol/L 02/05/2022 1:28 AM [employer] [facility] CARBON DIOXIDE 30 20 - 32 mmol/L 02/05/2022 1:28 AM [employer] [facility] CALCIUM 9.4 8.6 - 10.3 mg/dL 02/05/2022 1:28 AM [employer] [facility] PROTEIN, TOTAL 7.2 6.1 - 8.1 g/dL 02/05/2022 1:28 AM [employer] [facility] ALBUMIN 4.4 3.6 - 5.1 g/dL 02/05/2022 1:28 AM [employer] [facility] GLOBULIN 2.8 1.9 - 3.7 g/dL (calc) 02/05/2022 1:28 AM [employer] [facility] ALBUMIN/GLOBUL IN RATIO 1.6 1.0 - 2.5 (calc) 02/05/2022 1:28 AM [employer] [facility] BILIRUBIN, TOTAL 0.4 0.2 - 1.2 mg/dL 02/05/2022 1:28 AM [employer] [facility] ALKALINE PHOSPHATASE 99 36 - 130 U/L 02/05/2022 1:28 AM [employer] [facility] AST 24 10 - 40 U/L 02/05/2022 1:28 AM [employer] [facility] ALT 22 9 - 46 U/L 02/05/2022 1:28 AM [employer] [facility] Blood Blood / Unknown 02/04/2022 1 1:04 AM EST 02/04/2022 10:29 PM EST [employer] [facility] - 02/05/2022 1:59 AM EST . ? Fasting reference interval . The eGFR is based on the CKD-EPI 2020 equation. To calculate the new eGFR from a previous Creatinine or Cystatin C result, go to https://www.kidney.org/professionals/ kdoqi/gfr%5Fcalculator Paola Moreira MD LAB - BLOOD DRAW Final Result Performing Organization Address [facility]/ZIP Co de Phone Number [facility] [address] [address], [facility] [address] [address] * HEPATITIS C ANTIBODY WITH RFLX TO HCV RNA PCR W/RFLX TO GENOTYPE (05/05/2021 8:46 AM EDT) HEPATITIS C ANTIBODY NON-REACT MAMIE NON-REACT MAMIE [facility] SIGNAL TO CUT-OFF 0.01 <1.00 [facility] Comment: HCV antibody was non-reactive. There is no laboratory evidence of HCV infection. In most cases, no further action is required. However, if recent HCV exposure is suspected, a test for HCV RNA (test code 06882) is suggested. COMMENT [facility] Blood Blood / Unknown 05/05/2021 8 :46 AM EDT 05/06/2021 1:57 AM EDT Narrative [facility] - 05/07/2021 5:29 AM EDT For additional information, please refer to http://education.PinMyPet/faq/WDE570 (This link is being provided for informational/ educational purposes only.) Ayaka Valera MD LAB - BLOOD DRAW Edited Resu lt - Final Performing Organization Address [facility]/ZIP Co de Phone Number [facility] [address] [address], [facility] [address] [phone] [facility] [address] [address] * HIV 1/2 AG & AB W/RFLX (4TH GEN) (05/05/2021 8:46 AM EDT) HIV AG/AB, 4TH GEN NON-REAC TIVE NON-REAC TIVE [facility] Comment: HIV-1 antigen and HIV-1/HIV-2 [...] ?? For additional information please refer to http://education.Shoes of Prey/faq/VYT728 (This link is being provided for informational/ educational purposes only.) The performance of this assay has not been clinically validated in patients less than 2 years old. Blood Blood / Unknown 05/05/2021 8 :46 AM EDT 05/06/2021 2:07 AM EDT us Ayaka Valera MD LAB - BLOOD DRAW Edited Resu - Final [facility] [address] [address], [facility] [address] [address] from Last 3 Months or Most Recently Relevant to Health Maintenance Additional Health Concerns Active Problems Noted Date Diagnosed Date Patient has a diagnosis of hypertension 09/18/19 21 Insurance DELTA DENTAL [facility] DENTAL [facility] SAFETY NET Care Teams Licensing Specialist Relationship Specialty Start Date End Date Ayaka Valera MD [address] [facility] [place] [address] PCP - General Internal Medicine 02/22/15
== END 2024-06-14 10:33 | disposition home or self-care (01) ==
LOC: HO.LAB 10:32
PROVIDERS: Absent Provider Internal Medicine; PCP Physician Assistant Medical; Visit Provider Nurse Practitioner
DX: Z01.818 Encounter for other preprocedural examination (principal); D64.9 Anemia, unspecified
CPT/HCPCS: 36415; 80053; 82728; 85025; 99202

== ENCOUNTER 2024-06-25 09:24 | Outpatient (REF) | payer OTHER, SELFPAY ==
--- OUTSIDE RECORDS SUMMARY | 2024-06-25 10:10 | XMS_ITS | Clinical Summary ---
Author Organization [facility] Address [address] [place] [address] Care Team Providers Care Feather Renovator Name Role Phone Ayaka Valera MD Primary [...] (04/17/2019): S/p rt [place]ce[place] 04/11/2019 [place] [facility] [place] Drug-induced erectile dysfunction 02/28/2019 Hydrocele [...] Visit 05/29/202308/2022, 12/29/2020, 09/18/2018, Additional history exists [id number] () 10/23/2023 02/04/2022, 09/18/2020, 08/21/2020 Imm-Influenza (#1) [...] 173 <200 mg/dL 02/05/2022 1:28 AM EST [facility] HDL CHOLESTEROL 31(L) > OR = 40 mg/dL 02/05/2022 1:28 AM EST [facility] [employer] [facility] TRIGLYCERIDES 309(H) <150 mg/dL 02/05/2022 1:28 AM EST [facility] [employer] [facility] LDL-CHOLESTEROL 101(H) mg/dL (calc) 02/05/2022 1:28 AM EST [facility] [employer] [facility] CHOL/HDLC RATIO 5.6(H) <5.0 (calc) 02/05/2022 1:28 AM EST [facility] NON-HDL CHOLESTEROL 142(H) <130 mg/dL (calc) 02/05/2022 1:28 AM EST [facility] Blood Blood / Unknown 02/04/2022 1 1:04 AM EST 02/04/2022 10:29 PM EST Narrative [facility] - 02/05/2022 1:59 AM EST . [...] of LDL-C. Zhen SS et al. DEBORAH. 2013;310(74): 1689-5643 (http://education.T-Quad 22/faq/PCA314) For patients with diabetes plus 1 major ASCVD risk factor, treating to a non-HDL-C goal of <100 mg/dL (LDL-C of <70 mg/dL) is considered a therapeutic option. Paola Moreira MD LAB - BLOOD DRAW Final Result [facility] [address] [place] [address], [facility] [address] [place] [phone] * COMPREHENSIVE METABOLIC PANEL (02/04/2022 11:04 AM EST) GLUCOSE 91 65 - 99 mg/dL 02/05/2022 1:28 AM EST [facility] UREA NITROGEN (BUN) 13 7 - 25 mg/dL 02/05/2022 1:28 AM EST [facility] CREATININE (blood) 0.79 0.60 - 1.29 mg/dL 02/05/2022 1:28 AM EST [facility] EGFR 113 > OR = 60 mL/min/1 .73m2 02/05/2022 1:28 AM [facility] BUN/CREATININE RATIO NOT APPLICABLE 6 - 22 (calc) 02/05/2022 1:28 AM [facility] SODIUM 140 135 - 146 mmol/L 02/05/2022 1:28 AM [employer] [facility] POTASSIUM 3.7 3.5 - 5.3 mmol/L 02/05/2022 1:28 AM [employer] [facility] CHLORIDE 103 98 - 110 mmol/L 02/05/2022 1:28 AM [facility] CARBON DIOXIDE 30 20 - 32 mmol/L 02/05/2022 1:28 AM [facility] CALCIUM 9.4 8.6 - 10.3 mg/dL 02/05/2022 1:28 AM [facility] PROTEIN, TOTAL 7.2 6.1 - 8.1 g/dL 02/05/2022 1:28 AM [facility] ALBUMIN 4.4 3.6 - 5.1 g/dL 02/05/2022 1:28 AM [facility] GLOBULIN 2.8 1.9 - 3.7 g/dL (calc) 02/05/2022 1:28 AM [employer] [facility] ALBUMIN/GLOBUL IN RATIO 1.6 1.0 - 2.5 (calc) 02/05/2022 1:28 AM [facility] BILIRUBIN, TOTAL 0.4 0.2 - 1.2 mg/dL 02/05/2022 1:28 AM [facility] ALKALINE PHOSPHATASE 99 36 - 130 U/L 02/05/2022 1:28 AM [facility] AST 24 10 - 40 U/L 02/05/2022 1:28 AM [facility] ALT 22 9 - 46 U/L 02/05/2022 1:28 AM [facility] Blood Blood / Unknown 02/04/2022 1 1:04 AM EST 02/04/2022 10:29 PM EST [employer] [facility] - 02/05/2022 1:59 AM EST . ? Fasting reference interval . The eGFR is based on the CKD-EPI 2020 equation. To calculate the new eGFR from a previous Creatinine or Cystatin C result, go to https://www.kidney.org/professionals/ kdoqi/gfr%5Fcalculator Paola Moreira MD LAB - BLOOD DRAW Final Result Performing Organization Address [facility]/ZIP Co de Phone Number [facility] [address] [address], [facility] [employer] [facility] [address] [address] * HEPATITIS C ANTIBODY WITH RFLX TO HCV RNA PCR W/RFLX TO GENOTYPE (05/05/2021 8:46 AM EDT) HEPATITIS C ANTIBODY NON-REACT MAMIE NON-REACT MAMIE [facility] SIGNAL TO CUT-OFF 0.01 <1.00 [employer] Comment: HCV antibody was non-reactive. There is no laboratory evidence of HCV infection. In most cases, no further action is required. However, if recent HCV exposure is suspected, a test for HCV RNA (test code 13286) is suggested. COMMENT [facility] Blood Blood / Unknown 05/05/2021 8 :46 AM EDT 05/06/2021 1:57 AM EDT Narrative [facility] - 05/07/2021 5:29 AM EDT For additional information, please refer to http://education.T-Quad 22/faq/MAK693 (This link is being provided for informational/ educational purposes only.) Ayaka Valera MD LAB - BLOOD DRAW Edited Resu lt - Final Performing Organization Address [facility]/ZIP Co de Phone Number [facility] [address] [address], [facility] [address] [address] [facility] [employer] [facility] [address] [address] * HIV 1/2 AG & AB W/RFLX (4TH GEN) (05/05/2021 8:46 AM EDT) HIV AG/AB, 4TH GEN NON-REAC TIVE NON-REAC TIVE [facility] Comment: HIV-1 antigen and HIV-1/HIV-2 antibodies [...] ?? For additional information please refer to http://education.emaze/faq/GHV541 (This link is being provided for informational/ educational purposes only.) The performance of this assay has not been clinically validated in patients less than 2 years old. Blood Blood / Unknown 05/05/2021 8 :46 AM EDT 05/06/2021 2:07 AM EDT us Ayaka Valear MD LAB - BLOOD DRAW Edited Resu - Final [facility] [address] [address], [facility] [address] [address] from Last 3 Months or Most Recently Relevant to Health Maintenance Additional Health Concerns Active Problems Noted Date Diagnosed Date Patient has a diagnosis of hypertension 09/18/19 21 Insurance DELTA DENTAL [facility] DENT[facility] SAFETY NET Care Teams Feather Renovator Relationship Specialty Start Date End Date Ayaka Valera MD [address] [facility] [place] [address] PCP - General Internal Medicine 02/22/15
--- OUTSIDE RECORDS SUMMARY | 2024-06-25 10:10 | XMS_ITS | Clinical Summary ---
Author Organization [employer] Address [address] [facility] 7[address] [place] [address] Care Team Providers Care Fabric Inspector Name Role Phone Unavailable Primary Care [...] patient's age to complete this topic Insurance [facility] STANDARD
--- OUTSIDE RECORDS SUMMARY | 2024-06-25 10:10 | XMS_ITS | Encounter Summary ---
Author Organization [facility] Address [address] [place] [address] Care Team Providers Care Associate Brand Manager Name Role Phone Ayaka Valera MD Primary Care Provider [phone] Encounter Details Date Type Department Care Team (Late st Contact Info) Description 12/23/2021 Patient Outreach [facility] Primary Care [address] [place] [address] Paolo Lopez [address] [place], [place] Social History Tobacco Use Types Packs/Day [...] documented as of this encounter Care Teams Associate Brand Manager Relationship Specialty Start Date End Date Ayaka Valera MD [address] [place] [address] PCP - General Internal Medicine 02/22/15 documented as of this encounter
--- OUTSIDE RECORDS SUMMARY | 2024-06-25 10:10 | XMS_ITS | Clinical Summary ---
Author Organization 175 [facility] Address [address] [place] [address] Phone Care Team Providers Care Regional Operations Manager Name Role Phone Dee Arce Primary Care Provider [phone] Allergies Active Allergy Reactions Criticality Noted Date [...] 10:30 AM EST Office Visit Orthopedic Surgery [facility] 250 [address] [facility] [address] [place] [phone] Goins, Christopher M, DPM Acquired hammer [...] patient's age to complete this topic Insurance [place] [address] PLAN Care Teams Regional Operations Manager Relationship Specialty Start Date End Date Dee Arce PA [address] [place] [address] PCP - General Physician Shop And Alteration Tailor 01/10/24
[2024-06-25 10:16] LABS: MANUAL DIFF FLAG NO
[2024-06-25 10:33] LABS: Basophils Percent Auto 0.5 % (0-2); Eosinophils Absolute Auto 0.1 X10*3/uL (0.0-0.4); Eosinophils Percent Auto 2.8 % (0-4); Hematocrit 38.1 % (42.0-52.0); Hemoglobin 13.5 g/dl (14.0-18.0); Imm Gran Abs Auto 0.01 X10*3/uL (0.00-0.03); Imm Gran Pct Auto 0.2 % (0.0-0.4); Lymphocytes Percent Auto 45.5 % (20-40); Mean Corpuscular HGB Conc 35.4 g/dl (31.0-36.0); Mean Corpuscular Volume 84.7 fL (80.0-98.0); Mean Platelet Volume 10.9 fL (9.4-12.4); Monocytes Absolute Auto 0.3 X10*3/uL (0.1-1.2); Monocytes Percent Auto 7.9 % (2-11); Neutrophils Absolute Auto 1.9 x10*3/uL (2.0-8.3); Neutrophils Percent Auto 43.1 % (45-73); Platelet Count 209 X10*3/uL (160-400); White Blood Count 4.3 X10*3/uL (4.8-10.8)
[2024-06-25 11:12] LABS: Alanine Aminotransferase 28 U/L (0-40); Albumin Level 4.3 g/dL (3.5-5.0); Alkaline Phosphatase 84 U/L (39-117); Anion Gap 10 (12-20); Aspartate Amino Transferase 36 U/L (5-37); Bilirubin Total 0.4 mg/dL (0.0-1.0); Blood Urea Nitrogen 12 mg/dL (9-16); Carbon Dioxide 28 mmol/L (22-29); Chloride 106 mmol/L (96-108); Cholesterol 174 mg/dL (<200); Estimated Glomerular Filt Rate > 60; Glucose Random 97 mg/dL (60-115); Potassium 3.3 mmol/L (3.3-5.1); Sodium 141 mmol/L (135-145); Total Protein 7.1 g/dL (6.5-8.0); Triglycerides 188 mg/dL (<150)
[2024-06-25 11:17] LABS: Prostate Specific Antigen 0.43 ng/mL (<0.05-4.0)
[2024-06-25 11:48] LABS: HDL Cholesterol 29 mg/dL (>40); LDL Cholesterol Calculated 108 mg/dL (<100)
[2024-06-25 13:34] LABS: Appearance Urine Clear; Color Urine Yellow; Glucose Urine UA Negative (Negative); Leukocyte Esterase Urine Negative (Negative); Nitrite Urine Negative (Negative); PH 8.5 (5.0-9.0); Urine Blood Negative (Negative); Urine Ketones Negative (Negative); Urine Protein Negative (Neg-Trace)
[2024-06-25 13:38] LABS: Bacteria Urine None Seen (None Seen); Hyaline Casts Urine 0-2 /LPF (0-2); RBC Urine 0-2 /HPF (0-2); Squamous Epithelial Cell Urine 0-2 /HPF (0-2); WBC Urine 0-5 /HPF (0-5)
[2024-06-29 16:34] LABS: Vitamin D 25-OH, D2 <4 ng/mL; Vitamin D 25-OH, D3 19 ng/mL; Vitamin D 25-OH, Total 19 ng/mL (30-100)
== END 2024-06-25 09:25 | disposition home or self-care (01) ==
LOC: HO.HMGCLDS 09:24
PROVIDERS: PCP Physician Assistant Medical; Referring Provider Internal Medicine Hypertension Specialist; Visit Provider Physician Assistant Medical
DX: Z00.00 Encounter for general adult medical examination without abnormal findings (principal); M85.80 Other specified disorders of bone density and structure, unspecified site; R39.11 Hesitancy of micturition; Z13.6 Encounter for screening for cardiovascular disorders; E55.9 Vitamin D deficiency, unspecified; E78.5 Hyperlipidemia, unspecified; Z12.5 Encounter for screening for malignant neoplasm of prostate; R39.9 Unspecified symptoms and signs involving the genitourinary system
CPT/HCPCS: 36415; 80053; 80061; 81001; 82306; 84153; 85025; 87086

== ENCOUNTER 2024-06-27 09:18 | Outpatient (AMB) | payer OTHER, SELFPAY ==
[2024-06-27 09:21] VITALS: BP 140/100; PULSE 67; O2SAT 97; BMI 29.0
--- NOTE | 2024-06-27 09:21 | HO.NEPHOV ---
Vital Signs 06/27/24 09:21 Height 5 ft 11 in Weight 208 lb BMI 29.0 BP 140/100 H Blood Pressure Location Lt brachial Position Sitting Pulse 67 Pulse Source Pulse Oximeter Pulse Oximetry (%) 97 Oxygen Delivery Method Room Air Intake Visit Reasons: 2mon follow-up w/labs Conf Vehicle Upholsterer Required: No Accompanied by: Self / Same As Patient Allergies lisinopril Allergy (Intermediate, Verified 06/27/24 09:23) Shortness of Breath Medication List - Last Reconciled 06/27/24 by Philip Medina MD amlodipine 10 mg PO DAILY cholecalciferol (vitamin D3) 50 mcg PO DAILY cyanocobalamin (vitamin B-12) 1,000 mcg PO DAILY cyclobenzaprine 10 mg PO TID PRN hydralazine 25 mg PO TID losartan 25 mg PO DAILY potassium chloride ER 10 mEq PO DAILY sodium,potassium,mag sulfates 17.5-3.13-1.6 gram (Suprep Bowel Prep Kit) 480 mL orally; FOR COLONOSCOPY PREP sodium,potassium,mag sulfates 17.5-3.13-1.6 gram (Suprep Bowel Prep Kit) DILUTE each bottle with 16oz of water; drink first bottle 5pm evening before procedure AND second bottle at 11pm; follow each bottle with at least 32 oz.of water within 1 hour after each bottle spironolactone 25 mg PO BID HPI Comments Details: Middle-aged man with a history of hypertension for 20 years. He was 1st diagnosed with hypertension at the age of 18. He has been referred for hypokalemia. He has had persistent hypokalemia and currently on potassium supplementation. On amlodipine as well as a losartan for the control blood pressure. Despite this blood pressure has been suboptimal and systolic blood pressure has been around 150 mm Hg. Recent lab work showed potassium was 3.1 despite potassium supplementation. There was no alkalosis. Renal function stable. He is not on any diuretics Does not take any licorice. He is not on any other ghiw-ept-gvqqlqm medications. 01/04/24 Events noted; Persistent hypokalemia ;PA/PRA pending Was admitted to [facility] for chest pain ;Spironolactone 25 mg QD has been added Feels tired 01/18/24 ;Feels better ;Home BP sub optimal 04/11/24 ;c/o Sob on exertion ;Has cardiology appointment He missed the Ct scan appointment 06/27/2024. Overall is doing well. No specific complaints today. Blood pressure readings are reviewed. He is on hydralazine 25 mg b.i.d. instead of t.i.d.. All other medications reviewed Underwent CT scan. No adrenal adenoma was reported [facility] Medical History Hypokalemia Pain of right great toe Hospital discharge follow-up Bone disorder Routine physical examination Sore throat Urinary hesitancy Osteopenia Anxiety Thoracolumbar back pain LVH (left ventricular hypertrophy) Anemia Leukopenia B12 deficiency Vitamin D deficiency Hyperlipidemia Essential hypertension Dermatitis High blood pressure Surgical History History of hydrocelectomy Family History Mother Diabetes Maternal Grandmother High blood pressure Family/Other Breast cancer Social History Household Members: Family Both parents involved: No Caregiver staying overnight: No Housing: House Are you a primary healthcare insurance sales agent to a significant other at home: No Do you presently have visiting nurse or other home services: No 75 years or older and lives alone: No Alcohol intake: former Patient Tobacco Use Status: Never used Tobacco e-Cigarette/Vaping Use: Never Used Second Hand Smoke Exposure: No service: No Current occupational status: employed 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 Cognitive needs: No Hearing needs: No Vision needs: Yes (Patient states vision is blurry.) Physical Exam Vital Signs: Last Vital Signs Pulse 67 06/27/24 09:21 BP 140/100 H 06/27/24 09:21 Pulse Ox 97 06/27/24 09:21 Oxygen Delivery Method Room Air 06/27/24 09:21 BMI result Body Mass Index 29.0 No orthostatic BP changes Const General: comfortable; No acute distress Orientation/consciousness: patient oriented x3 Eyes General: appearance normal, both eyes and all related structures Visual Padilla: normal visual padilla by confrontation Neck Neck: Yes supple and Yes no JVD Resp Effort & Inspection: normal respiratory effort and respiratory effort not decreased Cardio Palpation: no palpable S3 and no palpable S4 Heart sounds: no rubs GI Inspection: Yes normal to inspection Palpation (GI): Soft to palpation Percussion: Yes normal to percussion Auscultation: normal bowel sounds General: Yes no CVA tenderness Back/Spine/Pelvis Back: no CVA tenderness Skin General skin exam: no petechiae and no purpura Neuro General: patient oriented x3 and no focal motor deficits Extrem General: No clubbing and No edema Results Reviewed Results Reviewed: CT scan May 2024 ADRENAL GLANDS: Within normal limits. No adrenal mass is identified. KIDNEYS/RETROPERITONEUM: No renal calculi are identified. There is no hydronephrosis. No renal masses are identified. Nephrology Results: Hgb 13.5 g/dl (14.0-18.0) L 06/25/24 WBC 4.3 X10*3/uL (4.8-10.8) L 06/25/24 Plt Count 209 X10*3/uL (160-400) 06/25/24 Sodium 141 mmol/L (135-145) 06/25/24 Potassium 3.3 mmol/L (3.3-5.1) 06/25/24 Chloride 106 mmol/L (96-108) 06/25/24 Carbon Dioxide 28 mmol/L (22-29) 06/25/24 BUN 12 mg/dL (9-16) 06/25/24 Creatinine 0.76 mg/dL (0.5-1.4) 06/25/24 Calcium 9.0 mg/dL (8.4-10.2) 06/25/24 Urine Protein Negative mg/dL (Neg-Trace) 06/25/24 Assessment & Plan Assessment & Plan (1) Essential hypertension: Code(s): I10 - Essential (primary) hypertension Category: Medical Plan Young man with a history of qfdolaqsl-tw-ypnpigk hypertension with hypokalemia. Even the onset of hypertension at a young age along with hypokalemia ,hyperaldosteronism should be ruled out, even though the recent lab work did not reveal any significant alkalosis. However the total CO2 was on the upper limit of normal. Work up for hyperaldosteronism. PRA 0.19 PA 9 PA/PRA 47 ( high) CT scan showed normal adrenal glands without any adenomas Keep Spironolactone 25 mg BID Discontinue hydralazine 25 mg b.i.d.. Increase losartan from 25 mg up to 100 mg daily. (06/27/2024) Continued other medications. continue to watch BP at home Orders: Orders Basic Metabolic Panel 3 Weeks I10 - Essential (primary) hypertension Medications: Changed From losartan 25 mg PO DAILY 90 tabs 3RF To losartan 100 mg PO DAILY 90 tabs 3RF Coding Level of Care Code Est Pt Level 4 (52512) Diagnoses Essential hypertension I10
--- OUTSIDE RECORDS SUMMARY | 2024-06-27 09:58 | XMS_ITS | Clinical Summary ---
Author Organization [employer] Address [address] [facility] 7t [place] [address] Care Team Providers Care Pumping Station Engineer Name Role Phone Unavailable Primary Care Provider [...] patient's age to complete this topic Insurance [facility] STANDARD
--- OUTSIDE RECORDS SUMMARY | 2024-06-27 09:58 | XMS_ITS | Encounter Summary ---
Author Organization [facility] Address [address] [place] [address] Care Team Providers Care Qa Automation Developer Name Role Phone Ayaka Valera MD Primary Care Provider [phone] Encounter Details Date Type Department Care Team (Late st Contact Info) Description 12/23/2021 Patient Outreach [facility] Primary Care [address] [place] [address] Paolo Lopez [address] [place], [place] Social History Tobacco Use Types Packs/Day [...] documented as of this encounter Care Teams Qa Automation Developer Relationship Specialty Start Date End Date Ayaka Valera MD [address] [place] [address] PCP - General Internal Medicine 02/22/15 documented as of this encounter
--- OUTSIDE RECORDS SUMMARY | 2024-06-27 09:58 | XMS_ITS | Clinical Summary ---
Author Organization 175 [facility] Address [address] [place] [address] Phone Care Team Providers Care Senior It Business Analyst Name Role Phone Dee Arce Primary Care Provider [phone] Allergies Active Allergy Reactions Criticality Noted Date [...] 10:30 AM EST Office Visit Orthopedic Surgery [facility] 250 [address] [facility] [address] [place] [phone] Goins, Christopher M, DPM Acquired hammer [...] patient's age to complete this topic [place] [place] [address] PLAN Care Teams Senior It Business Analyst Relationship Specialty Start Date End Date Dee Arce PA [address] [place] [address] PCP - General Physician Sqe 01/10/24
--- OUTSIDE RECORDS SUMMARY | 2024-06-27 09:58 | XMS_ITS | Clinical Summary ---
Author Organization [facility] Address [address] [place] [address] Care Team Providers Care Electronic Field Service Engineer Name Role Phone Ayaka Valera MD [...] (04/17/2019): S/p rt hydrocelectomy on 04/11/2019 at [facility] Drug-induced erectile dysfunction 02/28/2019 Hydrocele [...] Visit 05/29/202308/2022, 12/29/2020, 09/18/2018, Additional history exists [id number] () 10/23/2023 02/04/2022, 09/18/2020, 08/21/2020 Imm-Influenza (#1) [...] 173 <200 mg/dL 02/05/2022 1:28 AM EST [employer] [facility] HDL CHOLESTEROL 31(L) > OR = 40 mg/dL 02/05/2022 1:28 AM EST [employer] [facility] TRIGLYCERIDES 309(H) <150 mg/dL 02/05/2022 1:28 AM EST [employer] [facility] LDL-CHOLESTEROL 101(H) mg/dL (calc) 02/05/2022 1:28 AM EST [employer] [facility] CHOL/HDLC RATIO 5.6(H) <5.0 (calc) 02/05/2022 1:28 AM EST [facility] NON-HDL CHOLESTEROL 142(H) <130 mg/dL (calc) 02/05/2022 1:28 AM EST [facility] Blood Blood / Unknown 02/04/2022 1 1:04 AM EST 02/04/2022 10:29 PM EST Narrative [facility] - 02/05/2022 1:59 AM EST . [...] of LDL-C. Zhen SS et al. DEBORAH. 2013;310(37): 2791-9213 (http://education.[employer]/faq/BVN228) For patients with diabetes plus 1 major ASCVD risk factor, treating to a non-HDL-C goal of <100 mg/dL (LDL-C of <70 mg/dL) is considered a therapeutic option. Paola Moreira MD LAB - BLOOD DRAW Final Result [facility] [address] [place] [id number], [facility] [address] [place] [id number] * COMPREHENSIVE METABOLIC PANEL (02/04/2022 11:04 AM EST) GLUCOSE 91 65 - 99 mg/dL 02/05/2022 1:28 AM EST [facility] UREA NITROGEN (BUN) 13 7 - 25 mg/dL 02/05/2022 1:28 AM EST [facility] CREATININE (blood) 0.79 0.60 - 1.29 mg/dL 02/05/2022 1:28 AM EST [facility] EGFR 113 > OR = 60 mL/min/1 .73m2 02/05/2022 1:28 AM [facility] BUN/CREATININE RATIO NOT APPLICABLE 6 - 22 (calc) 02/05/2022 1:28 AM [facility] SODIUM 140 135 - 146 mmol/L 02/05/2022 1:28 AM [facility] POTASSIUM 3.7 3.5 - 5.3 mmol/L 02/05/2022 1:28 AM [facility] CHLORIDE 103 98 - 110 mmol/L 02/05/2022 1:28 AM [facility] CARBON DIOXIDE 30 20 - 32 mmol/L 02/05/2022 1:28 AM [facility] CALCIUM 9.4 8.6 - 10.3 mg/dL 02/05/2022 1:28 AM [facility] PROTEIN, TOTAL 7.2 6.1 - 8.1 g/dL 02/05/2022 1:28 AM [facility] ALBUMIN 4.4 3.6 - 5.1 g/dL 02/05/2022 1:28 AM [facility] GLOBULIN 2.8 1.9 - 3.7 g/dL (calc) 02/05/2022 1:28 AM [facility] ALBUMIN/GLOBUL IN RATIO 1.6 1.0 - 2.5 (calc) 02/05/2022 1:28 AM [facility] BILIRUBIN, TOTAL 0.4 0.2 - 1.2 mg/dL 02/05/2022 1:28 AM [facility] ALKALINE PHOSPHATASE 99 36 - 130 U/L 02/05/2022 1:28 AM [facility] AST 24 10 - 40 U/L 02/05/2022 1:28 AM [facility] ALT 22 9 - 46 U/L 02/05/2022 1:28 AM [facility] Blood Blood / Unknown 02/04/2022 1 1:04 AM EST 02/04/2022 10:29 PM EST [employer] [facility] - 02/05/2022 1:59 AM EST . ? Fasting reference interval . The eGFR is based on the CKD-EPI 2020 equation. To calculate the new eGFR from a previous Creatinine or Cystatin C result, go to https://www.kidney.org/professionals/ kdoqi/gfr%5Fcalculator Paola Moreira MD LAB - BLOOD DRAW Final Result Performing Organization Address [facility]/ZIP Co de Phone Number [employer] [facility] [address] [address], [employer] [address] [phone] * HEPATITIS C ANTIBODY WITH RFLX TO HCV RNA PCR W/RFLX TO GENOTYPE (05/05/2021 8:46 AM EDT) HEPATITIS C ANTIBODY NON-REACT MAMIE NON-REACT MAMIE [employer] [facility] SIGNAL TO CUT-OFF 0.01 <1.00 [employer] [facility] Comment: HCV antibody was non-reactive. There is no laboratory evidence of HCV infection. In most cases, no further action is required. However, if recent HCV exposure is suspected, a test for HCV RNA (test code 63769) is suggested. COMMENT [employer] [facility] Blood Blood / Unknown 05/05/2021 8 :46 AM EDT 05/06/2021 1:57 AM EDT Narrative [facility] - 05/07/2021 5:29 AM EDT For additional information, please refer to http://education.[employer]/faq/GOQ610 (This link is being provided for informational/ educational purposes only.) Ayaka Valera MD LAB - BLOOD DRAW Edited Resu lt - Final Performing Organization Address [facility]/ZIP Co de Phone Number [employer] [facility] [address] [address], [employer] [address] [address] [employer] [address] [address] * HIV 1/2 AG & AB W/RFLX (4TH GEN) (05/05/2021 8:46 AM EDT) HIV AG/AB, 4TH GEN NON-REAC TIVE NON-REAC TIVE [employer] [facility] Comment: HIV-1 antigen and HIV-1/HIV-2 antibodies were [...] ?? For additional information please refer to http://education.[employer]/faq/DGR001 (This link is being provided for informational/ educational purposes only.) The performance of this assay has not been clinically validated in patients less than 2 years old. Blood Blood / Unknown 05/05/2021 8 :46 AM EDT 05/06/2021 2:07 AM EDT us Ayaka Valera MD LAB - BLOOD DRAW Edited Resu - Final [facility] [address] [address], [facility] [address] [address] from Last 3 Months or Most Recently Relevant to Health Maintenance Additional Health Concerns Active Problems Noted Date Diagnosed Date Patient has a diagnosis of hypertension 09/18/19 21 Insurance [employer] [facility] [employer] Care Teams Electronic Field Service Engineer Relationship Specialty Start Date End Date Ayaka Valera MD [address] [place] [id number] PCP - General Internal Medicine 02/22/15
== END 2024-06-27 09:34 | disposition home or self-care (01) ==
LOC: HO.HKAS 09:19
PROVIDERS: PCP Physician Assistant Medical; Visit Provider Internal Medicine Hypertension Specialist
DX: I10 Essential (primary) hypertension (principal)
CPT/HCPCS: 99214

== ENCOUNTER → 2024-06-27 09:18 | Outpatient (BNVA) | payer OTHER, SELFPAY | PROVIDERS: PCP Physician Assistant Medical; Visit Provider Internal Medicine Hypertension Specialist | DX: I10 Essential (primary) hypertension (principal) | CPT/HCPCS: 99212 ==

== ENCOUNTER 2024-07-13 11:13 | Outpatient (AMB) | payer OTHER, SELFPAY ==
--- OUTSIDE RECORDS SUMMARY | 2024-07-13 11:17 | XMS_ITS | Clinical Summary ---
Author Organization [address] [facility] Address [address] [place] [address] Phone Care Team Providers Care Director Of Social Media Marketing Name Role Phone Dee Arce Primary Care Provider [phone] Allergies Active Allergy Reactions Criticality Noted Date [...] mouth 1 (one) time each day. Active Social History Tobacco Use Types Packs/Day Years [...] patient's age to complete this topic Insurance [facility] [employer] Care Teams Director Of Social Media Marketing Relationship Specialty Start Date End Date Dee Arce PA [address] [place] [id number] PCP - General Physician Gas System Operator 01/10/24
--- NOTE | 2024-07-13 13:05 | AM.OFFWIN_ITS ---
Intake Vital Signs 3 07/13/24 13:08 Weight 205 lb BP 140/100 H Blood Pressure Location Rt brachial Position Sitting Pulse 58 Pulse Source Pulse Oximeter Pulse Oximetry (%) 99 Oxygen Delivery Method Room Air Intake Visit Reasons: EP-itchy eyes Intake Note: Patient here for itchy eyes and congestion that started tuesday. Patient Tobacco Use Status: Never used Tobacco Allergies lisinopril Allergy (Intermediate, Verified 07/13/24 13:10) Shortness of Breath Medication List - Last Reconciled 07/13/24 by Vanessa Rajput MD amlodipine 10 mg PO DAILY cholecalciferol (vitamin D3) 100 mcg (2 x 50 mcg (2,000 unit)) PO DAILY cyanocobalamin (vitamin B-12) 1,000 mcg PO DAILY cyclobenzaprine 10 mg PO TID PRN losartan 100 mg PO DAILY polymyxin B sulf-trimethoprim 10,000 unit- 1 mg/mL 1 drp ophthalmic (eye) QID 5 days potassium chloride ER 10 mEq PO DAILY sodium,potassium,mag sulfates 17.5-3.13-1.6 gram (Suprep Bowel Prep Kit) DILUTE each bottle with 16oz of water; drink first bottle 5pm evening before procedure AND second bottle at 11pm; follow each bottle with at least 32 oz.of water within 1 hour after each bottle spironolactone 25 mg PO BID Do you need a note to return to daycare/school/sports/work: Yes HPI EP-itchy eyes 2 HPI0 Details Patient is a 43-year-old gentleman came in today to be evaluated for right eye discharge Patient says that for the past 3 days he has been having severe itching in his eyes and he has been scratching them This morning woke up with a crusty right eye and is feeling irritated but no pain Light is slightly bothering him Patient does wear glasses usually for nearsightedness On examination he has injected right conjunctiva Pupil is reactive , no pain with eye movement or palpation I have sent Polytrim eyedrops for him 1 drop q.i.d. for 5 days If he continued to feel like that or worse he needs to see eye doctor After the drops if he continued to have itching he may use Visine allergy eyedrops PFSH Medical History Hypokalemia Pain of right great toe Hospital discharge follow-up Bone disorder Routine physical examination Sore throat Urinary hesitancy Osteopenia Anxiety Thoracolumbar back pain LVH (left ventricular hypertrophy) Anemia Leukopenia B12 deficiency Vitamin D deficiency Hyperlipidemia Essential hypertension Dermatitis High blood pressure Surgical History History of hydrocelectomy Family History Mother Diabetes Maternal Grandmother High blood pressure Family/Other Breast cancer Social History Household Members: Family Both parents involved: No Caregiver staying overnight: No Housing: House Are you a primary critical care cns to a significant other at home: No Do you presently have visiting nurse or other home services: No 75 years or older and lives alone: No Alcohol intake: former Patient Tobacco Use Status: Never used Tobacco e-Cigarette/Vaping Use: Never Used Second Hand Smoke Exposure: No service: No Current occupational status: employed 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 Conjunctiva injected, PERRL, EOMI, no photophobia, no pain with palpation Resp Effort & Inspection: normal respiratory effort and able to speak in complete sentences Cardio Other: S1 S2 Neuro General: patient oriented x3 Psych Mental Status: mental status grossly normal Assessment & Plan Assessment & Plan (1) Acute conjunctivitis, right eye: Code(s): H10.31 - Unspecified acute conjunctivitis, right eye Qualifiers: Acute conjunctivitis type: unspecified Qualified Code(s): H10.31 - Unspecified acute conjunctivitis, right eye Plan Patient is a 43-year-old gentleman came in today to be evaluated for right eye discharge Patient says that for the past 3 days he has been having severe itching in his eyes and he has been scratching them This morning woke up with a crusty right eye and is feeling irritated but no pain Light is slightly bothering him Patient does wear glasses usually for nearsightedness On examination he has injected right conjunctiva Pupil is reactive , no pain with eye movement or palpation I have sent Polytrim eyedrops for him 1 drop q.i.d. for 5 days If he continued to feel like that or worse he needs to see eye doctor After the drops if he continued to have itching he may use Visine allergy eyedrop Medications: New 2 polymyxin B sulf-trimethoprim 10,000 unit- 1 mg/mL while awake; do not exceed 6 doses in 24 hours 1 drp ophthalmic (eye) QID 5 days 10 mL 0RF Coding Level of Care Code Est Pt Level 3 (83124) Diagnoses Acute conjunctivitis of right eye, unspecified acute conjunctivitis type H10.31 Acute conjunctivitis type: unspecified
[2024-07-13 13:08] VITALS: BP 140/100; PULSE 58; O2SAT 99
== END 2024-07-13 13:19 | disposition home or self-care (01) ==
PROVIDERS: PCP Physician Assistant Medical; Visit Provider Internal Medicine
DX: H10.31 Unspecified acute conjunctivitis, right eye (principal)

== ENCOUNTER → 2024-07-13 11:13 | Outpatient (BNVA) | payer OTHER, SELFPAY | PROVIDERS: PCP Physician Assistant Medical; Visit Provider Internal Medicine | DX: H10.31 Unspecified acute conjunctivitis, right eye (principal) | CPT/HCPCS: 99212 ==

== ENCOUNTER 2024-07-30 11:18 | Outpatient (AMB) | payer OTHER, SELFPAY ==
--- NOTE | 2024-07-30 11:23 | MHC.PC.OV ---
Vital Signs 07/30/24 11:28 Height 5 ft 11 in Weight 200 lb 6 oz BMI 27.9 BP 134/90 H Blood Pressure Location Rt brachial Position Sitting Respiration 14 Pulse 77 Pulse Source Pulse Oximeter Temp 98.6 F Temp Source Temporal Artery Scan Pulse Oximetry (%) 97 Oxygen Delivery Method Room Air Intake Visit Reasons: epistaxis Intake Note: Khushboo presents in the office today to discuss epistaxis. Allergies lisinopril Allergy (Intermediate, Verified 07/30/24 11:26) Shortness of Breath Medication List - Last Reconciled 07/30/24 by NALINI Colin amlodipine 10 mg PO DAILY cholecalciferol (vitamin D3) 100 mcg (2 x 50 mcg (2,000 unit)) PO DAILY cyanocobalamin (vitamin B-12) 1,000 mcg PO DAILY cyclobenzaprine 10 mg PO TID PRN losartan 100 mg PO DAILY polymyxin B sulf-trimethoprim 10,000 unit- 1 mg/mL 1 drp ophthalmic (eye) QID PRN potassium chloride ER 10 mEq PO DAILY sodium chloride-aloe vera ([place] Saline nasal gel) 1 appl topical BID sodium,potassium,mag sulfates 17.5-3.13-1.6 gram (Suprep Bowel Prep Kit) DILUTE each bottle with 16oz of water; drink first bottle 5pm evening before procedure AND second bottle at 11pm; follow each bottle with at least 32 oz.of water within 1 hour after each bottle spironolactone 25 mg PO BID Tobacco use date assessed: 07/30/24 Dental Screening Dental Screen Date: 07/30/24 Did you have a dental visit in the last 12 months?: Yes Did you have a dental problem in the last 6 months where you did not have access to dental care?: No Was dental information given to patient?: Patient has dentist HPI HPI Comments History of Present Illness Details This is a 43-year-old male with a past medical history of hypertension, hyperaldosteronism, LVH, hypokalemia, anemia, B12 deficiency, vitamin-D deficiency and hyperlipidemia presenting to discuss nosebleeds. He is accompanied by his and son. He is also a hospital follow up. Patient endorses recurrent nosebleeds over the past year at least. He has 3-4 per week. Affects both nostrils. They last less than 10 minutes. He applies ice and pressure to the bridge of his nose. No thrombocytopenia. No NSAID use or anticoagulants. No tobacco use or alcohol use. No drug use. Denies rhinitis symptoms. Patient was taken by ambulance to [facility] on 07/28/24 and admitted until 07/29/24. Reports he got up that day and drank a mushroom coffee that he bought from [employer]. He has never had it before. He drank a good portion of it and started to feel nauseous so he stopped. Shortly after he walked out to his car to run some errands and felt out of breath. He sat down in his car and rested for a few minutes and then drove to [employer]. There he felt dizzy and nauseous, but he has carried on and went to stop and shop. When he got home he was not feeling well so he asked his to drive him to the hospital. He felt like he was going to pass out. This progressed to difficulty speaking and not being able to move, and she called the ambulance. Patient also had chest pain. Patient had CT angio of the head and neck with no acute findings but there were increase numbers of axillary, supraclavicular and cervical lymph nodes noted. Clinical correlation was advised. CT head demonstrated no abnormalities. CT angio chest and abdomen showed no acute findings. MRI of the brain without contrast was normal. Extensive lab evaluation including troponin and BNP showed no acute findings. Normal lactate level. 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 Patient says his speech spontaneously returned that same day, and he has continued to improve. He still feels a little off balance and weaker, but he is speaking completely normally again. No further episodes of near syncope. No weakness in the extremities or further episodes of chest pain. ROS: Constitutional: No unexplained weight loss, fever, chills or night sweats. Eyes: No vision changes, blurry vision, double vision, eye pain, eye redness, eye discharge. Respiratory: No shortness of breath, cough or sputum production. Cardiovascular: No chest pain, chest pressure or chest discomfort. No palpitations or pedal azael Neurologic: See HPI. No tremors or seizures. Skin: No rash Physical exam: Constitutional: Alert, in no distress. Eyes: Pupils are equal, round and reactive to light. Extraocular muscles intact. Ear, Nose and Throat: Canals clear. TMs normal. Normal nasal mucosa. No nasal discharge. No oral lesions. Neck: Supple, Full range of motion. No palpable lymphadenopathy. No palpable thyroid masses. Respiratory: Clear to auscultation. Cardiovascular: S1 S2 regular. No murmurs. Gastrointestinal: Abdomen soft, non-tender, non-distended. Normal bowel sounds. No palpable masses. Neurologic:?Alert and oriented x 3, no focal deficits observed, CN 2-12 intact, [id number]-urwo-syydpt normal, sensation equal and symmetric, strength UE and LE 5/5 bilaterally, reflexes equal and symmetric.? Normal gait.? Patient appears a little off balance walking heel to toe and toe walking.? No pronator drift.? Negative Romberg. Skin: No rashes Musculoskeletal: No gross deformities. Extremities: Warm and well perfused. No clubbing, cyanosis or edema. Intact peripheral pulses Psychiatric: Normal mood and affect [facility] Medical History (Updated 07/30/24 @ 13:43 by NALINI Colin) Lymphadenopathy Altered mental state Epistaxis Hypokalemia Pain of right great toe Hospital discharge follow-up Bone disorder Routine physical examination Sore throat Urinary hesitancy Osteopenia Anxiety Thoracolumbar back pain LVH (left ventricular hypertrophy) Anemia Leukopenia B12 deficiency Vitamin D deficiency Hyperlipidemia Essential hypertension Dermatitis High blood pressure Surgical History History of hydrocelectomy Family History Mother Diabetes Maternal Grandmother High blood pressure Family/Other Breast cancer Social History (Updated 07/30/24 @ 11:28 by Alana Sullivan MA) Household Members: Family Both parents involved: No Caregiver staying overnight: No Housing: House Are you a primary pet care worker to a significant other at home: No Do you presently have visiting nurse or other home services: No 75 years or older and lives alone: No Alcohol intake: former Patient Tobacco Use Status: Never used Tobacco e-Cigarette/Vaping Use: Never Used Second Hand Smoke Exposure: No Use of substances other than those prescribed or required for medical reasons: No service: No Current occupational status: employed 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 Cognitive needs: No Hearing needs: No Vision needs: Yes (Patient states vision is blurry.) Questionnaire Thrive Questionnaire Date Thrive assessed: 03/02/24 I am a: Patient What is your living situation today?: I have a steady place to live Within the past 12 months, did the food you bought not last and you didn't have the money to get more?: I choose not to answer this question Within the past 12 months, did you worry whether your food would run out before you got money to buy more?: I choose not to answer this question Do you have trouble paying for medicines?: I choose not to answer this question Do you have trouble getting transportation to medical appointments?: I choose not to answer this question Do you have trouble paying your heating and electricity bill?: I choose not to answer this question Do you have trouble taking care of your child, family member or friend?: I choose not to answer this question Do you have trouble with day-to-day activities such as bathing, preparing meals, shopping, managing finances, etc.?: I choose not to answer this question Are you currently unemployed and looking for a job?: I choose not to answer this question Are you interested in more education?: I choose not to answer this question Please select the resources that you would like help with: None Currently or been in a relationship where the following occur: I choose not to answer THRIVE Score: 0 MICHELLE-7 AMB Questionnaire MICHELLE-7 Date MICHELLE - 7 assessed: 06/04/24 Source: Developed by Drs. Rudy Zhao, Anita Melendrez, Chidi Sanchez and colleagues, with an educational caro from [employer]. Physical exam (Primary Care) Vital Signs: Last Vital Signs Temp 98.6 F 07/30/24 11:28 Pulse 77 07/30/24 11:28 Resp 14 07/30/24 11:28 BP 134/90 H 07/30/24 11:28 Pulse Ox 97 07/30/24 11:28 Oxygen Delivery Method Room Air 07/30/24 11:28 BMI result Body Mass Index 27.9 Tobacco/Smoking Status: Tobacco use Status Tobacco use date assessed 07/30/24 07/30/24 11:31 Patient Tobacco Use Status Never used Tobacco 07/30/24 11:28 e-Cigarette/Vaping Use Never Used 07/30/24 11:28 Thrive Assessment: Date of Thrive Assessment Date Thrive assessed 03/02/24 07/30/24 11:25 Currently or been in a relationship where the following occur: I choose not to answer Coding Level of Care Code Est Pt Level 5 (29270) Complex EM visit Add On G2211 Diagnoses Epistaxis R04.0 Altered mental state R41.82 Lymphadenopathy R59.1 Time Spent (min) 51 Comment Reviewing documentation, seeing the patient, completing documentation Assessment & Plan Assessment & Plan (1) Epistaxis: Code(s): R04.0 - Epistaxis Category: Medical Plan: Recommended application of saline nasal gel or spray twice daily. Run cool mist humidifier in the bedroom. Refer to ENT. (2) Altered mental state: Code(s): R41.82 - Altered mental status, unspecified Category: Medical Plan: Patient underwent extensive workup and had a neuro consult while at the hospital. They suspect this was due to psilocybe exposure. He returned the item, and [facility]. He is improving. I gave him a note to be out of work until the , but if he is back to baseline prior to that he can contact the office to return sooner. Warning signs warranting re-evaluation at the ED reviewed with the patient. (3) Lymphadenopathy: Code(s): R59.1 - Generalized enlarged lymph nodes Category: Medical Plan: Nonspecific on imaging done at ED. may be reactive. Follow up with ultrasound. Plan He has a follow up with me in August. Orders: Referrals Ear/Nose/Throat Referral R04.0 - Epistaxis, R41.82 - Altered mental status, unspecified Medications: New sodium chloride-aloe vera ([place] Saline nasal gel) 1 appl topical BID 14.1 grams 5RF Discontinued polymyxin B sulf-trimethoprim 10,000 unit- 1 mg/mL while awake; do not exceed 6 doses in 24 hours Discontinued Reason: Doctor's Order 1 drp ophthalmic (eye) QID PRN
[2024-07-30 11:28] VITALS: BP 134/90; PULSE 77; RESP 14; TEMP 37; O2SAT 97; BMI 27.9
== END 2024-07-30 12:07 | disposition home or self-care (01) ==
LOC: HO.HMCFM 11:19
PROVIDERS: PCP Physician Assistant Medical; Visit Provider Physician Assistant Medical
DX: R04.0 Epistaxis (principal); R41.82 Altered mental status, unspecified; R59.1 Generalized enlarged lymph nodes

== ENCOUNTER → 2024-07-30 11:18 | Outpatient (BNVA) | payer OTHER, SELFPAY | PROVIDERS: PCP Physician Assistant Medical; Visit Provider Physician Assistant Medical | DX: R04.0 Epistaxis (principal); R41.82 Altered mental status, unspecified; R59.1 Generalized enlarged lymph nodes | CPT/HCPCS: 99212 ==

== ENCOUNTER 2024-08-01 12:15 | Outpatient (AMB) | payer OTHER, SELFPAY ==
[2024-08-01 12:36] VITALS: BP 138/78; PULSE 77; BMI 28.0
--- NOTE | 2024-08-01 12:36 | MHC.OFFVIS ---
Vital Signs 08/01/24 12:36 Height 5 ft 11 in Weight 200 lb 9.93 oz BMI 28.0 BP 138/78 Blood Pressure Location Lt brachial Position Sitting Pulse 77 Pulse Source Monitor Intake Visit Reasons: 3 mth f/up cardiac MRI at [facility] Allergies lisinopril Allergy (Intermediate, Verified 07/30/24 11:26) Shortness of Breath Medication List - Last Reconciled 08/01/24 by Ethan Emmanuel MD amlodipine 10 mg PO DAILY cholecalciferol (vitamin D3) 100 mcg (2 x 50 mcg (2,000 unit)) PO DAILY cyanocobalamin (vitamin B-12) 1,000 mcg PO DAILY cyclobenzaprine 10 mg PO TID PRN losartan 100 mg PO DAILY potassium chloride ER 10 mEq PO DAILY sodium chloride-aloe vera ([place] Saline nasal gel) 1 appl topical BID sodium,potassium,mag sulfates 17.5-3.13-1.6 gram (Suprep Bowel Prep Kit) DILUTE each bottle with 16oz of water; drink first bottle 5pm evening before procedure AND second bottle at 11pm; follow each bottle with at least 32 oz.of water within 1 hour after each bottle spironolactone 25 mg PO BID HPI Comments Details: Khushboo returns for follow-up. He is originally from [facility] and has lived here for the last few years. It seems that he has history of longstanding hypertension but not well controlled. He is currently seeing Nephrology for that. In 2023, admitted to [facility] with chest pains. Nothing clearly exertional and can happen any time. Even at rest. He also gets short of breath with activity. It appears that he underwent an echocardiogram and stress test and then eventually discharged home. Previously, no documented coronary disease or myocardial infarction or cardiomyopathy. Few days, it seems he was admitted to [facility] again with a question of stroke but imaging was unremarkable. Apparently he trying some much room coffee prior to that and it was felt possibly the reason. However not clear if it is a TIA type event. EKGs, he is back to his normal self now. PENDING SALE TO [facility] Medical History (Updated 07/30/24 @ 13:43 by NALINI Colin) Lymphadenopathy Altered mental state Epistaxis Hypokalemia Pain of right great toe Hospital discharge follow-up Bone disorder Routine physical examination Sore throat Urinary hesitancy Osteopenia Anxiety Thoracolumbar back pain LVH (left ventricular hypertrophy) Anemia Leukopenia B12 deficiency Vitamin D deficiency Hyperlipidemia Essential hypertension Dermatitis High blood pressure Surgical History History of hydrocelectomy Family History Mother Diabetes Maternal Grandmother High blood pressure Family/Other Breast cancer Social History (Updated 07/30/24 @ 11:28 by Alana Sullivan MA) Household Members: Family Both parents involved: No Caregiver staying overnight: No Housing: House Are you a primary careers counsellor to a significant other at home: No Do you presently have visiting nurse or other home services: No 75 years or older and lives alone: No Alcohol intake: former Patient Tobacco Use Status: Never used Tobacco e-Cigarette/Vaping Use: Never Used Second Hand Smoke Exposure: No service: No Current occupational status: employed 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 Cognitive needs: No Hearing needs: No Vision needs: Yes (Patient states vision is blurry.) Review of Systems Const Denies weakness ENT Denies dizziness Card Reports chest pain, Denies chest pain with activity, Denies syncope, Denies rapid heart rate, Denies pedal edema, Denies edema, Denies leg edema, Denies lightheadedness, Reports palpitations, Reports dyspnea, Denies dyspnea on exertion and Denies orthopnea Resp Denies cough, Reports dyspnea and Denies dyspnea on exertion GI Denies hematochezia and Denies change in stool character Musc Denies abnormal gait, Denies muscle cramps, Denies muscle weakness, Denies numbness, Denies radiating pain into limb and Denies tingling Neuro Denies abnormal gait, Denies dizziness, Denies syncope, Denies numbness, Denies tingling and Denies weakness Endo Reports palpitations Physical Exam Vital Signs: Last Vital Signs Pulse 77 08/01/24 12:36 BP 138/78 08/01/24 12:36 BMI result Body Mass Index 28.0 Const General: comfortable and no acute distress Orientation/consciousness: patient oriented x3 HEENT Other: Unremarkable Head: Yes normal to inspection Neck Neck: Yes normal visual inspection Chest Chest palpation & inspection: normal inspection of the chest Resp Auscultation: clear to auscultation bilaterally Cardio Palpation: normal PMI Heart sounds: S1 normal heart sound present, S2 normal heart sound present, no gallops, Murmur heart sound present systolic II/ and no rubs GI Palpation (GI): Soft to palpation Back/Spine/Pelvis Other: unremarkable Skin General skin exam: no rashes or lesions noted Neuro General: patient oriented x3 Extrem General: Yes normal to inspection Psych Mental Status: mental status grossly normal Office Procedures EKG Details: EKG with underlying sinus rhythm at 77/Min; rightward axis; inferior and anterolateral downsloping STs [place] [id number], Complete Assessment & Plan Assessment & Plan (1) Essential hypertension: Code(s): I10 - Essential (primary) hypertension Category: Medical (2) LVH (left ventricular hypertrophy): Code(s): I51.7 - Cardiomegaly Category: Medical (3) Precordial chest pain: Code(s): R07.2 - Precordial pain Category: Medical Plan Cardiac findings reviewed. EKG with T inversions in inferior as well as anterolateral leads. In the echocardiogram from [facility], LVEF 65-70%; moderate left ventricular hypertrophy; complete obliteration of apical segments and systole and mid cavitary gradient without obstruction. Peak global longitudinal strain-14%. Mild diastolic dysfunction. Biatrial dilatation. Trivial pericardial effusion. Myocardial perfusion imaging study normal without any reversible or fixed perfusion defects after exercise stress test. Exercise capacity 5.6 METS. Seem to have hypertensive blood pressure response. Cardiac MRI with thickening in the basal to mid septum up to 1.8 cm. Basal lateral wall 1.3 cm. Remainder of myocardial thickness is normal to upper normal. Evidence of mild narrowing of LVOT with chordal [place]. No significant abnormality in late gadolinium enhancement. Overall, cardiac findings could be related to poorly controlled hypertension. Less likely concurrent hypertrophic cardiomyopathy. He has got no family history of the same. With regard to the hypertension itself, add carvedilol. As he is still complaining of chest pain, we will get a coronary CTA as well. Continue with home blood pressure monitoring for hypertension. He will follow up with us after the CTA. Discussion Notes I discussed with the patient the likelihood of hypertensive heart disease based on MRI findings and the importance of strict blood pressure control. The plan includes a CT scan to evaluate for blockages, given limitations with prior stress testing, and I explained the benefits of accurate coronary imaging. The patient expressed understanding of the need for tight blood pressure management to prevent further cardiovascular and cerebrovascular events. I assured the patient of the comprehensive plan and scheduled a follow-up visit. Patient was informed and verbally consented to the use of an ambient scribe for clinic note documentation during this visit. Orders: Orders CT Cardiac Coronary Angio Today I25.10 - Atherosclerotic heart disease of [place] coronary artery without angina pectoris, R07.2 - Precordial pain Basic Metabolic Panel Today R07.2 - Precordial pain Medications: New carvedilol (Coreg) must administer with a meal/food 6.25 mg PO BID 90 days 180 tabs 3RF Patient Instructions: - Take all prescribed medications as directed, and keep a log of blood pressure readings at home. - Schedule a CT scan as discussed for further evaluation. - Aim for blood pressure readings of 120/80 mmHg. - Report any increase in chest pain or shortness of breath to a healthcare provider immediately. - Visit the emergency room if experiencing symptoms similar to a stroke again. - Follow up in the clinic as scheduled after the CT scan. Coding Level of Care Code Est Pt Level 4 (20507) Complex EM visit Add On G2211 Diagnoses Essential hypertension I10 LVH (left ventricular hypertrophy) I51.7 Precordial chest pain R07.2 CPT Codes EKG - CPT: 12526-[id number], Complete ([id number])
--- OUTSIDE RECORDS SUMMARY | 2024-08-01 13:49 | XMS_ITS | Clinical Summary ---
Author Organization 175 [facility] Address [address] [place] [address] Phone Care Team Providers Care Sports Centre Manager Name Role Phone Dee Arce Primary Care Provider [phone] Allergies Active Allergy Reactions Criticality Noted Date [...] patient's age to complete this topic Insurance [facility] [place] [address] Care Teams Sports Centre Manager Relationship Specialty Start Date End Date Dee Arce PA [address] [place] [id number] PCP - General Physician Equipment Associate 01/10/24
== END 2024-08-01 13:14 | disposition home or self-care (01) ==
LOC: HO.HCS 12:16
PROVIDERS: PCP Physician Assistant Medical; Visit Provider Internal Medicine
DX: I10 Essential (primary) hypertension (principal); I51.7 Cardiomegaly; R07.2 Precordial pain
CPT/HCPCS: 93010; 99214; G2211

== ENCOUNTER → 2024-08-01 12:15 | Outpatient (BNVA) | payer OTHER, SELFPAY | PROVIDERS: PCP Physician Assistant Medical; Visit Provider Internal Medicine | DX: I51.7 Cardiomegaly (principal); R07.2 Precordial pain | CPT/HCPCS: 93005; 99212 ==

== ENCOUNTER 2024-08-10 09:09 | Outpatient (REF) | payer OTHER, SELFPAY ==
--- OUTSIDE RECORDS SUMMARY | 2024-08-10 09:26 | XMS_ITS | Clinical Summary ---
Author Organization 175 [facility] Address [address] [place] [address] Phone Care Team Providers Care Mechanical Drafter Name Role Phone Dee Arce Primary Care Provider [phone] Allergies Active Allergy Reactions Criticality Noted Date [...] patient's age to complete this topic Insurance [facility] PLAN Care Teams Mechanical Drafter Relationship Specialty Start Date End Date Dee Arce PA [address] [place] [id number] PCP - General Physician Automation Control Integrator 01/10/24
[2024-08-10 10:36] LABS: Anion Gap 10 (12-20); Blood Urea Nitrogen 9 mg/dL (9-16); Calcium 9.4 mg/dL (8.4-10.2); Carbon Dioxide 27 mmol/L (22-29); Chloride 105 mmol/L (96-108); Estimated Glomerular Filt Rate > 60; Glucose Random 114 mg/dL (60-115); Potassium 3.9 mmol/L (3.3-5.1); Sodium 138 mmol/L (135-145)
== END 2024-08-10 09:10 | disposition home or self-care (01) ==
LOC: HO.HMGCLDS 09:09
PROVIDERS: Internal Medicine Hypertension Specialist; PCP Physician Assistant Medical; Visit Provider Physician Assistant Medical
DX: I10 Essential (primary) hypertension (principal); R07.2 Precordial pain
CPT/HCPCS: 36415; 80048

== ENCOUNTER 2024-08-15 11:16 | Outpatient (AMB) | payer OTHER, SELFPAY ==
[2024-08-15 11:18] VITALS: BP 108/72; PULSE 74; O2SAT 99; BMI 28.2
--- NOTE | 2024-08-15 11:18 | HO.NEPHOV_ITS ---
Vital Signs 08/15/24 11:18 Height 5 ft 11 in Weight 202 lb BMI 28.2 BP 108/72 Blood Pressure Location Lt brachial Position Sitting Pulse 74 Pulse Source Pulse Oximeter Pulse Oximetry (%) 99 Oxygen Delivery Method Room Air Intake Visit Reasons: 4wk follow-up w/labs CONF Computer Repair Engineer Required: No Accompanied by: Self / Same As Patient Allergies lisinopril Allergy (Intermediate, Verified 08/15/24 11:20) Shortness of Breath Medication List - Last Reconciled 08/15/24 by Philip Medina MD amlodipine 10 mg PO DAILY carvedilol (Coreg) 6.25 mg PO BID 90 days cholecalciferol (vitamin D3) 100 mcg (2 x 50 mcg (2,000 unit)) PO DAILY cyanocobalamin (vitamin B-12) 1,000 mcg PO DAILY cyclobenzaprine 10 mg PO TID PRN losartan 100 mg PO DAILY potassium chloride ER 10 mEq PO DAILY sodium chloride-aloe vera ([place] Saline nasal gel) 1 appl topical BID sodium,potassium,mag sulfates 17.5-3.13-1.6 gram (Suprep Bowel Prep Kit) DILUTE each bottle with 16oz of water; drink first bottle 5pm evening before procedure AND second bottle at 11pm; follow each bottle with at least 32 oz.of water within 1 hour after each bottle spironolactone 25 mg PO BID HPI Comments Details: Middle-aged man with a history of hypertension for 20 years. He was 1st diagnosed with hypertension at the age of 18. He has been referred for hypokalemia. He has had persistent hypokalemia and currently on potassium supplementation. On amlodipine as well as a losartan for the control blood pressure. Despite this blood pressure has been suboptimal and systolic blood pressure has been around 150 mm Hg. Recent lab work showed potassium was 3.1 despite potassium supplementation. There was no alkalosis. Renal function stable. He is not on any diuretics Does not take any licorice. He is not on any other gulx-fzv-pqbimee medications. 01/04/24 Events noted; Persistent hypokalemia ;PA/PRA pending Was admitted to [facility] for chest pain ;Spironolactone 25 mg QD has been added Feels tired 01/18/24 ;Feels better ;Home BP sub optimal 04/11/24 ;c/o Sob on exertion ;Has cardiology appointment He missed the Ct scan appointment 06/27/2024. Overall is doing well. No specific complaints today. Blood pressure readings are reviewed. He is on hydralazine 25 mg b.i.d. instead of t.i.d.. All other medications reviewed Underwent CT scan. No adrenal adenoma was reported 08/15/24 Recently in [facility] ER with inability to speak andweakness CT and MRI did not reveal evidence of CVA Still has some numbness in legs BP has been well controlled now [facility] Medical History (Updated 07/30/24 @ 13:43 by NALINI Colin) Lymphadenopathy Altered mental state Epistaxis Hypokalemia Pain of right great toe Hospital discharge follow-up Bone disorder Routine physical examination Sore throat Urinary hesitancy Osteopenia Anxiety Thoracolumbar back pain LVH (left ventricular hypertrophy) Anemia Leukopenia B12 deficiency Vitamin D deficiency Hyperlipidemia Essential hypertension Dermatitis High blood pressure Surgical History History of hydrocelectomy Family History Mother Diabetes Maternal Grandmother High blood pressure Family/Other Breast cancer Social History Household Members: Family Both parents involved: No Caregiver staying overnight: No Housing: House Are you a primary med care manager to a significant other at home: No Do you presently have visiting nurse or other home services: No 75 years or older and lives alone: No Alcohol intake: former Patient Tobacco Use Status: Never used Tobacco e-Cigarette/Vaping Use: Never Used Second Hand Smoke Exposure: No service: No Current occupational status: employed 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 No adrenal mass is identified. KIDNEYS/RETROPERITONEUM: No renal calculi are identified. There is no hydronephrosis. No renal masses are identified. Nephrology Results: Hgb, (14.0-18.0) 13.5 g/dl L 06/25/24 WBC, (4.8-10.8) 4.3 X10*3/uL L 06/25/24 Plt Count, (160-400) 209 X10*3/uL 06/25/24 Sodium, (135-145) 138 mmol/L 08/10/24 Potassium, (3.3-5.1) 3.9 mmol/L 08/10/24 Chloride, (96-108) 105 mmol/L 08/10/24 Carbon Dioxide, (22-29) 27 mmol/L 08/10/24 BUN, (9-16) 9 mg/dL 08/10/24 Creatinine, (0.5-1.4) 0.80 mg/dL 08/10/24 Calcium, (8.4-10.2) 9.4 mg/dL 08/10/24 Urine Protein, (Neg-Trace) Negative mg/dL 06/25/24 Assessment & Plan Assessment & Plan (1) Essential hypertension: Code(s): I10 - Essential (primary) hypertension Category: Medical Plan Young man with a history of [id number]-gp-[id number] hypertension with hypokalemia. Even the onset of hypertension at a young age along with hypokalemia ,hyperaldosteronism had to be ruled out, even though the recent lab work did not reveal any significant alkalosis. However the total CO2 was on the upper limit of normal. Work up for hyperaldosteronism. PRA 0.19 PA 9 PA/PRA 47 CT scan showed normal adrenal glands without any adenomas Keep Spironolactone 25 mg BID Keep losartan 100 mg daily. along with Amlodipine/Coreg Watch BP at home May need a 24 hr ABPM before adjusting antihypertensives continue to watch BP at home Current BUN/Cr and K are normal. Shall monitor. Cardiomyopathy/LVH Optimize BP Continue cardiology follow up Recent episode of weakness and inability to speak. Follow up with PCP and may need neuro follow up Orders: Orders Basic Metabolic Panel 3 Months I10 - Essential (primary) hypertension Coding Level of Care Code Est Pt Level 4 (12442) Diagnoses Essential hypertension I10
--- OUTSIDE RECORDS SUMMARY | 2024-08-15 13:24 | XMS_ITS | Clinical Summary ---
Author Organization 175 [facility] Address [address] [place] [address] Phone Care Team Providers Care Electronics Maintenance Technician Name Role Phone Dee Arce Primary Care Provider [phone] Allergies Active Allergy Reactions Criticality Noted Date [...] patient's age to complete this topic Insurance [facility] PLAN Care Teams Electronics Maintenance Technician Relationship Specialty Start Date End Date Dee Arce PA [address] [place] [id number] PCP - General Physician Cost Coordinator 01/10/24
== END 2024-08-15 11:37 | disposition home or self-care (01) ==
LOC: HO.HKAS 11:17
PROVIDERS: PCP Physician Assistant Medical; Visit Provider Internal Medicine Hypertension Specialist
DX: I10 Essential (primary) hypertension (principal)
CPT/HCPCS: 99214

== ENCOUNTER → 2024-08-15 11:16 | Outpatient (BNVA) | payer OTHER, SELFPAY | PROVIDERS: PCP Physician Assistant Medical; Visit Provider Internal Medicine Hypertension Specialist | DX: I10 Essential (primary) hypertension (principal); E87.6 Hypokalemia | CPT/HCPCS: 99212 ==

== ENCOUNTER 2024-08-16 10:06 | Outpatient (AMB) | payer OTHER, SELFPAY ==
--- NOTE | 2024-08-16 10:11 | A.OFFVIS_ITS ---
Intake Visit Reasons: Hypertension Intake Note: Khushboo presents in the office for a follow up to hypertension. Allergies lisinopril Allergy (Intermediate, Verified 08/15/24 11:20) Shortness of Breath [facility] Medical History (Updated 07/30/24 @ 13:43 by NALINI Colin) Lymphadenopathy Altered mental state Epistaxis Hypokalemia Pain of right great toe Hospital discharge follow-up Bone disorder Routine physical examination Sore throat Urinary hesitancy Osteopenia Anxiety Thoracolumbar back pain LVH (left ventricular hypertrophy) Anemia Leukopenia B12 deficiency Vitamin D deficiency Hyperlipidemia Essential hypertension Dermatitis High blood pressure Surgical History History of hydrocelectomy Family History Mother Diabetes Maternal Grandmother High blood pressure Family/Other Breast cancer Social History Household Members: Family Both parents involved: No Caregiver staying overnight: No Housing: House Are you a primary health care marketing manager to a significant other at home: No Do you presently have visiting nurse or other home services: No 75 years or older and lives alone: No Alcohol intake: former Patient Tobacco Use Status: Never used Tobacco e-Cigarette/Vaping Use: Never Used Second Hand Smoke Exposure: No service: No Current occupational status: employed 

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
[2024-08-16 10:17] VITALS: BP 118/82; PULSE 73; TEMP 36.6; O2SAT 98; BMI 28.0
[2024-08-16 10:20] VITALS: BP 114/68
--- OUTSIDE RECORDS SUMMARY | 2024-08-16 11:38 | XMS_ITS | Clinical Summary ---
Author Organization [address] [facility] Address [address] [place] [address] Phone Care Team Providers Care Automobile Locator Name Role Phone Dee Arce Primary Care Provider [phone] Allergies Active Allergy Reactions Criticality Noted Date [...] this topic Insurance [facility] Care Teams Automobile Locator Relationship Specialty Start Date End Date Dee Arce PA [address] [place] [id number] PCP - General Physician Instrument [employer] 01/10/24
== END 2024-08-16 11:47 | disposition home or self-care (01) ==
LOC: HO.HMCFM 10:07
PROVIDERS: PCP Physician Assistant Medical; Visit Provider Physician Assistant Medical
DX: E78.5 Hyperlipidemia, unspecified (principal); I10 Essential (primary) hypertension; I51.7 Cardiomegaly; R07.2 Precordial pain; E26.9 Hyperaldosteronism, unspecified; E55.9 Vitamin D deficiency, unspecified; E53.8 Deficiency of other specified B group vitamins; D64.9 Anemia, unspecified; D72.819 Decreased white blood cell count, unspecified; M54.50 Low back pain, unspecified; M54.6 Pain in thoracic spine; R41.82 Altered mental status, unspecified

== ENCOUNTER 2024-08-16 11:10 | Outpatient (REF) | payer OTHER, SELFPAY ==
[2024-08-16 14:25] LABS: MANUAL DIFF FLAG NO
[2024-08-16 14:27] LABS: Appearance Urine Clear; Color Urine Yellow; Glucose Urine UA Negative (Negative); Leukocyte Esterase Urine Negative (Negative); Nitrite Urine Negative (Negative); PH 8.5 (5.0-9.0); Specific Gravity - Urine 1.015 (1.005-1.025); Urine Blood Negative (Negative); Urine Ketones Negative (Negative); Urine Protein Negative (Neg-Trace)
[2024-08-16 14:34] LABS: Basophils Percent Auto 0.9 % (0-2); Eosinophils Absolute Auto 0.1 X10*3/uL (0.0-0.4); Eosinophils Percent Auto 2.9 % (0-4); Hematocrit 37.2 % (42.0-52.0); Hemoglobin 12.7 g/dl (14.0-18.0); Imm Gran Abs Auto 0.01 X10*3/uL (0.00-0.03); Imm Gran Pct Auto 0.2 % (0.0-0.4); Lymphocytes Percent Auto 44.7 % (20-40); Mean Corpuscular HGB Conc 34.1 g/dl (31.0-36.0); Mean Corpuscular Hemoglobin 30.1 pg (27.0-33.0); Mean Corpuscular Volume 88.2 fL (80.0-98.0); Mean Platelet Volume 10.9 fL (9.4-12.4); Monocytes Absolute Auto 0.4 X10*3/uL (0.1-1.2); Monocytes Percent Auto 8.7 % (2-11); Neutrophils Absolute Auto 1.9 x10*3/uL (2.0-8.3); Neutrophils Percent Auto 42.6 % (45-73); Platelet Count 230 X10*3/uL (160-400); Red Blood Count 4.22 X10*6/uL (4.60-5.80); Red Cell Distribution Width 12.7 % (11.0-16.0); White Blood Count 4.5 X10*3/uL (4.8-10.8)
[2024-08-16 14:34] LABS: Bacteria Urine None Seen (None Seen); Hyaline Casts Urine 0-2 /LPF (0-2); RBC Urine 0-2 /HPF (0-2); Squamous Epithelial Cell Urine 0-2 /HPF (0-2); WBC Urine 0-5 /HPF (0-5)
[2024-08-16 14:56] LABS: Iron 134 mcg/dL (45-160); Percent Iron Saturation 53 % (15-50); Total Iron Binding Capacity 254 mcg/dL (228-428); Unsaturated Iron Binding 120 ug/dL
[2024-08-16 15:27] LABS: Ferritin 96 ng/mL (20-250)
[2024-08-16 15:30] LABS: Folate 11.2 ng/mL (> or = 4.0); Vitamin B12 711 pg/mL (200-900)
[2024-08-20 16:03] LABS: Vitamin D 25-OH, D2 <4 ng/mL; Vitamin D 25-OH, D3 26 ng/mL; Vitamin D 25-OH, Total 26 ng/mL (30-100)
== END 2024-08-16 11:11 | disposition home or self-care (01) ==
LOC: HO.WFDLDS 11:10
PROVIDERS: Visit Provider Physician Assistant Medical
DX: E78.5 Hyperlipidemia, unspecified (principal); I11.9 Hypertensive heart disease without heart failure; R07.2 Precordial pain; E26.9 Hyperaldosteronism, unspecified; E55.9 Vitamin D deficiency, unspecified; E53.8 Deficiency of other specified B group vitamins; D64.9 Anemia, unspecified; D72.819 Decreased white blood cell count, unspecified; M54.50 Low back pain, unspecified; M54.6 Pain in thoracic spine; R29.898 Other symptoms and signs involving the musculoskeletal system; R20.2 Paresthesia of skin; R41.82 Altered mental status, unspecified; R59.1 Generalized enlarged lymph nodes; Z00.00 Encounter for general adult medical examination without abnormal findings; R39.9 Unspecified symptoms and signs involving the genitourinary system; R39.11 Hesitancy of micturition; M85.80 Other specified disorders of bone density and structure, unspecified site
CPT/HCPCS: 81001; 82306; 82550; 82607; 82728; 82746; 83540; 85025; 99212

== ENCOUNTER 2024-08-22 10:04 | Outpatient (REF) | payer OTHER, SELFPAY ==
--- NOTE | ~2024-08-22 | US_ITS ---
EXAMINATION: US SOFT TISSUE HEAD AND NECK CLINICAL INFORMATION: Lymphadenopathy on recent CT angiogram head neck.. COMPARISON: None available. TECHNIQUE: Linear transducer charles-scale and color Doppler examination with attention to the soft tissue neck. FINDINGS: There are multiple, well-defined, reniform shaped prominent lymph nodes in the right and left upper neck levels 2, 3 and 4 with a measurement range: 1.5-2.5 cm. US/US soft tiss head and/or neck IMPRESSION: Nonspecific, prominent less than 2.5 cm cervical lymph nodes.. Electronically signed by: Sonido Collins MD 08/22/2024 12:08 PM EDT
== END 2024-08-22 10:05 | disposition home or self-care (01) ==
LOC: HO.HMGCX 10:04
PROVIDERS: PCP Physician Assistant Medical; Visit Provider Physician Assistant Medical
DX: R59.1 Generalized enlarged lymph nodes (principal)
CPT/HCPCS: 76536

== ENCOUNTER → 2024-08-22 10:06 | Outpatient (BNV) | payer OTHER, SELFPAY | PROVIDERS: PCP Physician Assistant Medical; Visit Provider Radiology Diagnostic Radiology | DX: R59.0 Localized enlarged lymph nodes (principal) | CPT/HCPCS: 76536 ==

== ENCOUNTER 2024-09-08 09:21 | Outpatient (REF) | payer OTHER, SELFPAY ==
[2024-09-12 10:08] LABS: Anti Nuclear Antibody Screen NEGATIVE (NEGATIVE)
== END 2024-09-08 09:22 | disposition home or self-care (01) ==
LOC: HO.HMGCLDS 09:21
PROVIDERS: PCP Physician Assistant Medical; Referring Provider Internal Medicine; Visit Provider Physician Assistant Medical
DX: D64.9 Anemia, unspecified (principal); R29.898 Other symptoms and signs involving the musculoskeletal system; D72.819 Decreased white blood cell count, unspecified
CPT/HCPCS: 82550; 86038; 86140

== ENCOUNTER 2024-09-10 11:35 | Outpatient (AMB) | payer OTHER, SELFPAY ==
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
[2024-09-10 11:51] VITALS: BP 104/66; PULSE 61; TEMP 36.7; O2SAT 96; BMI 27.9
--- OUTSIDE RECORDS SUMMARY | 2024-09-10 12:42 | XMS_ITS | Clinical Summary ---
Author Organization [facility] Address [address] [place] [address] Phone Care Team Providers Care Internet Marketing Consultant Name Role Phone Dee Arce Primary Care Provider Allergies Active Allergy Reactions Criticality Noted Date [...] Care Team (Late st Contact Info) Description 10/24/2024 9:15 AM EDT Office Visit Orthopedic Surgery - [place] [address] [address] Bernardo Goins, DELIC[place] [address] [address] Health Maintenance Due Date Last Done Comments COVID-19 Vaccine ( season) 2023 02/04/2022, 03/05/2021, 09/18/2020, Additional history exists Colorectal Cancer Screening: Colonoscopy 01/10/2024 HIV Screening 01/10/2024 Social Influencers of Health Screening 01/10/2024 Depression Screening 02/22/2024 Hypertension/CHF/CAD Annual BMP Blood Test 04/10/2024 06/08/2022, 02/04/2022 DTaP,Tdap,and Td Vaccines (2 - Td or Tdap) 08/12/2024 08/12/2014 Influenza Vaccine (#1) 2024 , 04/18/2023, 02/04/2022, Additional history exists Cholesterol Screening (Lipid Panel) 02/04/2027 02/04/2022, 02/04/2022, 05/05/2021, Additional history exists Hepatitis B Vaccines Completed 07/07/2017, 05/17/2016, 08/12/2014 Hepatitis C Screening Completed 05/05/2021 HIB Vaccines Aged Out [...] 5 Years) and At-Risk Patients (6 to 49 Years) Aged Out No longer eligible based on patient's age to complete this topic RSV Immunization Patients Under 20 months Aged Out No longer eligible based on patient's age to complete this topic Varicella Vaccines Aged Out No longer eligible based on patient's age to complete this topic Insurance [facility] Care Teams Internet Marketing Consultant Relationship Specialty Start Date End Date Dee Arce PA [address] [place] [address] PCP - General Physician Electronic Publications Specialist 01/10/24
--- OUTSIDE RECORDS SUMMARY | 2024-09-10 12:43 | XMS_ITS | Clinical Summary ---
Author Organization [employer] Address [address] [place] [address] Care Team Providers Care Java Sdet Name Role Phone Unavailable Primary Care Provider [...] Panel 1978 SDOH Screening 1978 Sigmoidoscopy 1978 Disability Screening 1978 Alcohol/Substance Use Screening 1990 Tobacco Screening 1990 Family Planning (PISQ) 1993 HPV Vaccines (1 - Male 3-dose series) 1993 COVID-19 Vaccine ( - season) 2023 02/04/2022, 09/18/2020, 08/21/2020 DTaP/Tdap/Td Vaccines (2 - Td or Tdap) 08/12/2024 08/12/2014 Influenza Vaccine (#1) 2024 , 02/04/2022, 12/29/2020, Additional history exists Zoster Vaccines (1 of 2) 2028 RSV Patients and Patients Aged 60 years or older (1 - 1-dose 75+ series) 2053 Hepatitis B Vaccines Completed 07/07/2017, 05/17/2016, 08/12/2014 HIV Screening Completed 05/05/2021, 05/05/2021 Hepatitis C Screening Completed 05/05/2021 HIB Vaccines [...] Years) and At-Risk Patients (6 to 49) Years Aged Out No longer eligible based on patient's age to complete this topic RSV under 20 months Aged Out No longe r eligible based on patient's age to complete this topic Rotavirus Vaccines Aged Out No longer eligible based on patient's age to complete this topic Insurance [address] [address] STANDARD
--- OUTSIDE RECORDS SUMMARY | 2024-09-10 12:43 | XMS_ITS | Clinical Summary ---
Author Organization [facility] Address [address] [place] [address] Phone Care Team Providers Care Foundry Laborer Coreroom Name Role Phone Ayaka Valera MD Primary Care Provider [phone] Allergies Active Allergy Reactions Criticality Noted Date Comments Lisinopril 07/13/2021 Medications losartan potassium (LOSARTAN ORAL) Take 100 mg by mouth. Active amLODIPine (NORVASC) 10 MG tablet Take 10 mg by mouth daily. Active Social History Tobacco Use Types Packs/Day Years Used Date Smoking Tobacco: Never Alcohol Use Standard Drinks/Week Comments Never 0 (1 standard drink = 0.6 oz pur e alcohol) Education Answer Date Recorded Are you interested in more education? Not on joce e 06/18/2022 Are you concerned about learning? Not on file 06/18/2022 No 06/18/2022 No 06/18/2022 Digital Access Answer Date Recorded No 07/19/2022 No 07/19/2022 No 07/19/2022 Reliable internet access at home? Not on file 07/19/2022 Device with a working camera? Not on file Sex and Gender Information Value Date Recorded Sex Assigned at Not on file Legal Sex Male 9:45 AM EDT Gender Identity Not on file Sexual Orientation Not on file Last Filed Vital Signs Vital Sign Reading Time Taken Comments Blood Pressure 176/114 07/13/2021 10:03 PM EDT Pulse 84 07/13/2021 10:03 PM EDT Temperature 37.1 C (98.8 F) 07/13/2021 10:03 PM EDT Respiratory Rate 16 07/13/2021 10:03 PM EDT Oxygen Saturation 100% 07/13/2021 10:03 PM EDT Inhaled Oxygen Concentration - - Weight 95.3 kg (210 lb) 07/13/2021 10:03 PM EDT Height 180.3 cm (5' 11 ) 07/13/2021 10:03 PM EDT Body Mass Index 29.29 07/13/2021 10:03 PM EDT Plan of Treatment Health Maintenance Due Date Last Done Comments CREATININE LEVEL 1978 POTASSIUM LEVEL 1978 DEPRESSION SCREENING 1990 HIV ONE-TIME SCREENING (18-65 YEARS) 1996 SMOKING STATUS SCREENING (Once After 26 Yrs) 2004 COVID-19 VACCINE (2023- season) 2023 09/18/2020, 08/21/2020 COLOGUARD 11/20/2023 COLONOSCOPY 11/20/2023 COLORECTAL CANCER SCREENING 11/20/2023 FIT TEST 11/20/2023 FOBT 11/20/2023 SIGMOIDOSCOPY 11/20/2023 VIRTUAL COLONOSCOPY 11/20/2023 Adult Td,Tdap Booster 08/12/2024 08/12/2014 LIPID PANEL 05/05/2026 05/05/2021, 04/21, 04/02/2020, Additional history exists HEPATITIS C SCREENING Completed 05/05/2021 HEPATITIS A VACCINES Aged Out No long er eligible based on patient's age to complete this topic HIB VACCINES Aged Out No longer eligi ble based on patient's age to complete this topic MENINGOCOCCAL VACCINES (ACWY) Aged Out No longer eligible based on patient's age to complete this topic MENINGOCOCCAL VACCINES (B) Aged Out N o longer eligible based on patient's age to complete this topic PNEUMOCOCCAL VACCINES (0-49 years) Aged Out No longer eligible based on patient's age to complete this topic Medical Devices Not on file Insurance [employer] NON NSPG PCP SILVER [employer]ITY CONNECTORCARE [employer] NON NSPG PCP SILVER CLARITY CONNECTORCARE [employer] NON NSPG PCP SILVER CLARITY CONNECTORCARE WE[employer] NON NSPG PCP SILVER CLARITY CONNECTORCARE WELLSENSE NON NSPG PCP SILVER CLARITY CONNECTORCARE WELLSENSE NON NSPG PCP SILVER CLARITY CONNECTORCARE WELLSENSE NON NSPG PCP SILVER CLARITY CONNECTORCARE WELLS[employer] NON NSPG PCP SILVER CLARITY CONNECTORCARE WELLSENSE NON NSPG PCP SILVER CLARITY CONNECTORCARE [place] [id number] Care Teams Foundry Laborer Coreroom Relationship Specialty Start Date End Date Ayaka Valera MD [address] [place] [address] PCP - General Internal Medicine 03/29/17 Additional Source Comments The information contained in this document represents components of the legal health record. It is not the complete legal health record.[facility]
== END 2024-09-10 12:22 | disposition home or self-care (01) ==
LOC: HO.HMCFM 11:36
PROVIDERS: PCP Physician Assistant Medical; Visit Provider Physician Assistant Medical
DX: E78.5 Hyperlipidemia, unspecified (principal); I10 Essential (primary) hypertension; I51.7 Cardiomegaly; R07.2 Precordial pain; E26.9 Hyperaldosteronism, unspecified; E55.9 Vitamin D deficiency, unspecified; E53.8 Deficiency of other specified B group vitamins; D64.9 Anemia, unspecified; D72.819 Decreased white blood cell count, unspecified; M54.50 Low back pain, unspecified; M54.6 Pain in thoracic spine; R29.898 Other symptoms and signs involving the musculoskeletal system

== ENCOUNTER → 2024-09-10 11:35 | Outpatient (BNVA) | payer OTHER, SELFPAY | PROVIDERS: PCP Physician Assistant Medical; Visit Provider Physician Assistant Medical | DX: E78.5 Hyperlipidemia, unspecified (principal); I11.9 Hypertensive heart disease without heart failure; R07.2 Precordial pain; E26.9 Hyperaldosteronism, unspecified; E55.9 Vitamin D deficiency, unspecified; E53.8 Deficiency of other specified B group vitamins; D64.9 Anemia, unspecified; D72.819 Decreased white blood cell count, unspecified; M54.50 Low back pain, unspecified; M54.6 Pain in thoracic spine; R29.898 Other symptoms and signs involving the musculoskeletal system; R41.82 Altered mental status, unspecified; R74.8 Abnormal levels of other serum enzymes; Z79.899 Other long term (current) drug therapy | CPT/HCPCS: 99212 ==

== ENCOUNTER → 2024-09-10 13:44 | Outpatient (BNV) | payer OTHER, SELFPAY | PROVIDERS: PCP Physician Assistant Medical; Referring Provider Physician Assistant Medical; Visit Provider Nurse Practitioner Family | DX: D64.9 Anemia, unspecified (principal); D72.819 Decreased white blood cell count, unspecified | CPT/HCPCS: 99204 ==

== ENCOUNTER 2024-09-17 09:23 | Outpatient (AMB) | payer OTHER, SELFPAY ==
--- NOTE | 2024-09-17 09:54 | MHC.OFFVIS ---
Intake Visit Reasons: urinary hesitancy, low urine stream, ED Intake Note: New patient presents today for initial visit for urinary hesitancy, low urine stream, ED Urology Medication:Vitamin B12, Potassium Blood Thinner:None Antibiotic Allergies:None PVR:17ml Allergies lisinopril Allergy (Intermediate, Verified 09/17/24 09:55) Shortness of Breath Medication List - Last Reconciled 09/17/24 by Fanta Greene MD amlodipine 10 mg PO DAILY carvedilol (Coreg) 6.25 mg PO BID 90 days cholecalciferol (vitamin D3) 4,000 units PO DAILY cyanocobalamin (vitamin B-12) 1,000 mcg PO DAILY cyclobenzaprine 10 mg PO TID PRN fluticasone propionate 50 mcg/actuation (Flonase Allergy Relief) 2 sprays intranasal DAILY losartan 100 mg PO DAILY potassium chloride ER 10 mEq PO DAILY sodium chloride-aloe vera (Novelty Saline nasal gel) 1 appl topical BID sodium,potassium,mag sulfates 17.5-3.13-1.6 gram (Suprep Bowel Prep Kit) DILUTE each bottle with 16oz of water; drink first bottle 5pm evening before procedure AND second bottle at 11pm; follow each bottle with at least 32 oz.of water within 1 hour after each bottle spironolactone 25 mg PO BID tamsulosin (Flomax) 0.4 mg PO BEDTIME HPI Comments Details: 09/17/24--Khushboo is here as a new patient evaluation for urinary hesitancy and LUTS. bladder scan PVR 17 mL. History of Present Illness - The patient is a 43-year-old male --Reports nocturia, waking up more than 10 times at night to urinate, occurring for about four months - Reports mini stroke on July 28, was hospitalized at [facility] with no new medications started post-discharge. - Experiences occasional burning during urination, not constant. - Reports erectile dysfunction, noticing changes since March, with difficulty maintaining erections and reduced morning erections. - Denies any history of smoking or alcohol use and is on blood pressure medication. Results - Bladder scan: Post-void residual volume of 17 mL Plan - Flomax - Schedule an ultrasound to evaluate the kidneys, bladder, and prostate size. - Order blood work for PSA and testosterone levels [facility] Medical History Elevated CPK Lumbosacral spondylosis Bilateral leg paresthesia Dyslipidemia Leg weakness Lymphadenopathy Altered mental state Epistaxis Hypokalemia Pain of right great toe Hospital discharge follow-up Bone disorder Routine physical examination Sore throat Urinary hesitancy Osteopenia Anxiety Thoracolumbar back pain LVH (left ventricular hypertrophy) Anemia Leukopenia B12 deficiency Vitamin D deficiency Hyperlipidemia Essential hypertension Dermatitis High blood pressure Surgical History History of hydrocelectomy Family History Mother Diabetes Maternal Grandmother High blood pressure Family/Other Breast cancer Social History Household Members: Spouse and Family Both parents involved: No Caregiver staying overnight: No Housing: House Are you a primary day care director to a significant other at home: No Do you presently have visiting nurse or other home services: No 75 years or older and lives alone: No Alcohol intake: former Patient Tobacco Use Status: Never used Tobacco e-Cigarette/Vaping Use: Never Used Second Hand Smoke Exposure: No service: No Current occupational status: employed 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 Cognitive needs: No Hearing needs: No Vision needs: Yes (Patient states vision is blurry.) Review of Systems Const All systems reviewed & are unremarkable except as noted in HPI and below Reports no additional complaints Eyes Reports no additional complaints ENT Reports no additional complaints Card Reports no additional complaints Resp Reports no additional complaints GI Reports no additional complaints Reports as per HPI Musc Reports no additional complaints Skin/Breast Reports system reviewed and no additional complaints, except as documented Neuro Reports no additional complaints Psych Reports no additional complaints Endo Reports no additional complaints Jerad/Lymph Reports no additional complaints Aller/Immun Reports no additional complaints Physical Exam Const General: healthy appearing, no acute distress and well developed Orientation/consciousness: patient oriented x3 HEENT Head: Yes normocephalic and Yes atraumatic Eyes Conjunctivae: conjunctivae normal Neck Neck: Yes normal visual inspection Chest Chest palpation & inspection: normal inspection of the chest Resp Effort & Inspection: normal respiratory effort GI Inspection: Yes normal to inspection Neuro General: patient oriented x3 Psych Appearance: grossly normal Affect: normal affect Results AMB Urinalysis, Automated UA Leukoctes 0 Rex/uL Last Edit by Glory Bazan on 09/17/24 12:05 UA Nitrite Negative Last Edit by Glory Bazan on 09/17/24 12:05 UA Urobilinogen 3.5 mg/dL Last Edit by Glory Bazan on 09/17/24 12:05 UA Protein 1 mg/dL Last Edit by Glory Bazan on 09/17/24 12:05 UA pH 6.5 Last Edit by Glory Meekstiz on 09/17/24 12:05 UA Blood 0 Javier/uL Last Edit by Glory Bazan on 09/17/24 12:05 UA Specific [place] 1.010 Last Edit by Glory Bazan on 09/17/24 12:05 UA Ketone Negative Last Edit by Glory Bazan on 09/17/24 12:05 UA Bilirubin 0 mg/dL Last Edit by Glory Bazan on 09/17/24 12:05 UA Glucose 0 mg/dL Last Edit by Glory Bazan on 09/17/24 12:05 Assessment & Plan Assessment & Plan (1) Erectile dysfunction: Code(s): N52.9 - Male erectile dysfunction, unspecified Category: Medical (2) Nocturia more than twice per night: Code(s): R35.1 - Nocturia Category: Medical (3) Screening PSA (prostate specific antigen): Code(s): Z12.5 - Encounter for screening for malignant neoplasm of prostate Category: Medical Plan Plan - Flomax - Schedule an ultrasound to evaluate the kidneys, bladder, and prostate size. - Order blood work for PSA and testosterone levels Orders: Orders Testosterone, Free/Total Today N52.9 - Male erectile dysfunction, unspecified PSA,Total (Free>4and<10) Today Z12.5 - Encounter for screening for malignant neoplasm of prostate US retroperitoneal comp Today R35.1 - Nocturia AMB Urinalysis Automated Today N52.9 - Male erectile dysfunction, unspecified, R35.1 - Nocturia, R39.11 - Hesitancy of micturition AMB Post Void Residual by ultrasound Today N52.9 - Male erectile dysfunction, unspecified, R35.1 - Nocturia, R39.11 - Hesitancy of micturition Medications: New tamsulosin (Flomax) 0.4 mg PO BEDTIME 90 caps 2RF Coding Diagnoses Erectile dysfunction N52.9 Nocturia more than twice per night R35.1 Screening PSA (prostate specific antigen) Z12.5
--- OUTSIDE RECORDS SUMMARY | 2024-09-17 10:23 | XMS_ITS | Clinical Summary ---
Author Organization 175 [facility] Address [address] [place] [address] Phone Care Team Providers Care Ore Grader Name Role Phone Dee Arce Primary Care Provider [phone] Allergies Active Allergy Reactions Criticality Noted Date [...] AM EDT Office Visit Orthopedic Surgery - [place] [address] [address] Bernardo Goins, [place] [address] [address] Health Maintenance Due Date Last Done Comments [...] patient's age to complete this topic Insurance [facility] PLAN Care Teams Ore Grader Relationship Specialty Start Date End Date Dee Arce PA [address] [place] [address] PCP - General Physician Education Site Manager 01/10/24
--- OUTSIDE RECORDS SUMMARY | 2024-09-17 10:23 | XMS_ITS | Clinical Summary ---
Author Organization [facility] Address [address] [place] [address] Phone Care Team Providers Care Sign Wirer Name Role Phone Ayaka Valera MD Primary Care Provider [phone] Allergies Active Allergy Reactions Criticality Noted Date [...] WELLSENSE NON NSPG PCP [facility] [place] [phone] Care Teams Sign Wirer Relationship Specialty Start Date End Date Ayaka Valera MD [address] [place] [address] PCP - General Internal Medicine 03/29/17 Additional Source Comments The information contained in this document represents components of the legal health record. It is not the complete legal health record.[facility]
--- OUTSIDE RECORDS SUMMARY | 2024-09-17 10:23 | XMS_ITS | Encounter Summary ---
Author Organization [facility] Address [address] [place] [address] Care Team Providers Care Powder Operator Name Role Phone Ayaka Valera MD Primary Care Provider [phone] Encounter Details Date Type Department Care Team (Late st Contact Info) Description 12/23/2021 Patient Outreach [facility] Primary Care [address] [place] [address] Paolo Lopez [address] [place], [place] Social History Tobacco Use Types Packs/Day [...] documented as of this encounter Care Teams Powder Operator Relationship Specialty Start Date End Date Ayaka Valera MD [address] [place] [address] PCP - General Internal Medicine 02/22/15 documented as of this encounter
--- OUTSIDE RECORDS SUMMARY | 2024-09-17 10:23 | XMS_ITS | Clinical Summary ---
Author Organization [employer] Address [address] [facility] 7t [place] [address] Care Team Providers Care Production Control Technologist Name Role Phone Unavailable Primary Care Provider [...] patient's age to complete this topic [place] [address] STANDARD
== END 2024-09-17 10:23 | disposition home or self-care (01) ==
LOC: HO.HUSH 09:33
PROVIDERS: PCP Physician Assistant Medical; Visit Provider Urology
DX: N52.9 Male erectile dysfunction, unspecified (principal); R35.1 Nocturia; R39.11 Hesitancy of micturition

== ENCOUNTER → 2024-09-17 09:23 | Outpatient (BNVA) | payer OTHER, SELFPAY | PROVIDERS: PCP Physician Assistant Medical; Visit Provider Urology | DX: R35.1 Nocturia (principal) | CPT/HCPCS: 81003; 99202 ==

== ENCOUNTER 2024-10-02 08:55 | Outpatient (REF) | payer OTHER, SELFPAY ==
--- NOTE | 2024-10-02 08:59 | EMG_ITS ---
Bilateral tibial and peroneal motor studies were performed bilateral superficial peroneal and sural sensory studies were performed bilateral median and lateral mixed plantars sensory studies were performed tibial H reflexes were obtained and EMG needle examination was performed. Impression: [id number] axonal sensory motor chronic peripheral neuropathy MTDD
--- OUTSIDE RECORDS SUMMARY | 2024-10-02 09:22 | XMS_ITS | Clinical Summary ---
Author Organization [employer] Address [address] [facility] 7t [place] [address] Care Team Providers Care Heel Washer Stringing Machine Operator Name Role Phone Unavailable Primary Care Provider [...] patient's age to complete this topic [place] [address] [place] [address] STANDARD
--- OUTSIDE RECORDS SUMMARY | 2024-10-02 09:22 | XMS_ITS | Encounter Summary ---
Author Organization [facility] Address [address] [place] [address] Care Team Providers Care Ceramic Tile Installation Helper Name Role Phone Ayaka Valera MD Primary Care Provider [phone] Encounter Details Date Type Department Care Team (Late st Contact Info) Description 12/23/2021 Patient Outreach [facility] Primary Care [address] [place] [address] Paolo Lopez [address] [place], [place] Social History Tobacco Use Types Packs/Day [...] documented as of this encounter Care Teams Ceramic Tile Installation Helper Relationship Specialty Start Date End Date Ayaka Valera MD [address] [place] [address] PCP - General Internal Medicine 02/22/15 documented as of this encounter
--- OUTSIDE RECORDS SUMMARY | 2024-10-02 09:22 | XMS_ITS | Clinical Summary ---
Author Organization 175 [facility] Address [address] [place] [address] Phone Care Team Providers Care Counter Professional Name Role Phone Dee Arce Primary Care Provider [phone] Allergies Active Allergy Reactions Criticality Noted Date [...] AM EDT Office Visit Orthopedic Surgery - [place] [address] [address] Bernardo Goins, [place] [address] [address] Health Maintenance Due Date Last Done Comments [...] patient's age to complete this topic Insurance [facility] PLAN Care Teams Counter Professional Relationship Specialty Start Date End Date Dee Arce PA [address] [place] [address] PCP - General Physician Police Clerk 01/10/24
--- OUTSIDE RECORDS SUMMARY | 2024-10-02 09:23 | XMS_ITS | Clinical Summary ---
Author Organization [facility] Address [address] [place] [address] Phone Care Team Providers Care Information Management Manager Name Role Phone Ayaka Valera MD Primary Care Provider [phone] Allergies Active Allergy Reactions Criticality Noted Date [...] WELLSENSE NON NSPG PCP [facility] [place] [id number] Care Teams Information Management Manager Relationship Specialty Start Date End Date Ayaka Valera MD [address] [place] [address] PCP - General Internal Medicine 03/29/17 Additional Source Comments The information contained in this document represents components of the legal health record. It is not the complete legal health record.[facility]
== END 2024-10-02 08:56 | disposition home or self-care (01) ==
LOC: HO.NEURO 08:55
PROVIDERS: PCP Physician Assistant Medical; Visit Provider Physician Assistant Medical
DX: R20.2 Paresthesia of skin (principal); R29.898 Other symptoms and signs involving the musculoskeletal system
CPT/HCPCS: 95886; 95913

== ENCOUNTER → 2024-10-02 08:59 | Outpatient (BNV) | payer OTHER, SELFPAY | PROVIDERS: PCP Physician Assistant Medical; Visit Provider Psychiatry & Neurology Neurology | DX: G62.89 Other specified polyneuropathies (principal) | CPT/HCPCS: 95886; 95913 ==

== ENCOUNTER 2024-10-08 09:33 | Outpatient (AMB) | payer OTHER, SELFPAY ==
[2024-10-08 09:44] VITALS: BMI 27.9
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
--- OUTSIDE RECORDS SUMMARY | 2024-10-08 10:08 | XMS_ITS | Clinical Summary ---
Author Organization 175 [facility] Address [address] [place] [address] Phone Care Team Providers Care Fiber Optic Assembler Name Role Phone Dee Arce Primary Care Provider [phone] Allergies Active Allergy Reactions Criticality Noted Date [...] AM EDT Office Visit Orthopedic Surgery - [place] [address] [address] Bernardo Goins, [place] [address] [address] Health Maintenance Due Date Last Done Comments [...] patient's age to complete this topic Insurance [facility] PLAN Care Teams Fiber Optic Assembler Relationship Specialty Start Date End Date Dee Arce PA [address] [place] [address] PCP - General Physician Machine Heel Sprayer 01/10/24
--- OUTSIDE RECORDS SUMMARY | 2024-10-08 10:08 | XMS_ITS | Encounter Summary ---
Author Organization [facility] Address [address] [place] [address] Care Team Providers Care Colorist Photography Name Role Phone Ayaka Valera MD Primary Care Provider [phone] Encounter Details Date Type Department Care Team (Late st Contact Info) Description 12/23/2021 Patient Outreach [facility] Primary Care [address] [place] [address] Paolo Lopez [address] [place], [place] Social History Tobacco Use Types Packs/Day [...] documented as of this encounter Care Teams Colorist Photography Relationship Specialty Start Date End Date Ayaka Valera MD [address] [place] [address] PCP - General Internal Medicine 02/22/15 documented as of this encounter
--- OUTSIDE RECORDS SUMMARY | 2024-10-08 10:08 | XMS_ITS | Clinical Summary ---
Author Organization [employer] Address [address] [facility] 7t [place] [address] Care Team Providers Care Director Engineering Name Role Phone Unavailable Primary Care Provider [...] patient's age to complete this topic [place] [address] [address] STANDARD
--- OUTSIDE RECORDS SUMMARY | 2024-10-08 10:08 | XMS_ITS | Clinical Summary ---
Author Organization [facility] Address [address] [place] [address] Phone Care Team Providers Care Straddle Bug Name Role Phone Ayaka Valera MD Primary Care Provider Allergies Active Allergy Reactions [...] WELLSENSE NON NSPG PCP [facility] [place] [phone] Care Teams Straddle Bug Relationship Specialty Start Date End Date Ayaka Valera MD [address] [place] [address] PCP - General Internal Medicine 03/29/17 Additional Source Comments The information contained in this document represents components of the legal health record. It is not the complete legal health record.[facility]
== END 2024-10-08 10:02 | disposition home or self-care (01) ==
LOC: HO.HNS 09:34
PROVIDERS: PCP Physician Assistant Medical; Referring Provider Physician Assistant Medical; Visit Provider Physician Assistant
DX: M54.9 Dorsalgia, unspecified (principal)
CPT/HCPCS: 99204

== ENCOUNTER → 2024-10-08 09:33 | Outpatient (BNVA) | payer OTHER, SELFPAY | PROVIDERS: PCP Physician Assistant Medical; Referring Provider Physician Assistant Medical; Visit Provider Physician Assistant | DX: M54.9 Dorsalgia, unspecified (principal) | CPT/HCPCS: 99202 ==

== ENCOUNTER 2024-11-23 15:30 | Outpatient (REF) | payer OTHER, SELFPAY ==
--- NOTE | ~2024-11-23 | US_ITS ---
EXAMINATION: US RETROPERITONEUM HISTORY: R35.1 - Nocturia TECHNIQUE: Real-time grayscale ultrasound imaging of the kidneys was performed and images were reviewed. COMPARISON: Correlation is made with a CT of the abdomen and pelvis with contrast dated 05/30/2024. FINDINGS: Right kidney: The right kidney measures 11.3 x 5.2 x 5.3 cm. Renal parenchymal echotexture and thickness are normal. There are no masses. There is no hydronephrosis or renal calculi. Left Kidney: The left kidney measures 12.4 x 0.9 x 7.6 cm. Renal parenchymal echotexture and thickness are normal. There are no masses. There is no hydronephrosis or renal calculi. The urinary bladder is unremarkable. Bilateral ureteral jets are identified. Before voiding, the urinary bladder measured 8.4 x 9.6 x 7.8 cm, for an estimated volume of 329 mL. After voiding, the urinary bladder measured 6.5 x 1.9 x 5.2 cm, for an estimated volume of 33 mL. The prostate measures 3.9 x 4.0 x 3.7 cm, for an estimated volume of 30.3 mL. US/US retroperitoneal comp IMPRESSION: 1. Unremarkable retroperitoneal ultrasound. 2. Post void bladder volume of 33 mL. 2. Prostate volume of 30.3 mL. Electronically signed by: Rudy Holliday MD 11/23/2024 03:59 PM EDT
--- OUTSIDE RECORDS SUMMARY | 2024-11-23 15:32 | XMS_ITS | Clinical Summary ---
Author Organization 175 [facility] Address [address] [place] [address] Phone Care Team Providers Care Ear Mold Laboratory Technician Name Role Phone Dee Arce Primary Care Provider [phone] Allergies Active Allergy Reactions Criticality Noted Date [...] mouth 1 (one) time each day. Active Active Problems Problem Noted Date Diagnosed Date Acquired hallux valgus of right foot 10/24/2024 Acquired hammer toe of right foot 10/24/2024 Ingrowing nail 10/24/2024 Encounters Date Type Department Care Team Description 10/24/2024 9:15 AM EDT Office Visit Orthopedic Surgery - [place] 250 175 [facility] [address] [place] [address] Bernardo Goins DPM Acquired hallux valgus of right foot (Primary Dx); Acquired hammer toe of right foot; Ingrowing nail; Foot pain, bilateral from Last 3 Months Social History Tobacco [...] Concentration - - Weight 93 kg (205 lb 0.4 oz) 10/24/2024 9:33 AM EDT Height 180.3 cm (5' 10.98 ) 10/24/2024 9:33 AM E DT Body Mass Index 28.61 10/24/2024 9:33 AM EDT Plan of Treatment Scheduled Procedures Name Priority Associated Diagnoses Date/Ti me BUNIONECTOMY Acquired hallux valgus of right foot Acquired hammer toe of right foot Ingrowing nail Health Maintenance Due Date Last Done Comments Colorectal Cancer Screening: Colonoscopy 1978 HIV Screening 01/10/2024 Social Influencers of Health Screening 01/10/2024 Depression Screening 02/22/2024 Hypertension/CHF/CAD Annual BMP Blood Test 04/10/2024 06/08/2022, 02/04/2022 DTaP,Tdap,and Td Vaccines (2 - Td or Tdap) 08/12/2024 08/12/2014 COVID-19 Vaccine ( - season) 2024 02/04/2022, 03/05/2021, 09/18/2020, Additional history exists Influenza Vaccine (#1) 2024 , 04/18/2023, 02/04/2022, Additional history exists Cholesterol Screening (Lipid Panel) 02/04/2027 02/04/2022, 02/04/2022, 05/05/2021, Additional history exists RSV Immunization Adult Patients (1 - 1-dose 75+ series) 2053 Hepatitis [...] on patient's age to complete this topic Procedures Procedure Name Priority Date/Time Associated Diagnosis Comments XR FOOT 3+ VIEWS BILAT Routine 10/24/2024 10:04 AM EDT Foot pain, bilateral from Last 3 Months Results * XR Foot 3+ Views bilat (10/24/2024 10:04 AM EDT) Anatomical Region Laterality Modality Lower Extremities, Foot Bilateral Computed Radiography Narrative 10/24/2024 12:20 PM EDT Right foot 3 views No fracture. No radiopaque foreign joint spaces normal hammertoe contracture noted to lesser digits 4 and 5 mild bunion deformity with relative rectus intermetatarsal angulation hallux adductovalgus Foot position Pes planus with Talus navicular uncovering decreased calcaneal inclination anterior displaced symes line talus navicular joint to calcaneal cuboid joint Left foot 3 views No fracture. No radiopaque foreign joint spaces normal hammertoe contracture noted to lesser digits 4 and 5 mild bunion deformity with relative rectus intermetatarsal angulation hallux adductovalgus Foot position Pes planus with Talus navicular uncovering decreased calcaneal inclination anterior displaced symes line talus navicular joint to calcaneal cuboid joint Bernardo Goins DPM IMG XR PROCEDURES Final R esult from Last 3 Months Insurance PLAN Care Teams Ear Mold Laboratory Technician Relationship Specialty Start Date End Date Dee Arce PA [address] [place] [id number] PCP - General Physician Student Worker 01/10/24
--- OUTSIDE RECORDS SUMMARY | 2024-11-23 15:32 | XMS_ITS | Encounter Summary ---
Author Organization [facility] Address [address] [place] [address] Care Team Providers Care Public Services Assistant Name Role Phone Ayaka Valera MD Primary Care Provider [phone] Encounter Details Date Type Department Care Team (Late st Contact Info) Description 12/23/2021 Patient Outreach [facility] Primary Care [address] [place] [address] Paolo Lpoez [address] [place], [place] Social History Tobacco Use Types Packs/Day [...] documented as of this encounter Care Teams Public Services Assistant Relationship Specialty Start Date End Date Ayaka Valera MD [address] [place] [address] PCP - General Internal Medicine 02/22/15 documented as of this encounter
--- OUTSIDE RECORDS SUMMARY | 2024-11-23 15:32 | XMS_ITS | Clinical Summary ---
Author Organization [employer] Address [address] [facility] 7t [place] [address] Care Team Providers Care Director Of Accreditation Name Role Phone Unavailable Primary Care Provider [...] Tobacco Screening 1990 Family Planning (PISQ) 1993 DTaP/Tdap/Td Vaccines (2 - Td or Tdap) 08/12/2024 08/12/2014 COVID-19 Vaccine ( - season) 2024 02/04/2022, 09/18/2020, 08/21/2020 Influenza Vaccine (#1) 2024 , 02/04/2022, 12/29/2020, [...] patient's age to complete this topic [place] [address] [place] [address] STANDARD
--- OUTSIDE RECORDS SUMMARY | 2024-11-23 15:33 | XMS_ITS | Clinical Summary ---
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 Hydrocele 07/22/2016 Scrofula [...] Flu, Preservative Free 02/04/2022 Hep B, Adult/Adol ([id number]-ZOAKI/RECOMBIVAX-ADULT) 07/07/2017,05/17/2016 Hep B, Unspecified 08/12/2014 INFLUENZA, SEASONAL, INJECTABLE [...] 72 05/28/2022 3:29 PM EDT Temperature 36.7 C (98 F) 02/04/2022 10:10 AM EST Respiratory Rate 16 [...] 10/25/2020 10/24/2019 Dental Examination 10/25/2020 10/24/2019 Annual Wellness (Adult): Ind icated (All Coverage) 05/29/2023 05/28/2022, 12/29/2020, 09/18/2018, Additional history exists CT Colonography 11/20/2023 Colonoscopy 11/20/2023 Colorectal Cancer Screening 11/20/2023 FIT/gFOBT 11/20/2023 Fecal DNA 11/20/2023 Flexible Sigmoidoscopy 11/20/2023 Alcohol and Drug Screen 02/22/2024 05/29/19 23, 07/14/2021, 12/29/2020, Additional history exists Depression Annual Screen 02/22/2024 05/28/2022 Imm-DTaP/Tdap/Td (2 - Td or Tdap) 08/12/2024 015 [id number] ( - season) 2024 02/04/2022, 09/18/2020, 08/21/2020 Imm-Influenza (#1) 2024 02/04/2022, 1 02/29/2020, 01/02/2020, Additional history exists Lipid Screening 02/04/2025 02/04/2022, [...] Health Maintenance Results * (ABNORMAL) LIPID PANEL ([id number]) (02/04/2022 11:04 AM EST) [facility] CHOLESTEROL, TOTAL 173 <200 mg/dL 02/05/2022 1:28 AM EST [facility] HDL CHOLESTEROL 31(L) > OR = 40 mg/dL 02/05/2022 1:28 AM EST [facility] TRIGLYCERIDES 309(H) <150 mg/dL 02/05/2022 1:28 AM EST [facility] LDL-CHOLESTEROL 101(H) mg/dL (calc) 02/05/2022 1:28 AM EST [facility] CHOL/HDLC RATIO 5.6(H) <5.0 (calc) 02/05/2022 1:28 AM EST [facility] NON-HDL CHOLESTEROL 142(H) <130 mg/dL (calc) 02/05/2022 1:28 AM EST [facility] Blood Blood / Unknown 02/04/2022 1 1:04 AM EST 02/04/2022 10:29 PM EST Narrative [facility] - 02/05/2022 1:59 AM EST . If a non-fasting specimen was collected, consider repeat triglyceride testing on a fasting specimen if clinically indicated. Oma et al. J. of Clin. Lipidol. 2015;9:129-169. . Reference range: <100 . Desirable range <100 mg/dL for primary prevention; <70 mg/dL for patients with CHD or diabetic patients with > or = 2 CHD risk factors. . LDL-C is now calculated using the Meme calculation, which is a validated novel method providing better accuracy than the Friedewald equation in the estimation of LDL-C. Zhen SS et al. DEBORAH. 2013;310(19): 2613-9178 (http://education.Giiv/faq/IAP343) For patients with diabetes plus 1 major ASCVD risk factor, treating to a non-HDL-C goal of <100 mg/dL (LDL-C of <70 mg/dL) is considered a therapeutic option. us Paola Moreira MD LAB - BLOOD DRAW Final Result [facility] [address] [address], [facility] [address] [address] * CMP ([id number]) (02/04/2022 11:04 AM EST) GLUCOSE 91 65 - 99 mg/dL 02/05/2022 1:28 AM EST [facility] UREA NITROGEN (BUN) 13 7 - 25 mg/dL 02/05/2022 1:28 AM EST [facility] CREATININE (blood) 0.79 0.60 - 1.29 mg/dL 02/05/2022 1:28 AM EST [facility] EGFR 113 > OR = 60 mL/min/1 .73m2 02/05/2022 1:28 AM [facility] BUN/CREATININE RATIO NOT APPLICABLE 6 - 22 (calc) 02/05/2022 1:28 AM [facility] SODIUM 140 135 - 146 mmol/L 02/05/2022 1:28 AM [facility] POTASSIUM 3.7 3.5 - 5.3 mmol/L 02/05/2022 1:28 AM [facility] CHLORIDE 103 98 - 110 mmol/L 02/05/2022 1:28 AM [facility] CARBON DIOXIDE 30 20 - 32 mmol/L 02/05/2022 1:28 AM [facility] CALCIUM 9.4 8.6 - 10.3 mg/dL 02/05/2022 1:28 AM [facility] PROTEIN, TOTAL 7.2 6.1 - 8.1 g/dL 02/05/2022 1:28 AM [facility] ALBUMIN 4.4 3.6 - 5.1 g/dL 02/05/2022 1:28 AM [facility] GLOBULIN 2.8 1.9 - 3.7 g/dL (calc) 02/05/2022 1:28 AM [facility] ALBUMIN/GLOBUL IN RATIO 1.6 1.0 - 2.5 (calc) 02/05/2022 1:28 AM [facility] BILIRUBIN, TOTAL 0.4 0.2 - 1.2 mg/dL 02/05/2022 1:28 AM [facility] ALKALINE PHOSPHATASE 99 36 - 130 U/L 02/05/2022 1:28 AM [facility] AST 24 10 - 40 U/L 02/05/2022 1:28 AM [facility] ALT 22 9 - 46 U/L 02/05/2022 1:28 AM [facility] Blood Blood / Unknown 02/04/2022 1 1:04 AM EST 02/04/2022 10:29 PM EST [facility] - 02/05/2022 1:59 AM EST . Fasting reference interval . The eGFR is based on the CKD-EPI 2020 equation. To calculate the new eGFR from a previous Creatinine or Cystatin C result, go to https://www.kidney.org/professionals/ kdoqi/gfr%5Fcalculator Paola Moreira MD LAB - BLOOD DRAW Final Result Performing Organization Address [facility] Co de Phone Number [facility] [address] [address], [facility] [address] [place] [address] * HEPATITIS C ANTIBODY WITH RFLX TO HCV RNA PCR W/RFLX TO GENOTYPE (aka [id number]) (05/05/2021 8:46 AM EDT) HEPATITIS C ANTIBODY NON-REACT MAMIE NON-REACT MAMIE [facility] SIGNAL TO CUT-OFF 0.01 <1.00 [facility] Comment: HCV antibody was non-reactive. There is no laboratory evidence of HCV infection. In most cases, no further action is required. However, if recent HCV exposure is suspected, a test for HCV RNA (test code 54472) is suggested. COMMENT [facility] Blood Blood / Unknown 05/05/2021 8 :46 AM EDT 05/06/2021 1:57 AM EDT Narrative [facility] - 05/07/2021 5:29 AM EDT For additional information, please refer to http://education.Giiv/faq/FZJ692 (This link is being provided for informational/ educational purposes only.) Ayaka Valera MD LAB - BLOOD DRAW Edited Resu lt - Final Performing Organization Address [facility]/ZIP Co de Phone Number [facility] [address] [address], [facility] [address] [place] [address] [facility] [address],[facility] [address] * HIV 1/2 AG & AB W/RFLX (4TH GEN) (05/05/2021 8:46 AM EDT) HIV AG/AB, 4TH GEN NON-REAC TIVE NON-REAC TIVE [facility] Comment: HIV-1 antigen and HIV-1/HIV-2 antibodies were not detected. There is no laboratory evidence of HIV infection. PLEASE NOTE: This information has been disclosed to you from records whose confidentiality may be protected by state law. If your state requires such protection, then the state law prohibits you from making any further disclosure of the information without the specific written consent of the person to whom it pertains, or as otherwise permitted by law. A general authorization for the release of medical or other information is NOT sufficient for this purpose. For additional information please refer to http://education.Insiders S.[employer]./faq/LZC548 (This link is being provided for informational/ educational purposes only.) The performance of this assay has not been clinically validated in patients less than 2 years old. Blood Blood / Unknown 05/05/2021 8 :46 AM EDT 05/06/2021 2:07 AM EDT us Ayaka Valera MD LAB - BLOOD DRAW Edited Resu lt - Final Dr. TATTOFF [address] [address], [facility] [address] [place] [address] from Last 3 Months or Most Recently Relevant to Health Maintenance Additional Health Concerns Active Problems Noted Date Diagnosed Date Patient has a diagnosis of hypertension 09/18/19 21 Insurance [facility] S[facility] Care Teams Authorization Rep Relationship Specialty Start Date End Date Ayaka Valera MD [address] [facility] [place] [address] PCP - General Internal Medicine 02/22/15
--- OUTSIDE RECORDS SUMMARY | 2024-11-23 15:33 | XMS_ITS | Clinical Summary ---
Author Organization [facility] Address [address] [place] [address] Phone Care Team Providers Care Heel Sander Rubber Name Role Phone Ayaka Valera MD Primary [...] STATUS SCREENING (Once After 26 Yrs) 2004 COLOGUARD 11/20/2023 COLONOSCOPY 11/20/2023 COLORECTAL CANCER SCREENING 11/20/2023 FIT TEST 11/20/2023 FOBT 11/20/2023 SIGMOIDOSCOPY 11/20/2023 VIRTUAL COLONOSCOPY 11/20/2023 Adult Td,Tdap Booster 08/12/2024 08/12/2014 INFLUENZA VACCINE (#1) 2024 , 01/02/2020, 12/19/2018, Additional history exists COVID-19 VACCINE ( season) 2024 09/18/2020, 08/21/2020 LIPID PANEL 05/05/2026 05/05/2021, 04/21, 04/02/2020, Additional [...] WELLSENSE NON NSPG PCP [facility] Address: [address] [place] [address] WELLSENSE NON NSPG PCP [facility] WELLSENSE NON NSPG PCP S[facility] WELLSENSE NON NSPG PCP [facility] Address: [place] [address] WELLSENSE NON NSPG PCP [facility] WELLSENSE NON NSPG PCP [facility] Care Teams Heel Sander Rubber Relationship Specialty Start Date End Date Ayaka Valera MD [address] [place] [address] PCP - General Internal Medicine 03/29/17 Additional Source Comments The information contained in this document represents components of the legal health record. It is not the complete legal health record.[facility]
== END 2024-11-23 15:31 | disposition home or self-care (01) ==
LOC: HO.HMGCX 15:30
PROVIDERS: PCP Physician Assistant Medical; Visit Provider Urology
DX: R35.1 Nocturia (principal)
CPT/HCPCS: 76770

== ENCOUNTER → 2024-11-23 15:39 | Outpatient (BNV) | payer OTHER, SELFPAY | PROVIDERS: PCP Physician Assistant Medical; Visit Provider Radiology Diagnostic Radiology | DX: R35.1 Nocturia (principal) | CPT/HCPCS: 76770 ==

== ENCOUNTER 2024-12-05 09:05 | Outpatient (REF) | payer OTHER, SELFPAY ==
--- OUTSIDE RECORDS SUMMARY | 2024-12-05 09:57 | XMS_ITS | Clinical Summary ---
Author Organization [facility] Address [address] [place] [address] Phone Care Team Providers Care Choirmaster Name Role Phone Ayaka Valera MD Primary [...] WELLSENSE NON NSPG PCP [facility] Address: [address] [place] [address] WELLSENSE NON [facility]SPG [facility]ENSE NON NSPG PCP [facility] WELLSENSE NON NSPG PCP [facility] Address: [place] [address] WELLSENSE NON NSPG PCP [facility] WELLSENSE NON NSPG PCP [facility] Care Teams Choirmaster Relationship Specialty Start Date End Date Ayaka Valera MD [address] [place] [address] PCP - General Internal Medicine 03/29/17 Additional Source Comments The information contained in this document represents components of the legal health record. It is not the complete legal health record.[facility]
--- OUTSIDE RECORDS SUMMARY | 2024-12-05 09:57 | XMS_ITS | Clinical Summary ---
Author Organization [address] [facility] Address [address] [place] [address] Phone Care Team Providers Care Army Ranger Name Role Phone Dee Arce Primary Care Provider [phone] Allergies Active Allergy Reactions Criticality Noted Date [...] AM EDT Office Visit Orthopedic Surgery - [place] [address] [facility] [address] [place] [phone] Bernardo Goins DPM Acquired hallux valgus [...] Last 3 Months Insurance PLAN Care Teams Army Ranger Relationship Specialty Start Date End Date Dee Arce PA [address] [place] [id number] PCP - General Physician Office Associate 01/10/24
--- OUTSIDE RECORDS SUMMARY | 2024-12-05 09:57 | XMS_ITS | Clinical Summary ---
Author Organization [employer] [facility] Address [address] [facility] 7t [place] [address] Care Team Providers Care Columnist/Commentator Name Role Phone Unavailable Primary Care Provider [...] patient's age to complete this topic Insurance [place] [address] STANDARD
[2024-12-05 10:09] LABS: MANUAL DIFF FLAG NO
[2024-12-05 10:22] LABS: Hematocrit 36.8 % (42.0-52.0); Hemoglobin 12.8 g/dl (14.0-18.0); Imm Gran Abs Auto 0.02 X10*3/uL (0.00-0.03); Imm Gran Pct Auto 0.5 % (0.0-0.4); Lymphocytes Absolute Auto 1.8 X10*3/uL (1.2-4.9); Mean Corpuscular HGB Conc 34.8 g/dl (31.0-36.0); Mean Corpuscular Hemoglobin 30.4 pg (27.0-33.0); Mean Corpuscular Volume 87.4 fL (80.0-98.0); NRBC Abs Auto 0.000 X10*3/uL (0.0-0.012); NRBC Pct Auto 0.0 /100WBC (0.0-0.2); Platelet Count 210 X10*3/uL (160-400); Red Blood Count 4.21 X10*6/uL (4.60-5.80); White Blood Count 4.2 X10*3/uL (4.8-10.8)
[2024-12-05 11:02] LABS: Alanine Aminotransferase 19 U/L (0-40); Albumin Level 4.4 g/dL (3.5-5.0); Alkaline Phosphatase 75 U/L (39-117); Anion Gap 9 (12-20); Aspartate Amino Transferase 23 U/L (5-37); Blood Urea Nitrogen 12 mg/dL (9-16); Calcium 9.4 mg/dL (8.4-10.2); Carbon Dioxide 29 mmol/L (22-29); Chloride 106 mmol/L (96-108); Estimated Glomerular Filt Rate > 60; Potassium 3.8 mmol/L (3.3-5.1); Sodium 140 mmol/L (135-145); Total Protein 6.9 g/dL (6.5-8.0)
[2024-12-05 11:29] LABS: PSA,Total (Free>4and<10) 0.34 ng/mL (0.00-4.00)
[2024-12-05 11:40] LABS: Ferritin 54 ng/mL (20-250)
[2024-12-11 14:18] LABS: Vitamin D 25-OH, D2 <4 ng/mL; Vitamin D 25-OH, D3 29 ng/mL; Vitamin D 25-OH, Total 29 ng/mL (30-100)
[2024-12-11 18:52] LABS: Testosterone, Free 100.1 pg/mL (35.0-155.0)
== END 2024-12-05 09:06 | disposition home or self-care (01) ==
LOC: HO.HMGCLDS 09:05
PROVIDERS: Internal Medicine Hypertension Specialist; Absent Provider Internal Medicine Medical Oncology; PCP Physician Assistant Medical; Visit Provider Urology
DX: Z12.5 Encounter for screening for malignant neoplasm of prostate (principal); N52.9 Male erectile dysfunction, unspecified; E55.9 Vitamin D deficiency, unspecified; D64.9 Anemia, unspecified
CPT/HCPCS: 36415; 80053; 82306; 82728; 83615; 84153; 84402; 84403; 85025

== ENCOUNTER 2024-12-10 10:14 | Outpatient (AMB) | payer OTHER, SELFPAY ==
[2024-12-10 10:16] VITALS: BP 108/82; PULSE 66; BMI 28.8
--- NOTE | 2024-12-10 10:16 | MHC.OFFVIS ---
Vital Signs 12/10/24 10:16 Height 5 ft 11 in Weight 206 lb 12.697 oz BMI 28.8 BP 108/82 Blood Pressure Location Lt brachial Position Sitting Pulse 66 Pulse Source Pulse Oximeter Intake Visit Reasons: f/up CTA HS pt wanted mon am Ramp Attendant Required: No Allergies lisinopril Allergy (Intermediate, Verified 12/10/24 10:18) Cough Medication List - Last Reconciled 12/10/24 by Ailyn Galvez AUTOMATIC DIE CUTTING MACHINE OPERATOR-C amlodipine 10 mg PO DAILY aspirin 81 mg PO DAILY carvedilol (Coreg) 6.25 mg PO BID 90 days cholecalciferol (vitamin D3) 4,000 units PO DAILY cyanocobalamin (vitamin B-12) 1,000 mcg PO DAILY cyclobenzaprine 10 mg PO TID PRN fluticasone propionate 50 mcg/actuation (Flonase Allergy Relief) 2 sprays intranasal DAILY losartan 100 mg PO DAILY potassium chloride ER 10 mEq PO DAILY sodium chloride-aloe vera (Endeavor Saline nasal gel) 1 appl topical BID sodium,potassium,mag sulfates 17.5-3.13-1.6 gram (Suprep Bowel Prep Kit) DILUTE each bottle with 16oz of water; drink first bottle 5pm evening before procedure AND second bottle at 11pm; follow each bottle with at least 32 oz.of water within 1 hour after each bottle spironolactone 25 mg PO BID tamsulosin (Flomax) 0.4 mg PO BEDTIME HPI HPI f/up CTA HS pt wanted mon am: Details: Khushboo is a 44-year-old male with past medical history of hypertension, hyperlipidemia, hypertensive heart disease who recently reported chest discomfort and underwent a coronary CTA and now presents for follow-up. Today he reports that his chest discomfort has improved. He is not getting any chest discomfort during physical activity. He denies any shortness of breath, PND, orthopnea or edema. No heart palpitations, lightheadedness, presyncope, syncope. 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 He is taking his meds as directed. He follows with Nephrology for his blood pressure. [facility] Medical History Elevated CPK Lumbosacral spondylosis Bilateral leg paresthesia Dyslipidemia Leg weakness Lymphadenopathy Altered mental state Epistaxis Hypokalemia Pain of right great toe Hospital discharge follow-up Bone disorder Routine physical examination Sore throat Urinary hesitancy Osteopenia Anxiety Thoracolumbar back pain LVH (left ventricular hypertrophy) Anemia Leukopenia B12 deficiency Vitamin D deficiency Hyperlipidemia Essential hypertension Dermatitis High blood pressure Surgical History History of hydrocelectomy Family History Mother Diabetes Maternal Grandmother High blood pressure Family/Other Breast cancer Social History Household Members: Spouse and Family Housing: House Are you a primary critical care unit nurse to a significant other at home: No Do you presently have visiting nurse or other home services: No Alcohol intake: former Patient Tobacco Use Status: Never used Tobacco e-Cigarette/Vaping Use: Never Used Second Hand Smoke Exposure: No service: No Current occupational status: employed 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 Cognitive needs: No Hearing needs: No Vision needs: Yes (Patient states vision is blurry.) Review of Systems Const All systems reviewed & are unremarkable except as noted in HPI and below ENT Denies dizziness Card Denies chest pain, Denies chest pain at rest, Denies chest pain with activity, Denies rapid heart rate, Denies pedal edema, Denies edema, Denies leg edema, Denies lightheadedness, Denies palpitations, Denies dyspnea, Denies dyspnea on exertion and Denies orthopnea Resp Denies cough, Denies dyspnea and Denies dyspnea on exertion GI Denies hematochezia and Denies change in stool character Musc Denies abnormal gait, Denies limited range of motion, Denies muscle cramps, Denies muscle weakness, Denies numbness, Denies radiating pain into limb, Denies stiffness and Denies tingling Neuro Denies abnormal gait, Denies dizziness, Denies numbness and Denies tingling Endo Denies palpitations Physical Exam Vital Signs: Last Vital Signs Pulse 66 12/10/24 10:16 BP 108/82 12/10/24 10:16 BMI result Body Mass Index 28.8 Const General: cooperative, healthy appearing, comfortable and no acute distress Orientation/consciousness: patient oriented x3 Neck Neck: Yes normal visual inspection and Yes no JVD Resp Effort & Inspection: normal respiratory effort Auscultation: clear to auscultation bilaterally, no rales, no rhonchi and no wheezes Cardio Rate: regular rate Rhythm: regular rhythm Heart sounds: S1 normal heart sound present, S2 normal heart sound present, no gallops, no murmurs and no rubs Neuro General: patient oriented x3 Extrem General: Yes normal to inspection, No no pedal edema and No calf tenderness Psych Appearance: grossly normal Mental Status: mental status grossly normal Speech and movement: Normal speech and movement present Assessment & Plan Assessment & Plan (1) Precordial chest pain: Code(s): R07.2 - Precordial pain Category: Medical Plan: Prior reports of nonexertional chest discomfort. Cardiac risk factors of hypertension, hyperlipidemia. EKG last visit showed normal sinus rhythm, right axis deviation and ST and T-wave abnormality in the inferior lateral leads. [place] echocardi[place] [facility] [place] showed EF 65-70%, moderate LVH, no wall motion abnormalities, mild diastolic dysfunction. CTA of the coronary arteries 10/04/2024 shows mild stenosis, 25-49% of OM 2, other vessels normal. Currently no anginal symptoms. Diagnosis of mild nonobstructive coronary artery disease reviewed with him. Will continue aspirin indefinitely. Labs 06/25/2024 showed LDL 108. Will start on low-dose statin with ideal LDL goal less than 70. He is agreeable to this plan. Signs and symptoms of angina reviewed with him. Cardiology follow-up 1 year, sooner if needed.. (2) Coronary artery disease: Code(s): I25.10 - Atherosclerotic heart disease of [place] coronary artery without angina pectoris Category: Medical Plan: Mild nonobstructive branch vessel coronary disease as above. To be managed with risk factor modification and medication. (3) LVH (left ventricular hypertrophy): Code(s): I51.7 - Cardiomegaly Category: Medical Plan: History of hypertension, most recent echo showing moderate LVH. He follows with Nephrology for blood pressure management. Blood pressure currently well controlled. (4) Essential hypertension: Code(s): I10 - Essential (primary) hypertension Category: Medical Plan: Blood pressure goal less than 130/80. Currently well controlled. Continue amlodipine, carvedilol, losartan and Aldactone. (5) Hyperlipidemia: Code(s): E78.5 - Hyperlipidemia, unspecified Category: Medical Plan: Gordon LDL goal less than 70 in patient with CAD. Most recent LDL 108. Will start on atorvastatin 20 mg daily. Plan for fasting lipids and LFT in 2 months, patient informed. Plan I discussed with the patient the findings of the CT scan, which showed minor cholesterol buildup in a coronary artery branch, and emphasized the importance of maintaining cholesterol control. We reviewed the management of hypertension and the role of nephrology in controlling blood pressure. The patient was advised to monitor for any exertional chest discomfort and report if it occurs. Orders: Orders Lipid Panel Today E78.00 - Pure hypercholesterolemia, unspecified Liver Panel Today E78.00 - Pure hypercholesterolemia, unspecified Medications: New atorvastatin (Lipitor) 20 mg PO BEDTIME 90 tabs 3RF Patient Instructions: - Monitor for chest discomfort during physical activity and report if it occurs. - Maintain cholesterol control through diet and lifestyle changes as well as medication. - Continue taking prescribed blood pressure medications and follow up with nephrology. Patient was informed and verbally consented to the use of an ambient scribe for clinic note documentation during this visit. Visit time spent on chart review, interview, assessment, orders, documentation. Coding Level of Care Code Est Pt Level 4 (34086) Complex EM visit Add On G2211 Diagnoses Precordial chest pain R07.2 Coronary artery disease I25.10 LVH (left ventricular hypertrophy) I51.7 Essential hypertension I10 Hyperlipidemia E78.5 Time Spent (min) 28
--- OUTSIDE RECORDS SUMMARY | 2024-12-10 11:54 | XMS_ITS | Clinical Summary ---
Author Organization [facility] Address [address] [place] [address] Phone Care Team Providers Care Document Control Specialist Name Role Phone Ayaka Valera MD Primary Care Provider [phone] Allergies Active Allergy Reactions Criticality Noted Date [...] NSPG PCP [facility] Care Teams Document Control Specialist Relationship Specialty Start Date End Date Ayaka Valera MD [address] [place] [address] PCP - General Internal Medicine 03/29/17 Additional Source Comments The information contained in this document represents components of the legal health record. It is not the complete legal health record.[facility]
--- OUTSIDE RECORDS SUMMARY | 2024-12-10 11:54 | XMS_ITS | Encounter Summary ---
Author Organization [facility] Address [address] [place] [address] Care Team Providers Care Behavioral Health Director Name Role Phone Ayaka Valera MD Primary Care Provider [phone] Encounter Details Date Type Department Care Team (Late st Contact Info) Description 12/23/2021 Patient Outreach [facility] Primary Care [address] [place] [address] Paolo Lopez [address] [place], [place] Social History Tobacco Use Types Packs/Day [...] documented as of this encounter Care Teams Behavioral Health Director Relationship Specialty Start Date End Date Ayaka Valera MD [address] [place] [address] PCP - General Internal Medicine 02/22/15 documented as of this encounter
--- OUTSIDE RECORDS SUMMARY | 2024-12-10 11:54 | XMS_ITS | Clinical Summary ---
Author Organization [employer] Address [address] [facility] 7t [place] [address] Care Team Providers Care Professor Of Visual Arts Name Role Phone Unavailable Primary Care Provider [...] patient's age to complete this topic [place] [address] STANDARD
--- OUTSIDE RECORDS SUMMARY | 2024-12-10 11:54 | XMS_ITS | Clinical Summary ---
Author Organization [facility] Address [address] [place] [address] Care Team Providers Care Sodium Methylate Operator Name Role Phone Ayaka Valera MD Primary Care Provider [phone] Source Comments PLEASE NOTE, if this patient [...] (04/17/2019): [place] [facility] [place]-induced erectile dysfunction 02/28/2019 Hydrocele 07/22/2016 Scrofula [...] Flu, Preservative Free 02/04/2022 Hep B, Adult/Adol ([id number]/RECOMBIVAX-ADULT) 07/07/2017,05/17/2016 Hep B, Unspecified 08/12/2014 INFLUENZA, SEASONAL, [...] (2 - Td or Tdap) 08/12/2024 015 [id number] ( - season) 2024 02/04/2022, 09/18/2020, 08/21/2020 [...] Health Maintenance Results * (ABNORMAL) LIPID PANEL ([id number]) (02/04/2022 11:04 AM EST) [facility] CHOLESTEROL, TOTAL 173 <200 mg/dL 02/05/2022 1:28 AM EST [facility] HDL CHOLESTEROL 31(L) > OR = 40 mg/dL 02/05/2022 1:28 AM EST [facility] TRIGLYCERIDES 309(H) <150 mg/dL 02/05/2022 1:28 AM EST [facility] LDL-CHOLESTEROL 101(H) mg/dL (calc) 02/05/2022 1:28 AM EST [facility] CHOL/HDLC RATIO 5.6(H) <5.0 (calc) 02/05/2022 1:28 AM EST [employer] [facility] NON-HDL CHOLESTEROL 142(H) <130 mg/dL (calc) 02/05/2022 1:28 AM EST [employer] [facility] Blood Blood / Unknown 02/04/2022 1 1:04 AM EST 02/04/2022 10:29 PM EST Narrative [facility] - 02/05/2022 1:59 AM EST . If [...] LDL-C. Zhen SS et al. DEBORAH. 2013;310(19): 5521-4170 (http://education.REES46/faq/AKT545) For patients with diabetes plus 1 major ASCVD risk factor, treating to a non-HDL-C goal of <100 mg/dL (LDL-C of <70 mg/dL) is considered a therapeutic option. us Paola Moreira MD LAB - BLOOD DRAW Final Result [employer] [address] [address], [employer] [address] [address] * CMP ([id number]) (02/04/2022 11:04 AM EST) GLUCOSE 91 65 - 99 mg/dL 02/05/2022 1:28 AM EST [employer] [facility] UREA NITROGEN (BUN) 13 7 - 25 mg/dL 02/05/2022 1:28 AM EST [facility] CREATININE (blood) 0.79 0.60 - 1.29 mg/dL 02/05/2022 1:28 AM EST [employer] [facility] EGFR 113 > OR = 60 mL/min/1 .73m2 02/05/2022 1:28 AM [facility] BUN/CREATININE RATIO NOT APPLICABLE 6 - 22 (calc) 02/05/2022 1:28 AM [employer] [facility] SODIUM 140 135 - 146 mmol/L 02/05/2022 1:28 AM [employer] POTASSIUM 3.7 3.5 - 5.3 mmol/L 02/05/2022 1:28 AM [employer] CHLORIDE 103 98 - 110 mmol/L 02/05/2022 1:28 AM [employer] CARBON DIOXIDE 30 20 - 32 mmol/L 02/05/2022 1:28 AM [employer] [facility] CALCIUM 9.4 8.6 - 10.3 mg/dL 02/05/2022 1:28 AM [employer] [facility] PROTEIN, TOTAL 7.2 6.1 - 8.1 g/dL 02/05/2022 1:28 AM [employer] ALBUMIN 4.4 3.6 - 5.1 g/dL 02/05/2022 1:28 AM [employer] [facility] GLOBULIN 2.8 1.9 - 3.7 g/dL (calc) 02/05/2022 1:28 AM [employer] [facility] ALBUMIN/GLOBUL IN RATIO 1.6 1.0 - 2.5 (calc) 02/05/2022 1:28 AM [employer] BILIRUBIN, TOTAL 0.4 0.2 - 1.2 mg/dL 02/05/2022 1:28 AM [facility] ALKALINE PHOSPHATASE 99 36 - 130 U/L 02/05/2022 1:28 AM [employer] AST 24 10 - 40 U/L 02/05/2022 1:28 AM [employer] [facility] ALT 22 9 - 46 U/L 02/05/2022 1:28 AM [employer] [facility] Blood Blood / Unknown 02/04/2022 1 1:04 AM EST 02/04/2022 10:29 PM EST [employer] [facility] - 02/05/2022 1:59 AM EST . Fasting reference interval . The eGFR is based on the CKD-EPI 2020 equation. To calculate the new eGFR from a previous Creatinine or Cystatin C result, go to https://www.kidney.org/professionals/ kdoqi/gfr%5Fcalculator Paola Moreira MD LAB - BLOOD DRAW Final Result Performing Organization Address [facility] Co de Phone Number [facility] [address] [address], [facility] [address] [place] [address] * HEPATITIS C ANTIBODY WITH RFLX TO HCV RNA PCR W/RFLX TO GENOTYPE (aka [id number]) (05/05/2021 8:46 AM EDT) HEPATITIS C ANTIBODY NON-REACT MAMIE NON-REACT MAMIE [facility] SIGNAL TO CUT-OFF 0.01 <1.00 [employer] [facility] Comment: HCV antibody was non-reactive. There is no laboratory evidence of HCV infection. In most cases, no further action is required. However, if recent HCV exposure is suspected, a test for HCV RNA (test code 94151) is suggested. COMMENT [employer] [facility] Blood Blood / Unknown 05/05/2021 8 :46 AM EDT 05/06/2021 1:57 AM EDT Narrative [facility] - 05/07/2021 5:29 AM EDT For additional information, please refer to http://education.REES46/faq/CUS470 (This link is being provided for informational/ educational purposes only.) Ayaka Valera MD LAB - BLOOD DRAW Edited Resu lt - Final Performing Organization Address [facility]/ZIP Co de Phone Number [facility] [address] [address], [employer] [address] [place] [address] [facility] [address],[facility] [place] [address] * HIV 1/2 AG & AB W/RFLX (4TH GEN) (05/05/2021 8:46 AM EDT) HIV AG/AB, 4TH GEN NON-REAC TIVE NON-REAC TIVE [employer] Comment: HIV-1 antigen and HIV-1/HIV-2 antibodies were [...] purpose. For additional information please refer to http://education.GrayBug/faq/OYD896 (This link is being provided for informational/ educational purposes only.) The performance of this assay has not been clinically validated in patients less than 2 years old. Blood Blood / Unknown 05/05/2021 8 :46 AM EDT 05/06/2021 2:07 AM EDT us Ayaka Valera MD LAB - BLOOD DRAW Edited Resu lt - Final [employer] [address] [address], [employer] [address] [place] [address] from Last 3 Months or Most Recently Relevant to Health Maintenance Additional Health Concerns Active Problems Noted Date Diagnosed Date Patient has a diagnosis of hypertension 09/18/19 21 Insurance DELTA DENTAL [facility] DENTAL [facility] SAFETY NET Care Teams Sodium Methylate Operator Relationship Specialty Start Date End Date Ayaka Valera MD [address] [place] [address] PCP - General Internal Medicine 02/22/15
--- OUTSIDE RECORDS SUMMARY | 2024-12-10 11:54 | XMS_ITS | Clinical Summary ---
Author Organization [address] [facility] Address [address] [place] [address] Phone Care Team Providers Care Advertising Sales Consultant Name Role Phone Dee Arce Primary Care Provider [phone] Allergies Active Allergy Reactions Criticality Noted Date [...] AM EDT Office Visit Orthopedic Surgery - [place] 250 175 [facility] [address] [place] [phone] Bernardo Goins DPM Acquired hallux valgus [...] Last 3 Months Insurance PLAN Care Teams Advertising Sales Consultant Relationship Specialty Start Date End Date Dee Arce PA [address] [place] [address] PCP - General Physician Automobile Locator 01/10/24
== END 2024-12-10 10:42 | disposition home or self-care (01) ==
LOC: HO.HCS 10:14
PROVIDERS: PCP Physician Assistant Medical; Visit Provider Nurse Practitioner Family
DX: R07.2 Precordial pain (principal); I25.10 Atherosclerotic heart disease of native coronary artery without angina pectoris; I51.7 Cardiomegaly; I10 Essential (primary) hypertension; E78.5 Hyperlipidemia, unspecified
CPT/HCPCS: 99214

== ENCOUNTER → 2024-12-10 10:14 | Outpatient (BNVA) | payer OTHER, SELFPAY | PROVIDERS: PCP Physician Assistant Medical; Visit Provider Nurse Practitioner Family | DX: R07.2 Precordial pain (principal); I25.10 Atherosclerotic heart disease of native coronary artery without angina pectoris; I51.7 Cardiomegaly; I10 Essential (primary) hypertension; E78.5 Hyperlipidemia, unspecified; E78.00 Pure hypercholesterolemia, unspecified | CPT/HCPCS: 99212 ==

== ENCOUNTER 2024-12-13 10:07 | Outpatient (AMB) | payer OTHER, SELFPAY ==
--- NOTE | 2024-12-13 10:31 | A.OFFVIS_ITS ---
Intake Visit Reasons: 12w/US/labs Intake Note: Patient presents today for 12w/US/labs * 11/23 Retroperitoneal US * 12/05 Total PSA:0.34 * 12/05 Total Testo:382/Free Testo:100.1 Urology Medication:Vitamin B12, Potassium Blood Thinner:None Antibiotic Allergies:None PVR:0ml Allergies lisinopril Allergy (Intermediate, Verified 12/13/24 10:46) Cough Medication List - Last Reconciled 12/13/24 by Fanta Greene MD amlodipine 10 mg PO DAILY aspirin 81 mg PO DAILY atorvastatin (Lipitor) 20 mg PO BEDTIME carvedilol (Coreg) 6.25 mg PO BID 90 days cholecalciferol (vitamin D3) 4,000 units PO DAILY cyanocobalamin (vitamin B-12) 1,000 mcg PO DAILY cyclobenzaprine 10 mg PO TID PRN fluticasone propionate 50 mcg/actuation (Flonase Allergy Relief) 2 sprays intranasal DAILY folic acid 1 mg PO DAILY losartan 100 mg PO DAILY potassium chloride ER 10 mEq PO DAILY sodium chloride-aloe vera ([place] Saline nasal gel) 1 appl topical BID sodium,potassium,mag sulfates 17.5-3.13-1.6 gram (Suprep Bowel Prep Kit) DILUTE each bottle with 16oz of water; drink first bottle 5pm evening before procedure AND second bottle at 11pm; follow each bottle with at least 32 oz.of water within 1 hour after each bottle spironolactone 25 mg PO BID tamsulosin (Flomax) 0.4 mg PO BEDTIME HPI Comments Details: 12/13/24-- History of Present Illness The patient is a 44-year-old male presenting for a follow-up visit to review blood work and ultrasound results. The patient's blood work revealed normal prostate-specific antigen (PSA) levels and low normal testosterone levels, which are still within the normal range. The kidney ultrasound showed no abnormalities, and the urine analysis was clear with no presence of blood. The patient was started on tamsulosin during the last visit, and he reports that the medication is working well without any issues. The plan is to continue with the current medication regimen. Results - Labs: Normal prostate-specific antigen (PSA) levels, low normal testosterone levels - Imaging: Normal kidney ultrasound - Urinalysis: Clear urine with no hematuria Plan 1. Low Normal Testosterone Levels - Continue monitoring testosterone levels as they are within the normal range. 2. Annual Prostate-Specific Antigen (Psa) Screening - Continue annual PSA screening to monitor prostate health. 09/17/24--Khushboo is here as a new patient evaluation for urinary hesitancy and LUTS. bladder scan PVR 17 mL. History of Present Illness - The patient is a 43-year-old male --Reports nocturia, waking up more than 10 times at night to urinate, occurring for about four months - Reports mini stroke on July 28, was hospitalized at [facility] with no new medications started post-discharge. - Experiences occasional burning during urination, not constant. - Reports erectile dysfunction, noticing changes since March, with difficulty maintaining erections and reduced morning erections. - Denies any history of smoking or alcohol use and is on blood pressure me dication. Results - Bladder scan: Post-void residual volume of 17 mL Plan - Flomax - Schedule an ultrasound to evaluate the kidneys, bladder, and prostate size. - Order blood work for PSA and testosterone levels [facility] Medical History Elevated CPK Lumbosacral spondylosis Bilateral leg paresthesia Dyslipidemia Leg weakness Lymphadenopathy Altered mental state Epistaxis Hypokalemia Pain of right great toe Hospital discharge follow-up Bone disorder Routine physical examination Sore throat Urinary hesitancy Osteopenia Anxiety Thoracolumbar back pain LVH (left ventricular hypertrophy) Anemia Leukopenia B12 deficiency Vitamin D deficiency Hyperlipidemia Essential hypertension Dermatitis High blood pressure Surgical History History of hydrocelectomy Family History Mother Diabetes Maternal Grandmother High blood pressure Family/Other Breast cancer Social History Household Members: Spouse and Family Both parents involved: No Caregiver staying overnight: No Housing: House Are you a primary health care recruiter to a significant other at home: No Do you presently have visiting nurse or other home services: No 75 years or older and lives alone: No Alcohol intake: former Patient Tobacco Use Status: Never used Tobacco e-Cigarette/Vaping Use: Never Used Second Hand Smoke Exposure: No service: No Current occupational status: employed 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 Cognitive needs: No Hearing needs: No Vision needs: Yes (Patient states vision is blurry.) Review of Systems Const All systems reviewed & are unremarkable except as noted in HPI and below Reports no additional complaints Eyes Reports no additional complaints ENT Reports no additional complaints Card Reports no additional complaints Resp Reports no additional complaints GI Reports no additional complaints Reports as per HPI Musc Reports no additional complaints Skin/Breast Reports system reviewed and no additional complaints, except as documented Neuro Reports no additional complaints Psych Reports no additional complaints Endo Reports no additional complaints Jerad/Lymph Reports no additional complaints Aller/Immun Reports no additional complaints Office Procedures Post Void Residual Post Residual Void Post Void Residual (PVR): 0 [id number] Void Residual by ultrasound Results AMB Urinalysis, Automated UA Leukoctes 0 Rex/uL Last Edit by Crystal Bazan on 12/13/24 17:21 UA Nitrite Negative Last Edit by Crystal Bazan on 12/13/24 17:21 UA Urobilinogen 0.2 mg/dL Last Edit by Crystal Bazan on 12/13/24 17:21 UA Protein 0 mg/dL Last Edit by Crystal Bazan on 12/13/24 17:21 UA pH 6.5 Last Edit by Crystal Bazan on 12/13/24 17:21 UA Blood 0 Javier/uL Last Edit by Crystal Bazan on 12/13/24 17:21 UA Specific Raymond 1.005 Last Edit by Crystal Bazan on 12/13/24 17:21 UA Ketone Negative Last Edit by Glory Bazan on 12/13/24 17:21 UA Bilirubin 0 mg/dL Last Edit by Crystal Bazan on 12/13/24 17:21 UA Glucose 0 mg/dL Last Edit by Crystal Bazan on 12/13/24 17:21 Assessment & Plan Assessment & Plan Orders: Orders AMB Urinalysis Automated Today N52.9 - Male erectile dysfunction, unspecified Medications: Refilled tamsulosin (Flomax) 0.4 mg PO BEDTIME 90 caps 3RF Coding CPT Codes Post Residual Void - PVR CPT Code: 32754-Xmts Void Residual by ultrasound ([id number])
--- OUTSIDE RECORDS SUMMARY | 2024-12-13 11:56 | XMS_ITS | Clinical Summary ---
Author Organization 175 [facility] Address 175 [place] [address] Phone Care Team Providers Care Design Consultant Name Role Phone Dee Arce Primary [...] AM EDT Office Visit Orthopedic Surgery - [place] 250 175 [facility] [address] [place] [phone] Bernardo Goins DPM Acquired hallux valgus [...] Last 3 Months Insurance PLAN Care Teams Design Consultant Relationship Specialty Start Date End Date Dee Arce PA [address] [place] [address] PCP - General Physician Top Lifter 01/10/24
--- OUTSIDE RECORDS SUMMARY | 2024-12-13 11:56 | XMS_ITS | Clinical Summary ---
Author Organization [facility] [employer] Address [address] [facility] 7[address] [place] [address] Care Team Providers Care Maxillofacial Pathology Name Role Phone Unavailable Primary Care Provider [...] this topic Meningococcal Vaccine Aged Out No mana nury eligible based on patient's age to [...] to complete this topic [place] [address] [place] [address] STANDARD
--- OUTSIDE RECORDS SUMMARY | 2024-12-13 11:56 | XMS_ITS | Clinical Summary ---
Author Organization [facility] Address [address] [place] [address] Care Team Providers Care Radiology Specialist Name Role Phone Ayaka Valera MD [...] (04/17/2019): [place]/p [place] 04[place]11[place] [facility] [place]-induced erectile dysfunction 02/28/2019 Hydrocele 07/22/2016 Scrofula [...] Flu, Preservative Free 02/04/2022 Hep B, Adult/Adol (EBOWMFZ-Q-FIGYV/RECOMBIVAX-ADULT) 07/07/2017,05/17/2016 Hep B, Unspecified 08/12/2014 INFLUENZA, SEASONAL, [...] (2 - Td or Tdap) 08/12/2024 015 [id number] ( - season) 2024 02/04/2022, 09/18/2020, 08/21/2020 [...] Health Maintenance Results * (ABNORMAL) LIPID PANEL ([id number]) (02/04/2022 11:04 AM EST) [facility] CHOLESTEROL, TOTAL 173 <200 mg/dL 02/05/2022 1:28 AM EST [facility] HDL CHOLESTEROL 31(L) > OR = 40 mg/dL 02/05/2022 1:28 AM EST [facility] TRIGLYCERIDES 309(H) <150 mg/dL 02/05/2022 1:28 AM EST [facility] LDL-CHOLESTEROL 101(H) mg/dL (calc) 02/05/2022 1:28 AM EST [facility] CHOL/HDLC RATIO 5.6(H) <5.0 (calc) 02/05/2022 1:28 AM EST [facility] NON-HDL CHOLESTEROL 142(H) <130 mg/dL (calc) 02/05/2022 1:28 AM EST [facility] Blood Blood / Unknown 02/04/2022 1 1:04 AM EST 02/04/2022 10:29 PM EST Narrative [facility] - 02/05/2022 1:59 AM EST . [...] LDL-C. Zhen SS et al. DEBORAH. 2013;310(19): 6425-0161 (http://education.Spredfashion/faq/YHZ869) For patients with diabetes plus 1 major ASCVD risk factor, treating to a non-HDL-C goal of <100 mg/dL (LDL-C of <70 mg/dL) is considered a therapeutic option. us Paola Moreira MD LAB - BLOOD DRAW Final Result [employer] [address] [address], [facility] [address] [address] * CMP ([id number]) (02/04/2022 11:04 AM EST) GLUCOSE 91 65 - 99 mg/dL 02/05/2022 1:28 AM EST [facility] UREA NITROGEN (BUN) 13 7 - 25 mg/dL 02/05/2022 1:28 AM EST [facility] CREATININE (blood) 0.79 0.60 - 1.29 mg/dL 02/05/2022 1:28 AM EST [facility] EGFR 113 > OR = 60 mL/min/1 .73m2 02/05/2022 1:28 AM [employer] BUN/CREATININE RATIO NOT APPLICABLE 6 - 22 (calc) 02/05/2022 1:28 AM [facility] SODIUM 140 135 - 146 mmol/L 02/05/2022 1:28 AM [facility] POTASSIUM 3.7 3.5 - 5.3 mmol/L 02/05/2022 1:28 AM [employer] CHLORIDE 103 98 - 110 mmol/L 02/05/2022 1:28 AM [employer] CARBON DIOXIDE 30 20 - 32 mmol/L 02/05/2022 1:28 AM [employer] CALCIUM 9.4 8.6 - 10.3 mg/dL 02/05/2022 1:28 AM [employer] [facility] PROTEIN, TOTAL 7.2 6.1 - 8.1 g/dL 02/05/2022 1:28 AM [facility] ALBUMIN 4.4 3.6 - 5.1 g/dL 02/05/2022 1:28 AM [facility] GLOBULIN 2.8 1.9 - 3.7 g/dL (calc) 02/05/2022 1:28 AM [employer] [facility] ALBUMIN/GLOBUL IN RATIO 1.6 1.0 - 2.5 (calc) 02/05/2022 1:28 AM [employer] [facility] BILIRUBIN, TOTAL 0.4 0.2 - 1.2 mg/dL 02/05/2022 1:28 AM [employer] [facility] ALKALINE PHOSPHATASE 99 36 - 130 U/L 02/05/2022 1:28 AM [employer] [facility] AST 24 10 - 40 U/L 02/05/2022 1:28 AM [employer] [facility] ALT 22 9 - 46 U/L 02/05/2022 1:28 AM [employer] [facility] Blood Blood / Unknown 02/04/2022 1 1:04 AM EST 02/04/2022 10:29 PM EST [employer] - 02/05/2022 1:59 AM EST . Fasting reference interval . The eGFR is based on the CKD-EPI 2020 equation. To calculate the new eGFR from a previous Creatinine or Cystatin C result, go to https://www.kidney.org/professionals/ kdoqi/gfr%5Fcalculator Paola Moreira MD LAB - BLOOD DRAW Final Result Performing Organization Address [facility] Co de Phone Number [facility] [address] [address], [employer] [facility] [address] [place] [address] * HEPATITIS C ANTIBODY WITH RFLX TO HCV RNA PCR W/RFLX TO GENOTYPE (aka [id number]) (05/05/2021 8:46 AM EDT) HEPATITIS C ANTIBODY NON-REACT MAMIE NON-REACT MAMIE [facility] SIGNAL TO CUT-OFF 0.01 <1.00 [employer] [facility] Comment: HCV antibody was non-reactive. There is no laboratory evidence of HCV infection. In most cases, no further action is required. However, if recent HCV exposure is suspected, a test for HCV RNA (test code 37101) is suggested. COMMENT [email or web address] [facility] Blood Blood / Unknown 05/05/2021 8 :46 AM EDT 05/06/2021 1:57 AM EDT Narrative [employer] [facility] - 05/07/2021 5:29 AM EDT For additional information, please refer to http://education.Spredfashion/faq/KNG706 (This link is being provided for informational/ educational purposes only.) Ayaka Valera MD LAB - BLOOD DRAW Edited Resu lt - Final Performing Organization Address [facility]/ZIP Co de Phone Number [facility] [facility] [address] [address], [employer] [facility] [address] [place] [address] [employer] [address],[place] [address] * HIV 1/2 AG & AB W/RFLX (4TH GEN) (05/05/2021 8:46 AM EDT) HIV AG/AB, 4TH GEN NON-REAC TIVE NON-REAC TIVE [employer] Comment: HIV-1 antigen and HIV-1/HIV-2 antibodies were [...] purpose. For additional information please refer to http://education.3SP Group/faq/THJ370 (This link is being provided for informational/ educational purposes only.) The performance of this assay has not been clinically validated in patients less than 2 years old. Blood Blood / Unknown 05/05/2021 8 :46 AM EDT 05/06/2021 2:07 AM EDT us Ayaka Valera MD LAB - BLOOD DRAW Edited Resu lt - Final [facility] [address] [address], [employer] [address] [place] [address] from Last 3 Months or Most Recently Relevant to Health Maintenance Additional Health Concerns Active Problems Noted Date Diagnosed Date Patient has a diagnosis of hypertension 09/18/19 21 Insurance DELTA DENTAL [facility] DENTAL [facility] SAFETY NET Care Teams Radiology Specialist Relationship Specialty Start Date End Date Ayaka Valera MD [address] [facility] [address] PCP - General Internal Medicine 02/22/15
--- OUTSIDE RECORDS SUMMARY | 2024-12-13 11:56 | XMS_ITS | Encounter Summary ---
Author Organization [facility] Address [address] [place] [address] Care Team Providers Care Account Support Analyst Name Role Phone Ayaka Valera MD Primary Care Provider [phone] Encounter Details Date Type Department Care Team (Late st Contact Info) Description 12/23/2021 Patient Outreach [facility] Primary Care [address] [place] [address] Paolo Lopez [address] [place], [place] Social History Tobacco Use Types Packs/Day [...] documented as of this encounter Care Teams Account Support Analyst Relationship Specialty Start Date End Date Ayaka Valera MD [address] [place] [address] PCP - General Internal Medicine 02/22/15 documented as of this encounter
--- OUTSIDE RECORDS SUMMARY | 2024-12-13 11:56 | XMS_ITS | Clinical Summary ---
Author Organization [facility] Address [address] [place] [address] Phone Care Team Providers Care Program Or Project Administrator Name Role Phone Ayaka Valera MD Primary Care Provider [phone] Allergies Active Allergy Reactions Criticality Noted Date [...] NSPG PCP [facility] Care Teams Program Or Project Administrator Relationship Specialty Start Date End Date Ayaka Valera MD [address] [place] [address] PCP - General Internal Medicine 03/29/17 Additional Source Comments The information contained in this document represents components of the legal health record. It is not the complete legal health record.[facility]
== END 2024-12-13 11:18 | disposition home or self-care (01) ==
LOC: HO.HUSH 10:08
PROVIDERS: PCP Physician Assistant Medical; Visit Provider Urology
DX: N52.9 Male erectile dysfunction, unspecified (principal)

== ENCOUNTER → 2024-12-13 10:07 | Outpatient (BNVA) | payer OTHER, SELFPAY | PROVIDERS: PCP Physician Assistant Medical; Visit Provider Urology | DX: R35.1 Nocturia (principal); N52.9 Male erectile dysfunction, unspecified | CPT/HCPCS: 51798; 81003; 99212 ==

== ENCOUNTER 2024-12-26 10:13 | Outpatient (AMB) | payer OTHER, SELFPAY ==
--- NOTE | 2024-12-26 10:15 | HO.NEPHOV_ITS ---
Vital Signs 12/26/24 10:20 Height 5 ft 11 in Weight 203 lb BMI 28.3 BP 118/76 Blood Pressure Location Lt brachial Position Sitting Pulse 77 Pulse Source Pulse Oximeter Pulse Oximetry (%) 100 Oxygen Delivery Method Room Air Intake Visit Reasons: R/S 11/21/2024 conf Data Integration Analyst Required: No Accompanied by: Self / Same As Patient Allergies lisinopril Allergy (Intermediate, Verified 12/26/24 10:23) Cough Medication List - Last Reconciled 12/26/24 by Philip Medina MD amlodipine 10 mg PO DAILY aspirin 81 mg PO DAILY atorvastatin (Lipitor) 20 mg PO BEDTIME carvedilol (Coreg) 6.25 mg PO BID 90 days cholecalciferol (vitamin D3) 150 mcg (2 x 75 mcg (3,000 unit)) PO DAILY 90 days cyanocobalamin (vitamin B-12) 1,000 mcg PO DAILY cyclobenzaprine 10 mg PO TID PRN fluticasone propionate 50 mcg/actuation (Flonase Allergy Relief) 2 sprays intranasal DAILY folic acid 1 mg PO DAILY losartan 100 mg PO DAILY potassium chloride ER 10 mEq PO DAILY sodium chloride-aloe vera ([place] Saline nasal gel) 1 appl topical BID sodium,potassium,mag sulfates 17.5-3.13-1.6 gram (Suprep Bowel Prep Kit) DILUTE each bottle with 16oz of water; drink first bottle 5pm evening before procedure AND second bottle at 11pm; follow each bottle with at least 32 oz.of water within 1 hour after each bottle spironolactone 25 mg PO BID tadalafil 5 mg PO DAILY tamsulosin (Flomax) 0.4 mg PO BEDTIME HPI Comments Details: Middle-aged man with a history of hypertension for 20 years. He was 1st diagnosed with hypertension at the age of 18. He has been referred for hypokalemia. He has had persistent hypokalemia and currently on potassium supplementation. On amlodipine as well as a losartan for the control blood pressure. Despite this blood pressure has been suboptimal and systolic blood pressure has been around 150 mm Hg. Recent lab work showed potassium was 3.1 despite potassium supplementation. There was no alkalosis. Renal function stable. He is not on any diuretics Does not take any licorice. He is not on any other xuzv-gse-vhldgzv medications. 01/04/24 Events noted; Persistent hypokalemia ;PA/PRA pending Was [place] [facility] [place] ;Spironolactone 25 mg QD has been added Feels tired 01/18/24 ;Feels better ;Home BP sub optimal 04/11/24 ;c/o Sob on exertion ;Has cardiology appointment He missed the Ct scan appointment 06/27/2024. Overall is doing well. No specific complaints today. Blood pressure readings are reviewed. He is on hydralazine 25 mg b.i.d. instead of t.i.d.. All other medications reviewed Underwent CT scan. No adrenal adenoma was reported 08/15/24 Recently in [facility] ER with inability to speak andweakness CT and MRI did not reveal evidence of CVA Still has some numbness in legs BP has been well controlled now 12/26/2024. The patient is a 44-year-old male presenting with hypertension. His blood pressure has been well-controlled, with recent measurements showing 118/76 mmHg. He is on a regimen that includes amlodipine, losartan, and spironolactone, which he takes regularly. The patient also has a history of hypokalemia, managed with daily potassium supplementation. Recent laboratory results indicate a stable potassium level at 3.8 mmol/L. [facility] Medical History Elevated CPK Lumbosacral spondylosis Bilateral leg paresthesia Dyslipidemia Leg weakness Lymphadenopathy Altered mental state Epistaxis Hypokalemia Pain of right great toe Hospital discharge follow-up Bone disorder Routine physical examination Sore throat Urinary hesitancy Osteopenia Anxiety Thoracolumbar back pain LVH (left ventricular hypertrophy) Anemia Leukopenia B12 deficiency Vitamin D deficiency Hyperlipidemia Essential hypertension Dermatitis High blood pressure Surgical History History of hydrocelectomy Family History Mother Diabetes Maternal Grandmother High blood pressure Family/Other Breast cancer Social History Household Members: Spouse and Family Both parents involved: No Caregiver staying overnight: No Housing: House Are you a primary customer care consultant to a significant other at home: No Do you presently have visiting nurse or other home services: No 75 years or older and lives alone: No Alcohol intake: former Patient Tobacco Use Status: Never used Tobacco e-Cigarette/Vaping Use: Never Used Second Hand Smoke Exposure: No service: No Current occupational status: employed 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 Cognitive needs: No Hearing needs: No Vision needs: Yes (Patient states vision is blurry.) Physical Exam Vital Signs: Last Vital Signs Pulse 77 12/26/24 10:20 BP 118/76 12/26/24 10:20 Pulse Ox 100 12/26/24 10:20 Oxygen Delivery Method Room Air 12/26/24 10:20 BMI result Body Mass Index 28.3 No orthostatic BP changes Const General: comfortable; No acute distress Orientation/consciousness: patient oriented x3 Eyes General: appearance normal, both eyes and all related structures Visual Padilla: normal visual padilla by confrontation Neck Neck: Yes supple and Yes no JVD Resp Effort & Inspection: normal respiratory effort and respiratory effort not decreased Cardio Palpation: no palpable S3 and no palpable S4 Heart sounds: no rubs GI Inspection: Yes normal to inspection Palpation (GI): Soft to palpation Percussion: Yes normal to percussion Auscultation: normal bowel sounds General: Yes no CVA tenderness Back/Spine/Pelvis Back: no CVA tenderness Skin General skin exam: no petechiae and no purpura Neuro General: patient oriented x3 and no focal motor deficits Extrem General: No clubbing and No edema Results Reviewed Nephrology Results: Hgb, (14.0-18.0) 12.8 g/dl L 12/05/24 WBC, (4.8-10.8) 4.2 X10*3/uL L 12/05/24 Plt Count, (160-400) 210 X10*3/uL 12/05/24 Sodium, (135-145) 140 mmol/L 12/05/24 Potassium, (3.3-5.1) 3.8 mmol/L 12/05/24 Chloride, (96-108) 106 mmol/L 12/05/24 Carbon Dioxide, (22-29) 29 mmol/L 12/05/24 BUN, (9-16) 12 mg/dL 12/05/24 Creatinine, (0.5-1.4) 0.80 mg/dL 12/05/24 Calcium, (8.4-10.2) 9.4 mg/dL 12/05/24 Assessment & Plan Assessment & Plan (1) Essential hypertension: Code(s): I10 - Essential (primary) hypertension Category: Medical Plan Young man with a history of drdgzgntj-uk-ppfzzhm hypertension with hypokalemia. Even the onset of hypertension at a young age along with hypokalemia ,hyperaldosteronism seems likely, even though the recent lab work did not reveal any significant alkalosis. However the total CO2 was on the upper limit of normal. Work up for hyperaldosteronism. PRA 0.19 PA 9 PA/PRA 47 CT scan showed normal adrenal glands without any adenomas Keep Spironolactone 25 mg BID Keep losartan 100 mg daily. along with Amlodipine/Coreg Watch BP at home May need a 24 hr ABPM before adjusting antihypertensives continue to watch BP at home Current BUN/Cr and K are normal. Shall monitor. Cardiomyopathy/LVH Optimize BP Continue cardiology follow up Orders: Orders Basic Metabolic Panel 4 Months I10 - Essential (primary) hypertension Coding Level of Care Code Est Pt Level 4 (56543) Diagnoses Essential hypertension I10
[2024-12-26 10:20] VITALS: BP 118/76; PULSE 77; O2SAT 100; BMI 28.3
--- OUTSIDE RECORDS SUMMARY | 2024-12-26 11:47 | XMS_ITS | Clinical Summary ---
Author Organization [address] [facility] Address [address] [place] [address] Phone Care Team Providers Care Digital Measurement Advisor Name Role Phone Dee Arce Primary Care Provider [phone] Allergies Active Allergy Reactions Criticality Noted Date [...] AM EDT Office Visit Orthopedic [facility] - [place] [address] [facility] [address] [place] [phone] Bernardo Goins DPM Acquired hallux valgus [...] Last 3 Months Insurance PLAN Care Teams Digital Measurement Advisor Relationship Specialty Start Date End Date Dee Arce PA [address] [place] [phone] PCP - General Physician Gas Station Manager 01/10/24
--- OUTSIDE RECORDS SUMMARY | 2024-12-26 11:47 | XMS_ITS | Encounter Summary ---
Author Organization [facility] Address [address] [place] [address] Care Team Providers Care Painting Trades Worker Name Role Phone Ayaka Valera MD Primary Care Provider [phone] Encounter Details Date Type Department Care Team (Late st Contact Info) Description 12/23/2021 Patient Outreach [facility] [address] [place] [address] Paolo Lopez [address] [place], [place] Social History Tobacco Use Types Packs/Day [...] documented as of this encounter Care Teams Painting Trades Worker Relationship Specialty Start Date End Date Ayaka Valera MD [address] [place] [address] PCP - General Internal Medicine 02/22/15 documented as of this encounter
--- OUTSIDE RECORDS SUMMARY | 2024-12-26 11:47 | XMS_ITS | Clinical Summary ---
Author Organization [facility] Address [address] [place] [address] Care Team Providers Care Real Estate Branch Manager Name Role Phone Ayaka Valera MD [...] (04/17/2019): [place] 04[place]11/2019 [place] [facility] Drug-induced erectile dysfunction 02/28/2019 Hydrocele 07/22/2016 Scrofula [...] Flu, Preservative Free 02/04/2022 Hep B, Adult/Adol ([id number]/RECOMBIVAX-ADULT) 07/07/2017,05/17/2016 Hep B, Unspecified 08/12/2014 INFLUENZA, SEASONAL, [...] (2 - Td or Tdap) 08/12/2024 015 [id number] ( - season) 2024 02/04/2022, 09/18/2020, 08/21/2020 [...] Health Maintenance Results * (ABNORMAL) LIPID PANEL ([id number]) (02/04/2022 11:04 AM EST) [facility] [address] CHOLESTEROL, TOTAL 173 <200 mg/dL 02/05/2022 1:28 AM EST [employer] [facility] HDL CHOLESTEROL 31(L) > OR = 40 mg/dL 02/05/2022 1:28 AM EST [employer] [facility] TRIGLYCERIDES 309(H) <150 mg/dL 02/05/2022 1:28 AM EST [employer] [facility] LDL-CHOLESTEROL 101(H) mg/dL (calc) 02/05/2022 1:28 AM EST [employer] [facility] CHOL/HDLC RATIO 5.6(H) <5.0 (calc) 02/05/2022 1:28 AM EST [employer] [facility] NON-HDL CHOLESTEROL 142(H) <130 mg/dL (calc) 02/05/2022 1:28 AM EST [employer] [facility] Blood Blood / Unknown 02/04/2022 1 1:04 AM EST 02/04/2022 10:29 PM EST Narrative [employer] [facility] - 02/05/2022 1:59 AM EST [...] LDL-C. Zhen SS et al. DEBORAH. 2013;310(19): 9096-8705 (http://education.WorkWell Systems/faq/GIR091) For patients with diabetes plus 1 major ASCVD risk factor, treating to a non-HDL-C goal of <100 mg/dL (LDL-C of <70 mg/dL) is considered a therapeutic option. us Paola Moreira MD LAB - BLOOD DRAW Final Result [email or web address] [address] [address], [employer] [address] [address] * CMP ([id number]) (02/04/2022 11:04 AM EST) GLUCOSE 91 65 - 99 mg/dL 02/05/2022 1:28 AM EST [employer] [facility] UREA NITROGEN (BUN) 13 7 - 25 mg/dL 02/05/2022 1:28 AM EST [employer] [facility] CREATININE (blood) 0.79 0.60 - 1.29 mg/dL 02/05/2022 1:28 AM EST [employer] [facility] EGFR 113 > OR = 60 mL/min/1 .73m2 02/05/2022 1:28 AM [employer] [facility] BUN/CREATININE RATIO NOT APPLICABLE 6 - 22 (calc) 02/05/2022 1:28 AM [employer] [facility] SODIUM 140 135 - 146 mmol/L 02/05/2022 1:28 AM [employer] [facility] POTASSIUM 3.7 3.5 - 5.3 mmol/L 02/05/2022 1:28 AM [employer] [facility] CHLORIDE 103 98 - 110 mmol/L 02/05/2022 1:28 AM [employer] [facility] CARBON DIOXIDE 30 20 - 32 mmol/L 02/05/2022 1:28 AM [employer] [facility] CALCIUM 9.4 8.6 - 10.3 mg/dL 02/05/2022 1:28 AM [employer] [facility] PROTEIN, TOTAL 7.2 6.1 - 8.1 g/dL 02/05/2022 1:28 AM [employer] [facility] ALBUMIN 4.4 3.6 - 5.1 g/dL 02/05/2022 1:28 AM [employer] [facility] GLOBULIN 2.8 1.9 - 3.7 g/dL (calc) 02/05/2022 1:28 AM [employer] [facility] ALBUMIN/GLOBUL IN RATIO 1.6 1.0 - 2.5 (calc) 02/05/2022 1:28 AM [employer] [facility] BILIRUBIN, TOTAL 0.4 0.2 - 1.2 mg/dL 02/05/2022 1:28 AM [employer] [facility] ALKALINE PHOSPHATASE 99 36 - 130 U/L 02/05/2022 1:28 AM [employer] [facility] AST 24 10 - 40 U/L 02/05/2022 1:28 AM [employer] [facility] ALT 22 9 - 46 U/L 02/05/2022 1:28 AM [employer] [facility] Blood Blood / Unknown 02/04/2022 1 1:04 AM EST 02/04/2022 10:29 PM EST [employer] [facility] - 02/05/2022 1:59 AM EST . Fasting reference interval . The eGFR is based on the CKD-EPI 2020 equation. To calculate the new eGFR from a previous Creatinine or Cystatin C result, go to https://www.kidney.org/professionals/ kdoqi/gfr%5Fcalculator Paola Moreira MD LAB - BLOOD DRAW Final Result Performing Organization Address [facility] Co de Phone Number [employer] [facility] [address] [address], [employer] [facility] [address] [place] [address] * HEPATITIS C ANTIBODY WITH RFLX TO HCV RNA PCR W/RFLX TO GENOTYPE (aka [id number]) (05/05/2021 8:46 AM EDT) HEPATITIS C ANTIBODY NON-REACT MAMIE NON-REACT MAMIE [employer] [facility] SIGNAL TO CUT-OFF 0.01 <1.00 [employer] [facility] Comment: HCV antibody was non-reactive. There is no laboratory evidence of HCV infection. In most cases, no further action is required. However, if recent HCV exposure is suspected, a test for HCV RNA (test code 69140) is suggested. COMMENT [employer] [facility] Blood Blood / Unknown 05/05/2021 8 :46 AM EDT 05/06/2021 1:57 AM EDT Narrative [email or web address] - 05/07/2021 5:29 AM EDT For additional information, please refer to http://education.WorkWell Systems/faq/ZJQ451 (This link is being provided for informational/ educational purposes only.) Ayaka Valera MD LAB - BLOOD DRAW Edited Resu lt - Final Performing Organization Address [facility]/ZIP Co de Phone Number [employer] [facility] [address] [address], [employer] [facility] [address] [place] [address] [employer] [address],[facility] [place] [address] * HIV 1/2 AG & AB W/RFLX (4TH GEN) (05/05/2021 8:46 AM EDT) HIV AG/AB, 4TH GEN NON-REAC TIVE NON-REAC TIVE [employer] Comment: HIV-1 antigen and HIV-1/HIV-2 antibodies were [...] purpose. For additional information please refer to http://education.[employer]/faq/SUD255 (This link is being provided for informational/ educational purposes only.) The performance of this assay has not been clinically validated in patients less than 2 years old. Blood Blood / Unknown 05/05/2021 8 :46 AM EDT 05/06/2021 2:07 AM EDT us Ayaka Valera MD LAB - BLOOD DRAW Edited Resu lt - Final [employer] [address] [address], [employer] [address] [place] [address] from Last 3 Months or Most Recently Relevant to Health Maintenance Additional Health Concerns Active Problems Noted Date Diagnosed Date Patient has a diagnosis of hypertension 09/18/19 21 Insurance DELTA DENTAL [facility] D[facility] NET Care Teams Real Estate Branch Manager Relationship Specialty Start Date End Date Ayaka Valera MD [address] [facility] [address] PCP - General Internal Medicine 02/22/15
--- OUTSIDE RECORDS SUMMARY | 2024-12-26 11:47 | XMS_ITS | Clinical Summary ---
Author Organization [facility] Address [address] [place] [address] Phone Care Team Providers Care Mds Coordinator Name Role Phone Ayaka Valera MD Primary Care Provider [phone] Allergies Active Allergy Reactions Criticality Noted Date [...] WELLSENSE NON NSPG PCP [facility] Address: [address] [place] [address] WELLSENSE NON NSPG PCP [facility] WELLSENSE NON NSPG PCP [facility] WELLSENSE NON NSPG PCP S[facility] [place] [address] WELLSENSE NON NSPG PCP S[facility] WELLSENSE NON NSPG PCP [facility] Care Teams Mds Coordinator Relationship Specialty Start Date End Date Ayaka Valera MD [address] [place] [address] PCP - General Internal Medicine 03/29/17 Additional Source Comments The information contained in this document represents components of the legal health record. It is not the complete legal health record.[facility]
--- OUTSIDE RECORDS SUMMARY | 2024-12-26 11:47 | XMS_ITS | Clinical Summary ---
Author Organization [employer] Address [address] [facility] [address] [place] [address] Care Team Providers Care Photographic Equipment Technician Name Role Phone Unavailable Primary Care Provider [...] 07/07/2017, 05/17/2016, 08/12/2014 HIV Screening Completed 05/05/2021 Hepatitis C Screening Completed 05/05/2021 HIB [...] to complete this topic Insurance [facility] STANDARD
== END 2024-12-26 10:37 | disposition home or self-care (01) ==
LOC: HO.HKAS 10:13
PROVIDERS: PCP Physician Assistant Medical; Visit Provider Internal Medicine Hypertension Specialist
DX: I10 Essential (primary) hypertension (principal)
CPT/HCPCS: 99214

== ENCOUNTER → 2024-12-26 10:13 | Outpatient (BNVA) | payer OTHER, SELFPAY | PROVIDERS: PCP Physician Assistant Medical; Visit Provider Internal Medicine Hypertension Specialist | DX: I10 Essential (primary) hypertension (principal); E87.6 Hypokalemia | CPT/HCPCS: 99212 ==

== ENCOUNTER 2025-02-04 13:39 | Outpatient (REF) | payer OTHER, SELFPAY ==
[2025-02-04 17:19] LABS: Resp Syncy Virus RNA Qual PCR NEGATIVE (Negative); SARS COV2 PCR INHOUSE NEGATIVE (Negative)
== END 2025-02-04 13:40 | disposition home or self-care (01) ==
LOC: HO.LNP 13:39
PROVIDERS: Physician Assistant Medical; PCP Physician Assistant Medical
DX: R09.89 Other specified symptoms and signs involving the circulatory and respiratory systems (principal); R68.89 Other general symptoms and signs
CPT/HCPCS: 87637; 99212

== ENCOUNTER 2025-02-04 13:39 | Outpatient (AMB) | payer OTHER, SELFPAY ==
--- NOTE | 2025-02-04 14:23 | MHC.OFFWIV ---
Intake Vital Signs 02/04/25 14:24 Height 5 ft 11 in Weight 208 lb BMI 29.0 BP 116/72 Blood Pressure Location Lt brachial Position Sitting Pulse 74 Pulse Source Pulse Oximeter Temp 97.6 F Temp Source Oral Pulse Oximetry (%) 99 Oxygen Delivery Method Room Air Intake Visit Reasons: EP fever and body aches coughing dizziness Intake Note: pt presents with body aches, fevers, dizziness, sinus congestion, dry coughing starting yesterday . pt states his son has the flu Patient Tobacco Use Status: Never used Tobacco Allergies lisinopril Allergy (Intermediate, Verified 02/04/25 14:26) Cough Do you need a note to return to daycare/school/sports/work: Yes HPI HPI Comments History of Present Illness Details History - The patient is a 44 year old male presenting with fever and body aches, which started yesterday. - He also reports an associated cough, nausea, vomiting, and constipation, with onset yesterday. - He endorses chest pain but denies ear pain or a sore throat. - He has been treating his symptoms with Tylenol, DayQuil, and NyQuil. - The patient's son is also sick at home with the flu. - He has not received a flu shot this year. - He has no history of asthma. - He is not a smoker. - He has no recent travel. Physical Exam General: Cooperative, healthy appearing, comfortable and no acute distress Orientation/consciousness: Patient oriented x3 Limitations: No limitations Head: Normal to inspection Ears: Hearing grossly normal bilaterally, external ears normal and TM's normal bilaterally Nose: Normal external nose present, normal nares present, and no nasal discharge present. Face and sinus: Sinuses nontender to palpation. Mouth: Normal oral and palatal mucosa present and moist mucous membranes noted. Throat: Tonsils normal. Uvula is midline. Posterior oropharynx with erythema and no exudates. Eyes: Appearance normal, both eyes and all related structures Neck: Normal visual inspection, full ROM. No lymphadenopathy noted. Respiratory: Clear to auscultation bilaterally. Normal respiratory effort, able to speak in complete sentences. No respiratory distress, not tachypneic, no tripod positioning and no use of accessory muscles. Cardiovascular: Regular rate and rhythm. Normal S1 and S2 Skin: No rashes or lesions noted Patient was informed and verbally consented to the use of an ambient scribe for clinic note documentation during this visit [facility] Medical History Elevated CPK Lumbosacral spondylosis Bilateral leg paresthesia Dyslipidemia Leg weakness Lymphadenopathy Altered mental state Epistaxis Hypokalemia Pain of right great toe Hospital discharge follow-up Bone disorder Routine physical examination Sore throat Urinary hesitancy Osteopenia Anxiety Thoracolumbar back pain LVH (left ventricular hypertrophy) Anemia Leukopenia B12 deficiency Vitamin D deficiency Hyperlipidemia Essential hypertension Dermatitis High blood pressure Surgical History History of hydrocelectomy Family History Mother Diabetes Maternal Grandmother High blood pressure Family/Other Breast cancer Social History Household Members: Spouse and Family Both parents involved: No Caregiver staying overnight: No Housing: House Are you a primary direct care worker to a significant other at home: No Do you presently have visiting nurse or other home services: No 75 years or older and lives alone: No Alcohol intake: former Patient Tobacco Use Status: Never used Tobacco e-Cigarette/Vaping Use: Never Used Second Hand Smoke Exposure: No service: No Current occupational status: employed Current occupation: [employer] Cognitive needs: No Hearing needs: No Vision needs: Yes (Patient states vision is blurry.) Review of Systems Const All systems reviewed & are unremarkable except as noted in HPI and below Physical Exam Vital Signs: Last Vital Signs Temp 97.6 F 02/04/25 14:24 Pulse 74 02/04/25 14:24 BP 116/72 02/04/25 14:24 Pulse Ox 99 02/04/25 14:24 Oxygen Delivery Method Room Air 02/04/25 14:24 BMI result Body Mass Index 29.0 Assessment & Plan Assessment & Plan (1) Flu-like symptoms: Code(s): R68.89 - Other general symptoms and signs Plan Most likely flu vs covid vs RSV vs Acute Viral Illness plan - A viral panel will be run to determine the etiology of the symptoms, with results anticipated the following morning. - Advised the patient to go home and rest. - A work excuse note will be provided for 3 days - A prescription for cough will be sent to the pharmacy. - A prescription for nausea will be sent to the pharmacy. - will call with the results tomorrow - follow up with PCP Orders: Orders SARS-CoV2/FLU/RSV Today R09.89 - Other specified symptoms and signs involving the circulatory and respiratory systems Medications: New benzonatate 100 mg PO bid-tid PRN 21 caps 0RF Cough 7 days ondansetron 4 mg PO Q8H PRN 10 tabs 0RF nausea and vomiting Coding Level of Care Code Est Pt Level 3 (84206) Diagnoses Flu-like symptoms R68.89
[2025-02-04 14:24] VITALS: BP 116/72; PULSE 74; TEMP 36.4; O2SAT 99; BMI 29.0
--- OUTSIDE RECORDS SUMMARY | 2025-02-04 19:55 | XMS_ITS | Clinical Summary ---
Author Organization [address] [facility] Address [address] [place] [address] Phone Care Team Providers Care [employer] Name Role Phone Dee Arce Primary Care Provider [phone] Allergies Active Allergy Reactions Criticality Noted Date [...] Encounters Date Type Department Care Team Description 01/22/2025 Telephone Orthopedic Surgery - [place] [address] [phone] Lorena Lamb from Last 3 Months Social History Tobacco [...] 10/24/2024 9:33 AM EDT Plan of Treatment Upcoming Encounters Date Type Department Care Team (Late st Contact Info) Description 05/06/2025 8:00 AM EDT Consult Orthopedic Surgery [place] [address] [phone] Bernardo Goins DPM [address] [phone] 05/10/2025 7:30 AM EDT Hospital Encounter [facility] OR [address] [place] [phone] Bernardo Goins DPM [address] [phone] 05/10/2025 7:30 AM EDT - 05/10/2025 9:15 AM EDT Surgery [facility] OR [address] [place] [phone] Bernardo Goins DPM [address] [phone] BUNIONECTOMY [[id number] (CPT ) +2 more] 05/23/2025 1:15 PM EDT Office Visit Orthopedic Surgery - [place] 250 175 [facility] [address] [place] [phone] Bernardo Goins, DPCarly 175 [facility] [address] [place] [phone] Scheduled Procedures Name Priority Associated Diagnoses Date/Ti me BUNIONECTOMY Acquired hallux valgus of right foot Acquired hammer toe of right foot Ingrowing nail 05/10/2025 7:30 AM EDT Health Maintenance Due Date Last Done Comments [...] patient's age to complete this topic Insurance [facility] Care Teams [employer] Relationship Specialty Start Date End Date Dee Arce PA [address] [place] [id number] PCP - General Physician Bureau Director 01/10/24
--- OUTSIDE RECORDS SUMMARY | 2025-02-04 19:55 | XMS_ITS | Clinical Summary ---
Author Organization [facility] Address [address] [place] [address] Phone Care Team Providers Care Document Preparer Microfilming Name Role Phone Ayaka Valera MD Primary [...] WELLSENSE NON NSPG PCP [facility] Address: [address] [place] [address] WELLSENSE NON NSPG PCP [facility] WELLSENSE NON NSPG PCP [facility] WELLSENSE NON NSPG PCP [facility] Address: [place] [address] WELLSENSE NON NSPG PCP [facility] WELLSENSE NON NSPG PCP [facility] Care Teams Document Preparer Microfilming Relationship Specialty Start Date End Date Ayaka Valera MD [address] [place] [address] PCP - General Internal Medicine 03/29/17 Additional Source Comments The information contained in this document represents components of the legal health record. It is not the complete legal health record.[facility]
--- OUTSIDE RECORDS SUMMARY | 2025-02-04 19:55 | XMS_ITS | Clinical Summary ---
Author Organization [employer] Address [address] [facility] [address] [place] [address] Care Team Providers Care Health Director Name Role Phone Unavailable Primary Care Provider [...] this topic Insurance [facility]
== END 2025-02-04 16:05 | disposition home or self-care (01) ==
PROVIDERS: PCP Physician Assistant Medical; Visit Provider Physician Assistant Medical
DX: R68.89 Other general symptoms and signs (principal)